=== PATIENT | male | born 1965 | race Caucasian/White ===

== ENCOUNTER 2023-07-02 10:21 | Outpatient (OUT) | payer OTHER, SELFPAY ==
--- NOTE | 2023-07-02 | CT_ITS ---
The [address] [address] Patient Name: BHAVIN WHEATLEY MRN: [id number] date: 1965 Sex: M Assigned Patient Location: CT Current Patient Location: CT Accession/Order Number: [id number] Exam Date: 07/02/2023 10:58 Report Date: 07/05/2023 07:20 At the request of: KAMALJIT JACOBSEN Procedure: CT lung screening low-dose EXAMINATION: CT lung screening low-dose HISTORY: TOBACCO USE COMPARISON: No relevant comparison available. TECHNIQUE: Axial, Coronal, and Sagittal images were created without the administration of IV contrast material. Dose reduction techniques were achieved by using automated exposure control and/or adjustment of mA and/or kV according to patient size and/or use of iterative reconstruction technique. FINDINGS: LUNGS: Scattered punctate pulmonary nodules the largest is a groundglass nodule in the left upper lobe measuring 4 mm axial image #68. PLEURA: No mass, effusion, or pneumothorax. VASCULATURE: No abnormality. AUDI: No mass or pathologic adenopathy. MEDIASTINUM: No mass or pathologic adenopathy. CARDIAC: No enlargement, pericardial thickening, or significant calcification. AORTA: No aneurysm or dissection. CHEST WALL: No mass or axillary adenopathy BONES: No bone lesion or fracture. LIMITED ABDOMEN: No suspicious findings. Limited images of the upper abdomen. OTHER: Negative. CT/CT lung screening low-dose IMPRESSION: LUNG SCREENING: Lung-RADS Category 2- Benign Appearance or Behavior. Nodules with a very low likelihood of becoming a clinically active cancer due to size or lack of growth. 2. Continue annual screening with LDCT in 12 months. Electronically authenticated by: AMY ORR Date: 07/05/2023 07:20
[2023-07-02 10:53] LABS: Basophils Absolute Auto 0.1 10^3/uL (0.0-0.1); Basophils Percent Auto 0.7 % (0.2-2.0); Eosinophils Absolute Auto 0.3 10^3/uL (0.0-0.7); Eosinophils Percent Auto 2.6 % (0.9-7.0); Hematocrit 41.6 % (42.0-54.0); Hemoglobin 13.7 g/dL (14.0-18.0); Immature Granulocytes Abs Auto 0.05 10^3/uL (0.00-0.03); Immature Granulocytes Pct Auto 0.4 % (0.0-0.5); Lymphocytes Absolute Auto 2.5 10^3/uL (1.2-3.8); Mean Corpuscular HGB Conc 32.9 g/dL (29.9-35.2); Mean Corpuscular Hemoglobin 26.9 pg (25.9-34.0); Mean Corpuscular Volume 81.7 fL (80.0-94.0); Mean Platelet Volume 9.9 fL (9.5-13.5); Monocytes Absolute Auto 1.1 10^3/uL (0.3-0.8); Monocytes Percent Auto 8.8 % (1.7-12.0); Neutrophils Percent Auto 66.5 % (43.0-75.0); Platelet Count 298 10^3/uL (150-450); Red Blood Count 5.09 10^6/uL (4.70-6.10); White Blood Count 12.1 10^3/uL (4.0-11.0)
[2023-07-02 11:17] LABS: Estimated Average Glucose 114 mg/dL; Glycohemoglobin A1C 5.6 % (4.5-6.2)
[2023-07-02 11:36] LABS: Alanine Aminotransferase 27 U/L (16-63); Albumin Globulin Ratio 1.1; Albumin Level 3.7 g/dL (3.4-5.0); Alkaline Phosphatase 79 U/L (46-116); Anion Gap 10.1; Aspartate Amino Transferase 26 U/L (15-37); BUN Creatinine Ratio 15.6; Bilirubin Total 0.4 mg/dL (0.2-1.0); Calcium 8.7 mg/dL (8.5-10.1); Chloride 106 mmol/L (98-107); Chol HDL Ratio 2.9; Cholesterol 156 mg/dL (<=200); Estimated GFR (African America >60 (>=60); Estimated GFR (Non-African Ame >60 (>=60); Free T3 2.83 pg/mL (2.18-3.98); Globulin 3.3 g/dL; Glucose 93 mg/dL (74-106); HDL Cholesterol 54 mg/dL (40-60); LDL Cholesterol Calculated 95.6 mg/dL; Potassium 4.1 mmol/L (3.5-5.1); Sodium 138 mmol/L (136-145); Thyroid Stimulating Hormone 1.332 uIU/mL (0.358-3.740); Triglycerides 32 mg/dL (<=150); VLDL CHOLESTEROL 6.4 mg/dL
[2023-07-02 11:53] LABS: Prostate Specific Antigen Scrn 4.85 ng/mL (<=4.00)
== END 2023-07-02 10:22 | disposition home or self-care (01) ==
PROVIDERS: PCP Family Medicine; Visit Provider Family Medicine
DX: Z00.00 Encounter for general adult medical examination without abnormal findings (principal); Z72.0 Tobacco use; Z12.5 Encounter for screening for malignant neoplasm of prostate
CPT/HCPCS: 36415; 71271; 80053; 80061; 83036; 84436; 84443; 84481; 85025; G0103

== ENCOUNTER 2023-07-05 17:09 | Outpatient (REF) | payer OTHER, SELFPAY ==
[2023-07-07 04:07] LABS: PSA, Free 0.49 ng/mL; Prostate Specific Ag 4.3 ng/mL (0.0-4.0)
== END 2023-07-05 17:10 | disposition home or self-care (01) ==
LOC: LAB 17:09
PROVIDERS: PCP Family Medicine; Visit Provider Family Medicine
DX: R97.20 Elevated prostate specific antigen [PSA] (principal)
CPT/HCPCS: 36415; 83036; 84153; 84154

== ENCOUNTER 2023-07-15 08:04 | Outpatient (OUT) | payer OTHER, SELFPAY ==
[2023-07-15 08:33] LABS: Basophils Percent Auto 0.3 % (0.2-2.0); Eosinophils Absolute Auto 0.1 10^3/uL (0.0-0.7); Eosinophils Percent Auto 1.1 % (0.9-7.0); Immature Granulocytes Pct Auto 0.9 % (0.0-0.5); Lymphocytes Absolute Auto 2.5 10^3/uL (1.2-3.8); Lymphocytes Percent Auto 21.7 % (20.5-60.0); Mean Corpuscular HGB Conc 32.6 g/dL (29.9-35.2); Mean Corpuscular Hemoglobin 27.1 pg (25.9-34.0); Mean Corpuscular Volume 83.2 fL (80.0-94.0); Mean Platelet Volume 10.1 fL (9.5-13.5); Monocytes Absolute Auto 1.1 10^3/uL (0.3-0.8); Monocytes Percent Auto 9.1 % (1.7-12.0); Neutrophils Absolute Auto 7.7 10^3/uL (1.4-6.5); Neutrophils Percent Auto 66.9 % (43.0-75.0); Platelet Count 311 10^3/uL (150-450); Red Blood Count 5.17 10^6/uL (4.70-6.10); Red Cell Distribution Width 14.8 % (11.0-15.0); White Blood Count 11.6 10^3/uL (4.0-11.0)
== END 2023-07-15 08:05 | disposition home or self-care (01) ==
PROVIDERS: PCP Family Medicine; Visit Provider Family Medicine
DX: D72.829 Elevated white blood cell count, unspecified (principal)
CPT/HCPCS: 36415; 85025

== ENCOUNTER 2023-08-02 21:51 | Outpatient (OUT) | payer OTHER, SELFPAY | END 2023-08-02 21:52 | disposition home or self-care (01) | LOC: SLEEP 21:51 | PROVIDERS: PCP Family Medicine; Visit Provider Family Medicine | DX: G47.33 Obstructive sleep apnea (adult) (pediatric) (principal) | CPT/HCPCS: 95810 ==

== ENCOUNTER 2023-09-06 20:53 | Outpatient (OUT) | payer OTHER, SELFPAY | END 2023-09-06 20:54 | disposition home or self-care (01) | LOC: SLEEP 20:53 | PROVIDERS: PCP Family Medicine; Visit Provider Family Medicine | DX: G47.33 Obstructive sleep apnea (adult) (pediatric) (principal) | CPT/HCPCS: 95811 ==

== ENCOUNTER 2023-11-11 10:43 | Outpatient (OUT) | payer BC, SELFPAY ==
--- OUTSIDE RECORDS SUMMARY | 2023-11-11 10:49 | XMS_ITS | CCD ---
Author Name Unknown Address [address] [place] [address] Organization [facility] Care Team Providers Care [employer] Name Role Phone PIERCE CHRISTIAN Admitting Unavailable PIERCE CHRISTIAN Attending Unavailable DR KAMALJIT MEDELLIN Primary Care Unavailable PIERCE CHRISTIAN Consulting Unavailable Kamaljit Medellin Primary Care Physician [phone] Lewis IVY Attending Unavailable Lewis IVY Attending Unavailable Kamaljit Medellin Referring Unavailable Lewis IVY Attending Unavailable Lewis IVY Referring Unavailable Lewis IVY Admitting Unavailable Lewis IVY Attending Unavailable Allergies Allergy Classification Reported Allergen(s) Allergy Type Date of Onset Reaction(s) Facility (2 sources) Penicillin; Translations: [penicillin] Drug Allergy Unknown (qualifier value) [facility] Medications Current Medications Medication Drug Class(es) Dates Sig (Normalized) Sig (Original) aspirin 81 mg delayed release oral tablet (1 source) Platelet Aggregation Inhibitor, Nonsteroidal Anti-inflammatory Drug Start: 07-25-2023 take 1 mg by mouth once daily aspirin 81 mg Oral EC Tab mg tab(s), Oral, Daily, Refills(s) 0 Start Date: 07/25/23 Status: Ordered atorvastatin 40 mg oral tablet (1 source) HMG-CoA Reductase Inhibitor Start: 07-25-2023 atorvastatin 40 mg Tab Refills(s) 0 Start Date: 07/25/23 Status: Ordered ciprofloxacin 500 mg oral tablet (1 source) Quinolone Antimicrobial Start: 07-25-2023 take 1 tablet by mouth twice daily Cipro 500 mg Tab 500 mg = 1 tab(s), Oral, BID, Start 3 days prior to the procedure, # 14 tab(s), Refills(s) 0, Pharmacy: [facility]/pharmacy #[id number], 175, cm, 07/25/23 12:54:00 EDT, Height/Length Dosing, 80, kg, 07/25/23 12:54:00 EDT, Weight Dosing Start Date: 07/25/23 Status: Ordered 24 hr desvenlafaxine succinate 50 mg extended release oral tablet (1 source) Serotonin and Norepinephrine Reuptake Inhibitor Start: 07-25-2023 desvenlafaxine 50 mg Tab- Refills(s) 0 Start Date: 07/25/23 Status: Ordered doxazosin 2 mg oral tablet (1 source) alpha-Adrenergic Divya Start: 07-25-2023 doxazosin 2 mg Tab Refills(s) 0 Start Date: 07/25/23 Status: Ordered sildenafil 100 mg oral tablet (1 source) Phosphodiesterase 5 Inhibitor Start: 07-25-2023 sildenafil 100 mg Tab Refills(s) 0 Start Date: 07/25/23 Status: Ordered traZODone hydrochloride 50 mg oral tablet (1 source) Serotonin Reuptake Inhibitor Start: 07-25-2023 traZODONE 50 mg Tab Refills(s) 0 Start Date: 07/25/23 Status: Ordered Completed/Discontinued Medications Medication Drug Class(es) Dates Sig (Normalized) Sig (Original) triamcinolone acetonide 1 mg/ml topical cream (1 source) Corticosteroid Start: 07-25-2023 triamcinolone Top 0.1% Crm 15 gram Refill(s) 0 Start Date: 07/25/23 Status: Ordered Problems Problem Classification Problem Date Documented Date Episodic/Chronic Acute bronchitis (4 sources) Acute bronchitis, unspecified; Translations: [ACUTE BRONCHITIS UNSPECIFIED] Onset: 10-08-2022 Episodic Essential hypertension (1 source) Hypertensive disorder 07-25-2023 Chronic Other screening for suspected conditions (not mental disorders or infectious disease) (2 sources) Raised prostate specific antigen; Translations: [Elevated prostate specific antigen [PSA]] Onset: 07-25-2023 Episodic Substance-related disorders (1 source) Smoker 07-25-2023 Chronic Comment on above: Added secondary to d ocumentation in Social History. Unclassified (1 source) CONTACT W/AND (SUSP) EXPOS COVID-19; Translations: [CONTACT W/AND (SUSP) EXPOS COVID-19] Onset: 10-11-2022 Results Test Name Value Interpretation Reference Range Facility Physician Referralon 023 Physician Referral [id number] #1.00TIFF [facility] Ambulatory Visit Summaryon 1 Ambulatory Visit Summary BHAVIN WHEATLEY :1965 Visit Date:08/26/2023 Ambulatory Visit Instructions Your Diagnosis Prostate cancer Erectile dysfunction Your Care Team Attending Physician - Lewis IVY MD Primary Care Physician - Kamaljit Medellin MD This Is Your Medications List Contact prescribing physician if questions or concerns aspirin (aspirin 81 mg Oral EC Tab) atorvastatin (atorvastatin 40 mg Tab) desvenlafaxine (desvenlafaxine 50 mg Tab-) doxazosin (doxazosin 8 mg oral tablet) levofloxacin (levofloxacin 750 mg Tab) sildenafil (sildenafil 100 mg Tab) trazodone (traZODONE 50 mg Tab) triamcinolone topical (triamcinolone Top 0.1% Crm 15 gram) Procedures Performed Transrectal needle biopsy of prostate (08/09/2023), Colonoscopy. Discharge Vitals Heart Rate (Peripheral) 65 Respiratory Rate 16 Blood Pressure 138/70 Height 175 cm Height 69 in Weight 80 kg Weight 176 lb BMI 26.12 What to do next You Need to Schedule the Following Appointments Follow Up with KARINA ANTHONY, Lewis Mcpherson, URL When: Where: [address] [place] [address]- Medications What How Much When Instructions Unchanged aspirin (aspirin 81 mg Oral EC Tab) Every day Contact prescribing physician if questions or concerns Unchanged atorvastatin (atorvastatin 40 mg Tab) Contact prescribing physician if questions or concerns Unchanged desvenlafaxine (desvenlafaxine 50 mg Tab-) Contact prescribing physician if questions or concerns Unchanged doxazosin (doxazosin 8 mg oral tablet) Contact prescribing physician if questions or concerns Unchanged levofloxacin (levofloxacin 750 mg Tab) Contact prescribing physician if questions or concerns Unchanged sildenafil (sildenafil 100 mg Tab) Contact prescribing physician if questions or concerns Unchanged trazodone (traZODONE 50 mg Tab) Contact prescribing physician if questions or concerns Unchanged triamcinolone topical (triamcinolone Top 0.1% Crm 15 gram) Contact prescribing physician if questions or concerns Allergies penicillin (Unknown) Problems Ongoing - Any problem that you are currently receiving treatment for. Elevated PSA Erectile dysfunction Hypertension Prostate cancer Smoker Patient Survey You may receive a survey via text or e-mail asking about your office visit. Please share your experience with us by completing your survey. We appreciate your feedback and thank you for choosing us for your care. Education Materials Prostate Cancer The prostate is a small gland that produces fluid that makes up semen (seminal fluid). It is located below the bladder in men, in front of the rectum. Prostate cancer is the abnormal growth of cells in the prostate gland. What are the causes? The exact cause of this condition is not known. What increases the risk? You are more likely to develop this condition if: ? You are 65 years of age or older. ? You have a family history of prostate cancer. ? You have a family history of breast and ovarian cancer. ? You have genes that are passed from parent to child (inherited), such as BRCA1 and BRCA2. ? You have Bentley syndrome. men and men of descent are diagnosed with prostate cancer at higher rates than other men. The reasons for this are not well understood and are likely due to a combination of genetic and environmental factors. What are the signs or symptoms? Symptoms of this condition include: ? Problems with urination. This may include: ? A weak or interrupted flow of urine. ? Trouble starting or stopping urination. ? Trouble emptying the bladder all the way. ? The need to urinate more often, especially at night. ? Blood in urine or semen. ? Persistent pain or discomfort in the lower back, lower abdomen, or hips. ? Trouble getting an erection. ? Weakness or numbness in the legs or feet. How is this diagnosed? This condition can be diagnosed with: ? A digital rectal exam. For this exam, a health care provider inserts a gloved finger into the rectum to feel the prostate gland. ? A blood test called a prostate-specific antigen (PSA) test. ? A procedure in which a sample of tissue is taken from the prostate and checked under a microscope (prostate biopsy). ? An imaging test called transrectal ultrasonography. Once the condition is diagnosed, tests will be done to determine how far the cancer has spread. This is called staging the cancer. Staging may involve imaging tests, such as a bone scan, CT scan, PET scan, or MRI. Stages of prostate cancer The stages of prostate cancer are as follows: ? Stage 1 (I). At this stage, the cancer is found in the prostate only. The cancer is not visible on imaging tests, and it is usually found by accident, such as during prostate surgery. ? Stage 2 (II). At this stage, the cancer is more advanced than it is in stage 1, but the ca (more content not included)... Normal Kurt [facility] Patient Educationon 08-26-20 23 Patient Education Oncology Prostate Cancer The prostate is a small gland that produces fluid that makes up semen (seminal fluid). It is located below the bladder in men, in front of the rectum. Prostate cancer is the abnormal growth of cells in the prostate gland. What are the causes? The exact cause of this condition is not known. What increases the risk? You are more likely to develop this condition if: ? You are 65 years of age or older. ? You have a family history of prostate cancer. ? You have a family history of breast and ovarian cancer. ? You have genes that are passed from parent to child (inherited), such as BRCA1 and BRCA2. ? You have Bentley syndrome. men and men of descent are diagnosed with prostate cancer at higher rates than other men. The reasons for this are not well understood and are likely due to a combination of genetic and environmental factors. What are the signs or symptoms? Symptoms of this condition include: ? Problems with urination. This may include: ? A weak or interrupted flow of urine. ? Trouble starting or stopping urination. ? Trouble emptying the bladder all the way. ? The need to urinate more often, especially at night. ? Blood in urine or semen. ? Persistent pain or discomfort in the lower back, lower abdomen, or hips. ? Trouble getting an erection. ? Weakness or numbness in the legs or feet. How is this diagnosed? This condition can be diagnosed with: ? A digital rectal exam. For this exam, a health care provider inserts a gloved finger into the rectum to feel the prostate gland. ? A blood test called a prostate-specific antigen (PSA) test. ? A procedure in which a sample of tissue is taken from the prostate and checked under a microscope (prostate biopsy). ? An imaging test called transrectal ultrasonography. Once the condition is diagnosed, tests will be done to determine how far the cancer has spread. This is called staging the cancer. Staging may involve imaging tests, such as a bone scan, CT scan, PET scan, or MRI. Stages of prostate cancer The stages of prostate cancer are as follows: ? Stage 1 (I). At this stage, the cancer is found in the prostate only. The cancer is not visible on imaging tests, and it is usually found by accident, such as during prostate surgery. ? Stage 2 (II). At this stage, the cancer is more advanced than it is in stage 1, but the cancer has not spread outside the prostate. ? Stage 3 (III). At this stage, the cancer has spread beyond the outer layer of the prostate to nearby tissues. The cancer may be found in the seminal vesicles, which are near the bladder and the prostate. ? Stage 4 (IV). At this stage, the cancer has spread to other parts of the body, such as the lymph nodes, bones, bladder, rectum, liver, or lungs. Prostate cancer grading Prostate cancer is also graded according to how the cancer cells look under a microscope. This is called the Karrie score and the total score can range from 6?10, indicating how likely it is that the cancer will spread (metastasize) to other parts of the body. The higher the score, the greater the likelihood that the cancer will spread. ? Fillmore 6 or lower: This indicates that the cancer cells look similar to normal prostate cells (well differentiated). ? Fillmore 7: This indicates that the cancer cells look somewhat similar to normal prostate cells (moderately differentiated). ? Fillmore 8, 9, or 10: This indicates that the cancer cells look very different than normal prostate cells (poorly differentiated). How is this treated? Treatment for this condition depends on several factors, including the stage of the cancer, your age, personal preferences, and your overall health. Talk with your health care provider about treatment options that are recommended for you. Common treatments include: ? Observation for early stage prostate cancer (active surveillance). This involves having exams, blood tests, and in some cases, more biopsies. For some men, this is the only treatment needed. ? Surgery. Types of surgeries include: ? Open surgery (radical prostatectomy). In this surgery, a larger incision is made to remove the prostate. ? A laparoscopic radical prostatectomy. This is a surgery to remove the prostate and lymph nodes through several small incisions. It is often referred to as a minimally invasive surgery. ? A robotic radical prostatectomy. This is laparoscopic surgery to remove the prostate and lymph nodes with the help of robotic arms that are controlled by the surgeon. ? Cryoablation. This is surgery to freeze and destroy cancer cells. ? Radiation treatment. Types of radiation treatment include: ? External beam radiation. This type aims beams of radiation from outside the body at the prostate to destroy cancerous cells. ? Brachytherapy. This type uses radioactive needles, seeds, wires, or tubes that are implanted into the prostate gland. Like external be (more content not included)... Normal Kurt [facility] Urology Office/Clinic Noteon 08-26-2023 Urology Office/Clinic Note Chief Complaint elevated PSA, review path from TRUS BX HPI Staff Pt is here to go over pathology from TRUS Bx done 08/09/23. Previous dx of elevated PSA. Pt states that he has not felt good since his procedure. Pain on the right flank area and some right abdominal pain. He is currently on Levofloxacin 750 for the congestion in his head and chest. Dysuria: no Incomplete bladder emptying: no Hematuria: no Frequency: no Urgency: yes Nocturia: since procedure several times Stream: little slower Leaking: no Post void dripping: yes Wearing pads/ Depends: no Urge incontinence: no Stress incontinence: no Incontinence without Sensory Awareness: no Abdominal pain: right sided Flank pain: right sided since TRUS X Sexual complaints: no History of Present Illness Tests reviewed: Reviewed path report. I have reviewed the previous health record information and history for this patient from Dr. Ivy. I have reviewed and verified the staff HPI to be accurate for this encounter. There have been no associated fever, chills, flank pain, or blood in the urine. Denies any urinary infections since last encounter. Review of Systems PHQ Score Initial Depression Screen Score: 0 ROS - Provider Constitutional: denies weight loss, denies hot flashes. Eyes: denies eye problems. Gastrointestinal: denies nausea, denies vomiting. Cardiovascular: denies chest pain or angina. Integumentary: no dryness Musculoskeletal: denies musculoskeletal symptoms. ENMT: denies otolaryngeal symptoms. Respiratory: no shortness of breath. Heme/Lymph: denies easy bleeding tendency, denies easy bruising tendency. Psychiatric: no confusion, no anxiety. Genitourinary: See HPI. Physical Exam Vitals & Measurements HR: 65(Peripheral) RR: 16 BP: 138/70 HT: 69 in HT: 175 cm WT: 80 kg WT: 176 lb BMI: 26.12 General Appearance: alert, no distress, well nourished, well developed male. Genitourinary: normal scrotum, normal testes, normal urethra, normal epididymis, normal vas deferens/spermatic cord. Flank Pain: none. Bladder: nonpalpable. Assessment/Plan Taking Doxazosin 2 mg qd for HTN and possible urination benefit through PCP. No UTIs. 1. Prostate cancer (C61: Malignant neoplasm of prostate) PSA: 09/08/19 - 1.94 07/05/23 - 4.30 & 11% No family hx of prostate ca. Father passed at 84 yo RAY 07/25/23: 40 gm, no nodules. S/p TRUS/bx 08/09/23. Path reveals Fillmore 6 (3+3), 3% of core involved by tumor, 1 of 1 core involved. ADONIS - right lateral mid. HGPIN - right apex and right lateral base. Results reviewed with pt. Prostate cancer book provided. Pt states he has been having right flank pain and some right abdominal pain. Denies gross hematuria or blood in stool. Denies fever, chills, N/V. Has noticed blood in ejaculate. Explained to pt hematospermia is normal following bx and could last for months. Explained to pt and his ex- that current dx is not risky and ACTIVE SURVEILLANCE is indicated. No tx is necessary at this time. Offered pt a second opinion, but pt does not feel it's necessary. -PSA and RAY in 6 months -Repeat bx in 1 year to compare to initial bx 2. Erectile dysfunction (N52.9: Male erectile dysfunction, unspecified) Pt is unable to achieve an erection. He gets approx. 10% on his own. Does not wake up with an erection. Pt states he has tried Sildenafil through primary care but did not notice an improvement with erections. Did notice a faster heartbeat. Explained to pt that oral medications will not help since he is not able to achieve much of an erection. Discussed options for ED, including erection pumps and intracorporal injection therapy. Pt states he has his second sleep study coming up and will be started on a CPAP. Informed pt that his erections may improve after sleep apnea is treated. -Pt to think about options Follow-up With When Contact Information KARINA ANTHOYN, Lewis Mcpherson, URL [address] [place] [address]- Additional Instructions: 6 months w/ PSA Patient Education Prostate Cancer I, Olga Lidia Rizzo, personally scribed for Dr. Ivy on 08/26/2023 10:31:19. . Documentation recorded by the scribe, Olga Lidia Rizzo, accurately reflects the services(s) I performed and decisions made by me. Authenticated by Dr. Ivy on 08/26/2023 10:35:30. Problem List/Past Medical History Ongoing Elevated PSA Erectile dysfunction Hypertension Prostate cancer Smoker Historical No qualifying data Procedure/Surgical History Transrectal needle biopsy of prostate (08/09/2023), Colonoscopy. Medications aspirin 81 mg Oral EC Tab, Oral, Daily atorvastatin 40 mg Tab desvenlafaxine 50 mg Tab- doxazosin 8 mg oral tablet levofloxacin 750 mg Tab sildenafil 100 mg Tab traZODONE 50 mg Tab triamcinolone Top 0.1% Crm 15 gram Allergies penicillin (Unknown) Social History Alcohol - Denies Alcohol Use, 0 (more content not included)... Normal [facility] Comment on above: Result Comment: Elec tronically Signed By: Lewis IVY MD\.br\Date and Time Signed: 08/26/23 10:35 EDT\.br\Electronically Co-Signed By: Olga Lidia Rizzo\.br\Date and Time Co-Signed: 08/26/23 10:31 EDT Prostate Histology ([facility]) on 08-18-2023 Prostate Histology Diagnosis Info Invalid Interpretation Code [facility] Comment on above: Order Comment: ONE B ITE FOR EACH AREA Result Comment: A:Pr ostate,Left Lateral Base:Needle Biopsy Interpretation - - Benign prostatic tissue. MicroScopic Description - B:Prostate,Left Lateral Mid:Needle Biopsy Interpretation - - Acinar adenocarcinoma of prostate; Fillmore score 6(3+3); Tumor measures 0.06 cm in length; 3% of the core involved by tumor; 1 of 1 core involved (see comment). MicroScopic Description - C:Prostate,Left Lateral [place]:Needle Biopsy Interpretation - - Benign prostatic tissue. MicroScopic Description - D:Prostate,Left Base:Needle Biopsy Interpretation - - Benign prostatic tissue. MicroScopic Description - E:Prostate,Left Mid:Needle Biopsy Interpretation - - Benign prostatic tissue. MicroScopic Description - F:Prostate,Left [place]:Needle Biopsy Interpretation - - Benign prostatic tissue. MicroScopic Description - G:Prostate,Right Base:Needle Biopsy Interpretation - - Benign prostatic tissue. MicroScopic Description - H:Prostate,Right Mid:Needle Biopsy Interpretation - - Benign prostatic tissue. MicroScopic Description - I:Prostate,Right [place]:Needle Biopsy Interpretation - - High-grade prostatic intraepithelial neoplasia (HGPIN) (see comment). MicroScopic Description - J:Prostate,Right Lateral Base:Needle Biopsy Interpretation - - High-grade prostatic intraepithelial neoplasia (HGPIN). MicroScopic Description - K:Prostate,Right Lateral Mid:Needle Biopsy Interpretation - - Atypical small acinar glands (see comment). MicroScopic Description - L:Prostate,Right Lateral [place]:Needle Biopsy Interpretation - - Benign prostatic tissue. MicroScopic Description - Gross Description Site ID:A color winston-white fixative Formalin cores 1 units cm Site ID:B color winston-white fixative Formalin cores 1 units cm Site ID:C color winston-white fixative Formalin cores 1 units cm Site ID:D color winston-white fixative Formalin cores 1 units cm Site ID:E color winston-white fixative Formalin cores 1 units cm Site ID:F color winston-white fixative Formalin cores 1 units cm Site ID:G color winston-white fixative Formalin cores 1 units cm Site ID:H color winston-white fixative Formalin cores 1 units cm Site ID:I color winston-white fixative Formalin cores 1 units cm Site ID:J color winston-white fixative Formalin cores 1 units cm Site ID:K color winston-white fixative Formalin cores 1 units cm fragmneted Site ID:L color winston-white fixative Formalin cores 1 units cm CPT 14210 x 12 55022 x 3 Highest grade group: Fillmore score 3+3=6, grade group 1. Highest percentage of core involvement: 3% Cribriform pattern 4: Absent B, I and K: Immunostain HMW cytokeratins /p63/ P504S (PIN4 immunostain) reviewed, supporting the rendered diagnosis. This Grade Group system was recently endorsed by both the International Society of Urological Pathology (ISUP, 2015) and the World Health Organization (WHO). The use of one or more reagents in the above tests is regulated as an analytic specific reagent (ASR). The performance characteristics were determined by the [employer], [place]. They have not been cleared by the US Food and Drug Administration. The FDA has determined that such clearance or approval is not necessary. Appropriate positive and negative controls are performed and are acceptable. Electronically signed by : on: 08/18/2023 10:27:16 Performed By: #### 1 [id number] ####[facility] [address] [place] [address] IntraOperative Documentson 1 IntraOperative Documents [id number] #1.00TIFF Normal [facility] Consent for Procedure/Surger yon 08-09-2023 Consent for Procedure/Surgery [id number] #1.00TIFF Normal [facility] Consent for Treatmenton 07-31 Consent for Treatment [id number] #1.00TIFF Normal [facility] IntraOperative Documentson IntraOperative Documents [id number] #1.00TIFF [facility] Main OR Intraoperative Recor don 08-09-2023 Main OR Intraoperative Record IntraOp Document Type FTURO Summary Primary Physician: Lewis IVY MD Finalized Date/Time: 08/09/23 14:16:45 Pt. Name: BHAVIN WHEATLEY D.O.B./Sex: 1965 Male Med Rec #: [id number] Physician: Lewis IVY MD Financial #: [id number] Pt. Type: O Room/Bed: / Admit/Disch: 08/09/23 12:53:04 - Institution: Case Times FTURO Entry 1 Patient Times In Room 08/09/23 13:53:00 Out Room 08/09/23 14:12:00 Procedure Times Start 08/09/23 13:58:00 Stop 08/09/23 14:06:00 Anesthesia Times Last Modified By: Nettie Maxwell RN 08/09/23 14:12:23 Case Attendance FTURO Entry 1 Entry 2 Entry 3 Case Attendee Lewis IVY MD FABRIC SEPARATOR OPERATOR, Nettie Maxwell RN, Nettie Hilliard Role Performed Surgeon - Primary Scrub - Primary [employer] - Primary Time In 08/09/23 13:53:00 08/09/23 13:53:00 08/09/23 13:53:00 Time Out 08/09/23 14:12:00 08/09/23 14:12:00 08/09/23 14:12:00 Procedure PROSTATE TRANSRECTAL PROSTATE TRANSRECTAL PROSTATE TRANSRECTAL ULTRASOUND WITH BIO(.) ULTRASOUND WITH BIO(.) ULTRASOUND WITH BIO(.) Comments Last Modified By: Nettie Maxwell RN, RN, Nettie Bragg RN 08/09/23 14:12:24 08/09/23 14:12:24 08/09/23 14:12:24 Surgical Procedures FTURO Entry 1 Procedure Description Procedure PROSTATE TRANSRECTAL Modifiers . ULTRASOUND WITH BIOPSY Surgeon Description PROSTATE TRANSRECTAL ULTRASOUND WITH BIOPSY Primary Procedure Yes Primary Surgeon KARINA ANTHONY, Lewis Mcpherson Start 08/09/23 13:58:00 Stop 08/09/23 14:06:00 Anesthesia Type Local Surgical Service Urology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 should be exercised in using it in the provision of clinical care. This summary normalizes information from multiple sources, and as a consequence, information in this document may materially change the coding, format and clinical context of patient data. In addition, data may be omitted in some cases. CLINICAL DECISIONS SHOULD BE BASED ON THE PRIMARY CLINICAL RECORDS. [facility] provides no warranty or guarantee of the accuracy or completeness of information in this document.
[2023-11-11 12:42] LABS: Prostate Specific Antigen Scrn 7.01 ng/mL (<=4.00)
[2023-11-15 08:09] LABS: PSA, Free 0.73 ng/mL; Prostate Specific Ag 5.9 ng/mL (0.0-4.0)
== END 2023-11-11 10:44 | disposition home or self-care (01) ==
LOC: LAB 10:46
PROVIDERS: PCP Family Medicine; Visit Provider Family Medicine
DX: Z12.5 Encounter for screening for malignant neoplasm of prostate (principal)
CPT/HCPCS: 36415; 84153; 84154; G0103

== ENCOUNTER 2024-02-07 08:24 | Outpatient (OUT) | payer BC, SELFPAY ==
--- OUTSIDE RECORDS SUMMARY | 2024-02-07 08:47 | XMS_ITS | CCD ---
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 Injury It is common [...] at home: Medicines ? Take and apply qykl-lxj-egfzvle and prescription medicines only as told by [...] cannot use soap and water, use hand bdc manager. ? Change your bandage as told by [...] 04/04/2009 Document Revised: 12/01/2016 Document Reviewed: 04/30/2016 [employer] Interactive Patient Education ? 2019 [employer]. Viruses or Bacteria What?s got you sick? [...] for Disease Control and Prevention July 2014 [facility] Vital Signs Date Time Vital Sign Value Performing Clinician Gianna bustillos 11-21-2023 11:16-0500 Blood Pressure Location [facility] IV[facility] 11-21-2023 11:16-0500 Diastolic blood pressure 76 mm[Hg] Lewis IVY [facility] 11-21-2023 11:16-0500 Heart rate 72 /min Lewis IV[facility] 11-21-2023 11:16-0500 Respiratory rate 16 /min Lewis IVY [facility] 11-21-2023 11:16-0500 Systolic blood pressure 129 mm[Hg] Lewis IVY [facility] 07-25-2023 12:46-0400 Blood Pressure Location Lewis IVY [facility] 07-25-2023 12:46-0400 Diastolic blood pressure 77 mm[Hg] Lewis IVY [facility] 07-25-2023 12:46-0400 Heart rate 69 /min Lewis IVY [facility] 07-25-2023 12:46-0400 Respiratory rate 16 /min Lewis IVY [facility] 07-25-2023 12:46-0400 Systolic blood pressure 142 mm[Hg] Lewis IVY [facility] Encounters Encounter Date Encounter Type Care Provider Facility Start: 02-24-2024 ambulatory Lewis IVY Facili ty:[facility] Start: 11-21-2023 End: 11-21-2023 Patient encounter procedure Lewis IVY [facility] Start: 08-26-2023 End: 08-27-2023 ambulatory Lewis IVY Facility:[facility] Start: 08-09-2023 End: 08-10-2023 ambulatory Lewis IVY Facility:[facility] Start: 07-25-2023 End: 07-26-2023 ambulatory Kamaljit Medellin Facility:[facility] Start: 07-25-2023 End: 07-25-2023 Patient encounter procedure Lewis IVY [facility] Start: 07-07-2023 ambulatory Lewis IVY Facility :[facility] Start: 10-08-2022 End: 10-08-2022 ambulatory PIERCE CHRISTIAN Facility: Procedures Date Procedure Procedure Detail Performing Clinician Start: 08-09-2023 Transrectal needle b iopsy of prostate Lewis IVY [facility] Payers Date Payer Category Payer Unknown [id number] [id number] 1965 Unknown [id number] [id number] 1965 Unknown [id number] [id number] [id number] 1964 Unknown [id number] [id number] [id number] 1964 Unknown [id number] 2.16.8 [id number] 1959 Unknown [id number] Social History Date Type Detail Facility Start: 07-25-2023 Tobacco smoking status Smoker (findi ng) [facility] Sex Assigned At Male [facility] Functional Status Date Assessment Result Facility 11-21-2023 Functional Status N/A [facility] 07-25-2023 Functional Status N/A [facility] Hospital Discharge instructions 11-21-2023 Note Date & Type Note Facility 11-21-2023 Hospital Discharg e instructions Patient Education 11/21/2023 12:12:20 Prostate Cancer Prostate Cancer The prostate is a small [...] more likely to develop this condition if: You are 65 years of age or older. You have a family history of prostate cancer. You have a family history of breast and ovarian cancer. You have genes that are passed from parent to child (inherited), such as BRCA1 and BRCA2. You have Bentley syndrome. men and men of descent are diagnosed with prostate cancer at higher rates than other men. The reasons for this are not well understood and are likely due to a combination of genetic and environmental factors. What are the signs or symptoms? Symptoms of this condition include: Problems with urination. This may include: ?A weak or interrupted flow of urine. ?Trouble starting or stopping urination. ?Trouble emptying the bladder all the way. ?The need to urinate more often, especially at night. Blood in urine or semen. Persistent pain or discomfort in the lower back, lower abdomen, or hips. Trouble getting an erection. Weakness or numbness in the legs or feet. How is this diagnosed? This condition can be diagnosed with: A digital rectal exam. For this exam, a health care provider inserts a gloved finger into the rectum to feel the prostate gland. A blood test called a prostate-specific antigen (PSA) test. A procedure in which a sample of tissue is taken from the prostate and checked under a microscope (prostate biopsy). An imaging test called transrectal ultrasonography. Once the condition is diagnosed, tests will be done to determine how far the cancer has spread. This is called staging the cancer. Staging may involve imaging tests, such as a bone scan, CT scan, PET scan, or MRI. Stages of prostate cancer The stages of prostate cancer are as follows: Stage 1 (I). At this stage, the cancer is found in the prostate only. The cancer is not visible on imaging tests, and it is usually found by accident, such as during prostate surgery. Stage 2 (II). At this stage, the cancer is more advanced than it is in stage 1, but the cancer has not spread outside the prostate. Stage 3 (III). At this stage, the cancer has spread beyond the outer layer of the prostate to nearby tissues. The cancer may be found in the seminal vesicles, which are near the bladder and the prostate. Stage 4 (IV). At this stage, the cancer has spread to other parts of the body, such as the lymph nodes, bones, bladder, rectum, liver, or lungs. Prostate cancer grading Prostate cancer is also graded according to how the cancer cells look under a microscope. This is called the Durham score and the total score can range from 6 10, indicating how likely it is that the cancer will spread (metastasize) to other parts of the body. The higher the score, the greater the likelihood that the cancer will spread. Karrie 6 or lower: This indicates that the cancer cells look similar to normal prostate cells (well differentiated). Durham 7: This indicates that the cancer cells look somewhat similar to normal prostate cells (moderately differentiated). Karrie 8, 9, or 10: This indicates that the cancer cells look very different than normal prostate cells (poorly differentiated). How is this treated? Treatment for this condition depends on several factors, including the stage of the cancer, your age, personal preferences, and your overall health. Talk with your health care provider about treatment options that are recommended for you. Common treatments include: Observation for early stage prostate cancer (active surveillance). This involves having exams, blood tests, and in some cases, more biopsies. For some men, this is the only treatment needed. Surgery. Types of surgeries include: ?Open surgery (radical prostatectomy). In this surgery, a larger incision is made to remove the prostate. ?A laparoscopic radical prostatectomy. This is a surgery to remove the prostate and lymph nodes through several small incisions. It is often referred to as a minimally invasive surgery. ?A robotic radical prostatectomy. This is laparoscopic surgery to remove the prostate and lymph nodes with the help of robotic arms that are controlled by the surgeon. ?Cryoablation. This is surgery to freeze and destroy cancer cells. Radiation treatment. Types of radiation treatment include: ?External beam radiation. This type aims beams of radiation from outside the body at the prostate to destroy cancerous cells. ?Brachytherapy. This type uses radioactive needles, seeds, wires, or tubes that are implanted into the prostate gland. Like external beam radiation, brachytherapy destroys cancerous cells. An advantage is that this type of radiation limits the damage to surrounding tissue and has fewer side effects. Chemotherapy. This treatment kills cancer cells or stops them from multiplying. It kills both cancer cells and normal cells. Targeted therapy. This treatment uses medicines to kill cancer cells without damaging normal cells. Hormone treatment. This treatment involves taking medicines that act on testosterone, one of the male hormones, by: ?Stopping your body from producing testosterone. ?Blocking testosterone from reaching cancer cells. Follow these instructions at home: Lifestyle Do not use any products that contain nicotine or tobacco. These products include cigarettes, chewing tobacco, and vaping devices, such as e-cigarettes. If you need help quitting, ask your health care provider. Eat a healthy diet. To do this: ?Eat foods that are high in fiber. These include beans, whole grains, and fresh fruits and vegetables. ?Limit foods that are high in fat and sugar. These include fried or sweet foods. Treatment for prostate cancer may affect sexual function. If you have a partner, continue to have intimate moments. This may include touching, holding, hugging, and caressing your partner. Get plenty of sleep. Consider joining a support group for men who have prostate cancer. Meeting with a support group may help you learn to manage the stress of having cancer. General instructions Take xkpn-zjk-xcvtmqr and prescription medicines only as told by your health care provider. If you have to go to the hospital, notify your cancer specialist (oncologist). Keep all follow-up visits. This is important. Where to find more information [place] [employer]: www.cancer.org [place] [employer] On[employer]: www.cancer.net National Cancer [place]: www.cancer.gov Contact a health care provider if: You have new or increasing trouble urinating. You have new or increasing blood in your urine. You have new or increasing pain in your hips, back, or chest. Get help right away if: You have weakness or numbness in your legs. You cannot control urination or your bowel movements (incontinence). You have chills or a fever. Summary The prostate is a small gland that is involved in the production of semen. It is located below a man's bladder, in front of the rectum. Prostate cancer is the abnormal growth of cells in the prostate gland. Treatment for this condition depends on the stage of the cancer, your age, personal preferences, and your overall health. Talk with your health care provider about treatment options that are recommended for you. Consider joining a support group for men who have prostate cancer. Meeting with a support group may help you learn to manage the stress of having cancer. This information is not intended to replace advice given to you by your health care provider. Make sure you discuss any questions you have with your health care provider. Document Revised: 01/13/2022 Document Reviewed: 01/13/2022 [employer] Patient Education 2022 [employer]. Follow Up Care 08/26/2023 10:34:03 With:KARINA ANTHONY, Lewis Mcpherson, URL Address: [facility] [address] , [place] [address]- [phone] When:Within 3 Month(s) Comments:f/u in 3 months with PSA [facility] [place] History and physical note 08-09-2023 Note Date & Type Note Facility 08-09-2023 Note [id number] [facility] Clinical Note 07-25-2023 Note Date & Type [...] order Local anesthesia. Prophylactic abx sent to [facility] [place]. Follow-up With When Contact Information KARINA ANTHONY, Lewis Mcpherson, URL [facility] [address], [place] [address]- Additional Instructions: schedule TRUS of Prostate with Biopsy Patient Education Transrectal Ultrasound-Guided Prostate Biopsy, Care After Transrectal Ultrasound-Guided Prostate Biopsy Whitney Carnes, personally scribed for Dr. Ivy on 07/25/2023 [...] Use:. Cigarettes (more content not included)... [facility] Comment on above: Result Comment: Elec tronically [...] discomfort near your rectum, especially while sitting. [place]-colored urine due to small amounts of blood in your urine. A burning feeling while urinating. Blood in your stool (feces) or bleeding from your rectum. Blood in your semen. Follow these instructions at home: Medicines Take vkmm-smn-aesoijy and prescription medicines only as told by [...] provider. Document Revised: 04/12/2022 Document Reviewed: 04/12/2022 [employer] Patient Education 2022 [employer] 07/25/2023 13:32:38 Transrectal Ultrasound-Guided Prostate Biopsy Transrectal [...] including vitamins, herbs, eye drops, creams, and wusc-rfy-szdcyqp medicines. Any problems you or family members [...] provider tells you to take them. Taking mjnh-fme-stboykt medicines, vitamins, herbs, and supplements. General instructions [...] provider. Document Revised: 04/12/2022 Document Reviewed: 04/12/2022 [employer] Patient Education 2022 [employer]. Follow Up Care 07/07/2023 14:50:33 With:KARINA ANTHONY, Lewis R, URL Address: [facility] [address] [place] [address]- When: Unknown [facility] Evaluation + Plan note Radiology Note Date & Type Note Facility Evaluation + Plan note Future Appointments Appointment Date:07/26/2023 08:15:00 AM Scheduled Provider: Location:[facility] Appointment Type:Urology CALL PAT FT Appointment Date:08/09/2023 01:30:00 PM Scheduled Provider: Location:[facility] Appointment Type:Urology FT Appointment Date:08/09/2023 01:30:00 PM Scheduled Provider: Location:.UROLOGY Appointment Type: Prostate Urology (FT) Future Scheduled TestsUS Prostate, [facility] 08/09/23 [facility] Evaluation + Plan note Note Date & Type Note Facility Evaluation + Plan note Future Appointments Appointment Date:02/13/2024 01:45:00 PM Scheduled Provider:Lewis IVY MD Location:[facility] Appointment Type:URO Office Visit Diagnostic Tests PendingPSA Total 11/21/23 [facility] Hospital course Narrative Note Date & Type Note Facility Hospital course Narrative No data available for this section [facility] [employer] [place] note Note Date & Type Note Facility [place] note No data available for this section [facility] Summary Purpose Family History No Family History Records FoundNo Family History Records FoundNo Family History Records Found No data available for this section Advance Directives No Advanced Directives Records FoundNo Advanced Directives Records FoundNo Advanced Directives Records Found Additional Source Comments (unrecognized sect ion and content) No Status Records FoundNo Status Records FoundNo Status Records Found INFORMATION SOURCE (unrecogn ized section and content) DATE CREATED AUTHOR 08/07/2019 [facility] DATE CREATED AUTHOR AUTHOR'S ORGANIZ ATION 10/12/2022 [facility] DATE CREATED AUTHOR AUTHOR'S ORGANIZ ATION 09/22/2023 Kurt Bae [facility] Patient Care team informatio n (unrecognized section and content) Personnel Name: Kamaljit Medellin MD Address: Address: [address] [place] [address] Personnel Name: Kamaljit Medellin MD Address: Address: [address] [place] [address] FOR RECORDS PERTAINING TO PATIENTS WHO ARE [...] BE BASED ON THE PRIMARY CLINICAL RECORDS. [facility] [employer] [facility]. provides no warranty or guarantee of the accuracy or completeness of information in this document.
[2024-02-07 10:17] LABS: Prostate Specific Antigen Dx 5.83 ng/mL (<=4.00)
[2024-02-09 04:07] LABS: PSA, Free 0.63 ng/mL; Prostate Specific Ag 4.9 ng/mL (0.0-4.0)
== END 2024-02-07 08:25 | disposition home or self-care (01) ==
LOC: LAB 08:26
PROVIDERS: PCP Family Medicine; Visit Provider Urology
DX: C61 Malignant neoplasm of prostate (principal); R97.20 Elevated prostate specific antigen [PSA]
CPT/HCPCS: 36415; 84153; 84154

== ENCOUNTER 2024-03-27 08:20 | Outpatient (OUT) | payer BC, SELFPAY ==
--- OUTSIDE RECORDS SUMMARY | 2024-03-27 08:40 | XMS_ITS | CCD ---
Author Organization [facility] Care Team Providers Care Berry Grower Name Role Phone PIERCE CHRISTIAN Admitting Unavailable PIERCE CHRISTIAN Attending Unavailable DR KAMALJIT MEDELLIN Primary Care Unavailable PIERCE CHRISTIAN Consulting Unavailable Kamaljit Medellin Primary Care Physician Lewis IVY Attending Unavailable Lewis IVY Attending Unavailable Lewis IVY Attending Unavailable Lewis IVY Attending Unavailable Kamaljit Medellin Referring Unavailable Lewis IVY Attending Unavailable Lewis IVY Admitting Unavailable Lewis IVY Referring Unavailable Lewis IVY Attending Unavailable Allergies Allergy Classification Reported Allergen(s) Allergy Type Date of Onset Reaction(s) Facility (4 sources) Penicillin; Translations: [penicillin] Drug Allergy Unknown (qualifier value) [facility] Medications Current Medications Medication Drug Class(es) Dates Sig (Normalized) Sig (Original) aspirin 81 mg delayed release oral tablet (3 sources) Platelet Aggregation Inhibitor, Nonsteroidal Anti-inflammatory Drug Start: 07-25-2023 take 1 mg by mouth once daily aspirin 81 mg Oral EC Tab mg tab(s), Oral, Daily, Refills(s) 0 Start Date: 07/25/23 Status: Ordered atorvastatin 40 mg oral tablet (3 sources) HMG-CoA Reductase Inhibitor Start: 07-25-2023 atorvastatin 40 mg Tab Refills(s) 0 Start Date: 07/25/23 Status: Ordered ciprofloxacin 500 mg oral tablet (1 source) Quinolone Antimicrobial Start: 07-25-2023 take 1 tablet by mouth twice daily Cipro 500 mg Tab 500 mg = 1 tab(s), Oral, BID, Start 3 days prior to the procedure, # 14 tab(s), Refills(s) 0, Pharmacy: [facility]/pharmacy #[id number], 175, cm, 07/25/23 12:54:00 EDT, Height/Length Dosing, 80, kg, 07/25/23 12:54:00 EDT, Weight Dosing Start Date: 07/25/23 Status: Ordered CoQ10 (1 source) Start: 02-13-2024 CoQ10 Oral, Daily, Refills(s) 0 Start Date: 02/13/24 Status: Ordered Cranberry preparation (1 source) Non-Standardized Food Allergenic Extract, Non-Standardized Plant Allergenic Extract Start: 02-13-2024 Cranberry Refill(s) 0 Start Date: 02/13/24 Status: Ordered 24 hr desvenlafaxine succinate 50 mg extended release oral tablet (3 sources) Serotonin and Norepinephrine Reuptake Inhibitor Start: 07-25-2023 desvenlafaxine 50 mg Tab- Refills(s) 0 Start Date: 07/25/23 Status: Ordered doxazosin 8 mg oral tablet (3 sources) alpha-Adrenergic Diyva Start: 08-26-2023 doxazosin 8 mg oral tablet [...] day(s), # 14 tab(s), Refills(s) 0, Pharmacy: [facility] #[id number], 175, cm, 11/21/23 11:35:00 EST, Height/Length Dosing, 80.2, kg, 11/21/23 11:35:00 EST, Weight Dosing Start Date: 11/21/23 Stop Date: 12/05/23 Status: Ordered sildenafil 100 mg oral tablet (3 sources) Phosphodiesterase 5 Inhibitor Start: 07-25-2023 sildenafil 100 mg Tab Refills(s) 0 Start Date: 07/25/23 Status: Ordered traMADol hydrochloride 50 mg oral tablet (1 source) Opioid Agonist Start: 02-13-2024 traMADOL 50 mg Tab Refills(s) 0 Start Date: 02/13/24 Status: Ordered traZODone hydrochloride 50 mg oral tablet (3 sources) Serotonin Reuptake Inhibitor Start: 07-25-2023 traZODONE 50 mg Tab Refills(s) 0 Start Date: 07/25/23 Status: Ordered Completed/Discontinued Medications Medication Drug Class(es) Dates Sig (Normalized) Sig (Original) triamcinolone acetonide 1 mg/ml topical cream (3 sources) Corticosteroid Start: 07-25-2023 triamcinolone Top 0.1% Crm 15 gram Refill(s) 0 Start Date: 07/25/23 Status: Ordered Problems Problem Classification Problem Date Documented Date Episodic/Chronic Acute bronchitis (4 sources) Acute bronchitis, unspecified; Translations: [ACUTE BRONCHITIS UNSPECIFIED] Onset: 10-08-2022 Episodic Cancer of prostate (4 sources) Malignant neoplasm of prostate; Translations: [Malignant tumor of prostate] Onset: 11-18-2023 Chronic Essential hypertension (3 sources) Hypertensive disorder 07-25-2023 Chronic Hyperplasia of prostate (2 sources) Benign prostatic hypertrophy with outflow obstruction; Translations: [Benign prostatic hyperplasia with lower urinary tract symptoms] Onset: 02-13-2024 Chronic Inflammatory conditions of male genital organs (3 sources) Prostatitis; Translations: [Inflammatory disease of prostate, unspecified] Onset: 11-21-2023 Episodic Other male genital disorders (4 sources) Male erectile dysfunction, unspecified; Translations: [Erectile dysfunction] Onset: 11-18-2023 Chronic Other screening for suspected conditions (not mental disorders or infectious disease) (4 sources) Raised prostate specific antigen; Translations: [Elevated prostate specific antigen [PSA]] Onset: 07-25-2023 Episodic Substance-related disorders (3 sources) Smoker 07-25-2023 Chronic Comment on above: Added secondary to d ocumentation in Social History. Unclassified (1 source) CONTACT W/AND (SUSP) EXPOS COVID-19; Translations: [CONTACT W/AND (SUSP) EXPOS COVID-19] Onset: 10-11-2022 Results Test Name Value Interpretation Reference Range Facility Ambulatory Visit Summaryon 0 02-13-2024 Ambulatory Visit Summary BHAVIN WHEATLEY :1965 Visit Date:02/13/2024 Ambulatory Visit Instructions Your Diagnosis Prostate cancer Erectile dysfunction Prostatitis BPH with urinary obstruction Your Care Team Attending Physician - eLwis IVY MD Primary Care Physician - Kamaljit Medellin MD This Is Your Medications List doxazosin (doxazosin 8 mg oral tablet) sildenafil (sildenafil 100 mg Tab) Contact prescribing physician if questions or concerns aspirin (aspirin 81 mg Oral EC Tab) atorvastatin (atorvastatin 40 mg Tab) cranberry (Cranberry) desvenlafaxine (desvenlafaxine 50 mg Tab-) tramadol (traMADOL 50 mg Tab) trazodone (traZODONE 50 mg Tab) triamcinolone topical (triamcinolone Top 0.1% Crm 15 gram) ubiquinone (CoQ10) Procedures Performed Transrectal needle biopsy of prostate (08/09/2023), Colonoscopy. Discharge Vitals Heart Rate (Peripheral) 82 Respiratory Rate 16 Blood Pressure 124/73 Height 175 cm Height 69 in Weight 80 kg Weight 176 lb BMI 26.12 What to do next Scheduled Follow-Up Appointments Tuesday 12:15 PM EDT With: Lewis IVY MD Where: [facility] Lab Reportson 02-13-2024 Lab Reports [id number] #1.00TIFF Normal [facility] Patient Educationon 02-13-20 Patient Education Oncology Prostate Cancer The prostate [...] under a microscope. This is called the [place] score and the total score can range from 6?10, indicating how likely it is that the cancer will spread (metastasize) to other parts of the body. The higher the score, the greater the likelihood that the cancer will spread. ? [place] 6 or lower: This indicates that the cancer cells look similar to normal prostate cells (well differentiated). ? [place] 7: This indicates that the cancer cells look somewhat similar to normal prostate cells (moderately differentiated). ? Karrie 8, 9, or 10: This indicates [...] external be (more content not included)... [facility] Urology Office/Clinic Noteon 02-13-2024 Urology Office/Clinic Note Chief Complaint 3m PSA HPI Staff 3 month f/u with PSA Dx: prostate cancer (ACTIVE SURVEILLANCE), ED and prostatitis PSA done 02/07/24 is 5.83 *Doxazosin 8mg from PCP for HTN. Also Sildenafil PRN-pt states he does not use Denies pain/burning and visible blood in urine. Mild intermittent urgency, denies loss of bladder control. Denies complaints with stream. Mild intermittent Post Void dribbling. Pt states he has been reading up on prostate cancer. Would like to get prostate removed. History of Present Illness Tests reviewed: reviewed UA, PSA I have reviewed the previous health record information and history for this patient from Dr. Ivy. I have reviewed and verified the staff HPI to be accurate for this encounter. Review of Systems PHQ Score Initial Depression Screen Score: 0 SCORE ROS - Provider Constitutional: denies weight loss, [...] HPI. Physical Exam Vitals & Measurements HR: 82(Peripheral) RR: 16 BP: 124/73 HT: 69 in HT: 175 cm WT: 80 kg WT: 176 lb BMI: 26.12 General Appearance: alert, no distress, well nourished, well developed male. Genitourinary: normal scrotum, normal testes, normal urethra, normal epididymis, normal vas deferens/spermatic cord. Flank Pain: none. Bladder: nonpalpable. Prostate: normal prostate, estimated weight 35 gms, no hard nodule observed. Assessment/Plan 1. Prostate cancer (C61: Malignant neoplasm of prostate) ACTIVE SURVEILLANCE PSA: 09/08/19 - 1.94 07/05/23 - 4.30 & 11% 11/11/23 - 7.01 (total); 5.9 & 12.4% (free and total) 02/07/24 - 5.83 (total); 4.9 & 12.9% (free and total) - treated with Levaquin 400mg x2w prior to blood draw No family hx of prostate ca. Father passed at 84 yo. RAY: 35 gm, no nodules. S/p TRUS/bx 08/09/23. Path reveals Karrie 6 (3+3), 3% of core involved by tumor, 1 of 1 core involved. ADONIS - right lateral mid. HGPIN - right apex and right lateral base. PSA has decreased from prior. Counseled pt there is no indication for treatment at this time given biopsy had minimal involvement and level is within pt's usual range. Pt inquired about a prostatectomy. Educated pt risks outweighing benefits given current stage of prostate cancer and quality of life. Reassured pt we will continue to monitor PSA closely and repeat biopsy would be due later this year. -PSA, RAY in 4 mos 2. Erectile dysfunction (N52.9: Male erectile dysfunction, unspecified) Sildenafil 100mg prn therapy. 3. Prostatitis (N41.9: Inflammatory disease of prostate, unspecified) Pt was previously taking a while to empty and had increased frequency. Was treated with Levaquin 400mg x2 weeks at prior OV. UA today negative for infection. 4. BPH with urinary obstruction (N40.1: Benign prostatic hyperplasia with lower urinary tract symptoms) On Doxazosin 8mg qd. Not voicing any urinary habit complaints. Follow-up With When Contact Information KARINA ANTHONY, Lewis Mcpherson, URL [facility] [address], [place] [address]- [phone] Additional Instructions: 4 mos w/ PSA, RAY Patient Education Prostate Cancer I, Fozia Wilkerson, personally scribed for Dr. Ivy on 02/13/2024 15:38:40. . Documentation recorded by the scribe, Fozia Wilkerson, accurately reflects the services(s) I performed and decisions made by me. Authenticated by Dr. Ivy on 02/13/2024 15:42:43. Problem List/Past Medical History Ongoing Elevated PSA Erectile dysfunction Hypertension Prostate cancer Prostatitis Smoker Historical No qualifying data Procedure/Surgical History Transrectal needle biopsy of prostate (08/09/2023), Colonoscopy. Medications aspirin 81 mg Oral EC Tab, Oral, Daily atorvastatin 40 mg Tab CoQ10, Oral, Daily Cranberry desvenlafaxine 50 mg Tab- doxazosin 8 mg oral tablet sildenafil 100 mg Tab traMADOL 50 mg Tab traZODONE 50 mg Tab triamcinolone Top 0.1% Crm 15 gram Allergies penicillin (Unknown) Social History Alcohol - Denies Alcohol Use, 07/25/2023 Substance Abuse - Denies Substance Abuse, 07/25/2023 Tobacco 10 or more cigarettes (1/2 pack or more)/day in last 30 days Tobacco Use:. Never Smokeless Tobacco Use:. Cigarettes, Household tobacco concerns: No. Yes, 02/13/2024 Family History Alcoholism: Sister. [facility] Comment on above: Result Comment: Elec tronically Signed By: Lewis IVY MD\.br\Date and Time Signed: 02/13/24 15:42 EDT\.br\Electronically Co-Signed By: Fozia Wilkerson\aranza\Date and Time Co-Signed: 02/13/24 15:39 EDT Lab Reportson 02-07-2024 Lab Reports [id number] #1.00TIFF [facility] Ambulatory Visit Summaryon 0 11-21-2023 Ambulatory Visit Summary BHAVIN WHEATLEY :1965 Visit Date:11/21/2023 Ambulatory Visit Instructions Your Diagnosis Prostate cancer Erectile dysfunction Prostatitis Tests Performed Urnls Dip Stick Auto w/o Microscopy POC 53949 MRI Pelvis (Soft Tissue) w/o contrast -- Results Pending -- Please visit your patient portal for your results or contact your primary care physician. Your Care Team Attending Physician - Lewis IVY MD Primary Care Physician - Kamaljit Medellin MD This Is Your Medications List levofloxacin (Levaquin 500 mg Tab) sildenafil (sildenafil 100 mg Tab) Contact prescribing physician if questions or concerns aspirin (aspirin 81 mg Oral EC Tab) atorvastatin (atorvastatin 40 mg Tab) desvenlafaxine (desvenlafaxine 50 mg Tab-) doxazosin (doxazosin 8 mg oral tablet) trazodone (traZODONE 50 mg Tab) triamcinolone topical (triamcinolone Top 0.1% Crm 15 gram) Procedures Performed Transrectal needle biopsy of prostate (08/09/2023), Colonoscopy. Discharge Vitals Heart Rate (Peripheral) 72 Respiratory Rate 16 Blood Pressure 129/76 Height 175 cm Height 69 in Weight 80.2 kg Weight 176.44 lb BMI 26.19 What to do next Scheduled Follow-Up Appointments Tuesday 1:45 PM EDT With: Lewis IVY MD Where: [facility] Patient Educationon 11-21-19 Patient Education Oncology Prostate Cancer The prostate [...] under a microscope. This is called the [place] score and the total score can range from 6?10, indicating how likely it is that the cancer will spread (metastasize) to other parts of the body. The higher the score, the greater the likelihood that the cancer will spread. ? [place] 6 or lower: This indicates that the cancer cells look similar to normal prostate cells (well differentiated). ? Karrie 7: This indicates that the cancer cells look somewhat similar to normal prostate cells (moderately differentiated). ? [place] 8, 9, or 10: This indicates that [...] external be (more content not included)... [facility] Urology Office/Clinic Noteon 11-21-2023 Urology Office/Clinic Note Chief Complaint prostate cancer (ACTIVE SURVEILLANCE) HPI Staff 6m PSA for ACTIVE SURVEILLANCE DX: Prostate Cancer *Taking Doxazosin 8 mg qd for HTN and possible urination benefit through PCP. PSA 11/11/23 *7.01 Dysuria: no Incomplete bladder emptying: no Hematuria: no Frequency: frequency has increased Urgency: yes Nocturia: 0-1x Stream: weaker but steady until the end and then has a lot of dripping Leaking: no Post void dripping: yes Wearing pads/ Depends: no Urge incontinence: no Stress incontinence: no Incontinence without Sensory Awareness: no Abdominal pain: upper mid abdomen sometimes Flank pain: no Sexual complaints: no History of Present Illness Tests Reviewed: Reviewed UA, and PSA level. I have reviewed and verified the staff HPI to be accurate for this encounter. I have reviewed the previous health record information and history for this patient from Dr. Ivy There have been no associated fever, chills, flank pain, or blood in the urine. Denies any urinary infections since last encounter. Review of Systems PHQ Score Initial Depression Screen Score: 0 SCORE ROS - Provider Constitutional: denies weight loss, denies hot flashes. Eyes: denies eye problems. Gastrointestinal: denies nausea, denies vomiting. Cardiovascular: denies chest pain or angina. Integumentary: no dryness Musculoskeletal: denies musculoskeletal symptoms. ENMT: denies otolaryngeal symptoms. Respiratory: no shortness of breath. Heme/Lymph: denies easy bleeding tendency, denies easy bruising tendency. Psychiatric: no confusion, no anxiety. Genitourinary: denies dysuria, denies hematuria, denies discharge, mild urinary frequency, denies urinary hesitancy, denies nocturia, denies incontinence, denies genital sores, denies decreased libido, and denies erectile dysfunction. Physical Exam Vitals & Measurements HR: 72(Peripheral) RR: 16 BP: 129/76 HT: 69 in HT: 175 cm WT: 80.2 kg WT: 176.44 lb BMI: 26.19 General Appearance: alert, no distress, well nourished, well developed male. Flank Pain: none. Bladder: nonpalpable. Assessment/Plan 1. Prostate cancer (C61: Malignant neoplasm of prostate) UA done today is negative for blood and infection. Doxazosin 8mg po qd therapy. Patient has been urinating more frequently and urgently. He has no leaking. He has been going to the bathroom more frequently. Discussed with patient PSA can be elevated if he has a prostate infection. It takes him a while to empty. Denies foul smelling urine, penile discharge. Due to patient taking Doxazosin 8mg therapy, will hold off on additional meds for prostate (Dutasteride/Avodart /Finasteride). Patient does not feel urine is out of control, he wants to continue with BP med as he feels it is helping. Will have patient take 2 weeks of abx Levaquin 500mg # 14 prior to next PSA blood test. Patient is doing ACTIVE SURVEILLANCE for prostate cancer. Discussed checking a MRI of prostate w/wo. vs Discussed watching PSA level in the next few months and see if it increases or decreases. Discussed with pt MRI cannot diagnosis a patient with cancer, can only show any concerning areas in the prostate. If an abnormal area shows up, it may require a bx done to the suspicious area. May be done under anesthesia for pt comfort. Discussed waiting 3 month and f/u with PSA/RAY. Is PSA continues to climb, pt will require a second TRUS/BX. PSA: 09/08/19 - 1.94 07/05/23 - 4.30 & 11 PSA 11/11/23 *7.01 PSA 11/11/23 F/t 5.9 with 12.4% free No family hx of prostate ca. Father passed at 84 yo RAY 07/25/23: 40 gm, no nodules. S/p TRUS/bx 08/09/23. Path reveals Karrie 6 (3+3), 3% of core involved by tumor, 1 of 1 core involved. ADONIS - right lateral mid. HGPIN - right apex and right lateral base. Results reviewed with pt. 2. Erectile dysfunction (N52.9: Male erectile dysfunction, unspecified) Sildenadil 100mg prn therapy. 3. Prostatitis (N41.9: Inflammatory disease of prostate, unspecified) See #1. mild. possible cause of elevated psa. f/u in 3 months with PSA Follow-up With When Contact Information KARINA ANTHONY, Lewis Mcpherson, URL In 3 months [facility] [address], [place] [address] [phone] Additional Instructions: f/u in 3 months with PSA Patient Education Prostate Cancer I, Sara Schroeder, personally scribed for Dr. Ivy on 11/21/2023 12:38:52. . Documentation recorded by the scribe, Marylu Phelps, accurately reflects the services(s) I performed and decisions made by me. Problem List/Past Medical History Ongoing Elevated PSA Erectile dysfunction Hypertension Prostate cancer Smoker Historical No qualifying data Procedure/Surgical History Transrectal needle biopsy of prostate (08/09/2023), Colonoscopy. Medications aspirin 81 mg Oral EC Tab, Oral, Daily atorvastatin 40 mg Tab desvenlafaxine 50 mg Tab- doxazosin 8 mg oral tablet sild (more content not included)... [facility] Comment on above: Result Comment: Elec tronically Signed By: Lewis IVY MD\.br\Date and Time Signed: 11/21/23 12:41 EST\.br\Electronically Co-Signed By: Sara Schroeder\.br\Date and Time Co-Signed: 11/21/23 12:39 EST Lab Reportson 11-17-2023 Lab Reports [id number] #1.00TIFF [facility] Physician Referralon 023 Physician Referral [id number] #1.00TIFF [facility] Ambulatory Visit Summaryon 1 Ambulatory Visit Summary BHAVIN WHEATLEY :1965 Visit Date:08/26/2023 Ambulatory Visit Instructions Your Diagnosis Prostate cancer Erectile dysfunction Your Care Team Attending Physician - KARINA ANTHONY, Lewis Mcpherson Primary Care Physician - Kamaljit Medellin MD [...] with KARINA ANTHONY, ARABELLA Espitia When: Where: [address] [place] [address]- Medications What How Much When Instructions Unchanged [...] the ca (more content not included)... [facility] Patient Educationon 08-26-20 23 Patient Education [...] likelihood that the cancer will spread. ? [place] 6 or lower: This indicates that the cancer cells look similar to normal prostate cells (well differentiated). ? [place] 7: This indicates that the cancer cells look somewhat similar to normal prostate cells (moderately differentiated). ? [place] 8, 9, or 10: This indicates that [...] external be (more content not included)... [facility] Urology Office/Clinic Noteon 08-26-2023 Urology Office/Clinic [...] Contact Information KARINA ANTHONY, Lewis Mcpherson, URL [address] [place] [address]- Additional Instructions: 6 months w/ PSA Patient [...] Use, 0 (more content not included)... [facility] Comment on above: Result Comment: Elec tronically Signed By: Lewis IVY MD\.br\Date and Time Signed: 08/26/23 10:35 EDT\.br\Electronically Co-Signed By: Olga Lidia Rizzo.br\Date and Time Co-Signed: 08/26/23 10:31 EDT Prostate Histology ([facility]) on 08-18-2023 Prostate Histology Diagnosis Info Invalid Interpretation Code [facility] Comment on above: Order Comment: ONE B ITE FOR EACH AREA Result Comment: A:Pr ostate,Left Lateral Base:Needle Biopsy Interpretation - - Benign prostatic tissue. MicroScopic Description - B:Prostate,Left Lateral Mid:Needle Biopsy Interpretation - - Acinar adenocarcinoma of prostate; Karrie score 6(3+3); Tumor measures 0.06 cm in length; 3% of the core involved by tumor; 1 of 1 core involved (see comment). MicroScopic Description - C:Prostate,Left Lateral [place]:Needle Biopsy Interpretation - - Benign prostatic tissue. MicroScopic Description - D:Prostate,Left Base:Needle Biopsy Interpretation - - Benign prostatic tissue. MicroScopic Description - E:Prostate,Left Mid:Needle Biopsy Interpretation - - Benign prostatic tissue. MicroScopic Description - F:Prostate,Left [place]:Needle Biopsy Interpretation - - Benign prostatic tissue. MicroScopic Description - G:Prostate,Right Base:Needle Biopsy Interpretation - - Benign prostatic tissue. MicroScopic Description - H:Prostate,Right Mid:Needle Biopsy Interpretation - - Benign prostatic tissue. MicroScopic Description - I:Prostate,Right [place]:Needle Biopsy Interpretation - - High-grade prostatic intraepithelial neoplasia (HGPIN) (see comment). MicroScopic Description - J:Prostate,Right Lateral Base:Needle Biopsy Interpretation - - High-grade prostatic intraepithelial neoplasia (HGPIN). MicroScopic Description - K:Prostate,Right Lateral Mid:Needle Biopsy Interpretation - - Atypical small acinar glands (see comment). MicroScopic Description - L:Prostate,Right Lateral [place]:Needle Biopsy Interpretation - - Benign prostatic tissue. [...] fixative Formalin cores 1 units cm CPT 34477 x 12 [phone] x 3 Highest grade group: [place] score 3+3=6, grade group 1. Highest percentage [...] The performance characteristics were determined by the [employer], [employer]. They have not been cleared by the [place] Food and Drug Administration. The FDA has determined that such clearance or approval is not necessary. Appropriate positive and negative controls are performed and are acceptable. Electronically signed by : on: 08/18/2023 10:27:16 Performed By: #### 1 [id number] ####[facility] [address] [place] [address] IntraOperative Documentson IntraOperative Documents [id number] #1.00TIFF [facility] Consent for Procedure/Surger yon 08-09-2023 Consent for Procedure/Surgery [id number] #1.00TIFF [facility] Consent for Treatmenton 07-31 Consent for Treatment [id number] #1.00TIFF [facility] IntraOperative Documentson IntraOperative Documents [id number] #1.00TIFF [facility] Main OR Intraoperative Recor trevon 08-09-2023 Main OR Intraoperative Record IntraOp Document Type FTURO Summary Primary Physician: Lewis IVY MD Finalized Date/Time: 08/09/23 14:16:45 Pt. Name: DIONI BHAVIN Martinez /Sex: 1965 Male Med Rec #: [id number] Physician: Lewis IVY MD Financial #: [id number] Pt. Type: O Room/Bed: / Admit/Disch: 08/09/23 12:53:04 - Institution: Case Times FTURO Entry 1 Patient Times In Room 08/09/23 13:53:00 Out Room 08/09/23 14:12:00 Procedure Times Start 08/09/23 13:58:00 Stop 08/09/23 14:06:00 Anesthesia Times Last Modified By: Nettie Maxwell RN 08/09/23 14:12:23 Case Attendance FTURO Entry 1 Entry 2 Entry 3 Case Attendee Lewis IVY MD, CST, Nettie Maxwell RN, Nettie Swan Performed Surgeon - Primary Scrub - Primary Inside Sales - Primary Time In 08/09/23 13:53:00 [...] 14:12 Nettie Maxwell RN 08/09/23 14:16 Normal [facility] Main OR Preoperative Recordo n 08-09-2023 Main OR Preoperative Record Holding Area Document Type FTURO Summary Primary Physician: Lewis IVY MD Finalized Date/Time: 08/09/23 13:55:25 Pt. Name: DIONI BHAVIN Martinez /Sex: 1965 Male Med Rec #: [id number] Physician: Lewis IVY MD Financial #: [id number] Pt. Type: O Room/Bed: / Admit/Disch: 08/09/23 [...] of Pain: No Comment: Skin Integrity Intact, [place], Warm, & Dry Vitals - EU Blood Pressure 150/88 Pulse 88 bpm Respirations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
[2024-03-28 04:07] LABS: PSA, Free 0.55 ng/mL; Prostate Specific Ag 4.4 ng/mL (0.0-4.0)
== END 2024-03-27 08:21 | disposition home or self-care (01) ==
LOC: LAB 08:20
PROVIDERS: PCP Family Medicine; Visit Provider Family Medicine
DX: C61 Malignant neoplasm of prostate (principal)
CPT/HCPCS: 36415; 84153; 84154

== ENCOUNTER 2024-05-07 12:35 | Outpatient (OUT) | payer BC, SELFPAY ==
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
[2024-05-08 04:07] LABS: PSA, Free 0.66 ng/mL; Prostate Specific Ag 4.5 ng/mL (0.0-4.0)
== END 2024-05-07 12:36 | disposition home or self-care (01) ==
LOC: LAB 12:37
PROVIDERS: PCP Family Medicine; Visit Provider Family Medicine
DX: C61 Malignant neoplasm of prostate (principal)
CPT/HCPCS: 36415; 84153; 84154

== ENCOUNTER 2024-06-14 08:37 | Outpatient (OUT) | payer BC, SELFPAY ==
--- OUTSIDE RECORDS SUMMARY | 2024-06-14 08:41 | XMS_ITS | CCD ---
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 [id number] 1965 Unknown [id number] 2.16.8 [id number] 1965 Unknown [id number] 2.16.8 [id number] 1965 Unknown [id number] 2.16.8 [id number] 1964 Unknown [id number] 2.16.8 [id number] 1965 Unknown [id number] 2.16.8 [id number] 1959 Unknown [id number] Social History Date Type Detail Facility Start: 07-25-2023 Tobacco smoking status Smoker (findi ng) [facility] Sex Assigned At Male [facility] Start: 02-13-2024 Tobacco smoking status Heavy t obacco smoker (finding) [facility] Tobacco smoking status Never [facility] Functional Status Date Assessment Result Facility 02-13-2024 Functional Status N/A [facility] 11-21-2023 Functional Status N/A [facility] 07-25-2023 Functional Status N/A [facility] Hospital Discharge instructions 02-13-2024 Note Date [...] under a microscope. This is called the Chester score and the total score can range from 6 10, indicating how likely it is that the cancer will spread (metastasize) to other parts of the body. The higher the score, the greater the likelihood that the cancer will spread. Chester 6 or lower: This indicates that the cancer cells look similar to normal prostate cells (well differentiated). Chester 7: This indicates that the cancer cells [...] stress of having cancer. General instructions Take pgql-rdp-gffqpay and prescription medicines only as told by your health care provider. If you have to go to the hospital, notify your cancer specialist (oncologist). Keep all follow-up visits. This is important. Where to find more information [employer]: www.cancer.org [employer] [place] [employer] Clinical Oncology: www.cancer.net [place] Cancer [place]: www.cancer.gov Contact a health care provider if: [...] provider. Document Revised: 01/13/2022 Document Reviewed: 01/13/2022 [employer] Patient Education 2022 [employer]. Follow Up Care 11/21/2023 12:42:13 With:KARINA ANTHONY, Lewis Mcpherson, URL Address: [facility] [address] [place] [address]- [phone] When: Unknown Comments:4 mos w/ PSA, RAY [facility] Hospital Discharge instructions 11-21-2023 Note Date & [...] under a microscope. This is called the Chester score and the total score can range from 6 10, indicating how likely it is that the cancer will spread (metastasize) to other parts of the body. The higher the score, the greater the likelihood that the cancer will spread. Chester 6 or lower: This indicates that the cancer cells look similar to normal prostate cells (well differentiated). Chester 7: This indicates that the cancer cells [...] stress of having cancer. General instructions Take lvld-fjv-vqagyfo and prescription medicines only as told by your health care provider. If you have to go to the hospital, notify your cancer specialist (oncologist). Keep all follow-up visits. This is important. Where to find more information [employer]: www.cancer.org [employer] [place] [employer] Clinical Oncology: www.cancer.net National Cancer [place]: www.cancer.gov Contact a health care provider if: [...] provider. Document Revised: 01/13/2022 Document Reviewed: 01/13/2022 [employer] Patient Education 2022 [employer]. Follow Up Care 08/26/2023 10:34:03 With:KARINA ANTHONY, Lewis Mcpherson, URL Address: [facility] [address] [place] [address]- [phone] When:Within 3 Month(s) Comments:f/u in 3 months with PSA [facility] History and physical note 08-09-2023 Note Date & Type Note Facility 08-09-2023 Note [id number] #[id number] [facility] Discharge instructions 07-25-2023 Note Date & [...] discomfort near your rectum, especially while sitting. [place]-colored urine due to small amounts of blood in your urine. A burning feeling while urinating. Blood in your stool (feces) or bleeding from your rectum. Blood in your semen. Follow these instructions at home: Medicines Take udeg-fbd-beygdgj and prescription medicines only as told by [...] provider. Document Revised: 04/12/2022 Document Reviewed: 04/12/2022 [employer] Patient Education 2022 [employer] 07/25/2023 13:32:38 Transrectal Ultrasound-Guided Prostate Biopsy [...] including vitamins, herbs, eye drops, creams, and durb-yaw-fqxyygp medicines. Any problems you or family members [...] provider tells you to take them. Taking adhp-zho-frxqoym medicines, vitamins, herbs, and supplements. General instructions [...] provider. Document Revised: 04/12/2022 Document Reviewed: 04/12/2022 [employer] Patient Education 2022 [employer]. Follow Up Care 07/07/2023 14:50:33 With:KARINA ANTHONY, Lewis Mcpherson, URL Address: [facility] [address] , [place] [address]- When: Unknown [facility] Clinical Note 07-25-2023 Note Date & Type [...] order Local anesthesia. Prophylactic abx sent to [facility]. Follow-up With When Contact Information KARINA ANTHONY, Lewis Mcpherson, [facility] [address] [place] [address]- Additional Instructions: schedule TRUS of Prostate with [...] Tobacco Use:. Cigarettes (more content not included)... [facility] Comment on above: Result Comment: Elec tronically Signed By: Lewis IVY MD\.br\Date and Time Signed: 07/25/23 13:43 EDT\.br\Electronically Co-Signed By: Whitney Mcintyre\.br\Date and Time Co-Signed: 07/25/23 13:40 EDT Evaluation + Plan note Radiology Note Date & Type Note Facility Evaluation + Plan note Future Appointments Appointment Date:07/26/2023 08:15:00 AM Scheduled Provider: Location:[facility] Appointment Type:Urology CALL PAT FT Appointment Date:08/09/2023 01:30:00 PM Scheduled Provider: Location:[facility] Appointment Type:Urology FT Appointment Date:08/09/2023 01:30:00 PM Scheduled Provider: [facility] Type: Prostate Urology (FT) Future Scheduled TestsUS Prostate, [facility] 08/09/23 [facility] Evaluation + Plan note Note Date & Type Note Facility Evaluation + Plan note Future Appointments Appointment Date:02/13/2024 01:45:00 PM Scheduled Provider:Lewis IVY MD Location:[facility] Appointment Type:URO Office Visit Diagnostic Tests PendingPSA Total 11/21/23 [facility] Evaluation + Plan note Note Date & Type Note Facility Evaluation + Plan note Future Appointments Appointment Date:06/04/2024 12:15:00 PM Scheduled Provider:Lewis IVY MD Location:[facility] Appointment Type:URO Office Visit Diagnostic Tests PendingPSA Total 02/13/24 [facility] Hospital course Narrative Note Date & Type Note Facility Hospital course Narrative No data available for this section [facility] Progress note Note Date & Type Note Facility Progress note No data available for this section [facility] Summary Purpose Family History No Family [...] section and content) DATE CREATED AUTHOR 08/07/2019 [facility] DATE CREATED AUTHOR AUTHOR'S ORGANIZ ATION 10/12/2022 [facility] DATE CREATED AUTHOR AUTHOR'S ORGANIZ ATION 06/05/2024 [facility] Patient Care team informatio n (unrecognized section and content) Personnel Name: Kamaljit Medellin MD Address: Address: [address] [place] [address] Personnel Name: Kamaljit Medellin MD Address: Address: [address] [place] [address] Personnel Name: Kamaljit Medellin MD Address: Address: [address] [place] [address] FOR RECORDS PERTAINING TO PATIENTS WHO ARE [...] BE BASED ON THE PRIMARY CLINICAL RECORDS. [facility] [employer] [facility]. provides no warranty or guarantee of the accuracy or completeness of information in this document.
[2024-06-15 08:12] LABS: Prostate Specific Ag 4.5 ng/mL (0.0-4.0)
== END 2024-06-14 08:38 | disposition home or self-care (01) ==
LOC: LAB 08:39
PROVIDERS: PCP Family Medicine; Visit Provider Family Medicine
DX: C61 Malignant neoplasm of prostate (principal)
CPT/HCPCS: 36415; 84153; 84154

== ENCOUNTER 2024-07-27 08:02 | Outpatient (OUT) | payer BC, SELFPAY ==
--- OUTSIDE RECORDS SUMMARY | 2024-07-27 08:06 | XMS_ITS | CCD ---
Author Organization [facility] Care Team Providers Care Information And Referral Director Name Role Phone PIERCE CHRISTIAN Admitting Unavailable PIERCE CHRISTIAN Attending Unavailable DR KAMALJIT MEDELLIN Primary Care Unavailable PIERCE CHRISTIAN Consulting Unavailable Kamaljit Medellin Primary Care Physician Lewis IVY Attending Unavailable KARINA, Lewis Mcpherson Referring Unavailable Lewis IVY Admitting Unavailable Lewis IVY Attending Unavailable KARINA, Lewis Mcpherson Attending Unavailable KARINA, Lewis Mcpherson Attending Unavailable KARINA, Lewis Mcpherson Attending Unavailable Kamaljit Medellin Referring Unavailable KARINA, Lewis Mcpherson Attending Unavailable IVY, Lewis Mcpherson Attending Unavailable IVY, Lewsi Mcpherson Attending Unavailable Allergies Allergy Classification Reported Allergen(s) Allergy Type Date of Onset Reaction(s) Facility (5 sources) Penicillin; Translations: [penicillin] Drug Allergy Unknown (qualifier value) [facility] Medications Current Medications Medication Drug Class(es) Dates Sig (Normalized) Sig (Original) aspirin 81 mg delayed release oral tablet (4 sources) Platelet Aggregation Inhibitor, Nonsteroidal Anti-inflammatory Drug Start: 07-25-2023 take 1 mg by mouth once daily aspirin 81 mg Oral EC Tab mg tab(s), Oral, Daily, Refills(s) 0 Start Date: 07/25/23 Status: Ordered atorvastatin 40 mg oral tablet (4 sources) HMG-CoA Reductase Inhibitor Start: 07-25-2023 atorvastatin 40 mg Tab Refills(s) 0 Start Date: 07/25/23 Status: Ordered ciprofloxacin 500 mg oral tablet (2 sources) Quinolone Antimicrobial Start: 06-18-2024 End: 06-25-2024 Cipro 500 mg Tab 500 mg = 1 tab(s), Oral, BID, start 3 days prior to procedure, X 7 day(s), # 14 tab(s), Refills(s) 0, Pharmacy: [facility] #[id number], 175, cm, 06/18/24 13:01:00 EDT, Height/Length Dosing, 80, kg, 06/18/24 13:01:00 EDT, Weight Dosing Start Date: 06/18/24 Stop Date: 06/25/24 Status: Ordered Start: 07-25-2023 take 1 tablet by ranjan th twice daily Cipro 500 mg Tab 500 mg = 1 tab(s), Oral, BID, Start 3 days prior to the procedure, # 14 tab(s), Refills(s) 0, Pharmacy: [facility]/pharmacy #[id number], 175, cm, 07/25/23 12:54:00 EDT, Height/Length Dosing, 80, kg, 07/25/23 12:54:00 EDT, Weight Dosing Start Date: 07/25/23 Status: Ordered CoQ10 (2 sources) Start: 02-13-2024 CoQ10 Oral, Da patricia, Refills(s) 0 Start Date: 02/13/24 Status: Ordered Cranberry preparation (2 sources) Non-Standardized Food Allergenic Extract, Non-Standardized Plant Allergenic Extract Start: 02-13-2024 Cranberry Refill(s) 0 Start Date: 02/13/24 Status: Ordered 24 hr desvenlafaxine succinate 50 mg extended release oral tablet (4 sources) Serotonin and Norepinephrine Reuptake Inhibitor Start: 07-25-2023 desvenlafaxine 50 mg Tab- Refills(s) 0 Start Date: 07/25/23 Status: Ordered doxazosin 8 mg oral tablet (4 sources) alpha-Adrenergic Divya Start: 08-26-2023 doxazosin 8 [...] day(s), # 14 tab(s), Refills(s) 0, Pharmacy: [facility] #[id number], 175, cm, 11/21/23 11:35:00 EST, Height/Length Dosing, 80.2, kg, 11/21/23 11:35:00 EST, Weight Dosing Start Date: 11/21/23 Stop Date: 12/05/23 Status: Ordered sildenafil 100 mg oral tablet (4 sources) Phosphodiesterase 5 Inhibitor Start: 07-25-2023 sildenafil 100 mg Tab Refills(s) 0 Start Date: 07/25/23 Status: Ordered traMADol hydrochloride 50 mg oral tablet (2 sources) Opioid Agonist Start: 02-13-2024 traMADOL 50 mg Tab Refills(s) 0 Start Date: 02/13/24 Status: Ordered traZODone hydrochloride 50 mg oral tablet (4 sources) Serotonin Reuptake Inhibitor Start: 07-25-2023 traZODONE 50 mg Tab Refills(s) 0 Start Date: 07/25/23 Status: Ordered Completed/Discontinued Medications Medication Drug Class(es) Dates Sig (Normalized) Sig (Original) triamcinolone acetonide 1 mg/ml topical cream (4 sources) Corticosteroid Start: 07-25-2023 triamcinolone Top 0.1% Crm 15 gram Refill(s) 0 Start Date: 07/25/23 Status: Ordered Problems Problem Classification Problem Date Documented Date Episodic/Chronic Acute bronchitis (4 sources) Acute bronchitis, unspecified; Translations: [ACUTE BRONCHITIS UNSPECIFIED] Onset: 10-08-2022 Episodic Cancer of prostate (6 sources) Malignant neoplasm of prostate; Translations: [Malignant tumor of prostate] Onset: 11-18-2023 Chronic Essential hypertension (4 sources) Hypertensive disorder 07-25-2023 Chronic Hyperplasia of prostate (4 sources) Benign prostatic hypertrophy with outflow obstruction; Translations: [Benign prostatic hyperplasia with lower urinary tract symptoms] Onset: 02-13-2024 Chronic Inflammatory conditions of male genital organs (5 sources) Prostatitis; Translations: [Inflammatory disease of prostate, unspecified] Onset: 11-21-2023 Episodic Other male genital disorders (6 sources) Male erectile dysfunction, unspecified; Translations: [Erectile dysfunction] Onset: 11-18-2023 Chronic Other screening for suspected conditions (not mental disorders or infectious disease) (5 sources) Raised prostate specific antigen; Translations: [Elevated prostate specific antigen [PSA]] Onset: 09-25-2023 Episodic Substance-related disorders (4 sources) Smoker 07-25-2023 Chronic Comment on above: Added secondary to d ocumentation in Social History. Unclassified (1 source) CONTACT W/AND (SUSP) EXPOS COVID-19; Translations: [CONTACT W/AND (SUSP) EXPOS COVID-19] Onset: 10-11-2022 Results Test Name Value Interpretation Reference Range Facility Ambulatory Visit Summaryon 0 06-18-2024 Ambulatory Visit Summary Ambulatory Visit Summary BHAVIN WHEATLEY :1965 Visit Date:06/18/2024 Ambulatory Visit Instructions Your Diagnosis Prostate cancer Erectile dysfunction BPH with urinary obstruction Prostatitis Your Care Team Attending Physician - KARINA ANTHONY, Lewis Mcpherson Primary Care Physician - Kamaljit Medellin MD This Is Your Medications List ciprofloxacin (Cipro 500 mg Tab) Contact prescribing physician if questions or concerns aspirin (aspirin 81 mg Oral EC Tab) atorvastatin (atorvastatin 40 mg Tab) cranberry (Cranberry) desvenlafaxine (desvenlafaxine 50 mg Tab-) doxazosin (doxazosin 8 mg oral tablet) sildenafil (sildenafil 100 mg Tab) tramadol (traMADOL 50 mg Tab) trazodone (traZODONE 50 mg Tab) triamcinolone topical (triamcinolone Top 0.1% Crm 15 gram) ubiquinone (CoQ10) Procedures Performed Transrectal needle biopsy of prostate (08/09/2023), Colonoscopy. Discharge Vitals Heart Rate (Peripheral) 66 Respiratory Rate 16 Blood Pressure 140/90 Height 175 cm Height 69 in Weight 80 kg Weight 176 lb BMI 26.12 What to do next You Need to Schedule the Following Appointments Follow Up with KARINA ANTHONY, Lewis Mcpherson, URL When: Comments: sched confirmatory TRUS/bx Where: [facility] [address], [place] [address]- [phone] Medications What How Much When Instructions New ciprofloxacin (Cipro 500 mg Tab) 1 Tablets By Mouth 2 times a day Duration: 7 Days start 3 days prior to procedure Pickup at [facility] #[id number] Unchanged aspirin (aspirin 81 mg Oral EC Tab) By Mouth Every day Contact prescribing physician if questions or concerns Unchanged atorvastatin (atorvastatin 40 mg Tab) Contact prescribing physician if questions or concerns Unchanged cranberry (Cranberry) Contact prescribing physician if questions or concerns Unchanged desvenlafaxine (desvenlafaxine 50 mg Tab-) Contact prescribing physician if questions or concerns Unchanged doxazosin (doxazosin 8 mg oral tablet) Contact prescribing physician if questions or concerns Unchanged sildenafil (sildenafil 100 mg Tab) Contact prescribing physician if questions or concerns Unchanged tramadol (traMADOL 50 mg Tab) Contact prescribing physician if questions or concerns Unchanged trazodone (traZODONE 50 mg Tab) Contact prescribing physician if questions or concerns Unchanged triamcinolone topical (triamcinolone Top 0.1% Crm 15 gram) Contact prescribing physician if questions or concerns Unchanged ubiquinone (CoQ10) By Mouth Every day Contact prescribing physician if questions or concerns Pharmacy Information [facility] #[id number]: [address], [place] [phone] Allergies penicillin (Unknown) Problems Ongoing - Any problem that you are currently receiving treatment for. BPH with urinary obstruction Elevated PSA Erectile dysfunction Hypertension Prostate cancer Prostatitis Smoker Patient Survey You may receive a survey via text or e-mail asking about your office visit. Please share your experience with us by completing your survey. We appreciate your feedback and thank you for choosing us for your care. Education Materials Transrectal Ultrasound-Guided Prostate Biopsy, Care [...] near your rectum, especially while sitting. ? [place]-colored urine due to small amounts of blood in your urine. ? A burning feeling while urinating. ? Blood in your stool (feces) or bleeding from your rectum. ? Blood in your semen. Follow these instructions at home: Medicines ? Take [id number] and prescription medicines only as told by [...] This is important. Contact a health care (more content not included)... Normal [facility] Urology Office/Clinic Noteon 06-18-2024 Urology Office/Clinic Note Urology Office/Clinic Note Chief Complaint 5 month follow up HPI Staff 4 month f/u with PSA Dx: prostate cancer (ACTIVE SURVEILLANCE), ED, prostatitis and BPH with urinary obstruction PSA: 09/08/19 - 1.94 07/05/23 - 4.30 & 11% 11/11/23 - 7.01 (total); 5.9 & 12.4% (free and total) 02/07/24 - 5.83 (total); 4.9 & 12.9% (free and total) - treated with Levaquin 400mg x2w prior to blood draw 03/27/24 - 4.4 & 12.5 05/07/24 - 4.5 & 14.7 06/14/24 - 4.5 &13.3 S/p TRUS/bx 08/09/23. Path reveals Karrie 6 (3+3), 3% of core involved by tumor, 1 of 1 core involved. ADONIS - right lateral mid. HGPIN - right apex and right lateral base. Dysuria: denies pain or burning Incomplete bladder emptying: denies Hematuria: denies visible blood Frequency: denies Urgency: denies Nocturia: denies Stream: denies hesitancy, denies weak stream Leaking: denies Post void dripping: yes Wearing pads/ Depends: denies Urge incontinence: denies Stress incontinence: denies Incontinence without Sensory Awareness: denies Abdominal pain: denies Flank pain: denies Sexual complaints: denies History of Present Illness Tests reviewed: reviewed [...] HPI. Physical Exam Vitals & Measurements HR: 66(Peripheral) RR: 16 BP: 140/90 HT: 69 in HT: 175 cm WT: [...] Levaquin 400mg x2w prior to blood draw 03/27/24 - 4.4 & 12.5% 05/07/24 - 4.5 & 14.7% 06/14/24 - 4.5 & 13.3% No family hx of prostate ca. Father passed at 84 yo. RAY: 35 gm, no nodules. S/p TRUS/bx 08/09/23. Path reveals Karrie 6 (3+3), 3% of core involved by tumor, 1 of 1 core involved. ADONIS - right lateral mid. HGPIN - right apex and right lateral base. PSA remains stable. Advised pt he is due for a confirmatory biopsy this year. Pt did not feel he tolerated previous biopsy well and prefers to have this done under anesthesia. -Will schedule TRUS of Prostate with Biopsy. The procedural risks, benefits, details, and treatment alternatives have been discussed with the patient. These include minimal to severe bleeding, infection, blood in the semen, inability to urinate, and severe infection requiring hospitalization and IV antibiotics, among others. Full informed consent has been obtained. Will order Mac anesthesia. 2. Erectile dysfunction (N52.9: Male erectile dysfunction, unspecified) Sildenafil 100mg prn therapy. [1] 3. BPH with urinary obstruction (N40.1: Benign prostatic hyperplasia with lower urinary tract symptoms) On Doxazosin 8mg qd. Not voicing any urinary habit complaints. 4. Prostatitis (N41.9: Inflammatory disease of prostate, unspecified) Was treated with Levaquin 400mg x2 weeks in Oct 2023. UA today negative for infection. Follow-up With When Contact Information Lewis IVY MD, URL [facility] [address], [place] [phone] Additional Instructions: sched confirmatory TRUS/bx Patient Education Transrectal Ultrasound-Guided Prostate Biopsy, Care After Transrectal Ultrasound-Guided Prostate Biopsy IFozia, personally scribed for Dr. Ivy on 06/18/2024 13:52:31. . Documentation recorded by the griceldaibFozia hanks, accurately reflects the services(s) I performed and decisions made by me. Authenticated by Dr. Ivy on 06/18/2024 13:54:42. Problem List/Past Medical History Ongoing BPH with urinary obstruction Elevated PSA Erectile dysfunction Hypertension Prostate cancer Prostatitis Smoker Historical No qualifying data Procedure/Surgical History Transrectal needle biopsy of prostate (08/09/2023), Colon (more content not included)... Normal [facility] Comment on above: Result Comment: Elec tronically Signed By: Lewis IVY MD\.br\Date and Time Signed: 06/18/24 13:54 EDT\.br\Electronically Co-Signed By: Fozia Wilkerson\.br\Date and Time Co-Signed: 06/18/24 13:53 EDT Ambulatory Visit Summaryon 0 02-13-2024 Ambulatory Visit [...] ANTHONY, Lewis Mcpherson Where: [facility] Lab Reportson 02-13-2024 Lab Reports [id number] #1.00TIFF [facility] Patient Educationon 02-13-20 24 Patient Education [...] likelihood that the cancer will spread. ? Karrie 6 or lower: This indicates that [...] external be (more content not included)... Normal [facility] Urology Office/Clinic Noteon 02-13-2024 Urology Office/Clinic [...] no nodules. S/p TRUS/bx 08/09/23. Path reveals Bethel 6 (3+3), 3% of core involved by [...] [facility] [address], [place] [phone] Additional Instructions: 4 mos w/ PSA, RAY [...] Yes, 02/13/2024 Family History Alcoholism: Sister. Normal [facility] Comment on above: Result Comment: Elec tronically Signed By: IVY Lewis ANTHONY\.br\Date and Time Signed: 02/13/24 15:42 EDT\.br\Electronically Co-Signed By: Fozia Wilkerson\.br\Date and Time Co-Signed: 02/13/24 15:39 EDT Lab Reportson 02-07-2024 Lab Reports [id number] #1.00TIFF [facility] Ambulatory Visit Summaryon 0 11-21-2023 Ambulatory Visit Summary BHAVIN WHEATLEY :1965 Visit Date:11/21/2023 Ambulatory Visit Instructions Your Diagnosis Prostate cancer Erectile dysfunction Prostatitis Tests Performed Urnls Dip Stick Auto w/o Microscopy POC 71558 MRI Pelvis (Soft Tissue) w/o contrast -- [...] MD Where: [facility] Patient Educationon 11-21-19 Patient Education Oncology Prostate [...] under a microscope. This is called the Bethel score and the total score can range from 6?10, indicating how likely it is that the cancer will spread (metastasize) to other parts of the body. The higher the score, the greater the likelihood that the cancer will spread. ? Bethel 6 or lower: This indicates that the [...] be (more content not included)... Normal [facility] Urology Office/Clinic Noteon 11-21-2023 Urology Office/Clinic [...] no nodules. S/p TRUS/bx 08/09/23. Path reveals Bethel 6 (3+3), 3% of core involved by [...] PSA Follow-up With When Contact Information KARINA ANTHOYN, Lewis Mcpherson, URL In 3 months [facility] [address], [place] [phone] Additional Instructions: f/u in 3 months with [...] tablet sild (more content not included)... Normal [facility] Comment on above: Result Comment: Elec tronically Signed By: Lewis IVY MD\.br\Date and Time Signed: 11/21/23 12:41 EST\.br\Electronically Co-Signed By: Sara Schroeder\.br\Date and Time Co-Signed: 11/21/23 12:39 EST Lab Reportson 11-17-2023 Lab Reports [id number] #1.00TIFF [facility] Physician Referralon 023 Physician Referral [id number] #1.00TIFF [facility] Ambulatory Visit Summaryon 1 Ambulatory Visit [...] with KARINA ANTHONY, ARABELLA Espitia When: Where: [address] [place] [address]- Medications What How Much When Instructions Unchanged [...] the ca (more content not included)... Normal [facility] Patient Educationon 27-20 23 Patient Education Oncology Prostate Cancer The [...] under a microscope. This is called the Bethel score and the total score can range from 6?10, indicating how likely it is that the cancer will spread (metastasize) to other parts of the body. The higher the score, the greater the likelihood that the cancer will spread. ? Karrie 6 or lower: This indicates that the cancer cells look similar to normal prostate cells (well differentiated). ? Karrie 7: This indicates that the cancer cells look somewhat similar to normal prostate cells (moderately differentiated). ? Bethel 8, 9, or 10: This indicates that [...] external be (more content not included)... Normal [facility] Urology Office/Clinic Noteon 08-26-2023 Urology Office/Clinic [...] no nodules. S/p TRUS/bx 08/09/23. Path reveals Bethel 6 (3+3), 3% of core involved by [...] Contact Information KARINA ANTHONY, Lewis Mcpherson, URL [facility] [place] [id number]- Additional Instructions: 6 months w/ PSA Patient [...] Use, 0 (more content not included)... Normal [facility] Comment on above: Result Comment: Elec tronically Signed By: Lewis IVY MD\.br\Date and Time Signed: 08/26/23 10:35 EDT\.br\Electronically Co-Signed By: Olga Lidia Rizzo\.br\Date and Time Co-Signed: 08/26/23 10:31 EDT Prostate Histology ([facility]) on 08-18-2023 Prostate Histology Diagnosis Info Invalid Interpretation Code [facility] Comment on above: Order Comment: ONE [...] (see comment). MicroScopic Description - C:Prostate,Left Lateral [place]:Needle Biopsy Interpretation - - Benign prostatic tissue. MicroScopic Description - D:Prostate,Left Base:Needle Biopsy Interpretation - - Benign prostatic tissue. MicroScopic Description - E:Prostate,Left Mid:Needle Biopsy Interpretation - - Benign prostatic tissue. MicroScopic Description - F:Prostate,Left [place]:Needle Biopsy Interpretation - - Benign prostatic tissue. MicroScopic Description - G:Prostate,Right Base:Needle Biopsy Interpretation - - Benign prostatic tissue. MicroScopic Description - H:Prostate,Right Mid:Needle Biopsy Interpretation - - Benign prostatic tissue. MicroScopic Description - I:Prostate,Right [place]:Needle Biopsy Interpretation - - High-grade prostatic intraepithelial neoplasia (HGPIN) (see comment). MicroScopic Description - J:Prostate,Right Lateral Base:Needle Biopsy Interpretation - - High-grade prostatic intraepithelial neoplasia (HGPIN). MicroScopic Description - K:Prostate,Right Lateral Mid:Needle Biopsy Interpretation - - Atypical small acinar glands (see comment). MicroScopic Description - L:Prostate,Right Lateral [place]:Needle Biopsy Interpretation - - Benign prostatic tissue. [...] fixative Formalin cores 1 units cm CPT 33818 x 12 41540 x 3 Highest grade group: Bethel score 3+3=6, grade group 1. Highest percentage [...] The performance characteristics were determined by the [employer], [place], [place]. They have not been cleared by the [place] Food and Drug Administration. The FDA has determined that such clearance or approval is not necessary. Appropriate positive and negative controls are performed and are acceptable. Electronically signed by : on: 08/18/2023 10:27:16 Performed By: #### 1 [id number] ####[facility] [id number] [place] [address] IntraOperative Documentson 1 IntraOperative Documents [id number] #1.00TIFF Normal [facility] Consent for Procedure/Surger yon 08-09-2023 Consent for Procedure/Surgery [id number] #1.00TIFF Normal [facility] Consent for Treatmenton 07-31 Consent for Treatment [id number] #1.00TIFF Normal [facility] IntraOperative Documentson 1 IntraOperative Documents [id number] #1.00TIFF Normal [facility] Main OR Intraoperative Recor trevon 08-09-2023 Main OR Intraoperative Record IntraOp Document Type FTURO Summary Primary Physician: Lewis IVY MD Finalized Date/Time: 08/09/23 14:16:45 Pt. Name: BHAVIN WHEATLEY Michelle BishopB./Sex: 1965 Male Med Rec #: [id number] Physician: Lewis IVY MD Financial #: [id number] Pt. Type: O Room/Bed: / Admit/Disch: 08/09/23 12:53:04 - Institution: Case Times FTURO Entry 1 Patient Times In Room 08/09/23 13:53:00 Out Room 08/09/23 14:12:00 Procedure Times Start 08/09/23 13:58:00 Stop 08/09/23 14:06:00 Anesthesia Times Last Modified By: Nettie Maxwell RN 08/09/23 14:12:23 Case Attendance FTURO Entry 1 Entry 2 Entry 3 Case Attendee KARINA ANTHONY, Lewis Reyna MAGNETIC OBSERVER, Nettie Maxwell RN, Nettie Hilliard Role Performed Surgeon - Primary Scrub - Primary Properties Supervisor - Primary Time In 08/09/23 13:53:00 08/09/23 [...] 14:12 Nettie Maxwell RN 08/09/23 14:16 Normal [facility] Main OR Preoperative Recordo n 08-09-2023 Main OR Preoperative Record Holding Area Document Type FTURO Summary Primary Physician: Lewis IVY MD Finalized Date/Time: 08/09/23 13:55:25 Pt. Name: BHAVIN WHEATLEY /Sex: 1965 Male Med Rec #: [id number] Physician: Lewis IVY MD Financial #: [id number] Pt. Type: O Room/Bed: / Admit/Disch: 08/09/23 [...] of Pain: No Comment: Skin Integrity Intact, [place], Warm, & Dry Vitals - EU Blood Pressure 150/88 Pulse 88 bpm Respirations 18 br/min SPO2 96 % RN Reviewed Yes Last Modified By: Nettie Maxwell RN 08/09/23 13:55:23 General Comments: Temp 36.3 Finalized By: Nettie Maxwell RN Document Signatures Signed By: Sugey Marques LPN 08/09/23 13:18 Nettie Maxwell RN 08/09/23 13:55 Normal [facility] Operative Reporton Operative Report Patient: BHAVIN [...] were sent to pathology for evaluation. Normal [facility] Comment on above: Result Comment: Emely barry Signed By: KARINA ANTHONY, Lewis Segal\Date and Time Signed: 08/09/23 14:15 EDT Patient [...] for your post-operative appointment in 1-2 weeks [phone] or [phone] Normal [facility] Prostate Histology ([facility]) on 08-09-2023 PH Method of Extraction Needle Biopsy Normal [facility] Comment on above: Order Comment: ONE B ITE FOR EACH AREA Performed By: #### 1 [id number] ####[facility] [address] [place] [address] PH Number of Jars 2 Invalid Interpretation Code [facility] Comment on above: Order Comment: ONE B ITE FOR EACH AREA Performed By: #### 1 [id number] ####[facility] [address] [place] [address] PH Specimen 1 L Base Prostate Normal [facility] Comment on above: Order Comment: ONE B ITE FOR EACH AREA Performed By: #### 1 [id number] ####[facility] [address] [place] [address] PH Specimen 10 R Lat Mid Prost Normal [facility] Comment on above: Order Comment: ONE B ITE FOR EACH AREA Performed By: #### 1 [id number] ####[facility] [address] [place] [address] PH Specimen 11 R Apx Prostate Normal [facility] Comment on above: Order Comment: ONE B ITE FOR EACH AREA Performed By: #### 1 [id number] ####[facility] [id number] [place] [address] PH Specimen 12 R Lat Apx Prost Normal [facility] Comment on above: Order Comment: ONE B ITE FOR EACH AREA Performed By: #### 1 [id number] ####[facility] [address] [place] [address] PH Specimen 2 L Lat Bse Prost Normal [facility] Comment on above: Order Comment: ONE B ITE FOR EACH AREA Performed By: #### 1 [id number] ####[facility] [address] [place] [address] PH Specimen 3 L Mid Prostate Normal [facility] Comment on above: Order Comment: ONE B ITE FOR EACH AREA Performed By: #### 1 [id number] ####[facility] [address] [place] [address] PH Specimen 4 L Lat Mid Prost Normal [facility] Comment on above: Order Comment: ONE B ITE FOR EACH AREA Performed By: #### 1 [id number] ####[facility] [address] [place] [address] PH Specimen 5 L Apx Prostate Normal [facility] Comment on above: Order Comment: ONE B ITE FOR EACH AREA Performed By: #### 1 [id number] ####[facility] [address] [place] [address] PH Specimen 6 L Lat Apx Prost Normal [facility] Comment on above: Order Comment: ONE B ITE FOR EACH AREA Performed By: #### 1 [id number] ####[facility] [address] [place] [address] PH Specimen 7 R Base Prostate Normal [facility] Comment on above: Order Comment: ONE B ITE FOR EACH AREA Performed By: #### 1 [id number] ####[facility] [address] [place] [address] PH Specimen 8 R Lat Bse Prost Normal [facility] Comment on above: Order Comment: ONE B ITE FOR EACH AREA Performed By: #### 1 [id number] ####[facility] [address] [place] [address] PH Specimen 9 R Mid Prostate Normal [facility] Comment on above: Order Comment: ONE B ITE FOR EACH AREA Performed By: #### 1 [id number] ####[facility] [address] [place] [address] PH Type of Service Technical Only Normal [facility] Comment on above: Order Comment: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
--- NOTE | 2024-07-27 08:59 | P.GSHP_ITS ---
History of Present Illness History of Present Illness Chief complaint: Prostate cancer, Elevated PSA Narrative: Patient presents for preadmission testing. The patient states he has an elevated PSA and has been diagnosed with prostate cancer. The patient states the only urinary symptom he experiences is postvoid dribbling. He denies hematuria, dysuria, abdominal pain, nausea, vomiting, fever. The patient does state that he has a very stressful home life, he is anxious, he was recently diagnosed with sleep apnea, he has known hypertension and has been seeing his PCP for medication adjustments recently. He denies chest pain or shortness of breath. Review of Systems ROS Narrative REVIEW OF SYSTEMS: Negative except as stated in HPI, ten or more systems reviewed. Constitutional: No fever, chills, weakness ENT: No sore throat or epistaxis Cardiovascular: No edema, chest pain, palpitations, or activity intolerance Respiratory: No shortness of breath, cough, or wheezing Musculoskeletal: No joint pain or swelling Gastrointestinal: No abdominal pain, constipation, diarrhea, or vomiting Genitourinary: No dysuria or hematuria Neurological: No numbness, tingling, weakness, or headache Psychiatric: No mood changes PFSH PFSH Medical History (Updated 07/27/24 @ 08:44 by Liv Sherman NP) Alcoholism in remission ?F10.21 - Alcohol dependence, in remission (ICD-10) Panic attacks ?F41.0 - Panic disorder [episodic paroxysmal anxiety] (ICD-10) Prostate cancer ?C61 - Malignant neoplasm of prostate (ICD-10) Erectile dysfunction ?N52.9 - Male erectile dysfunction, unspecified (ICD-10) Elevated PSA ?R97.20 - Elevated prostate specific antigen [PSA] (ICD-10) Depression ?F32.A - Depression, unspecified (ICD-10) Anxiety ?F41.9 - Anxiety disorder, unspecified (ICD-10) COVID-19 ?U07.1 - COVID-19 (ICD-10) Sleep apnea ?G47.30 - Sleep apnea, unspecified (ICD-10) Bronchitis ?J40 - Bronchitis, not specified as acute or chronic (ICD-10) High cholesterol ?E78.00 - Pure hypercholesterolemia, unspecified (ICD-10) Hypertension ?I10 - Essential (primary) hypertension (ICD-10) Surgical History (Updated 07/27/24 @ 08:44 by Liv Sheramn NP) Hx of prostate biopsy ?Z98.890 - Other specified postprocedural states (ICD-10) History of colonoscopy ?Z98.890 - Other specified postprocedural states (ICD-10) Family History (Updated 07/27/24 @ 08:44 by Liv Sherman NP) Other Alcoholism Hypertriglyceridemia Social History (Updated 07/27/24 @ 08:37 by Liv Sherman NP) Within the past year, how often did you have a drink containing alcohol: never Score interpretation: A score less than 4 is consistent with normal alcohol consumption. Smoking status: Former smoker Non-prescribed substance use: denies use Previous occupational history: [employer] Highest level of school completed/degree received: high school graduate Meds Home Medications and Allergies Home Medications ?Medication ?Instructions ?Recorded ?Confirmed ?Type albuterol sulfate 90 mcg/actuation 2 inh inhalation Q6H PRN shortness 07/27/24 07/27/24 History aerosol inhaler of breath or wheezing aspirin 81 mg tablet,delayed 81 mg PO DAILY 07/27/24 07/27/24 History release (Adult Aspirin Regimen) atorvastatin 40 mg tablet 40 mg PO DAILY 07/27/24 07/27/24 History coenzyme Q10 75 mg capsule (Ultra 75 mg PO DAILY 07/27/24 07/27/24 History CoQ10) desvenlafaxine succinate 100 mg 100 mg PO Q24H 07/27/24 07/27/24 History tablet,extended release 24 hr doxazosin 8 mg tablet 8 mg PO DAILY 07/27/24 07/27/24 History lisinopril 5 mg tablet 5 mg PO DAILY 07/27/24 07/27/24 History sildenafil 100 mg tablet 100 mg PO Q24H PRN sexual activity 07/27/24 07/27/24 History tramadol 50 mg tablet 50 mg PO Q12H 07/27/24 07/27/24 History trazodone 50 mg tablet 50 mg PO QPM 07/27/24 07/27/24 History Allergies Allergy/AdvReac Type Severity Reaction Status Date / Time Penicillins Allergy Anaphylaxis Verified 07/27/24 08:26 Exam Narrative Exam Narrative: Constitutional: Awake, alert, comfortable, well-appearing, nontoxic, interactive, vital signs as charted Head: Normocephalic, atraumatic Neck: Supple, normal appearance, normal range of motion, no meningeal signs, no lymphadenopathy Respiratory: No respiratory distress, breath sounds clear Cardiovascular: Regular rate and rhythm, strong and regular heart tones Abdomen: Nontender, normal bowel sounds, soft, no CVA tenderness Musculoskeletal: Normal gait, no swelling or edema Skin: No rashes or induration, no lesions, only visible skin inspected Neuro: No neurological deficits, normal sensation Psychiatric: Oriented ?3, anxious affect Assessment and Plan Assessment and Plan (1) Prostate cancer: (2) Elevated PSA: Plan TRUS biopsy scheduled with Dr. Ivy August 09, 2024.
[2024-07-27 09:06] LABS: Basophils Absolute Auto 0.1 10^3/uL (0.0-0.1); Basophils Percent Auto 0.6 % (0.2-2.0); Eosinophils Absolute Auto 0.2 10^3/uL (0.0-0.7); Eosinophils Percent Auto 2.1 % (0.9-7.0); Hematocrit 38.4 % (42.0-54.0); Hemoglobin 12.3 g/dL (14.0-18.0); Immature Granulocytes Abs Auto 0.04 10^3/uL (0.00-0.03); Immature Granulocytes Pct Auto 0.4 % (0.0-0.5); Lymphocytes Absolute Auto 1.7 10^3/uL (1.2-3.8); Mean Corpuscular Volume 84.2 fL (80.0-94.0); Monocytes Absolute Auto 0.8 10^3/uL (0.3-0.8); Monocytes Percent Auto 7.9 % (1.7-12.0); Neutrophils Absolute Auto 6.7 10^3/uL (1.4-6.5); Platelet Count 244 10^3/uL (150-450); Red Blood Count 4.56 10^6/uL (4.70-6.10); Red Cell Distribution Width 14.1 % (11.0-15.0); White Blood Count 9.5 10^3/uL (4.0-11.0)
[2024-07-27 09:24] LABS: Anion Gap 11.4; BUN Creatinine Ratio 12.2; Calcium 8.9 mg/dL (8.5-10.1); Carbon Dioxide 27.8 mmol/L (21.0-32.0); Chloride 106 mmol/L (98-107); Estimated GFR (African America >60 (>=60); Estimated GFR (Non-African Ame >60 (>=60); Glucose 92 mg/dL (74-106); Potassium 4.2 mmol/L (3.5-5.1); Sodium 141 mmol/L (136-145)
[2024-07-27 10:28] LABS: Partial Thromboplastin Time 26.1 sec (22.3-36.2); Prothrombin Time 10.6 sec (9.0-11.6)
== END 2024-07-27 08:03 | disposition home or self-care (01) ==
LOC: PST 08:03
PROVIDERS: PCP Family Medicine; Visit Provider Urology
DX: Z01.812 Encounter for preprocedural laboratory examination (principal); C61 Malignant neoplasm of prostate; F17.200 Nicotine dependence, unspecified, uncomplicated; N52.9 Male erectile dysfunction, unspecified; R97.20 Elevated prostate specific antigen [PSA]; I10 Essential (primary) hypertension; Z79.01 Long term (current) use of anticoagulants
CPT/HCPCS: 36415; 80048; 85025; 85610; 85730; G0463

== ENCOUNTER 2024-07-27 15:43 | Observation (INO) | payer BC, SELFPAY ==
[2024-07-27] VITALS (9 sets, daily range): BP systolic 125–156; BP diastolic 68–86; PULSE 55–76; TEMP 36.8–37.2; O2SAT 93–98; BMI 30.2; BMI 27.7
--- NOTE | 2024-07-27 15:49 | ED.GENADUL1 ---
HPI HPI - General Adult General Chief complaint: Chest Pain Stated complaint: CHEST PAIN Time Seen by Provider: 07/27/24 15:49 Source: patient History of Present Illness HPI narrative: Patient is a 59-year-old male who presents to the emergency department for evaluation of pressure in the epigastrium and lower chest in addition to aching in the left posterior shoulder and down the left arm for the last day. He stopped at his PCP office, where he was instructed to come to the emergency department. He has been seeing his primary care provider frequently for better blood pressure control. He has not had any objective fevers or upper respiratory symptoms. No medications taken prior to arrival today. He is anxious at initial interview, he states he is concerned that his high blood pressure will lead to a stroke. He has no history of coronary artery disease. He states he quit smoking 4 months ago. He was smoking 1 pack of cigarettes per day at that time. He denies pedal edema, nausea or vomiting. No exertional dyspnea. Related Data Home Medications ?Medication ?Instructions ?Recorded ?Confirmed albuterol sulfate 90 mcg/actuation 2 inh inhalation Q6H PRN shortness 07/27/24 07/27/24 aerosol inhaler of breath or wheezing aspirin 81 mg tablet,delayed 81 mg PO DAILY 07/27/24 07/27/24 release (Adult Aspirin Regimen) atorvastatin 40 mg tablet 40 mg PO DAILY 07/27/24 07/27/24 coenzyme Q10 75 mg capsule (Ultra 75 mg PO DAILY 07/27/24 07/27/24 CoQ10) desvenlafaxine succinate 100 mg 100 mg PO Q24H 07/27/24 07/27/24 tablet,extended release 24 hr doxazosin 8 mg tablet 8 mg PO DAILY 07/27/24 07/27/24 lisinopril 5 mg tablet 5 mg PO DAILY 07/27/24 07/27/24 sildenafil 100 mg tablet 100 mg PO Q24H PRN sexual activity 07/27/24 07/27/24 tramadol 50 mg tablet 50 mg PO Q12H 07/27/24 07/27/24 trazodone 50 mg tablet 50 mg PO QPM 07/27/24 07/27/24 Allergies Allergy/AdvReac Type Severity Reaction Status Date / Time Penicillins Allergy Anaphylaxis Verified 07/27/24 08:26 Opioid HPI Opioid Management Most Recent Opioid Data: Last Pain Scale 4 07/27/24 16:40 Last ED Pain Assessment 07/27/24 16:40 Review of Systems ROS Constitutional Denies: fever or chills Ears, nose, mouth, and throat Denies: throat pain or nasal congestion Cardiovascular Reports: chest pain Respiratory Denies: shortness of breath or cough Gastrointestinal Denies: abdominal pain, nausea or vomiting Musculoskeletal Reports: back pain and extremity pain; Denies: neck pain Integumentary/Breast Denies: rash Hematologic/Lymphatic Denies: easy bruising or easy bleeding PFSH PFSH Medical History (Updated 07/27/24 @ 17:07 by LEONORA Grossman) Alcoholism in remission ?F10.21 - Alcohol dependence, in remission (ICD-10) Panic attacks ?F41.0 - Panic disorder [episodic paroxysmal anxiety] (ICD-10) Prostate cancer ?C61 - Malignant neoplasm of prostate (ICD-10) Erectile dysfunction ?N52.9 - Male erectile dysfunction, unspecified (ICD-10) Elevated PSA ?R97.20 - Elevated prostate specific antigen [PSA] (ICD-10) Depression ?F32.A - Depression, unspecified (ICD-10) Anxiety ?F41.9 - Anxiety disorder, unspecified (ICD-10) COVID-19 ?U07.1 - COVID-19 (ICD-10) Sleep apnea ?G47.30 - Sleep apnea, unspecified (ICD-10) Bronchitis ?J40 - Bronchitis, not specified as acute or chronic (ICD-10) High cholesterol ?E78.00 - Pure hypercholesterolemia, unspecified (ICD-10) Hypertension ?I10 - Essential (primary) hypertension (ICD-10) Surgical History (Updated 07/27/24 @ 08:44 by Liv Sherman NP) Hx of prostate biopsy ?Z98.890 - Other specified postprocedural states (ICD-10) History of colonoscopy ?Z98.890 - Other specified postprocedural states (ICD-10) Family History (Updated 07/27/24 @ 08:44 by Liv Sherman NP) Other Alcoholism Hypertriglyceridemia Social History Within the past year, how often did you have a drink containing alcohol: never Score interpretation: A score less than 4 is consistent with normal alcohol consumption. 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 Highest level of school completed/degree received: high school graduate Exam Narrative Exam Narrative: Gen.: Awake, alert, in no distress Head: Normocephalic, atraumatic ENT: Moist mucous membranes Respiratory: No respiratory distress, lungs clear bilaterally Cardio: Regular rate and rhythm Gastrointestinal: Abdomen is soft, nondistended and nontender to palpation Extremities: Moves extremities equally, no pedal edema Psych: Normal mood and affect Neuro: No focal neuro deficit Skin: Warm, dry, intact Constitutional Vital Signs, click to edit/add: Last Vital Signs Temp 98.7 F 07/27/24 15:47 Pulse 63 07/27/24 15:47 Resp 18 07/27/24 15:47 BP 148/86 H 07/27/24 15:47 Pulse Ox 98 07/27/24 15:53 O2 Del Method Room Air 07/27/24 15:53 Course Vital Signs Vital signs: Vital Signs Temperature 98.7 F 07/27/24 15:47 Pulse Rate 63 07/27/24 15:47 Respiratory Rate 18 07/27/24 15:47 Blood Pressure 148/86 H 07/27/24 15:47 Pulse Oximetry 98 07/27/24 15:47 Oxygen Delivery Method Room Air 07/27/24 15:47 Temperature 98.7 F 07/27/24 15:47 Pulse Rate 63 07/27/24 15:47 Respiratory Rate 18 07/27/24 15:47 Blood Pressure 148/86 H 07/27/24 15:47 Pulse Oximetry 98 07/27/24 15:53 Oxygen Delivery Method Room Air 07/27/24 15:53 Medical Decision Making MDM Narrative Medical decision making narrative: Patient declined any medication for pain. He has no EKG changes. Blood pressure is moderately elevated. Laboratory studies reviewed and noted including troponin. CT angio of the chest with no evidence of acute cardiopulmonary changes. Patient took aspirin prior to arrival today. He will be admitted for chest pain rule out. Stable at time of admission to Dr. Medellin. SHARED APC VISIT, PHYSICIAN ATTESTATION: [id number] I performed a substantive part of the MDM during the patient?s E/M visit. I personally evaluated and examined the patient. I personally made or approved the documented management plan and acknowledge its risk of complications. Medical Records Medical records reviewed: Yes I reviewed the patient's medical records Lab Data Lab results reviewed: Yes I reviewed the patient's lab results Labs: Lab Results 07/27/24 Range/Units 16:00 WBC 9.5 (4.0-11.0) 10^3/uL RBC 4.48 L (4.70-6.10) 10^6/uL Hgb 12.0 L (14.0-18.0) g/dL Hct 37.3 L (42.0-54.0) % MCV 83.3 (80.0-94.0) fL MCH 26.8 (25.9-34.0) pg MCHC 32.2 (29.9-35.2) g/dL RDW 14.0 (11.0-15.0) % Plt Count 247 (150-450) 10^3/uL MPV 10.4 (9.5-13.5) fL Neut % (Auto) 63.3 (43.0-75.0) % Lymph % (Auto) 24.9 (20.5-60.0) % Snyder % (Auto) 8.0 (1.7-12.0) % Eos % (Auto) 3.0 (0.9-7.0) % Baso % (Auto) 0.7 (0.2-2.0) % Neut # (Auto) 6.0 (1.4-6.5) 10^3/uL Lymph # (Auto) 2.4 (1.2-3.8) 10^3/uL Snyder # (Auto) 0.8 (0.3-0.8) 10^3/uL Eos # (Auto) 0.3 (0.0-0.7) 10^3/uL Baso # (Auto) 0.1 (0.0-0.1) 10^3/uL Abs Immat Gran (auto) 0.01 (0.00-0.03) 10^3/uL Imm/Tot Granulo (auto) 0.1 (0.0-0.5) % PT 11.1 (9.0-11.6) sec INR 1.05 Sodium 139 (136-145) mmol/L Potassium 3.7 (3.5-5.1) mmol/L Chloride 102 (98-107) mmol/L Carbon Dioxide 30.1 (21.0-32.0) mmol/L Anion Gap 10.6 BUN 10.0 (7.0-18.0) mg/dL Creatinine 0.94 (0.70-1.30) mg/dL Est GFR ( Amer) >60 (>=60) Est GFR (Non-Af Amer) >60 (>=60) BUN/Creatinine Ratio 10.6 Glucose 95 (74-106) mg/dL Calcium 9.2 (8.5-10.1) mg/dL Total Bilirubin 0.6 (0.2-1.0) mg/dL AST 14 L (15-37) U/L ALT 17 (16-63) U/L Alkaline Phosphatase 72 (46-116) U/L Troponin I High Sens <4.0 L (4.0-76.1) pg/mL NT-Pro-B Natriuret Pep 114.0 (<=900.0) pg/mL Total Protein 6.6 (6.4-8.2) g/dL Albumin 3.9 (3.4-5.0) g/dL Globulin 2.7 g/dL Albumin/Globulin Ratio 1.[address] scan - chest: Attestation: I have reviewed the pertinent imaging results. Radiologist's impression: ITS Impressions Chest CTA 07/27/24 16:00 IMPRESSION:No evidence of pulmonary embolus or acute intrathoracic abnormality. Electronically authenticated by: SHAVONNE RHODES Date: 07/27/2024 16:58 ECG Data Attestation: I personally reviewed and interpreted this ECG as follows: (Normal sinus rhythm at a rate of 54, no acute ST elevation or ectopy. EKG reviewed by attending physician) Discharge Plan Discharge Chief Complaint: Chest Pain Patient Disposition: Admitted as Observation Time of Disposition Decision: 17:07 Prescriptions / Home Meds: No Action albuterol sulfate 90 mcg/actuation HFA aerosol inhaler 2 inh INHALATION Q6H PRN (Reason: shortness of breath or wheezing) atorvastatin 40 mg tablet 40 mg PO DAILY desvenlafaxine succinate 100 mg tablet extended release 24 hr 100 mg PO Q24H doxazosin 8 mg tablet 8 mg PO DAILY lisinopril 5 mg tablet 5 mg PO DAILY sildenafil 100 mg tablet 100 mg PO Q24H PRN (Reason: sexual activity) trazodone 50 mg tablet 50 mg PO QPM tramadol 50 mg tablet 50 mg PO Q12H Ultra CoQ10 75 mg capsule 75 mg PO DAILY aspirin [Adult Aspirin Regimen] 81 mg tablet,delayed release (DR/EC) 81 mg PO DAILY Print Language: Polish Referrals: Chetan Medellin MD [Primary Care Provider] - 1 week
--- OUTSIDE RECORDS SUMMARY | 2024-07-27 15:50 | XMS_ITS | CCD ---
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 [facility] 02-13-2024 14:35-0400 Systolic blood pressure 124 mm[Hg] Lewis IVY [facility] 11-21-2023 11:16-0500 Blood Pressure Location Lewis IVY [facility] 11-21-2023 11:16-0500 Diastolic blood pressure 76 mm[Hg] Lewis IVY [facility] 11-21-2023 11:16-0500 Heart rate 72 /min Lewis IVY [facility] 11-21-2023 11:16-0500 Respiratory rate 16 /min Lewis IVY [facility] 11-21-2023 11:16-0500 Systolic blood pressure 129 mm[Hg] Lewis IVY [facility] 07-25-2023 12:46-0400 Blood Pressure Location Lewis IVY [facility] 07-25-2023 12:46-0400 Diastolic blood pressure 77 mm[Hg] Lewis IVY [facility] 07-25-2023 12:46-0400 Heart rate 69 /min Lewis IVY [facility] 07-25-2023 12:46-0400 Respiratory rate 16 /min Lewis KARINA [facility] 07-25-2023 12:46-0400 Systolic blood pressure 142 mm[Hg] Lewis IVY [facility] Encounters Encounter Date Encounter Type Care Provider Facility Start: 08-27-2024 ambulatory Lewis IVY Facili ty:[facility] Start: 08-09-2024 ambulatory Lewis IVY Facili ty:[id number] Start: 06-18-2024 End: 06-18-2024 ambulatory Lewis IVY Facility:[facility] Start: 06-18-2024 End: 06-18-2024 Patient encounter procedure Lewis IVY [facility] Start: 02-13-2024 End: 02-13-2024 ambulatory Lewis IVY Facility:[facility] Start: 02-13-2024 End: 02-13-2024 Patient encounter procedure Lewis IVY [facility] Start: 11-21-2023 End: 11-21-2023 ambulatory Lewis R KARINA Facility:[facility] [place] Start: 11-21-2023 End: 11-21-2023 Patient encounter procedure Lewis R KARINA [facility] Start: 08-26-2023 End: 08-26-2023 ambulatory Lewis IVY Facility:[facility] Start: 08-09-2023 End: 08-09-2023 ambulatory Lewis IVY Facility:[facility] Start: 07-25-2023 End: 07-25-2023 ambulatory Lewis IVY Facility:[facility] Start: 07-25-2023 End: 07-25-2023 Patient encounter procedure Lewis IVY [facility] Start: 07-07-2023 ambulatory Lewis IVY Facility :[facility] [place] Start: 10-08-2022 End: 10-08-2022 ambulatory PIERCE CHRISTIAN Facility:[facility] Procedures Date Procedure Procedure Detail Performing Clinician Start: 08-09-2023 Transrectal needle b iopsy of prostate Lewisarun IVY Colonoscopy Lewis IVY Payers Date Payer Category Payer Unknown [id number] 1965 Unknown [id number] 2.16.84 [id number] 1965 Unknown [id number] 2.16.8 [id number] 1965 Unknown [id number] 2.16.8 [id number] 1965 Unknown [id number] 2.16.8 [id number] 1965 Unknown [id number] 2.16.8 [id number] 1965 Unknown [id number] 2.16.8 [id number] 1965 Unknown [id number] 2.16.8 [id number] 1965 Unknown [id number] 2.16.8 [id number] 1960 Unknown [id number] Social History Date Type Detail Facility Start: 07-25-2023 Tobacco smoking status Smoker (findi ng) [facility] Sex Assigned At Male [facility] Start: 02-13-2024 Tobacco smoking status Heavy t obacco smoker (finding) [facility] Tobacco smoking status Never [facility] Start: 06-18-2024 Tobacco smoking status Ex-smoker (fi nding) [facility] Functional Status Date Assessment Result Facility 06-18-2024 Functional Status N/A [facility] 02-13-2024 Functional Status N/A [facility] 11-21-2023 Functional Status N/A [facility] 07-25-2023 Functional Status N/A [facility] Clinical Notes 07-25-2023 to 06-18-2024 Radiology Note [...] discomfort near your rectum, especially while sitting. Paramus-colored urine due to small amounts of blood in your urine. A burning feeling while urinating. Blood in your stool (feces) or bleeding from your rectum. Blood in your semen. Follow these instructions at home: Medicines Take pkhw-jce-icbihhz and prescription medicines only as told by [...] provider. Document Revised: 04/12/2022 Document Reviewed: 04/12/2022 [employer] Patient Education 2022 [employer]. 06/18/2024 13:50:55 Transrectal Ultrasound-Guided Prostate Biopsy Transrectal [...] including vitamins, herbs, eye drops, creams, and nvzz-ebp-ybpoxrn medicines. Any problems you or family members [...] provider tells you to take them. Taking rdia-ndp-lfdufvu medicines, vitamins, herbs, and supplements. General instructions [...] provider. Document Revised: 04/12/2022 Document Reviewed: 04/12/2022 [employer] Patient Education 2022 [employer]. Follow Up Care 02/13/2024 15:39:22 With:KARINA ANTHONY, Lewis Mcpherson, URL Address: [facility] [address] [place] [address] [phone] When: Unknown Comments:sched confirmatory TRUS/bx [facility] 06-18-2024 Note Patient Education Oncology Transrectal Ultrasound-Guided [...] near your rectum, especially while sitting. ? Paramus-colored urine due to small amounts of blood in your urine. ? A burning feeling while urinating. ? Blood in your stool (feces) or bleeding from your rectum. ? Blood in your semen. Follow these instructions at home: Medicines ? Take bvae-hie-xgbulhw and prescription medicines only as told by [...] provider. Document Revised: 04/12/2022 Document Reviewed: 04/12/2022 [employer] Patient Education ? 2022 [employer]. Transrectal Ultrasound-Guided Prostate Biopsy A transrectal ultrasound-guided [...] including vitamins, herbs, eye drops, creams, and zika-wck-wxsxpin medicines. ? Any problems you or family [...] ? Taking medici (more content not included)... [facility] 02-13-2024 Hospital Discharg e instructions Patient [...] the likelihood that the cancer will spread. [place] 6 or lower: This indicates that the cancer cells look similar to normal prostate cells (well differentiated). [place] 7: This indicates that the cancer cells look somewhat similar to normal prostate cells (moderately differentiated). [place] 8, 9, or 10: This indicates that [...] stress of having cancer. General instructions Take ehpl-hbp-yynizyt and prescription medicines only as told by your health care provider. If you have to go to the hospital, notify your cancer specialist (oncologist). Keep all follow-up visits. This is important. Where to find more information [employer] Cancer Society: www.cancer.org Swedish Society of Clinical Oncology: www.cancer.net National Cancer [place]: www.cancer.gov Contact a health care provider if: [...] provider. Document Revised: 01/13/2022 Document Reviewed: 01/13/2022 [employer] Patient Education 2022 [employer]. Follow Up Care 11/21/2023 12:42:13 With:KARINA ANTHONY, Lewis Mcpherson, URL Address: [facility] [address] [place] [address]- [phone] When: Unknown Comments:4 mos w/ PSA, RAY [facility] [place] 11-21-2023 Hospital Discharg e instructions [...] under a microscope. This is called the [place] score and the total score can range from 6 10, indicating how likely it is that the cancer will spread (metastasize) to other parts of the body. The higher the score, the greater the likelihood that the cancer will spread. [place] 6 or lower: This indicates that the cancer cells look similar to normal prostate cells (well differentiated). [place] 7: This indicates that the cancer cells look somewhat similar to normal prostate cells (moderately differentiated). [place] 8, 9, or 10: This indicates that [...] stress of having cancer. General instructions Take cvow-hdr-haopbgi and prescription medicines only as told by your health care provider. If you have to go to the hospital, notify your cancer specialist (oncologist). Keep all follow-up visits. This is important. Where to find more information [employer] Cancer Society: www.cancer.org Swedish Society of Clinical Oncology: www.cancer.net National Cancer [place]: www.cancer.gov Contact a health care provider if: [...] provider. Document Revised: 01/13/2022 Document Reviewed: 01/13/2022 [employer] Patient Education 2022 [employer]. Follow Up Care 08/26/2023 10:34:03 With:KARINA ANTHONY, Lewis Mcpherson, URL Address: [facility] [address] [place] [phone] When:Within 3 Month(s) Comments:f/u in 3 months with PSA [facility] 08-09-2023 Note [id number] [facility] 07-25-2023 Hospital Discharg e instructions Patient [...] discomfort near your rectum, especially while sitting. Paramus-colored urine due to small amounts of blood in your urine. A burning feeling while urinating. Blood in your stool (feces) or bleeding from your rectum. Blood in your semen. Follow these instructions at home: Medicines Take zqim-jjo-iuqpvaq and prescription medicines only as told by [...] provider. Document Revised: 04/12/2022 Document Reviewed: 04/12/2022 [employer] Patient Education 2022 [employer]. 07/25/2023 13:32:38 Transrectal Ultrasound-Guided Prostate Biopsy Transrectal [...] including vitamins, herbs, eye drops, creams, and rcpz-efs-gfuziqt medicines. Any problems you or family members [...] provider tells you to take them. Taking mlzh-ntu-vzbwstx medicines, vitamins, herbs, and supplements. General instructions [...] provider. Document Revised: 04/12/2022 Document Reviewed: 04/12/2022 [employer] Patient Education 2022 [employer]. Follow Up Care 07/07/2023 14:50:33 With:KARINA ANTHONY, Lewis Mcpherson, URL Address: [facility] [address] [place] [address]- When: Unknown [facility] 07-25-2023 Note Chief Complaint referral for elevated [...] order Local anesthesia. Prophylactic abx sent to [facility] [place]. Follow-up With When Contact Information Lewis IVY MD, URL [facility] [address] [place] [address]- Additional Instructions: schedule TRUS of Prostate with [...] Tobacco Use:. Cigarettes (more content not included)... [facility] Comment on above: Result Comment: Elec tronically Signed By: Lewis IVY MD\.br\Date and Time Signed: 07/25/23 13:43 EDT\.br\Electronically Co-Signed By: Whitney Mcintyre.br\Date and Time Co-Signed: 07/25/23 13:40 EDT Evaluation + Plan note Future Appointments Appointment Date:07/26/2023 08:15:00 AM Scheduled Provider: Location:[facility] Appointment Type:Urology CALL PAT FT Appointment Date:08/09/2023 01:30:00 PM Scheduled Provider: Location:[facility] Appointment Type:Urology FT Appointment Date:08/09/2023 01:30:00 PM Scheduled Provider: Location:FT.UROLOGY Appointment Type:US Prostate Urology (FT) Future Scheduled TestsUS Prostate, [facility] 08/09/23 [facility] Evaluation + Plan note Future Appointments Appointment Date:02/13/2024 01:45:00 PM Scheduled Provider:Lewis IVY MD Location:[facility] Appointment Type:URO Office Visit Diagnostic Tests PendingPSA Total 11/21/23 [facility] Evaluation + Plan note Future Appointments Appointment Date:06/04/2024 12:15:00 PM Scheduled Provider:Lewis IVY MD Location:[facility] Appointment Type:URO Office Visit Diagnostic Tests PendingPSA Total 02/13/24 [facility] Evaluation + Plan note Future Appointments Appointment Date:08/27/2024 10:45:00 AM Scheduled Provider:Lewis IVY MD Location:[facility] Appointment Type:URO Office Visit [facility] Hospital course Narrative No data available for this section [facility] Progress note No data available for this section [facility] Summary Purpose Family History No [...] CREATED AUTHOR AUTHOR'S ORGANIZ ATGERALDINE 10/12/2022 [facility] DATE CREATED AUTHOR AUTHOR'S TORRES KELLER 06/19/2024 [facility] Patient Care team informatio n (unrecognized section and content) Personnel Name: Kamaljit Medellin MD Address: Address: [address] [place] [address] Personnel Name: Kamaljit Medellin MD Address: Address: [address] [place] [address] Personnel Name: Kamaljit Medellin MD Address: Address: [address] [place] [address] Personnel Name: Kamaljit Medellin MD Address: Address: [address] [place] [address] FOR RECORDS PERTAINING TO PATIENTS WHO ARE [...] BE BASED ON THE PRIMARY CLINICAL RECORDS. [facility]. provides no warranty or guarantee of the accuracy or completeness of information in this document.
--- NOTE | 2024-07-27 15:52 | ECG_ITS ---
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
--- NOTE | 2024-07-27 16:00 | CT_ITS ---
[address] [address] Patient Name: BHAVIN WHEATLEY MRN: [id number] date: 1965 Sex: M Assigned Patient Location: ER Current Patient Location: Accession/Order Number: [id number] Exam Date: 07/27/2024 16:24 Report Date: 07/27/2024 16:58 At the request of: DOREEN JEFFREY Procedure: CT angio chest EXAM: CT angio chest HISTORY: Chest pain COMPARISON: 07/02/2023 TECHNIQUE: CT chest with intravenous contrast was performed with timing for the evaluation for pulmonary arteries. Multiplanar reformats were performed. MIP (maximum intensity projection) images or 3D post processing was performed. Dose reduction techniques were achieved by using automated exposure control and/or adjustment of mA and/or kV according to patient size and/or use of iterative reconstruction technique. FINDINGS: Lungs: No consolidation, pneumothorax, or effusion. Bibasilar dependent atelectasis. Airways: Normal. Mediastinum: No adenopathy. Aorta: No aneurysm. Cardiac: Normal size. No pericardial effusion. Pulmonary vasculature: Diagnostic opacification of pulmonary arteries without evidence of pulmonary embolus. Normal morphology. Bones: No acute bony abnormality. Axilla: No adenopathy. Thyroid gland: No abnormality demonstrated on provided imaging. Soft tissues: Unremarkable. Upper abdomen: Unremarkable. Additional findings: None. CT/CT angio chest IMPRESSION:No evidence of pulmonary embolus or acute intrathoracic abnormality. Electronically authenticated by: SHAVONNE RHODES Date: 07/27/2024 16:58
[2024-07-27 16:10] LABS: Basophils Absolute Auto 0.1 10^3/uL (0.0-0.1); Basophils Percent Auto 0.7 % (0.2-2.0); Eosinophils Absolute Auto 0.3 10^3/uL (0.0-0.7); Hematocrit 37.3 % (42.0-54.0); Immature Granulocytes Abs Auto 0.01 10^3/uL (0.00-0.03); Immature Granulocytes Pct Auto 0.1 % (0.0-0.5); Lymphocytes Absolute Auto 2.4 10^3/uL (1.2-3.8); Lymphocytes Percent Auto 24.9 % (20.5-60.0); Mean Corpuscular HGB Conc 32.2 g/dL (29.9-35.2); Mean Corpuscular Hemoglobin 26.8 pg (25.9-34.0); Mean Corpuscular Volume 83.3 fL (80.0-94.0); Mean Platelet Volume 10.4 fL (9.5-13.5); Monocytes Absolute Auto 0.8 10^3/uL (0.3-0.8); Neutrophils Percent Auto 63.3 % (43.0-75.0); Platelet Count 247 10^3/uL (150-450); Red Blood Count 4.48 10^6/uL (4.70-6.10); White Blood Count 9.5 10^3/uL (4.0-11.0)
[2024-07-27 16:21] LABS: INR 1.05; Prothrombin Time 11.1 sec (9.0-11.6)
[2024-07-27 16:23] LABS: Alanine Aminotransferase 17 U/L (16-63); Albumin Globulin Ratio 1.4; Albumin Level 3.9 g/dL (3.4-5.0); Alkaline Phosphatase 72 U/L (46-116); Anion Gap 10.6; Aspartate Amino Transferase 14 U/L (15-37); BUN Creatinine Ratio 10.6; Bilirubin Total 0.6 mg/dL (0.2-1.0); Calcium 9.2 mg/dL (8.5-10.1); Carbon Dioxide 30.1 mmol/L (21.0-32.0); Chloride 102 mmol/L (98-107); Estimated GFR (African America >60 (>=60); Estimated GFR (Non-African Ame >60 (>=60); Globulin 2.7 g/dL; Glucose 95 mg/dL (74-106); Potassium 3.7 mmol/L (3.5-5.1); Sodium 139 mmol/L (136-145); Total Protein 6.6 g/dL (6.4-8.2)
[2024-07-27 16:29] LABS: Troponin I High Sensitivity <4.0 pg/mL (4.0-76.1)
--- NOTE | 2024-07-27 17:19 | P.HP_ITS ---
HPI H&P: HPI History of Present Illness Chief complaint: CHEST PAIN Narrative: Patient well-known to me from the office, we have been working aggressively with getting his blood pressure under control, he did have some low blood pressures with lisinopril at 20 mg a day, recently placed at 5 mg a day blood pressure elevated and not improving to started having chest pain, presented to the emergency room. EKG normal initial troponin normal still having some mild chest pain. Worse with deep breathing. Patient very anxious When I saw patient in the emergency room, he was resting comfortably in bed but tearful Opioid HPI Opioid Management Most Recent Pain and Opioid Data: Last Pain Scale 4 07/27/24 16:40 Last ED Pain Assessment 07/27/24 16:40 Review of Systems ROS Status of ROS 10 or more systems reviewed and unremark able except as noted in history and below PFSH [facility] Medical History (Updated 07/27/24 @ 17:07 by LEONORA Grossman) Alcoholism in remission ?F10.21 - Alcohol dependence, in remission (ICD-10) Panic attacks ?F41.0 - Panic disorder [episodic paroxysmal anxiety] (ICD-10) Prostate cancer ?C61 - Malignant neoplasm of prostate (ICD-10) Erectile dysfunction ?N52.9 - Male erectile dysfunction, unspecified (ICD-10) Elevated PSA ?R97.20 - Elevated prostate specific antigen [PSA] (ICD-10) Depression ?F32.A - Depression, unspecified (ICD-10) Anxiety ?F41.9 - Anxiety disorder, unspecified (ICD-10) COVID-19 ?U07.1 - COVID-19 (ICD-10) Sleep apnea ?G47.30 - Sleep apnea, unspecified (ICD-10) Bronchitis ?J40 - Bronchitis, not specified as acute or chronic (ICD-10) High cholesterol ?E78.00 - Pure hypercholesterolemia, unspecified (ICD-10) Hypertension ?I10 - Essential (primary) hypertension (ICD-10) Surgical History (Updated 07/27/24 @ 08:44 by Liv Sherman NP) Hx of prostate biopsy ?Z98.890 - Other specified postprocedural states (ICD-10) History of colonoscopy ?Z98.890 - Other specified postprocedural states (ICD-10) Family History (Updated 07/27/24 @ 08:44 by Liv Sherman NP) Other Alcoholism Hypertriglyceridemia Social History Within the past year, how often did you have a drink containing alcohol: never Score interpretation: A score less than 4 is consistent with normal alcohol consumption. 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 Highest level of school completed/degree received: high school graduate Meds Home Medications and Allergies Home Medications ?Medication ?Instructions ?Recorded ?Confirmed ?Type albuterol sulfate 90 mcg/actuation 2 inh inhalation Q6H PRN shortness 07/27/24 07/27/24 History aerosol inhaler of breath or wheezing aspirin 81 mg tablet,delayed 81 mg PO DAILY 07/27/24 07/27/24 History release (Adult Aspirin Regimen) atorvastatin 40 mg tablet 40 mg PO DAILY 07/27/24 07/27/24 History coenzyme Q10 75 mg capsule (Ultra 75 mg PO DAILY 07/27/24 07/27/24 History CoQ10) desvenlafaxine succinate 100 mg 100 mg PO Q24H 07/27/24 07/27/24 History tablet,extended release 24 hr doxazosin 8 mg tablet 8 mg PO DAILY 07/27/24 07/27/24 History lisinopril 5 mg tablet 5 mg PO DAILY 07/27/24 07/27/24 History sildenafil 100 mg tablet 100 mg PO Q24H PRN sexual activity 07/27/24 07/27/24 History tramadol 50 mg tablet 50 mg PO Q12H 07/27/24 07/27/24 History trazodone 50 mg tablet 50 mg PO QPM 07/27/24 07/27/24 History Allergies Allergy/AdvReac Type Severity Reaction Status Date / Time Penicillins Allergy Anaphylaxis Verified 07/27/24 08:26 Exam Constitutional Vital Signs, click to edit/add: Last Vital Signs Temp 98.7 F 07/27/24 15:47 Pulse 63 07/27/24 15:47 Resp 18 07/27/24 15:47 BP 148/86 H 07/27/24 15:47 Pulse Ox 98 07/27/24 15:53 O2 Del Method Room Air 07/27/24 15:53 Documenting provider has reviewed patient's vital signs: yes Common normals: no apparent distress Chest Common normals: inspection of chest normal Respiratory Common normals: normal respiratory effort and no retractions Cardio Common normals: regular rate and regular rhythm GI Common normals: Normal to inspection, nondistended, normoactive bowel sounds present, soft to palpation and non-tender Results Labs Labs: Short CBC 07/27/24 Range/Units 16:00 WBC 9.5 (4.0-11.0) 10^3/uL Hgb 12.0 L (14.0-18.0) g/dL Hct 37.3 L (42.0-54.0) % Plt Count 247 (150-450) 10^3/uL BMP 07/27/24 16:00 Sodium 139 Potassium 3.7 Chloride 102 Carbon Dioxide 30.1 BUN 10.0 Creatinine 0.94 Glucose 95 Calcium 9.2 Liver Function 07/27/24 Range/Units 16:00 Total Bilirubin 0.6 (0.2-1.0) mg/dL AST 14 L (15-37) U/L ALT 17 (16-63) U/L Alkaline Phosphatase 72 (46-116) U/L Albumin 3.9 (3.4-5.0) g/dL Assessment and Plan Assessment and Plan (1) Chest pain: Plan Admission findings: Hypertensive urgency, blood pressure unable to control in the ER, troponin negative EKG negative Chest pain: Serial cardiac markers, plan based on results of blood test, c onsider stress testing as an outpatient Hypertensive urgency-IV hydralazine as needed, increase lisinopril, Generalized anxiety disorder-start patient on alprazolam as needed Hypercholesterolemia-continue with home medications Mild COPD-continue with home inhalers Low back pain-continue with home medications Admission status: Patient admitted with chest pain with hypertensive urgency, medically necessary treatment likely to span 1 midnight, observation status.
[2024-07-27 18:11] LABS: Troponin I High Sensitivity <4.0 pg/mL (4.0-76.1)
--- OUTSIDE RECORDS SUMMARY | 2024-07-27 18:23 | XMS_ITS | CCD ---
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 [facility] 07-25-2023 12:46-0400 Blood Pressure Location Lewis IVY [facility] 07-25-2023 12:46-0400 Diastolic blood pressure 77 mm[Hg] Lewis IVY [facility] 07-25-2023 12:46-0400 Heart rate 69 /min Lewis IVY [facility] 07-25-2023 12:46-0400 Respiratory rate 16 /min Lewis KARINA [facility] 07-25-2023 12:46-0400 Systolic blood pressure 142 mm[Hg] Lewis IVY [facility] Encounters Encounter Date Encounter Type Care Provider Facility Start: 08-27-2024 ambulatory Lewis IVY Facili ty:[facility] Start: 08-09-2024 ambulatory Lewis IVY Facili ty:[id number] Start: 06-18-2024 End: 06-18-2024 ambulatory Lewis IVY Facility:[facility] Start: 06-18-2024 End: 06-18-2024 Patient encounter procedure Lewis IVY [facility] Start: 02-13-2024 End: 02-13-2024 ambulatory Lewis IVY Facility:[facility] Start: 02-13-2024 End: 02-13-2024 Patient encounter procedure Lewis IVY [facility] Start: 11-21-2023 End: 11-21-2023 ambulatory Lewis R KARINA Facility:[facility] Start: 11-21-2023 End: 11-21-2023 Patient encounter procedure Lewis R KARINA [facility] Start: 08-26-2023 End: 08-26-2023 ambulatory Lewis IVY Facility:[facility] Start: 08-09-2023 End: 08-09-2023 ambulatory Lewis IVY Facility:[facility] Start: 07-25-2023 End: 07-25-2023 ambulatory Lewis IVY Facility:[facility] Start: 07-25-2023 End: 07-25-2023 Patient encounter procedure Lewis IVY [facility] Start: 07-07-2023 ambulatory Lewis IVY Facility :[facility] Start: 10-08-2022 End: 10-08-2022 ambulatory PIERCE CHRISTIAN Facility:[facility] Procedures Date Procedure Procedure Detail Performing Clinician Start: 08-09-2023 Transrectal needle b iopsy of prostate Lewisarun IVY Colonoscopy Lewis IVY Payers Date Payer Category Payer Unknown [id number] 1965 Unknown [id number] [id number] [id number] 1965 Unknown [id number] 2.16.8 [id number] 1965 Unknown [id number] 2.16.8 [id number] 1965 Unknown [id number] 2.16.8 [id number] 1964 Unknown [id number] 2.16.8 [id number] 1964 Unknown [id number] 2.16.8 [id number] 1964 Unknown [id number] 2.16.8 [id number] 1965 Unknown [id number] 2.16.8 [id number] 1959 Unknown [id number] Social History Date Type Detail Facility Start: 07-25-2023 Tobacco smoking status Smoker (findi ng) [facility] Sex Assigned At Male [facility] Start: 02-13-2024 Tobacco smoking status Heavy t obacco smoker (finding) [facility] Tobacco smoking status Never [facility] Start: 06-18-2024 Tobacco smoking status Ex-smoker (fi nding) [facility] Functional Status Date Assessment Result Facility 06-18-2024 Functional Status N/A [facility] 02-13-2024 Functional Status N/A [facility] 11-21-2023 Functional Status N/A [facility] 07-25-2023 Functional Status N/A [facility] Clinical Notes 07-25-2023 to 06-18-2024 Radiology Note [...] discomfort near your rectum, especially while sitting. [place]-colored urine due to small amounts of blood in your urine. A burning feeling while urinating. Blood in your stool (feces) or bleeding from your rectum. Blood in your semen. Follow these instructions at home: Medicines Take qmns-aiz-tfnpsei and prescription medicines only as told by [...] provider. Document Revised: 04/12/2022 Document Reviewed: 04/12/2022 [employer] Patient Education 2022 [employer]. 06/18/2024 13:50:55 Transrectal Ultrasound-Guided Prostate Biopsy Transrectal [...] including vitamins, herbs, eye drops, creams, and dfxn-mqm-ddursxc medicines. Any problems you or family members [...] provider tells you to take them. Taking sgrr-djg-vaeoheo medicines, vitamins, herbs, and supplements. General instructions [...] provider. Document Revised: 04/12/2022 Document Reviewed: 04/12/2022 [employer] Patient Education 2022 [employer]. Follow Up Care 02/13/2024 15:39:22 With:KARINA ANTHONY, Lewis Mcpherson, URL Address: [facility] [address] [place] [address]- [phone] When: Unknown Comments:sched confirmatory TRUS/bx [facility] 06-18-2024 Note Patient Education Oncology Transrectal Ultrasound-Guided [...] near your rectum, especially while sitting. ? [place]-colored urine due to small amounts of blood in your urine. ? A burning feeling while urinating. ? Blood in your stool (feces) or bleeding from your rectum. ? Blood in your semen. Follow these instructions at home: Medicines ? Take zlmc-fii-chriopp and prescription medicines only as told by [...] provider. Document Revised: 04/12/2022 Document Reviewed: 04/12/2022 [employer] Patient Education ? 2022 [employer]. Transrectal Ultrasound-Guided Prostate Biopsy A transrectal ultrasound-guided [...] including vitamins, herbs, eye drops, creams, and vgkq-bno-dhhhejw medicines. ? Any problems you or family [...] ? Taking medici (more content not included)... [facility] 02-13-2024 Hospital Discharg e instructions Patient [...] the likelihood that the cancer will spread. Le Grand 6 or lower: This indicates that the cancer cells look similar to normal prostate cells (well differentiated). [place] 7: This indicates that the cancer cells look somewhat similar to normal prostate cells (moderately differentiated). [place] 8, 9, or 10: This indicates that [...] stress of having cancer. General instructions Take vmgr-unv-eavywnu and prescription medicines only as told by your health care provider. If you have to go to the hospital, notify your cancer specialist (oncologist). Keep all follow-up visits. This is important. Where to find more information Chinese Cancer Society: www.cancer.org Chinese Society of Clinical Oncology: www.cancer.net National Cancer [place]: www.cancer.gov Contact a health care provider if: [...] provider. Document Revised: 01/13/2022 Document Reviewed: 01/13/2022 [employer] Patient Education 2022 [employer]. Follow Up Care 11/21/2023 12:42:13 With:KARINA ANTHONY, Lewis Mcpherson, URL Address: [facility] [address] [place] [address]- [phone] When: Unknown Comments:4 mos w/ PSA, RAY [facility] [place] 11-21-2023 Hospital Discharg e instructions [...] under a microscope. This is called the Le Grand score and the total score can range from 6 10, indicating how likely it is that the cancer will spread (metastasize) to other parts of the body. The higher the score, the greater the likelihood that the cancer will spread. [place] 6 or lower: This indicates that the cancer cells look similar to normal prostate cells (well differentiated). [place] 7: This indicates that the cancer cells look somewhat similar to normal prostate cells (moderately differentiated). [place] 8, 9, or 10: This indicates that [...] stress of having cancer. General instructions Take pibc-qlc-wmhyvqq and prescription medicines only as told by your health care provider. If you have to go to the hospital, notify your cancer specialist (oncologist). Keep all follow-up visits. This is important. Where to find more information Chinese Cancer Society: www.cancer.org Chinese Society of Clinical Oncology: www.cancer.net National Cancer [place]: www.cancer.gov Contact a health care provider if: [...] provider. Document Revised: 01/13/2022 Document Reviewed: 01/13/2022 [employer] Patient Education 2022 [employer]. Follow Up Care 08/26/2023 10:34:03 With:KARINA ANTHONY, Lewis Mcpherson, URL Address: [facility] [address] [place] [address]- [phone] When:Within 3 Month(s) Comments:f/u in 3 months with PSA [facility] 08-09-2023 Note [id number] [facility] 07-25-2023 Hospital Discharg e instructions Patient [...] discomfort near your rectum, especially while sitting. [place]-colored urine due to small amounts of blood in your urine. A burning feeling while urinating. Blood in your stool (feces) or bleeding from your rectum. Blood in your semen. Follow these instructions at home: Medicines Take nkab-gvt-koswwjt and prescription medicines only as told by [...] provider. Document Revised: 04/12/2022 Document Reviewed: 04/12/2022 [employer] Patient Education 2022 [employer]. 07/25/2023 13:32:38 Transrectal Ultrasound-Guided Prostate Biopsy Transrectal [...] including vitamins, herbs, eye drops, creams, and inwf-lxx-fufqmvl medicines. Any problems you or family members [...] provider tells you to take them. Taking dvxt-prv-rxntoej medicines, vitamins, herbs, and supplements. General instructions [...] provider. Document Revised: 04/12/2022 Document Reviewed: 04/12/2022 [employer] Patient Education 2022 [employer]. Follow Up Care 07/07/2023 14:50:33 With:KARINA ANTHONY, Lewis Mcpherson, URL Address: [facility] [address] [place] [address]- When: Unknown [facility] 07-25-2023 Note Chief Complaint referral for elevated [...] order Local anesthesia. Prophylactic abx sent to [facility] [place]. Follow-up With When Contact Information Lewis IVY MD, URL [facility] [address] [place] [address]- Additional Instructions: schedule TRUS of Prostate with Biopsy Patient Education Transrectal Ultrasound-Guided Prostate Biopsy, Care After Transrectal Ultrasound-Guided Prostate Biopsy IWhitney, personally scribed for Dr. Ivy on 07/25/2023 13:33:23. . Documentation recorded by the scribe, Wihtney Mcintyre, accurately reflects the services(s) I performed [...] Tobacco Use:. Cigarettes (more content not included)... [facility] Comment on above: Result Comment: Elec tronically Signed By: Lewis IVY MD\.br\Date and Time Signed: 07/25/23 13:43 EDT\.br\Electronically Co-Signed By: Whitney Mcintyre.br\Date and Time Co-Signed: 07/25/23 13:40 EDT Evaluation + Plan note Future Appointments Appointment Date:07/26/2023 08:15:00 AM Scheduled Provider: Location:[facility] Appointment Type:Urology CALL PAT FT Appointment Date:08/09/2023 01:30:00 PM Scheduled Provider: Location:[facility] Appointment Type:Urology FT Appointment Date:08/09/2023 01:30:00 PM Scheduled Provider: Location:FT.UROLOGY Appointment Type:US Prostate Urology (FT) Future Scheduled TestsUS Prostate, [facility] 08/09/23 [facility] Evaluation + Plan note Future Appointments Appointment Date:02/13/2024 01:45:00 PM Scheduled Provider:Lewis IVY MD Location:[facility] Appointment Type:URO Office Visit Diagnostic Tests PendingPSA Total 11/21/23 [facility] Evaluation + Plan note Future Appointments Appointment Date:06/04/2024 12:15:00 PM Scheduled Provider:Lewis IVY MD Location:[facility] Appointment Type:URO Office Visit Diagnostic Tests PendingPSA Total 02/13/24 [facility] Evaluation + Plan note Future Appointments Appointment Date:08/27/2024 10:45:00 AM Scheduled Provider:Lewis IVY MD Location:[facility] Appointment Type:URO Office Visit [facility] Hospital course Narrative No data available for this section [facility] Progress note No data available for this section [facility] Summary Purpose Family History No Family [...] CREATED AUTHOR AUTHOR'S ORGANIZ ATGERALDINE 10/12/2022 [facility] DATE CREATED AUTHOR AUTHOR'S TORRES KELLER 06/19/2024 [facility] Patient Care team informatio n (unrecognized section and content) Personnel Name: Kamaljit Medellin MD Address: Address: [address] [place] [address] Personnel Name: Kamaljit Medellin MD Address: Address: [address] [place] [address] Personnel Name: Kamaljit Medellin MD Address: Address: [address] [place] [address] Personnel Name: Kamaljit Medellin MD Address: Address: [address] [place] [address] FOR RECORDS PERTAINING TO PATIENTS WHO ARE [...] BE BASED ON THE PRIMARY CLINICAL RECORDS. [employer] [facility]. provides no warranty or guarantee of the accuracy or completeness of information in this document.
[2024-07-27] MEDS: ALPRAZOLAM 0.5 MG TABLET PO (20:30)
[2024-07-27] MEDS: TRAZODONE HCL 50 MG TABLET PO (20:33)
[2024-07-27] MEDS: NICOTINE 21 MG PATCH.TD24 TD (22:10)
[2024-07-28] VITALS (16 sets, daily range): BP systolic 96–154; BP diastolic 58–87; PULSE 51–102; TEMP 36.4–36.7; O2SAT 94–98
[2024-07-28 06:51] LABS: Basophils Absolute Auto 0.1 10^3/uL (0.0-0.1); Basophils Percent Auto 0.5 % (0.2-2.0); Eosinophils Absolute Auto 0.4 10^3/uL (0.0-0.7); Eosinophils Percent Auto 3.4 % (0.9-7.0); Hematocrit 36.5 % (42.0-54.0); Hemoglobin 11.7 g/dL (14.0-18.0); Immature Granulocytes Abs Auto 0.03 10^3/uL (0.00-0.03); Immature Granulocytes Pct Auto 0.3 % (0.0-0.5); Lymphocytes Absolute Auto 2.2 10^3/uL (1.2-3.8); Lymphocytes Percent Auto 19.9 % (20.5-60.0); Mean Corpuscular HGB Conc 32.1 g/dL (29.9-35.2); Mean Corpuscular Hemoglobin 26.5 pg (25.9-34.0); Mean Corpuscular Volume 82.8 fL (80.0-94.0); Mean Platelet Volume 10.4 fL (9.5-13.5); Monocytes Absolute Auto 0.9 10^3/uL (0.3-0.8); Monocytes Percent Auto 8.5 % (1.7-12.0); Neutrophils Absolute Auto 7.4 10^3/uL (1.4-6.5); Neutrophils Percent Auto 67.4 % (43.0-75.0); Platelet Count 238 10^3/uL (150-450); Red Blood Count 4.41 10^6/uL (4.70-6.10); Red Cell Distribution Width 13.9 % (11.0-15.0)
[2024-07-28 07:12] LABS: Anion Gap 9.9; BUN Creatinine Ratio 10.2; Calcium 8.9 mg/dL (8.5-10.1); Carbon Dioxide 28.9 mmol/L (21.0-32.0); Chloride 105 mmol/L (98-107); Estimated GFR (African America >60 (>=60); Estimated GFR (Non-African Ame >60 (>=60); Glucose 80 mg/dL (74-106); Potassium 3.8 mmol/L (3.5-5.1); Sodium 140 mmol/L (136-145)
[2024-07-28] MEDS: ALPRAZOLAM 0.5 MG TABLET PO ×2 (07:38→08:58)
[2024-07-28] MEDS: DOXAZOSIN MESYLATE 2 MG TABLET 8 MG PO (07:38)
[2024-07-28] MEDS: TRAMADOL HCL 50 MG TABLET PO (07:38)
[2024-07-28] MEDS: LISINOPRIL 10 MG TABLET PO (07:38)
--- NOTE | 2024-07-28 08:43 | P.DS_ITS ---
DS: Providers Provider Date of admission: 07/27/24 17:56 Primary care physician: Chetan Medellin MD DS: Diagnosis Discharge Diagnosis (1) Chest pain: Plan Admission findings: Hypertensive urgency, blood pressure unable to control in the ER, troponin negative EKG negative Chest pain: Cardiac markers were negative x 3 Hypertensive urgency-blood pressure is much improved Generalized anxiety disorder-patient states 0.5 alprazolam not effective, increase to 1 mg at discharge Hypercholesterolemia-continue with home medications Mild COPD-continue with home inhalers Low back pain-continue with home medications Admission status: Patient admitted with chest pain with hypertensive urgency, medically necessary treatment likely to span 1 midnight, observation status. ? DS: Summary Hospital Course Hospital Course: Patient is been seen and worked up to the office with uncontrolled high blood pressure. At 1 point his blood pressure was low that was when he was on lisinopril 20, cut back to 5 but blood pressures were maintained elevated, patient started having chest pain and presented to emergency room he has been undergoing a very significant amount of stress lately. His cardiac workup was negative. Blood pressure is much improved overnight. He does not think that the Ativan at 0.5 helped so increase to 1 mg, but with blood pressures improving, will continue patient on medications with increased dose of lisinopril to 10, alprazolam every 6 at 1 mg, if patient ambulating and blood pressure not significantly elevated, will discharge patient home in improving condition. Medications to this. Follow-up with me in the office in 2 days. Time Spent with Patient Time attestation: Total time spent providing and/or coordinating discharge services: Exam Constitutional Vital Signs, click to edit/add: Last Vital Signs Temp 98.0 F 07/28/24 07:41 Pulse 51 L 07/28/24 08:00 Resp 16 07/28/24 07:41 BP 154/87 H 07/28/24 07:41 Pulse Ox 98 07/28/24 07:41 O2 Del Method Nasal Cannula 07/28/24 07:41 O2 Flow Rate 2 07/28/24 07:41 Documenting provider has reviewed patient's vital signs: yes Common normals: no apparent distress Chest Common normals: inspection of chest normal Respiratory Common normals: normal respiratory effort and no retractions Cardio Common normals: regular rate and regular rhythm GI Common normals: Normal to inspection, nondistended, normoactive bowel sounds present, soft to palpation and non-tender DS: Data Data Completed and Pending Labs on day of discharge: Labs from last 24 hours 07/28/24 07/27/24 07/27/24 06:09 22:15 17:43 WBC 11.0 RBC 4.41 L Hgb 11.7 L Hct 36.5 L MCV 82.8 MCH 26.5 MCHC 32.1 RDW 13.9 Plt Count 238 MPV 10.4 Neut % (Auto) 67.4 Lymph % (Auto) 19.9 L [place] % (Auto) 8.5 Eos % (Auto) 3.4 Baso % (Auto) 0.5 Neut # (Auto) 7.4 H Lymph # (Auto) 2.2 [place] # (Auto) 0.9 H Eos # (Auto) 0.4 Baso # (Auto) 0.1 Abs Immat Gran (auto) 0.03 Imm/Tot Granulo (auto) 0.3 PT INR Sodium 140 Potassium 3.8 Chloride 105 Carbon Dioxide 28.9 Anion Gap 9.9 BUN 10.0 Creatinine 0.98 Est GFR ( Amer) >60 Est GFR (Non-Af Amer) >60 BUN/Creatinine Ratio 10.2 Glucose 80 Calcium 8.9 Total Bilirubin AST ALT Alkaline Phosphatase Troponin I High Sens 4.0 <4.0 L NT-Pro-B Natriuret Pep 75.0 Total Protein Albumin Globulin Albumin/Globulin Ratio Lipase 07/27/24 16:00 WBC 9.5 RBC 4.48 L Hgb 12.0 L Hct 37.3 L MCV 83.3 MCH 26.8 MCHC 32.2 RDW 14.0 Plt Count 247 MPV 10.4 Neut % (Auto) 63.3 Lymph % (Auto) 24.9 [place] % (Auto) 8.0 Eos % (Auto) 3.0 Baso % (Auto) 0.7 Neut # (Auto) 6.0 Lymph # (Auto) 2.4 [place] # (Auto) 0.8 Eos # (Auto) 0.3 Baso # (Auto) 0.1 Abs Immat Gran (auto) 0.01 Imm/Tot Granulo (auto) 0.1 PT 11.1 INR 1.05 Sodium 139 Potassium 3.7 Chloride 102 Carbon Dioxide 30.1 Anion Gap 10.6 BUN 10.0 Creatinine 0.94 Est GFR ( Amer) >60 Est GFR (Non-Af Amer) >60 BUN/Creatinine Ratio 10.6 Glucose 95 Calcium 9.2 Total Bilirubin 0.6 AST 14 L ALT 17 Alkaline Phosphatase 72 Troponin I High Sens <4.0 L NT-Pro-B Natriuret Pep 114.0 Total Protein 6.6 Albumin 3.9 Globulin 2.7 Albumin/Globulin Ratio 1.4 Lipase 27.0 Discharge Plan Discharge Disposition: Home, Self-Care Condition: Good Discharge Medications: New albuterol sulfate 2.5 mg /3 mL (0.083 %) Solution For Nebulization 2.5 mg inhalation Q6H PRN (Reason: shortness of breath or wheezing) Qty: 180 12RF alprazolam 1 mg tablet 1 mg PO QID PRN (Reason: anxiety) Qty: 28 0RF lisinopril 10 mg Tablet 10 mg PO DAILY Qty: 30 11RF Continued atorvastatin 40 mg tablet 40 mg PO DAILY desvenlafaxine succinate 100 mg tablet extended release 24 hr 100 mg PO Q24H doxazosin 8 mg tablet 8 mg PO DAILY lisinopril 5 mg tablet 5 mg PO DAILY trazodone 50 mg tablet 50 mg PO QPM Ultra CoQ10 75 mg capsule 75 mg PO DAILY aspirin [Adult Aspirin Regimen] 81 mg tablet,delayed release (DR/EC) 81 mg PO DAILY Print Language: [place] Islander Forms: Portal Instructions
[2024-07-28] MEDS: ATORVASTATIN CALCIUM 40 MG TABLET PO (08:58)
[2024-07-28] MEDS: ASPIRIN 81 MG TABLET.DR PO (08:58)
[2024-07-28] MEDS: PANTOPRAZOLE SODIUM 40 MG VIAL IV (08:58)
[2024-07-28] MEDS: DESVENLAFAXINE SUCCINATE 50 MG TAB.ER.24H 100 MG PO (09:01)
--- NOTE | 2024-07-31 16:10 | CM.DCFOLLOWU ---
Person spoke with:patient How are you feeling?well How is your pain?none Did you understand your discharge instructions?yes Do you have any questions about your discharge instructions?no Were you given any prescriptions at discharge?yes Were you able to get your prescriptions filled?yes Do you understand how to take your medications as ordered?yes Do you have any questions about your follow up appointment and do you plan to keep your follow up appointment?no questions, had follow up Is there anything else that you would like to discuss? no Questions/Comments/Concerns/Other: Wanted his nurse on Tuesday, Emma Elmore to be recognized, very much appreciated his care
== END 2024-07-28 14:53 | disposition home or self-care (01) ==
LOC: ER 18:02 → MS 18:21
PROVIDERS: Physician Assistant; Admitting Provider Family Medicine; Emergency Provider Emergency Medicine; PCP Family Medicine; Visit Provider Family Medicine
DX: I16.0 Hypertensive urgency (principal); R07.9 Chest pain, unspecified; F41.1 Generalized anxiety disorder; E78.00 Pure hypercholesterolemia, unspecified; J44.9 Chronic obstructive pulmonary disease, unspecified; M54.50 Low back pain, unspecified; Z79.899 Other long term (current) drug therapy; Z01.812 Encounter for preprocedural laboratory examination; C61 Malignant neoplasm of prostate; N52.9 Male erectile dysfunction, unspecified; Z79.01 Long term (current) use of anticoagulants; Z87.891 Personal history of nicotine dependence
CPT/HCPCS: 36415; 71275; 80048; 80053; 83690; 83880; 84484; 85025; 85610; 85730; 93005; 94761; 96374; 99285; G0378; G0463; Q9967

== ENCOUNTER 2024-08-09 06:50 | Day surgery (SDC) | payer BC, SELFPAY ==
[2024-07-27 08:46] VITALS: BP 157/69; PULSE 70; TEMP 36.4; O2SAT 97; BMI 27.6
[2024-08-09] VITALS (7 sets, daily range): BP systolic 94–136; BP diastolic 62–81; PULSE 56–75; TEMP 36.1–36.2; O2SAT 92–98; BMI 27.5
--- OUTSIDE RECORDS SUMMARY | 2024-08-09 06:53 | XMS_ITS | CCD ---
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 12/01/2016 Document Reviewed: 04/30/2016 [employer] Interactive Patient Education ? 2019 [employer]. Viruses or Bacteria What?s got you sick? [...] for Disease Control and Prevention July 2014 [facility] Vital Signs Date Time Vital Sign Value Performing Clinician Gianna bustillos 06-18-2024 12:58-0400 Blood Pressure Location Lewis IVY [facility] 06-18-2024 12:58-0400 Diastolic blood pressure 90 mm[Hg] Lewis IVY [facility] 06-18-2024 12:58-0400 Heart rate 66 /min Lewis IVY [facility] 06-18-2024 12:58-0400 Respiratory rate 16 /min Lewis IVY [facility] 06-18-2024 12:58-0400 Systolic blood pressure 140 mm[Hg] Lewis IVY [facility] 02-13-2024 14:35-0400 Blood Pressure Location Lewis IVY [facility] 02-13-2024 14:35-0400 Diastolic blood pressure 73 mm[Hg] Lewis IVY [facility] 02-13-2024 14:35-0400 Heart rate 82 /min Lewis IVY [facility] 02-13-2024 14:35-0400 Respiratory rate 16 /min Lewis IVY [facility] 02-13-2024 14:35-0400 Systolic blood pressure 124 mm[Hg] Lewis IVY [facility] 11-21-2023 11:16-0500 Blood Pressure Location Lewis IVY [facility] 11-21-2023 11:16-0500 Diastolic blood pressure 76 mm[Hg] Lewis IVY [facility] 11-21-2023 11:16-0500 Heart rate 72 /min Lewis IVY [facility] 11-21-2023 11:16-0500 Respiratory rate 16 /min Lewis IVY [facility] 11-21-2023 11:16-0500 Systolic blood pressure 129 mm[Hg] Lewis IYV [facility] 07-25-2023 12:46-0400 Blood Pressure Location Lewis IVY [facility] 07-25-2023 12:46-0400 Diastolic blood pressure 77 mm[Hg] Lewis IVY [facility] 07-25-2023 12:46-0400 Heart rate 69 /min Lewis IVY [facility] 07-25-2023 12:46-0400 Respiratory rate 16 /min Lewis KARINA [facility] 07-25-2023 12:46-0400 Systolic blood pressure 142 mm[Hg] Lewis IVY [facility] Encounters Encounter Date Encounter Type Care Provider Facility Start: 08-27-2024 ambulatory Lewis IVY Facili ty:[facility] Start: 08-09-2024 ambulatory Lewis IVY Facili ty:[id number] Start: 06-18-2024 End: 06-18-2024 ambulatory Lewis IVY Facility:[facility] Start: 06-18-2024 End: 06-18-2024 Patient encounter procedure Lewis IVY [facility] Start: 02-13-2024 End: 02-13-2024 ambulatory Lewis IVY Facility:[facility] Start: 02-13-2024 End: 02-13-2024 Patient encounter procedure Lewis IVY [facility] Start: 11-21-2023 End: 11-21-2023 ambulatory Lewis R KARINA Facility:[facility] Start: 11-21-2023 End: 11-21-2023 Patient encounter procedure Lewis R KARINA [facility] Start: 08-26-2023 End: 08-26-2023 ambulatory Lewis IVY Facility:[facility] Start: 08-09-2023 End: 08-09-2023 ambulatory Lewis IVY Facility:[facility] Start: 07-25-2023 End: 07-25-2023 ambulatory Lewis IVY Facility:[facility] Start: 07-25-2023 End: 07-25-2023 Patient encounter procedure Lewis IVY [facility] Start: 07-07-2023 ambulatory Lewis IVY Facility :[facility] Start: 10-08-2022 End: 10-08-2022 ambulatory PIERCE CHRISTIAN Facility:[facility] Procedures Date Procedure Procedure Detail Performing Clinician Start: 08-09-2023 Transrectal needle b iopsy of prostate Lewisarun IVY Colonoscopy Lewis IVY Payers Date Payer Category Payer Unknown [id number] 1965 Unknown [id number] 2.16.84 [id number] 1965 Unknown [id number] 2.16.8 [id number] 1965 Unknown [id number] 2.16.8 [id number] 1965 Unknown [id number] 2.16.8 [id number] 1965 Unknown [id number] 2.16.8 [id number] 1965 Unknown [id number] 2.16.8 [id number] 1965 Unknown [id number] 2.16.8 [id number] 1965 Unknown [id number] 2.16.8 [id number] 1960 Unknown [id number] Social History Date Type Detail Facility Start: 07-25-2023 Tobacco smoking status Smoker (findi ng) [facility] Sex Assigned At Male [facility] Start: 02-13-2024 Tobacco smoking status Heavy t obacco smoker (finding) [facility] Tobacco smoking status Never [facility] Start: 06-18-2024 Tobacco smoking status Ex-smoker (fi nding) [facility] Functional Status Date Assessment Result Facility 06-18-2024 Functional Status N/A [facility] 02-13-2024 Functional Status N/A [facility] 11-21-2023 Functional Status N/A [facility] 07-25-2023 Functional Status N/A [facility] Clinical Notes 07-25-2023 to 06-18-2024 [...] discomfort near your rectum, especially while sitting. [place]-colored urine due to small amounts of blood in your urine. A burning feeling while urinating. Blood in your stool (feces) or bleeding from your rectum. Blood in your semen. Follow these instructions at home: Medicines Take eplj-stu-moreqxx and prescription medicines only as told by [...] provider. Document Revised: 04/12/2022 Document Reviewed: 04/12/2022 [employer] Patient Education 2022 [employer]. 06/18/2024 13:50:55 Transrectal Ultrasound-Guided Prostate Biopsy Transrectal [...] including vitamins, herbs, eye drops, creams, and djmu-nrd-oruxgta medicines. Any problems you or family members [...] provider tells you to take them. Taking pkul-iaj-yzwpmhc medicines, vitamins, herbs, and supplements. General instructions [...] provider. Document Revised: 04/12/2022 Document Reviewed: 04/12/2022 [employer] Patient Education 2022 [employer]. Follow Up Care 02/13/2024 15:39:22 With:KARINA ANTHONY, Lewis Mcpherson, URL Address: [facility] [address] [place] [address] [phone] When: Unknown Comments:sched confirmatory TRUS/bx [facility] 06-18-2024 Note Patient Education Oncology [...] near your rectum, especially while sitting. ? [place]-colored urine due to small amounts of blood in your urine. ? A burning feeling while urinating. ? Blood in your stool (feces) or bleeding from your rectum. ? Blood in your semen. Follow these instructions at home: Medicines ? Take ftkg-gdo-nbpqfvw and prescription medicines only as told by [...] provider. Document Revised: 04/12/2022 Document Reviewed: 04/12/2022 [employer] Patient Education ? 2022 [employer]. Transrectal Ultrasound-Guided Prostate Biopsy A transrectal ultrasound-guided [...] including vitamins, herbs, eye drops, creams, and rqii-dae-csyzvqb medicines. ? Any problems you or family [...] ? Taking medici (more content not included)... [facility] 02-13-2024 Hospital Discharg e instructions Patient [...] under a microscope. This is called the Camden score and the total score can range from 6 10, indicating how likely it is that the cancer will spread (metastasize) to other parts of the body. The higher the score, the greater the likelihood that the cancer will spread. Camden 6 or lower: This indicates that the cancer cells look similar to normal prostate cells (well differentiated). Camden 7: This indicates that the cancer cells look somewhat similar to normal prostate cells (moderately differentiated). Camden 8, 9, or 10: This indicates that [...] stress of having cancer. General instructions Take fzia-bxt-axeovaq and prescription medicines only as told by your health care provider. If you have to go to the hospital, notify your cancer specialist (oncologist). Keep all follow-up visits. This is important. Where to find more information [place] [employer]: www.cancer.org [place] Society of Clinical Oncology: www.cancer.net National Cancer [place]: www.cancer.gov Contact a health care provider if: [...] provider. Document Revised: 01/13/2022 Document Reviewed: 01/13/2022 [employer] Patient Education 2022 [employer]. Follow Up Care 11/21/2023 12:42:13 With:KARINA ANTHONY, Lewis Mcpherson, URL Address: [facility] [address] [place] [address] [phone] When: Unknown Comments:4 mos w/ PSA, RAY [facility] 11-21-2023 Hospital Discharg e instructions Patient [...] similar to normal prostate cells (well differentiated). Camden 7: This indicates that the cancer cells [...] stress of having cancer. General instructions Take oxbe-pqr-uaulyjy and prescription medicines only as told by your health care provider. If you have to go to the hospital, notify your cancer specialist (oncologist). Keep all follow-up visits. This is important. Where to find more information [place] [employer]: www.cancer.org [place] Society of Clinical Oncology: www.cancer.net National Cancer [place]: www.cancer.gov Contact a health care provider if: [...] provider. Document Revised: 01/13/2022 Document Reviewed: 01/13/2022 [employer] Patient Education 2022 [employer]. Follow Up Care 08/26/2023 10:34:03 With:KARINA ANTHONY, Lewis Mcpherson, URL Address: [facility] [address] [place] [address]- [phone] When:Within 3 Month(s) Comments:f/u in 3 months with PSA [facility] 08-09-2023 Note [id number] [facility] 07-25-2023 Hospital Discharg e instructions Patient [...] discomfort near your rectum, especially while sitting. [place]-colored urine due to small amounts of blood in your urine. A burning feeling while urinating. Blood in your stool (feces) or bleeding from your rectum. Blood in your semen. Follow these instructions at home: Medicines Take gcxy-zjz-dkiksir and prescription medicines only as told by [...] provider. Document Revised: 04/12/2022 Document Reviewed: 04/12/2022 [employer] Patient Education 2022 [employer]. 07/25/2023 13:32:38 Transrectal Ultrasound-Guided Prostate Biopsy Transrectal [...] including vitamins, herbs, eye drops, creams, and rszh-rie-zmxkbhg medicines. Any problems you or family members [...] provider tells you to take them. Taking attc-wiu-vbedncm medicines, vitamins, herbs, and supplements. General instructions [...] provider. Document Revised: 04/12/2022 Document Reviewed: 04/12/2022 [employer] Patient Education 2022 [employer]. Follow Up Care 07/07/2023 14:50:33 With:KARINA ANTHONY, Lewis Mcpherson, URL Address: [facility] [address] [place] [address]- When: Unknown [facility] 07-25-2023 Note Chief Complaint referral [...] order Local anesthesia. Prophylactic abx sent to [facility]. Follow-up With When Contact Information Lewis IVY MD, URL [facility] [address] [place] [address]- Additional Instructions: schedule TRUS of Prostate with [...] Use:. Cigarettes (more content not included)... [facility] Comment on above: Result Comment: Elec tronically Signed By: Lewis IVY MD\.br\Date and Time Signed: 07/25/23 13:43 EDT\.br\Electronically Co-Signed By: Whitney Mcintyre.br\Date and Time Co-Signed: 07/25/23 13:40 EDT Evaluation + Plan note Future Appointments Appointment Date:07/26/2023 08:15:00 AM Scheduled Provider: Location:[facility] Appointment Type:Urology CALL PAT FT Appointment Date:08/09/2023 01:30:00 PM Scheduled Provider: Location:[facility] Appointment Type:Urology FT Appointment Date:08/09/2023 01:30:00 PM Scheduled Provider: Location:FT.UROLOGY Appointment Type:US Prostate Urology (FT) Future Scheduled TestsUS Prostate, [facility] 08/09/23 [facility] Evaluation + Plan note Future Appointments Appointment Date:02/13/2024 01:45:00 PM Scheduled Provider:Lewis IVY MD Location:[facility] Appointment Type:URO Office Visit Diagnostic Tests PendingPSA Total 11/21/23 [facility] Evaluation + Plan note Future Appointments Appointment Date:06/04/2024 12:15:00 PM Scheduled Provider:Lewis IVY MD Location:[facility] Appointment Type:URO Office Visit Diagnostic Tests PendingPSA Total 02/13/24 [facility] Evaluation + Plan note Future Appointments Appointment Date:08/27/2024 10:45:00 AM Scheduled Provider:Lewis IVY MD Location:[facility] Appointment Type:URO Office Visit [facility] Hospital course Narrative No data available for this section [facility] Progress note No data available for this section [facility] Summary Purpose Family History No Family History [...] CREATED AUTHOR AUTHOR'S ORGANIZ ATGERALDINE 10/12/2022 [facility] DATE CREATED AUTHOR AUTHOR'S TORRES KELLER 06/19/2024 [facility] Patient Care team informatio n (unrecognized section and content) Personnel Name: Kamaljit Medellin MD Address: Address: [address] [place] [address] Personnel Name: Kamaljit Medellin MD Address: Address: [address] [place] [address] Personnel Name: Kamaljit Medellin MD Address: Address: [address] [place] [address] Personnel Name: Kamaljit Medellin MD Address: Address: [address] [place] [address] FOR RECORDS PERTAINING TO PATIENTS WHO ARE [...] BE BASED ON THE PRIMARY CLINICAL RECORDS. [employer] [facility]. provides no warranty or guarantee of the accuracy or completeness of information in this document.
[2024-08-09] MEDS: 0.9 % SODIUM CHLORIDE 500 ML 50 ML IV (07:33)
--- NOTE | 2024-08-09 07:57 | US_ITS ---
[address] [address] Patient Name: BHAVIN WHEATLEY MRN: [id number] date: 1965 Sex: M Assigned Patient Location: [facility] Current Patient Location: [facility] Accession/Order Number: [id number] Exam Date: 08/09/2024 08:10 Report Date: 08/09/2024 09:01 At the request of: JENNIE IVY Procedure: US prostate EXAMINATION: US prostate HISTORY: Prostate biopsy ; prostate biopsy COMPARISON: No relevant comparison available. TECHNIQUE: Ultrasound exam for the prostate with an endorectal transducer was performed utilizing real-time and color duplex Doppler sonography. FINDINGS: ESTIMATED SIZE: 4.5 x 2.2 x 5.0 cm (26 mL) APPEARANCE: Slight heterogeneous prostate. 8 core biopsy samples of the left aspect of the prostate gland and eighth of the right side were obtained. US/US prostate IMPRESSION: 1. Ultrasound-guided prostate biopsy performed by Dr. Ivy. Electronically authenticated by: CHEYRL WU Date: 08/09/2024 09:01
[2024-08-09] MEDS: GENTAMICIN SULFATE 120 MG in 0.9 % SODIUM CHLORIDE 100 ML 206 MG IV (08:05)
[2024-08-09] MEDS: LIDOCAINE 2% JELLY 20 ML UR (08:28)
--- NOTE | 2024-08-09 08:32 | PM.URSON ---
Urology Surgery Operative Note Operative Note Procedure Date: 08/09/24 Time Out Performed: yes Pre-op Diagnosis: Prostate cancer; active surveillance Post-op Diagnosis: same as pre-op Procedures performed: 1. Transrectal ultrasound of the prostate. 2. Transrectal prostate needle biopsies Anesthesia: MAC and local Primary Surgeon: Lewis Ivy Complications: None Estimated blood loss (mL): 10 Findings: No hypoechoic areas or stones Specimens: Prostate needle biopsies. 8 biopsies from each side Drains: None Indications for Procedures: This gentleman has a history of prostate cancer and an elevated PSA for which he has been in active surveillance.. His Karrie score is 3+3 equal 6 in a minute amount from 1 core along with 1 core of ADONIS. He now presents for a follow-up biopsy. He has signed an informed consent after risks were explained. Some of these risks include bleeding, infection, urosepsis and anesthesia to name a few Detailed description of Procedure: The patient was kept on his gurney bed and brought into the operating room. He was rotated in the left lateral decubitus position. Timeout was done by all parties in the room. We all agreed upon the patient's identification and the planned procedures for the patient. MAC anesthesia was then administered. The rectum was swabbed with a Betadine doused 4 x 4. 2% lidocaine gel was then passed per rectum. The ultrasound probe was passed per rectum and the prostate was scanned in the transverse and longitudinal views. There was no evidence of any hypoechoic area nor any calcifications. We started at the patient's left base and began doing biopsies going towards the apex. We divided it up into 4 levels and from each level took 2 biopsies. The same maneuver was done on the right side. At the end of the procedure we had 16 satisfactory cores. These were sent for pathology. The probe was removed. He was then transferred to PACU in stable condition. He was reminded to continue his oral antibiotic course. Follow-up will be within a couple weeks to review the pathology.
[2024-08-09] MEDS: KETOROLAC TROMETHAMINE 30 MG/ML VIAL IVP (08:45)
== END 2024-08-09 09:49 | disposition home or self-care (01) ==
PROVIDERS: PCP Family Medicine; Visit Provider Urology
PROC: (CPT 902; principal; 2024-08-09 08:00)
DX: C61 Malignant neoplasm of prostate (principal); R97.20 Elevated prostate specific antigen [PSA]; N52.9 Male erectile dysfunction, unspecified; I10 Essential (primary) hypertension; N40.1 Benign prostatic hyperplasia with lower urinary tract symptoms; F17.210 Nicotine dependence, cigarettes, uncomplicated
CPT/HCPCS: 55700; 36415; 76872; J1580; J1885; J2371; J2704; J3010

== ENCOUNTER 2024-09-13 16:12 | Outpatient (OUT) | payer BC, SELFPAY ==
--- NOTE | 2024-09-13 16:22 | XR_ITS ---
[address] [address] Patient Name: BHAVIN WHEATLEY MRN: [id number] date: 1965 Sex: M Assigned Patient Location: [facility] Current Patient Location: Accession/Order Number: [id number] Exam Date: 09/13/2024 16:55 Report Date: 09/15/2024 09:02 At the request of: KAMALJIT JACOBSEN Procedure: XR shoulder RT min 2V PROCEDURE: XR elbow RT min 3V, XR shoulder RT min 2V HISTORY: right elbow pain COMPARISON: None. FINDINGS: BONES:Marked narrowing of the acromioclavicular joint with undersurface and cephalad projecting degenerative osteophytes. Unremarkable humeral head and glenohumeral joint. Small degenerative osteophyte projecting from coronoid process. Tiny developing degenerative enthesophyte at triceps tendon insertion into the olecranon. Small calcification within soft tissues adjacent the medial femoral condyle favoring sequela of remote injury. SOFT TISSUES:No visible soft tissue swelling. EFFUSION:None visible. OTHER: Negative. XR/XR shoulder RT min 2V IMPRESSION: 1. Moderate-marked degenerative changes of the acromioclavicular joint which may predispose to rotator cuff injury. 2. Unremarkable glenohumeral joint. 3. Mild degenerative changes of the elbow joint. Electronically authenticated by: CHERYL WU Date: 09/15/2024 09:02
--- NOTE | 2024-09-13 16:22 | XR_ITS ---
The [address] [address] Patient Name: BHAVIN WHEATLEY MRN: [id number] date: 1965 Sex: M Assigned Patient Location: [facility] Current Patient Location: Accession/Order Number: [id number] Exam Date: 09/13/2024 16:55 Report Date: 09/15/2024 09:02 At the request of: KAMALJIT JACOBSEN Procedure: XR elbow RT min 3V PROCEDURE: XR elbow RT min 3V, XR shoulder RT min 2V HISTORY: right elbow pain COMPARISON: None. FINDINGS: BONES:Marked narrowing of the acromioclavicular joint with undersurface and cephalad projecting degenerative osteophytes. Unremarkable humeral head and glenohumeral joint. Small degenerative osteophyte projecting from coronoid process. Tiny developing degenerative enthesophyte at triceps tendon insertion into the olecranon. Small calcification within soft tissues adjacent the medial femoral condyle favoring sequela of remote injury. SOFT TISSUES:No visible soft tissue swelling. EFFUSION:None visible. OTHER: Negative. XR/XR elbow RT min 3V IMPRESSION: 1. Moderate-marked degenerative changes of the acromioclavicular joint which may predispose to rotator cuff injury. 2. Unremarkable glenohumeral joint. 3. Mild degenerative changes of the elbow joint. Electronically authenticated by: CHERYL WU Date: 09/15/2024 09:02
--- OUTSIDE RECORDS SUMMARY | 2024-09-13 16:27 | XMS_ITS | CCD ---
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 (oncologist). Keep all follow-up visits. This is important. Where to find more information [employer]: www.cancer.org [employer] On[employer]: www.cancer.net National Cancer [place]: www.cancer.gov Contact a health care provider if: [...] provider. Document Revised: 01/13/2022 Document Reviewed: 01/13/2022 [employer] Patient Education 2022 [employer]. Follow Up Care 11/21/2023 12:42:13 With:CATA ANTHONY, Lewis Mcpherson, URL Address: [facility] [address] , [place] [address] [phone] When: Unknown Comments:4 mos w/ PSA, RAY [facility]23 Hospital Discharge instructions Patient Education 11/21/2023 12:12:20 Prostate Cancer [...] under a microscope. This is called the [place] score and the total score can range from 6 10, indicating how likely it is that the cancer will spread (metastasize) to other parts of the body. The higher the score, the greater the likelihood that the cancer will spread. [place] 6 or lower: This indicates that the cancer cells look similar to normal prostate cells (well differentiated). [place] 7: This indicates that the cancer cells look somewhat similar to normal prostate cells (moderately differentiated). [place] 8, 9, or 10: This indicates that [...] stress of having cancer. General instructions Take csie-ght-ozqpgki and prescription medicines only as told by your health care provider. If you have to go to the hospital, notify your cancer specialist (oncologist). Keep all follow-up visits. This is important. Where to find more information [employer]: www.cancer.org [employer] On[employer]: www.cancer.net National Cancer [place]: www.cancer.gov Contact a health care provider if: [...] provider. Document Revised: 01/13/2022 Document Reviewed: 01/13/2022 [employer] Patient Education 2022 [employer]. Follow Up Care 08/26/2023 10:34:03 With:CATA ANTHONY, Lewis Mcpherson, URL Address: [facility] [address] , [place] [address] [phone] When:Within 3 Month(s) Comments:f/u in 3 months with PSA [facility] 07-25-2023 Hospital Discharge instructions Patient Education 07/25/2023 13:32:39 Transrectal Ultrasound-Guided [...] discomfort near your rectum, especially while sitting. [place]-colored urine due to small amounts of blood in your urine. A burning feeling while urinating. Blood in your stool (feces) or bleeding from your rectum. Blood in your semen. Follow these instructions at home: Medicines Take zxnr-cvn-bithmrp and prescription medicines only as told by [...] provider. Document Revised: 04/12/2022 Document Reviewed: 04/12/2022 [employer] Patient Education 2022 [employer]. 07/25/2023 13:32:38 Transrectal Ultrasound-Guided Prostate Biopsy Transrectal [...] including vitamins, herbs, eye drops, creams, and kkyj-gga-eohkuou medicines. Any problems you or family members [...] provider tells you to take them. Taking yrlz-ukl-jbvzyhv medicines, vitamins, herbs, and supplements. General instructions [...] provider. Document Revised: 04/12/2022 Document Reviewed: 04/12/2022 [employer] Patient Education 2022 [employer]. Follow Up Care 07/07/2023 14:50:33 With:Lewis IVY MD, URL Address: [facility] [address], [place] [address]- When: Unknown [facility] Evaluation + Plan note Future Appointments Appointment Date:07/26/2023 08:15:00 AM Scheduled Provider: Location:[facility] Appointment Type:Urology CALL PAT FT Appointment Date:08/09/2023 01:30:00 PM Scheduled Provider: Location:[facility] Appointment Type:Urology FT Appointment Date:08/09/2023 01:30:00 PM Scheduled Provider: Location:.UROLOGY Appointment Type: Prostate Urology (FT) Future Scheduled TestsUS Prostate, [facility] 08/09/23 [facility] Evaluation + Plan note Future Appointments Appointment Date:02/13/2024 01:45:00 PM Scheduled Provider:Lewis IVY MD Location:[facility] Appointment Type:URO Office Visit Diagnostic Tests PendingPSA Total 11/21/23 [facility] Evaluation + Plan note Future Appointments Appointment Date:06/04/2024 12:15:00 PM Scheduled Provider:Lewis IVY MD Location:[facility] Appointment Type:URO Office Visit Diagnostic Tests PendingPSA Total 02/13/24 [facility] Evaluation + Plan note Future Appointments Appointment Date:08/27/2024 10:45:00 AM Scheduled Provider:Lewis IVY MD Location:[facility] Appointment Type:URO Office Visit [facility] Evaluation + Plan note [facility] Evaluation note No assessment inform ation available [facility] Work Phone: Hospital course Narrative No data available for this section [facility] Hospital Discharge instructions No data available for this section [facility] Progress note No data available for this section [facility] Reason for referral (narrative) Referred by: Lewis IVY MD [facility] Summary Purpose Family History No Family History Records FoundNo Family History Records Found No data available for this section No data available for this section No data available for this section No Family History Records Found No data available for this section No data available for this section No Family History Records Found Advance Directives No Advanced Directives Records FoundNo Advanced Directives Records FoundNo Advanced Directives Records FoundNo Advanced Directives Records Found Additional Source Comments (unrecognized sect ion and content) No Status Records FoundNo Status Records FoundNo Status Records FoundNo Status Records Found INFORMATION SOURCE (unrecogn ized section and content) DATE CREATED AUTHOR 08/07/2019 [facility] DATE CREATED AUTHOR AUTHOR'S ORGANIZ ATION 10/12/2022 [facility] DATE CREATED AUTHOR AUTHOR'S ORGANIZ ATION 08/18/2024 [facility] DATE CREATED AUTHOR AUTHOR'S ORGANIZ ATION 09/09/2024 [facility] Patient Care team informatio n (unrecognized section and content) Team Status: Inactive Member Role Status Dates Lewis Ivy MD Attending Provider Active St art: August 09, 2024 End: August 09, 2024 Goals (unrecognized section and content) Goals may be documented in a n alternate section FOR RECORDS PERTAINING TO PATIENTS WHO ARE [...] BE BASED ON THE PRIMARY CLINICAL RECORDS. [facility]. provides no warranty or guarantee of the accuracy or completeness of information in this document.
== END 2024-09-13 16:13 | disposition home or self-care (01) ==
PROVIDERS: PCP Family Medicine; Visit Provider Family Medicine
DX: M25.521 Pain in right elbow (principal); M19.011 Primary osteoarthritis, right shoulder; M19.021 Primary osteoarthritis, right elbow
CPT/HCPCS: 73030; 73080

== ENCOUNTER 2024-10-05 13:35 | Outpatient (OUT) | payer BC, SELFPAY ==
--- NOTE | 2024-10-05 14:15 | P.GSHP_ITS ---
History of Present Illness History of Present Illness Chief complaint: prostate cancer Narrative: Patient presents for presurgical testing. The patient reports he is under treatment for prostate cancer after prostate biopsy done here in July of this year. Review of Systems ROS Narrative REVIEW OF SYSTEMS: Negative except as stated in HPI, ten or more systems reviewed. Constitutional: No fever, chills, weakness ENT: No sore throat or epistaxis Cardiovascular: No edema, chest pain, palpitations, or activity intolerance Respiratory: No shortness of breath, cough, or wheezing Musculoskeletal: No joint pain or swelling Gastrointestinal: No abdominal pain, constipation, diarrhea, or vomiting Genitourinary: No dysuria or hematuria Neurological: No numbness, tingling, weakness, or headache Psychiatric: No mood changes PFSH PFSH Medical History (Updated 07/31/24 @ 00:00 by ) Chest pain ?R07.9 - Chest pain, unspecified (ICD-10) Alcoholism in remission ?F10.21 - Alcohol dependence, in remission (ICD-10) Panic attacks ?F41.0 - Panic disorder [episodic paroxysmal anxiety] (ICD-10) Prostate cancer ?C61 - Malignant neoplasm of prostate (ICD-10) Erectile dysfunction ?N52.9 - Male erectile dysfunction, unspecified (ICD-10) Elevated PSA ?R97.20 - Elevated prostate specific antigen [PSA] (ICD-10) Depression ?F32.A - Depression, unspecified (ICD-10) Anxiety ?F41.9 - Anxiety disorder, unspecified (ICD-10) COVID-19 ?U07.1 - COVID-19 (ICD-10) Sleep apnea ?G47.30 - Sleep apnea, unspecified (ICD-10) Bronchitis ?J40 - Bronchitis, not specified as acute or chronic (ICD-10) High cholesterol ?E78.00 - Pure hypercholesterolemia, unspecified (ICD-10) Hypertension ?I10 - Essential (primary) hypertension (ICD-10) Surgical History (Updated 09/28/24 @ 10:06 by Liv Sherman NP) H/O prostate biopsy (08/09/24) ?Z98.890 - Other specified postprocedural states (ICD-10) Hx of prostate biopsy ?Z98.890 - Other specified postprocedural states (ICD-10) History of colonoscopy ?Z98.890 - Other specified postprocedural states (ICD-10) Family History (Updated 07/27/24 @ 17:30 by Macario Varghese RN) Other Alcoholism Anxiety Depression Hypertension Hypertriglyceridemia Social History (Updated 07/27/24 @ 18:25 by Farzaneh Barlow) Within the past year, how often did you have a drink containing alcohol: never Score interpretation: A score less than 4 is consistent with normal alcohol consumption. 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 Highest level of school completed/degree received: high school graduate Little interest or pleasure in doing things: several days Feeling down, depressed, or hopeless: several days Feel stressed/tense/nervous/anxious/difficulty sleeping: to some extent Meds Home Medications and Allergies Home Medications ?Medication ?Instructions ?Recorded ?Confirmed ?Type aspirin 81 mg tablet,delayed 81 mg PO DAILY 07/27/24 10/05/24 History release (Adult Aspirin Regimen) atorvastatin 40 mg tablet 40 mg PO DAILY 07/27/24 10/05/24 History coenzyme Q10 75 mg capsule (Ultra 75 mg PO DAILY 07/27/24 10/05/24 History CoQ10) desvenlafaxine succinate 100 mg 100 mg PO Q24H 07/27/24 10/05/24 History tablet,extended release 24 hr doxazosin 8 mg tablet 8 mg PO DAILY 07/27/24 10/05/24 History lisinopril 5 mg tablet 5 mg PO DAILY 07/27/24 10/05/24 History trazodone 50 mg tablet 50 mg PO QPM 07/27/24 10/05/24 History albuterol sulfate 2.5 mg/3 mL 2.5 mg (3 mL) inhalation Q6H PRN 07/28/24 10/05/24 Rx (0.083 %) solution for nebulization shortness of breath or wheezing #180 mL alprazolam 1 mg tablet 1 mg PO QID PRN anxiety #28 tabs 07/28/24 10/05/24 Rx ibuprofen 800 mg tablet 800 mg PO Q8H PRN pain 10/05/24 10/05/24 History tramadol 50 mg tablet 50 mg PO Q12H 10/05/24 10/05/24 History Allergies Allergy/AdvReac Type Severity Reaction Status Date / Time Penicillins Allergy Anaphylaxis Verified 10/05/24 13:57 Exam Narrative Exam Narrative: Constitutional: Awake, alert, comfortable, well-appearing, nontoxic, interactive, vital signs as charted Head: Normocephalic, atraumatic Neck: Supple, normal appearance, normal range of motion, no meningeal signs, no lymphadenopathy Respiratory: No respiratory distress, breath sounds clear Cardiovascular: Regular rate and rhythm, strong and regular heart tones Abdomen: Nontender, normal bowel sounds, soft, no CVA tenderness Musculoskeletal: Normal gait, no swelling or edema Skin: No rashes or induration, no lesions, only visible skin inspected Neuro: No neurological deficits, normal sensation Psychiatric: Oriented ?3, normal affect Assessment and Plan Assessment and Plan (1) Prostate cancer: Plan [place] seed implant scheduled with Dr. Ivy October 18, 2024.
[2024-10-05 14:27] LABS: Basophils Absolute Auto 0.1 10^3/uL (0.0-0.1); Basophils Percent Auto 0.6 % (0.2-2.0); Eosinophils Absolute Auto 0.2 10^3/uL (0.0-0.7); Hematocrit 40.4 % (42.0-54.0); Hemoglobin 13.1 g/dL (14.0-18.0); Immature Granulocytes Abs Auto 0.05 10^3/uL (0.00-0.03); Immature Granulocytes Pct Auto 0.4 % (0.0-0.5); Lymphocytes Absolute Auto 2.6 10^3/uL (1.2-3.8); Lymphocytes Percent Auto 22.3 % (20.5-60.0); Mean Corpuscular HGB Conc 32.4 g/dL (29.9-35.2); Mean Corpuscular Volume 83.1 fL (80.0-94.0); Mean Platelet Volume 10.4 fL (9.5-13.5); Monocytes Absolute Auto 0.5 10^3/uL (0.3-0.8); Monocytes Percent Auto 3.9 % (1.7-12.0); Neutrophils Absolute Auto 8.1 10^3/uL (1.4-6.5); Neutrophils Percent Auto 70.8 % (43.0-75.0); Platelet Count 280 10^3/uL (150-450); Red Blood Count 4.86 10^6/uL (4.70-6.10); White Blood Count 11.4 10^3/uL (4.0-11.0)
[2024-10-05 14:28] LABS: Anion Gap 11.6; BUN Creatinine Ratio 11.1; Calcium 8.9 mg/dL (8.5-10.1); Carbon Dioxide 28.3 mmol/L (21.0-32.0); Chloride 105 mmol/L (98-107); Estimated GFR (African America >60 (>=60 mL/min/1.73m^2); Estimated GFR (Non-African Ame >60 (>=60 mL/min/1.73m^2); Glucose 122 mg/dL (74-106); Potassium 3.9 mmol/L (3.5-5.1); Sodium 141 mmol/L (136-145)
[2024-10-05 14:32] LABS: INR 0.97; Prothrombin Time 10.3 sec (9.0-11.6)
== END 2024-10-05 13:36 | disposition home or self-care (01) ==
LOC: PST 13:37
PROVIDERS: PCP Family Medicine; Visit Provider Urology
DX: Z01.812 Encounter for preprocedural laboratory examination (principal); Z01.818 Encounter for other preprocedural examination; C61 Malignant neoplasm of prostate
CPT/HCPCS: 36415; 80048; 85025; 85610; 85730; G0463

== ENCOUNTER 2024-10-18 06:44 | Day surgery (SDC) | payer BC, SELFPAY ==
[2024-10-05 14:13] VITALS: BP 112/61; PULSE 66; TEMP 36.3; O2SAT 100; BMI 28.5
[2024-10-18] VITALS (20 sets, daily range): BP systolic 66–134; BP diastolic 35–74; PULSE 63–99; TEMP 36.3–36.7; O2SAT 90–97; BMI 26.9
--- NOTE | 2024-10-18 | XR_ITS ---
The [address] [address] Patient Name: BHAVIN WHEATLEY MRN: [id number] date: 1965 Sex: M Assigned Patient Location: [facility] Current Patient Location: Accession/Order Number: [id number] Exam Date: 10/18/2024 08:50 Report Date: 10/20/2024 06:48 At the request of: JENNIE COLLINS Procedure: XR pelvis 1-2V PROCEDURE: XR pelvis 1-2V HISTORY: Prostate seed implant COMPARISON: None. FINDINGS: Single radiograph of the pelvis shows multiple radioactive seeds within the region of the prostate. Urinary bladder is filled with contrast without appreciable extravasation. XR/XR pelvis 1-2V IMPRESSION: 1. Radioactive seeding of the prostate. Electronically authenticated by: CHERYL WU Date: 10/20/2024 06:48
--- OUTSIDE RECORDS SUMMARY | 2024-10-18 06:47 | XMS_ITS | CCD ---
Author Organization [facility] Care Team Providers Care Science Consultant Name Role Phone PIERCE CHRISTIAN Admitting Unavailable PIERCE CHRISTIAN Attending Unavailable DR CHETAN MEDELLIN Primary Care Unavailable PIERCE CHRISTIAN Consulting Unavailable Chetan Medellin Primary Care Physician MD Jennie Ivy Attending Provider [phone] Jennie Ivy Attending Unavailable Karina, Jennie Admitting Unavailable Chetan Medellin MD Primary Care Provider [phone] Jennie IVY Admitting Unavailable KARINA, Jennie Mcpherson Attending Unavailable IVY, Jennie Mcpherson Attending Unavailable IVY, Jennie R Attending Unavailable IVY, Jennie R Attending Unavailable IVY, Jennie R Attending Unavailable IVY, Jennie R Attending Unavailable IVY, Jennie R Attending Unavailable KARINA, Jennie Mcpherson Attending Unavailable KARINA, Jennie Mcpherson Attending Unavailable Chetan Medellin MD Primary Care Provider [phone] Nai Carlin DO Unavailable Chely LEAD PROGRAMMER, Liv Unavailable CALI MEDEROS Attending Unavailable CHERYL OCONNELL Attending Unavailable CALI MEDEROS Referring Unavailable CHETAN MEDELLIN Primary Care Unavailable Brigette MURRY Attending Unavailable Brigette MURRY Referring Unavailable CHETAN MEDELLIN Primary Care Unavailable JENNIE IVY Referring Unavailable Brigette MURRY Attending Unavailable Allergies Allergy Classification Reported Allergen(s) Allergy Type Date of Onset Reaction(s) Facility (7 sources) Penicillin; Translations: [penicillin] Drug Allergy Unknown (qualifier value) [facility] (7 sources) Penicillins; Translations: [PENICILLINS] Drug Allergy 4 Anaphylaxis [facility] (5 sources) Penicillins Drug Intolerance 1 Anaphylaxis, Hives, Rash, Shortness of breath, Unknown [facility] Medications Current Medications Medication Drug Class(es) Dates Sig (Normalized) Sig (Original) [id number] 200 actuat albuterol 0.09 mg/actuat metered dose inhaler (5 sources) beta2-Adrenergic Agonist Start: 10-09-2023 take 2 puff(s) by inhalation every four hours albuterol HFA 90 mcg/act inhaler Inhale 2 puffs every 4 (four) hours if needed 10/09/2023 Active ALPRAZolam 1 mg oral tablet (13 sources) Benzodiazepine Start: 09-03-2024 take 0.5 mg by mouth twice daily ALPRAZolam (XANAX) 1 mg tablet Take 0.5 mg by mouth two times a day. 09/03/2024 Active aspirin 81 mg delayed release oral tablet (17 sources) Platelet Aggregation Inhibitor, Nonsteroidal Anti-inflammatory Drug Start: 07-25-2023 take 1 mg by mouth once daily aspirin 81 mg Oral EC Tab mg tab(s), Oral, Daily, Refills(s) 0 Start Date: 07/25/23 Status: Ordered aspirin 81 mg ca p Take by mouth. Active atorvastatin 40 mg oral tablet (17 sources) HMG-CoA Reductase Inhibitor Start: 05-11-2021 take 1 tablet by mouth once daily atorvastatin (LIPITOR) 40 mg tablet Take 40 mg by mouth once daily. 05/11/2021 Active ciprofloxacin 500 mg oral tablet (2 sources) Quinolone Antimicrobial Start: 06-18-2024 End: 06-25-2024 Cipro 500 mg Tab 500 mg = 1 tab(s), Oral, BID, start 3 days prior to procedure, X 7 day(s), # 14 tab(s), Refills(s) 0, Pharmacy: [facility] #[id number], 175, cm, 06/18/24 13:01:00 EDT, Height/Length Dosing, 80, kg, 06/18/24 13:01:00 EDT, Weight Dosing Start Date: 06/18/24 Stop Date: 06/25/24 Status: Ordered Start: 07-25-2023 take 1 tablet by ranjan twice daily Cipro 500 mg Tab 500 mg = 1 tab(s), Oral, BID, Start 3 days prior to the procedure, # 14 tab(s), Refills(s) 0, Pharmacy: [facility]/pharmacy #[id number], 175, cm, 07/25/23 12:54:00 EDT, Height/Length Dosing, 80, kg, 07/25/23 12:54:00 EDT, Weight Dosing Start Date: 07/25/23 Status: Ordered Coenzyme Q10 (COQ10 PO) (5 sources) Start: 02-13-2024 Coenzyme Q10 (COQ10 PO) Take by mouth 02/13/2024 Active CoQ10 (4 sources) Start: 02-13-2024 CoQ10 Oral, Daily, Refills(s) 0 Start Date: 02/13/24 Status: Ordered Cranberry preparation (4 sources) Non-Standardized Food Allergenic Extract, Non-Standardized Plant Allergenic Extract Start: 02-13-2024 Cranberry Refill(s) 0 Start Date: 02/13/24 Status: Ordered 24 hr desvenlafaxine succinate 100 mg extended release oral tablet (17 sources) Serotonin and Norepinephrine Reuptake Inhibitor Start: 07-24-2024 take 1 tablet by mouth once desvenlafaxine ER (PRISTIQ) 100 mg 24 hr tablet Take 1 tablet by mouth every afternoon. 07/24/2024 Active Start: 07-24-2024 take 1 tablet by ranjan th every twenty-four hours in the morning desvenlafaxine (Pristiq) 100 MG 24 hr tablet Take 1 tablet by mouth in the morning. 07/24/2024 Active Start: 07-25-2023 desvenlafaxine 50 mg Tab- Refills(s) 0 Start Date: 07/25/23 Status: Ordered doxazosin 8 mg oral tablet (17 sources) alpha-Adrenergic Divya Start: 08-26-2023 doxaz osin 8 mg oral tablet Refills(s) 0 Start Date: 08/26/23 Status: Ordered Start: 07-25-2023 doxazosin 2 mg Tab Refills(s) 0 Start Date: 07/25/23 Status: Ordered ibuprofen 800 mg oral tablet (5 sources) Nonsteroidal Anti-inflammatory Drug Start: 09-21-2024 take 1 tablet by mouth every eight hours at mealtime as needed ibuprofen 800 MG tablet TAKE 1 TABLET BY MOUTH EVERY 8 HOURS WITH FOOD OR MILK NEEDED 09/21/2024 Active levoFLOXacin 500 mg oral tablet (1 source) Quinolone Antimicrobial Start: 11-21-2023 End: 12-05-2023 take 1 tablet by mouth every twenty-four hours Levaquin 500 mg Tab 500 mg = 1 tab(s), Oral, q24hr, X 14 day(s), # 14 tab(s), Refills(s) 0, Pharmacy: [facility] #[id number], 175, cm, 11/21/23 11:35:00 EST, Height/Length Dosing, 80.2, kg, 11/21/23 11:35:00 EST, Weight Dosing Start Date: 11/21/23 Stop Date: 12/05/23 Status: Ordered lisinopril 5 mg oral tablet (11 sources) Angiotensin Converting Enzyme Inhibitor Start: 08-23-2024 take 1 tablet by mouth once lisinopril (ZESTRIL) 5 mg tablet Take 1 tablet by mouth every afternoon. 08/23/2024 Active Start: 08-23-2024 take 1 tablet by ranjan th in the morning lisinopril 5 MG tablet Take 1 tablet by mouth in the morning. 08/23/2024 Active sildenafil 100 mg oral tablet (17 sources) Phosphodiesterase 5 Inhibitor Start: 07-25-2023 sildenafil 100 mg Tab Refills(s) 0 Start Date: 07/25/23 Status: Ordered traMADol hydrochloride 50 mg oral tablet (9 sources) Opioid Agonist Start: 02-13-2024 traMADOL 50 mg Tab Refills(s) 0 Start Date: 02/13/24 Status: Ordered traZODone hydrochloride 50 mg oral tablet (17 sources) Serotonin Reuptake Inhibitor Start: 11-17-2020 traZODone (DESYREL) 50 mg tablet Take by mouth. 11/17/2020 Active triamcinolone acetonide 1 mg/ml topical cream (17 sources) Corticosteroid Start: 10-11-2023 triamcinolone (Kenalog) 0.1 % cream APPLY A SMALL AMOUNT TO SKIN TWICE A DAY 10/11/2023 Active Start: 07-25-2023 triamcinolone acetonide (KENALOG) 0.1 % cream Refill(s) 0 07/25/2023 Active Start: 07-25-2023 triamcinolone Top 0.1% Crm 15 gram Refill(s) 0 Start Date: 07/25/23 Status: Ordered ubidecarenone 50 mg oral cap karrie (6 sources) ubidecarenone Q- 10 (COENZYME Q-10) 50 mg capsule Take 50 mg by mouth. Active Problems Problem Classification Problem Date Documented Date Episodic/Chronic Acute bronchitis (4 sources) Acute bronchitis, unspecified; Translations: [ACUTE BRONCHITIS UNSPECIFIED] Onset: 10-08-2022 Episodic Anxiety disorders (3 sources) Anxiety disorder; Translations: [Anxiety disorder, unspecified] Onset: 09-03-2024 Chronic Cancer of prostate (11 sources) Malignant neoplasm of prostate; Translations: [Malignant tumor of prostate] Onset: 11-18-2023 Chronic Essential hypertension (6 sources) Hypertensive disorder 07-25-2023 Chronic Hyperplasia of prostate (7 sources) Benign prostatic hypertrophy with outflow obstruction; Translations: [Benign prostatic hyperplasia with lower urinary tract symptoms] Onset: 02-13-2024 Chronic Inflammatory conditions of male genital organs (7 sources) Prostatitis; Translations: [Inflammatory disease of prostate, unspecified] Onset: 11-21-2023 Episodic Osteoarthritis (2 sources) Arthritis of right acromioclavicular joint; Translations: [Primary osteoarthritis, right shoulder] 10-03-2024 Chronic Other connective tissue disease (2 sources) Muscle weakness of upper limb 10-03-2024 Episodic Other connective tissue disease (2 sources) Pain in right arm 10-03-2024 Episodic Other male genital disorders (9 sources) Male erectile dysfunction, unspecified; Translations: [Erectile dysfunction] Onset: 11-18-2023 Chronic Other nervous system disorders (4 sources) Paresthesia of right upper limb; Translations: [Paresthesia of skin] 10-03-2024 Episodic Other nervous system disorders (2 sources) Numbness 10-03-2024 Episodic Other nervous system disorders (2 sources) Paresthesia; Translations: [Paresthesia of skin] 10-09-2024 Episodic Other non-traumatic joint disorders (2 sources) Pain in right shoulder; Translations: [Pain in joint, shoulder region] 10-02-2024 Episodic Other non-traumatic joint disorders (2 sources) Pain in elbow; Translations: [Pain in right elbow] 10-02-2024 Episodic Other screening for suspected conditions (not mental [...] Name Value Interpretation Reference Range Facil ity EMG 1 [facility]ityon [facility] NVC 7-8 Nerveson 10-09-2024 [facility] CNOVon 10-02-2024 CNOV Office Visit (RADTSA ) BHAVIN WHEATLEY ([id number]) 1965 M Date Time Provider Department 10/02/24 9:00 AM Brigette MURRY During your visit today, we recorded the following information about you: Brigette Murry MD 10/05/2024 9:48 AM Signed UNIVERSAL PROTOCOL / SAFETY CHECKLIST Procedure to be Performed: Prostate volume study Sign In: A Moment of CARE was completed. Personnel directly involved with the procedure wore the appropriate PPE (Personal Protective Equipment). Patient/Surrogate Stated/Verified: PATIENT VERIFIED(optional for EMERGENT procedures): Patient name, Date of , Relevant allergies, and The intended procedure Time Out Communication: Intended patient and procedure match the source documents. Consent documented and matches the intended procedure. Sign Out: SIGN OUT (optional for EMERGENT procedures): No specimen collected. All instruments, equipment, possible retained foreign bodies accounted for. Brigette Murry MD Referring Provider: Brigette MURRY [[id number]] Allergies As of Date: 10/02/2024 Noted Allergy Reaction PENICILLINS 09/13/2024 10 - Anaphylaxis Date Reviewed: 09/13/2024 Reviewed by: Liv Caldwell, NIKI - Fully Assessed Primary Visit Diagnosis:Malignant neoplasm of prostate (HCC) [C61] Prescriptions as of 10/05/2024 - ALPRAZolam (XANAX) 1 mg tablet Take 0.5 mg by mouth two times a day. - atorvastatin (LIPITOR) 40 mg tablet Take 40 mg by mouth once daily. - desvenlafaxine ER (PRISTIQ) 100 mg 24 hr tablet Take 1 tablet by mouth every afternoon. - doxazosin (CARDURA) 8 mg tablet Take 8 mg by mouth once daily. - sildenafil (VIAGRA) 100 mg tablet Take 100 mg by mouth once daily as needed. - traZODone (DESYREL) 50 mg tablet Take by mouth. - triamcinolone acetonide (KENALOG) 0.1 % cream Refill(s) 0 - ubidecarenone Q-10 (COENZYME Q-10) 50 mg capsule Take 50 mg by mouth. - aspirin 81 mg cap Take by mouth. - lisinopril (ZESTRIL) 5 mg tablet Take 1 tablet by mouth every afternoon. Problem List As Of Date: 10/02/2024 (None) Encounter Status:Closed by Brigette MURRY on 10/05/[address] [facility] CNCOon 09-20-2024 CNCO Letter Text [facility] CNOVon 09-13-2024 CNOV Office Visit (RADTSA ) BHAVIN WHEATLEY ([id number]) 1965 M Date Time Provider Department 09/13/24 9:15 AM Brigette MURRY RADTSA During your visit today, we recorded the following information about you: Temperature Pulse Respiration Blood pressure 96.7 degrees 68/minute 16/minute 131/71 Weight Height 84 kg 1.715 m Brigette Murry MD 09/13/2024 9:[address] Ivy Radiation Oncology - Prostate Cancer New Patient/Consult Note PATIENT NAME: Bhavin Wheatley PATIENT REQUESTING PROVIDER: Dr. Ivy DIAGNOSIS: 59 year old male with prostate adenocarcinoma, initial PSA 4.5, biopsy La Place score 3 + 3 = 6 (grade group 1), clinical stage T1c, N0, M0, stage I [pT2, N0, M0, PSA <10, GG 1] (AJCC 8th ed.), s/p biopsy. NCCN Risk Group: Very Low Risk Group HPI: 59 year old male with prostate adenocarcinoma who presents for an opinion regarding the role of radiation therapy in the management of the patient's disease. Final recommendations will be communicated back to the requesting physician by way of the shared medical record, or letter to requesting physician via US mail. The patient was diagnosed with prostate cancer and comes in today to discuss treatment options. Patient presented with elevated PSA. Value of 4.3 with 11.4% free on 07/02/2023. Patient underwent prostate biopsy 08/18/[address] 6 in the left lateral mid core. He was then on active surveillance. PSA 11/11/2023 7.01 repeated 02/07/2024 5.83 with 12.9% free. (After 2 weeks of Levaquin antibiotic) PSA remains elevated as noted below. 03/19/2024 4.4 with 12.5% free 05/07/2024 4.5 with 14.7%. 06/14/2024 4.5 with 13.3 % free Clinical exam per Dr. Ivy revealed no nodule. Repeat prostate biopsy on August 09, 2024 revealed: La Place 6 adenocarcinoma in 1 of 2 cores from the level 3 biopsy in 1 of 3 cores from the right for biopsy. Total # of positive biopsy cores: 2 Total # of biopsy cores sampled: 17 Greatest % cancer in any single core: Less than 10% Staging Studies: None Previous Treatment for Prostate Cancer: None Genomic Testing: None The patient reports the following pertinent history: Urinary frequency (D/N): 4-6/1-2 Dysuria: No Incontinence: 1- No pads Hematuria: No - Total AUA Score: 13 Bowel Movement Frequency: 1/day Bowel Movement Quality: Normal Blood per Rectum: No Last Colonoscopy: na Baseline Erectile Function: 2- Diminished but usually satisfactory for intercourse Androgen Deprivation: none Prior Radiation Therapy, Collagen Vascular Disease, or Inflammatory Bowel Disease: No Any implanted or external electric devices? No Currently on Anticoagulation: No History of Hip Replacement: No History of Prior TURP: No ALLERGIES Allergen Reactions Penicillins Anaphylaxis ALPRAZolam (XANAX) 1 mg tablet Take 0.5 mg by mouth two times a day. atorvastatin (LIPITOR) 40 mg tablet Take 40 mg by mouth once daily. desvenlafaxine ER (PRISTIQ) 100 mg 24 hr tablet Take 1 tablet by mouth every afternoon. doxazosin (CARDURA) 8 mg tablet Take 8 mg by mouth once daily. sildenafil (VIAGRA) 100 mg tablet Take 100 mg by mouth once daily as needed. traZODone (DESYREL) 50 mg tablet Take by mouth. triamcinolone acetonide (KENALOG) 0.1 % cream Refill(s) 0 ubidecarenone Q-10 (COENZYME Q-10) 50 mg capsule Take 50 mg by mouth. aspirin 81 mg cap Take by mouth. lisinopril (ZESTRIL) 5 mg tablet Take 1 tablet by mouth every afternoon. PAST MEDICAL HISTORY Diagnosis Date Anxiety state BPH (benign prostatic hyperplasia) Depression Erectile dysfunction HTN (hypertension) PAST SURGICAL HISTORY Procedure Laterality Date PROSTATE BIOPSY History reviewed. No pertinent family history. REVIEW OF SYSTEMS: GENERAL: feeling well without fatigue, no recent change in weight NECK: denies swelling or pain in neck RESPIRATORY: no cough, no wheezing or shortness of breath, he does have history of sleep apnea CARDIOVASCULAR: no chest pain, no palpitations MUSCULOSKELETAL: Having tender right elbow over the past 1 to 2 months. Unsure of any trauma. SKIN: no rash NEURO: no numbness or paresthesias and no weakness of the extremities has generalized anxiety disorder seeing counseling As noted in HPI PHYSICAL EXAM: VS: BP 131/71 Pulse 68 Temp (!) 35.9 ?C (96.7 ?F) Resp 16 Ht 171.5 cm (5' 7.5 ) Wt 84 kg (185 lb 3 oz) SpO2 98% BMI 28.58 kg/m? KARNOFSKY PERFORMANCE STATUS: 100 General Appearance: Alert and oriented. No acute distress. HEENT: NCAT. Sclera anicteric. PERRL. EOMI. Chest: No respiratory distress. Lungs clear to auscultation bilaterally. Abdomen: Soft. Nontender. Nondistended. Musculoskeletal: No edema. Normal ROM in extremities. No bone or spine tenderness. Neuro: Speech fluent. Gait normal. No focal deficits. Rectal deferred RADIOLOGY/LABO (more content not included)... Normal [facility] Ambulatory Visit Summaryon 11-03-2023 Ambulatory Visit Summary Ambulatory Visit Summary BHAVIN WHEATLEY :1965 Visit Date:09/03/2024 Ambulatory Visit Instructions Your Diagnosis Prostate cancer Anxiety and depression BPH with urinary obstruction Erectile dysfunction Your Care Team Attending Physician - Jennie IVY MD Primary Care Physician - Chetan Medellin MD This Is Your Medications List [...] Following Appointments Follow Up with KARINA ANTHONY, Jennie Mcpherson, URL When: Where: [facility] [address] [place] [address]- Someone Will Contact You Regarding These Appointments [facility] External Ambulatory Referral, Service not offered at [facility], Oncology, rad onc, Dr. Murry, 09/03/24 10:48:00 [...] This hel (more content not included)... Normal [facility] Urology Office/Clinic Noteon 09-03-2024 Urology Office/Clinic Note [...] no nodules. [1] S/p TRUS/bx 08/09/23 - La Place 6 (3+3), 3% of core involved by [...] started AA meetings again, going back to [employer]ian[employer], and resuming counseling 1x/wk. Sober x 19 yrs. Also increased Pristiq to 100 mg and added another BP med. Has struggled his whole life with depression. Working with research attorney to see if he can get disability. 3. BPH with urinary obstruction (N40.1: Benign prostatic hyperplasia with lower urinary tract symptoms) UA neg. IPSS not completed. Taking Doxazosin 8 mg qd. 4. Erectile dysfunction (N52.9: Male erectile dysfunction, unspecified) Sildenafil 100 mg prn. Follow-up With When Contact Information Jennie IVY MD, URL [facility] [address], [place] [address]- Additional Instructions: f/u after referral to rad onc Patient Education Brachytherapy for Prostate Cancer Prostate Cancer I, Whitney Mcintyre, personally scribed for Dr. Ivy on 09/03/2024 10:52:48. . Documentation recorded by the scribe, Whitney Mcintyre, accurately reflects the services(s) I performed and decisions made by me. Authenticated by Dr. Ivy on 09/03/2024 10:56:04. Problem List/Past Medical History Ongoing Anxiety and depression BPH with urinary obstruction Elevated PSA Erectile dysfunction Hypertens (more content not included)... Normal [facility] Comment on above: Result Comment: Elec tronically Signed By: Jennie IVY MD\.br\Date and Time Signed: 09/03/24 10:56 EST\.br\Electronically Co-Signed By: Whitney Mcintyre\.br\Date and Time Co-Signed: 09/03/24 10:53 EST Pathology Request for Lab Co rpon 08-09-2024 Pathology Request for Lab Rohit Normal [facility] Comment on above: Order Comment: PATHO LOGY UROLOGY SPECIMEN Result Comment: See report. Scanned copy available in EMR. PERFORMED BY: [address] [id number] PATHOLOGIST FLAT EXAMINER MONICA LALA M.D. Performed By: #### P ATH TO [facility] #### [place] [id number] [place] Ambulatory Visit Summaryon 0 06-18-2024 Ambulatory Visit Summary Ambulatory Visit Summary BHAVIN WHEATLEY :1965 Visit Date:06/18/2024 Ambulatory Visit Instructions Your Diagnosis Prostate cancer Erectile dysfunction BPH with urinary obstruction Prostatitis Your Care Team Attending Physician - KARINA ANTHONY, Jennie Mcpherson Primary Care Physician - Chetan Medellin MD This Is Your Medications List [...] Following Appointments Follow Up with KARINA ANTHONY, Jennie Mcpherson, URL When: Comments: sched confirmatory TRUS/bx Where: [facility] [address], [place] [phone] Medications What How Much When Instructions New ciprofloxacin (Cipro 500 mg Tab) 1 Tablets By Mouth 2 times a day Duration: 7 Days start 3 days prior to procedure Pickup at [id number] Unchanged aspirin (aspirin 81 mg Oral EC [...] physician if questions or concerns Pharmacy Information [id number]: [address] [place], [place] [id number] [phone] Allergies penicillin (Unknown) Problems Ongoing - Any [...] near your rectum, especially while sitting. ? [employer]-colored urine due to small amounts of blood in your urine. ? A burning feeling while urinating. ? Blood in your stool (feces) or bleeding from your rectum. ? Blood in your semen. Follow these instructions at home: Medicines ? Take tiwi-kor-temmpoe and prescription medicines only as told by [...] health care (more content not included)... Normal [facility] Urology Office/Clinic Noteon 06-18-2024 Urology Office/Clinic Note [...] no nodules. S/p TRUS/bx 08/09/23. Path reveals La Place 6 (3+3), 3% of core involved by [...] for infection. Follow-up With When Contact Information KARINA ANTHONY, Jennie Mcpherson, URL [facility] [address], [place] [phone] Additional Instructions: sched confirmatory TRUS/bx Patient Education Transrectal Ultrasound-Guided Prostate Biopsy, Care After Transrectal Ultrasound-Guided Prostate Biopsy I, Fozia Wilkerson, personally scribed for Dr. Ivy on 06/18/2024 13:52:31. . Documentation recorded by the scribeFozia, accurately reflects the services(s) I performed and decisions made by me. Authenticated by Dr. Ivy on 06/18/2024 13:54:42. Problem List/Past Medical History Ongoing BPH with urinary obstruction Elevated PSA Erectile dysfunction Hypertension Prostate cancer Prostatitis Smoker Historical No qualifying data Procedure/Surgical History Transrectal needle biopsy of prostate (08/09/2023), Colon (more content not included)... Normal [facility] Comment on above: Result Comment: Elec tronically Signed By: Jennie IVY MD\.br\Date and Time Signed: 06/18/24 13:54 EDT\.br\Electronically Co-Signed By: Fozia Wilkerson\.br\Date and Time Co-Signed: 06/18/24 13:53 EDT Ambulatory Visit Summaryon 0 02-13-2024 Ambulatory Visit Summary BHAVIN WHEATLEY :1965 Visit Date:02/13/2024 Ambulatory Visit Instructions Your Diagnosis Prostate cancer Erectile dysfunction Prostatitis BPH with urinary obstruction Your Care Team Attending Physician - Jennie IVY MD Primary Care Physician - Chetan Medellin MD This Is Your Medications List [...] Tuesday 12:15 PM EDT With: KARINA ANTHONY, Jennie Mcpherson Where: [facility] Normal [facility] Lab Reportson 02-13-2024 Lab Reports [id number] .[id number] [facility] Patient Educationon 02-13-20 Patient Education Oncology [...] under a microscope. This is called the La Place score and the total score can range from 6?10, indicating how likely it is that the cancer will spread (metastasize) to other parts of the body. The higher the score, the greater the likelihood that the cancer will spread. ? Karrie 6 or lower: This indicates that the cancer cells look similar to normal prostate cells (well differentiated). ? La Place 7: This indicates that the cancer cells [...] external be (more content not included)... Normal [facility] Urology Office/Clinic Noteon 02-13-2024 Urology [...] habit complaints. Follow-up With When Contact Information Jennie IVY MD, URL [facility] [address], [place] [phone] Additional Instructions: 4 mos w/ PSA, RAY Patient Education Prostate Cancer I, Fozia Wilkerson, personally scribed for Dr. Ivy on 02/13/2024 15:38:40. . Documentation recorded by the scribeFozia, accurately reflects the services(s) I performed and [...] Yes, 02/13/2024 Family History Alcoholism: Sister. Normal [facility] Comment on above: Result Comment: Elec tronically Signed By: Jennie IVY MD\.br\Date and Time Signed: 02/13/24 15:42 EDT\.br\Electronically Co-Signed By: Fozia Wilkerson\.br\Date and Time Co-Signed: 02/13/24 15:39 EDT Lab Reportson 02-07-2024 Lab Reports [id number] [facility] Ambulatory Visit Summaryon 0 11-21-2023 Ambulatory Visit Summary BHAVIN WHEATLEY :1965 Visit Date:11/21/2023 Ambulatory Visit Instructions Your Diagnosis Prostate cancer Erectile dysfunction Prostatitis Tests Performed Urnls Dip Stick Auto w/o Microscopy POC [id number] MRI Pelvis (Soft Tissue) w/o contrast -- Results Pending -- Please visit your patient portal for your results or contact your primary care physician. Your Care Team Attending Physician - Jennie IVY MD Primary Care Physician - Chetan Medellin MD This Is Your Medications List [...] Follow-Up Appointments Tuesday 1:45 PM EDT With: KARINA ANTHONY, Jennie Mcpherson Where: [facility] Patient Educationon 11-21-19 24 Patient Education Oncology [...] external be (more content not included)... Normal [facility] Urology Office/Clinic Noteon 11-21-2023 Urology [...] hold off on additional meds for prostate (Dutasteride/Avodart/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 definitive radiation. Based on review and interpretation of the relevant diagnostic studies together with the exam findings, BHAVIN WHEATLEY was simulated on 10/02/2024 and the target volume to be treated as well as the critical normal structure(s) were delineated as indicated in the simulation note. I personally reviewed the TRUS and was able to create contours of the volume to be treated and the normal critical structures to be spared. In this particular case, the rectum was deemed to be a critical structure. Special consideration of this was given in light of the potential for increased toxicity if the rectum receives too much radiation dose. After participating in the treatment planning process with medical physics, I approved the best plan to deliver my prescribed course of radiation. The target tissue was planned using pre-planning to allow for the best isodose distribution to deliver a minimum dose of 145 Gy to the prostate. The dose to normal tissue (rectum) and target tissue was confirmed upon review of the calculated dose superimposed on the TRUS images containing the target tissue and the rectum. A completed summary of this plan dated 10/08/2024 incorporated herein by reference includes dose, energy, isodose distribution and DVH. Electronically Signed David Murry M.D. / RAYMON 42:37 PM documented in this encounter [facility] 10-08-2024 Note HNO ID: [id number] Author: Brigette MURRY MD Service: ? Author Type: Physician Type: Progress Notes Filed: 10/11/2024 14:37 Note Text: BHAVIN WHEATLEY [id number] 10/08/2024 [facility] Department of Radiation Oncology [facility] RADIATION ONCOLOGY BRACHYTHERAPY TREATMENT PLANNING NOTE For reasons stated in the consult note, BHAVIN WHEATLEY is a candidate for definitive radiation. Based on review and interpretation of the relevant diagnostic studies together with the exam findings, BHAVIN WHEATLEY was simulated on 10/02/2024 and the target volume to be treated as well as the critical normal structure(s) were delineated as indicated in the simulation note. I personally reviewed the TRUS and was able to create contours of the volume to be treated and the normal critical structures to be spared. In this particular case, the rectum was deemed to be a critical structure. Special consideration of this was given in light of the potential for increased toxicity if the rectum receives too much radiation dose. After participating in the treatment planning process with medical physics, I approved the best plan to deliver my prescribed course of radiation. The target tissue was planned using pre-planning to allow for the best isodose distribution to deliver a minimum dose of 145 Gy to the prostate. The dose to normal tissue (rectum) and target tissue was confirmed upon review of the calculated dose superimposed on the TRUS images containing the target tissue and the rectum. A completed summary of this plan dated 10/08/2024 incorporated herein by reference includes dose, energy, isodose distribution and DVH. Electronically Signed David Murry M.D. / RAYMON 42:37 PM [facility] 10-03-2024 History of Present illness Narrative Images from the original note were not included. NAME: Bhavin Wheatley : 1965 HISTORY OF PRESENT ILLNESS: NEW PT Bhavin Wheatley is an 59 y.o. @ male. 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 No pertinent surgical history. SOCIAL HISTORY: Social History Occupational History Not on file Tobacco Use Smoking status: Every Day Types: Cigarettes Smokeless tobacco: Never Substance and Sexual Activity Alcohol use: Never Drug use: Not on file Sexual activity: Not on file ALLERGIES: Allergies Allergen Reactions Penicillins Anaphylaxis, Hives, Rash, Shortness of breath and Unknown HOME MEDICATIONS: Current Outpatient Medications Medication Instructions albuterol HFA 90 mcg/act inhaler 2 puffs, Every 4 hours PRN ALPRAZolam (Xanax) 1 MG tablet TAKE 1/2 TABLET BY MOUTH TWICE DAILY FOR 14 DAYS aspirin (Vazalore) 81 MG capsule Oral atorvastatin (Lipitor) 40 MG tablet Coenzyme Q10 (COQ10 PO) Take by mouth desvenlafaxine (Pristiq) 100 MG 24 hr tablet 1 tablet, Daily RT doxazosin (CARDURA) 8 mg, Oral, Daily RT ibuprofen 800 MG tablet TAKE 1 TABLET BY MOUTH EVERY 8 HOURS WITH FOOD OR MILK NEEDED lisinopril 5 MG tablet 1 tablet, Daily RT sildenafil (VIAGRA) 100 mg, Oral traMADol (ULTRAM) 50 mg, Oral, 2 times daily PRN traZODone (Desyrel) 50 MG tablet triamcinolone (Kenalog) 0.1 % cream APPLY A SMALL AMOUNT TO SKIN TWICE A DAY REVIEW OF SYSTEMS: Review of Systems Vitals: Body mass index is 27.76 kg/m . Tobacco Use: High Risk (10/03/2024) Patient History Smoking Tobacco Use: Every Day Smokeless Tobacco Use: Never Passive Exposure: Not on file Alcohol Use: Not At Risk (11/17/2020) Received from [facility] (Before 05/20/2024) (Nitin Marquis, and Carrie) AUDIT-C Frequency of Alcohol Consumption: Never Average Number of Drinks: Not on file Frequency of Binge Drinking: Not on file PHYSICAL EXAM: Shoulder Musculoskeletal Exam Inspection Right Right shoulder inspection is normal. Ecchymosis: none Peripheral edema: none Atrophy: none Masses: none Palpation Right Crepitus: no crepitus Increased warmth: none Tenderness: present Anterior shoulder: mild AC joint: moderate Sternoclavicular joint: none Rotator cuff: mild Greater tuberosity: none Trapezius: none Lateral arm: none Elbow: moderate Elbow comment: lateral epicondyle Range of Motion Right Right shoulder range of motion is normal. Active ROM: pain. Active ROM comment: today is a good day. . Passive ROM: pain. Right shoulder active abduction: + pain passing 90 degrees. Internal rotation: L4. Strength Right External rotation: 5/5. Internal rotation: 5/5. Abduction: 5/5. Abduction is affected by pain. Biceps: 5/5. Triceps: 5/5. Neurovascular Right Radial pulse: normal and 2+ Capillary refill: <3 sec Axillary nerve sensory distribution: normal Scapula Right Right shoulder scapula is normal. Position: normal Winging: none Special Tests Right Rotator Cuff Signs Neer's test: negative Ambrocio test: negative Painful arc test: positive Biceps/zafar Signs Clicking/popping: positive Speed's test: negative AC Joint Signs Active horizontal adduction pain: positive Single finger test: positive Special tests additional comments: Neg spurlings, Reflexes 2+ symmetric patella and achilles, neg clonus. Neg tinnels at cubital and carpal tunnel. Neg elbow flexion test. Pt has neg Eric Test. Intermittent paresthesias reported into arm with involvement digits 1 through 4. ( Painful) General Constitutional: appears stated age Neurological: alert and oriented x3 Skin: intact Lymphadenopathy: none IMAGING: Reviewed xray of shoulder and elbow from [facility] at bedside. Moderate OA at ac joint on xray, discussed with pt. Procedures Orders Placed This Encounter Procedures EMG AND NERVE CONDUCTION STUDY Standing Status: Future Standing Expiration Date: 10/03/2025 Scheduling Instructions: EMG RT UE Schedule with XIANG; PLEASE CALL PT TO SCHEDULE ASSESSMENT: ICD-10-CM 1. Acute pain of right shoulder M25.511 2. Right elbow pain M25.521 3. Arthritis of right acromioclavicular joint M19.011 4. Paresthesia of right upper extremity R20.2 EMG AND NERVE CONDUCTION STUDY Assessment & Plan 1. Right shoulder pain with right arm paresthesias. The patient has traveling pain around the right shoulder dependent on activity. Paresthesias are present in the median nerve distribution but not reproducible with bedside palpation or exam testing. He is negative for Eric test for thoracic outlet syndrome and does not have any Spurling sign. Potential overlapping symptoms were discussed, and he is agreeable to the plan. An EMG of the right upper extremity is recommended due to the paresthesias. A recheck will be conducted in 1 month pending EMG results. 2. Mild tennis elbow. If elbow symptoms persist, a lateral epicondyle injection will be considered. Follow-up The patient will follow up in 1 month. Questions answered in laymen terms at the bedside. The diagnosis, home exercise plan and any ongoing restrictions/ recommendations reviewed. If unable to be reached in office, I recommend evaluation at nearest Emergency Room if any symptoms worsened or new symptoms develop for requiring urgent evaluation. documented in this encounter [facility] 10-02-2024 Note HNO ID: [id number] Author: Brigette MURRY MD Service: ? Author Type: Physician Type: Progress Notes Filed: 10/05/2024 09:48 Note Text: UNIVERSAL PROTOCOL / SAFETY CHECKLIST Procedure to be Performed: Prostate volume study Sign In: A Moment of CARE was completed. Personnel directly involved with the procedure wore the appropriate PPE (Personal Protective Equipment). Patient/Surrogate Stated/Verified: PATIENT VERIFIED(optional for EMERGENT procedures): Patient name, Date of , Relevant allergies, and The intended procedure Time Out Communication: Intended patient and procedure match the source documents. Consent documented and matches the intended procedure. Sign Out: SIGN OUT (optional for EMERGENT procedures): No specimen collected. All instruments, equipment, possible retained foreign bodies accounted for. Brigette Murry MD [facility] 10-02-2024 History of Present illness Narrative UNIVERSAL PROTOCOL / SAFETY CHECKLIST Procedure to be Performed: Prostate volume study Sign In: A Moment of CARE was completed. Personnel directly involved with the procedure wore the appropriate PPE (Personal Protective Equipment). Patient/Surrogate Stated/Verified: PATIENT VERIFIED(optional for EMERGENT procedures): Patient name, Date of , Relevant allergies, and The intended procedure Time Out Communication: Intended patient and procedure match the source documents. Consent documented and matches the intended procedure. Sign Out: SIGN OUT (optional for EMERGENT procedures): No specimen collected. All instruments, equipment, possible retained foreign bodies accounted for. Brigette Murry MD documented in this encounter [facility] 10-02-2024 History of Present illness Narrative BHAVIN WHEATLEY [id number] 10/02/2024 [facility] Department of Radiation Oncology [facility] RADIATION ONCOLOGY SIMULATION NOTE DATE OF SIMULATION: 10/02/2024 MACHINE: Heidi Shaulis Focus 500 Diagnosis: 185 (Prostate Gland) AREA:Prostate PATIENT POSITION: Supine CONTRAST: None PROTOCOL: None CONCURRENT THERAPY: None FIXATION DEVICE: UTS Stabilization device by [employer] Review[employer]. PROCEDURE: Patient was simulated in exaggerated dorsal lithotomy position. Serial images of the prostate were acquired using TRUS and reconstructed in 3D space. These images were imported into [employer] Prostate planning system where a plan was generated. ASSESSMENT/PLAN: Patient tolerated simulation procedure well. Electronically Signed David Murry M.D. / RAYMON 41:33 PM documented in this encounter [facility] 10-02-2024 Note HNO ID: [id number] Author: Brigette MURRY MD Service: ? Author Type: Physician Type: Progress Notes Filed: 10/03/2024 13:33 Note Text: DIONI BHAVIN [id number] 10/02/2024 [facility] Department of Radiation Oncology [facility] RADIATION ONCOLOGY SIMULATION NOTE DATE OF SIMULATION: 10/02/2024 MACHINE: Heidi Shaulis Focus 500 Diagnosis: 185 (Prostate Gland) AREA:Prostate PATIENT POSITION: Supine CONTRAST: None PROTOCOL: None CONCURRENT THERAPY: None FIXATION DEVICE: UTS Stabilization device by Nucletron. PROCEDURE: Patient was simulated in exaggerated dorsal lithotomy position. Serial images of the prostate were acquired using TRUS and reconstructed in 3D space. These images were imported into [employer] Prostate planning system where a plan was generated. ASSESSMENT/PLAN: Patient tolerated simulation procedure well. Electronically Signed David Murry M.D. / RAYMON 41:33 PM [facility] 09-13-2024 Nurse Note AUA 13. Pacemaker/Defibrillator? No Previous Cancer(s)? No Previous Radiation? No Lupus/Scleroderma? No On body monitoring device? No Liv Caldwell RN [facility] 09-13-2024 Nurse Note AUA 13. Pacemaker/Defibrillator? No Previous Cancer(s)? No Previous Radiation? No Lupus/Scleroderma? No On body monitoring device? No Liv Caldwell RN documented in this encounter [facility] 09-13-2024 History of Present illness Narrative Dr. Ivy Radiation Oncology - Prostate Cancer New Patient/Consult Note PATIENT NAME: Bhavin Wheatley PATIENT REQUESTING PROVIDER: Dr. Ivy DIAGNOSIS: 59 year old male with prostate adenocarcinoma, initial PSA 4.5, biopsy Karrie score 3 + 3 = 6 (grade group 1), clinical stage T1c, N0, M0, stage I [pT2, N0, M0, PSA <10, GG 1] (AJCC 8th ed.), s/p biopsy. NCCN Risk Group: Very Low Risk Group HPI: 59 year old male with prostate adenocarcinoma who presents for an opinion regarding the role of radiation therapy in the management of the patient's disease. Final recommendations will be communicated back to the requesting physician by way of the shared medical record, or letter to requesting physician via US mail. The patient was diagnosed with prostate cancer and comes in today to discuss treatment options. Patient presented with elevated PSA. Value of 4.3 with 11.4% free on 07/02/2023. Patient underwent prostate biopsy 08/18/2023 demonstrating Karrie 6 in the left lateral mid core. He was then on active surveillance. PSA 11/11/2023 7.01 repeated 02/07/2024 5.83 with 12.9% free. (After 2 weeks of Levaquin antibiotic) PSA remains elevated as noted below. 03/19/2024 4.4 with 12.5% free 05/07/2024 4.5 with 14.7%. 06/14/2024 4.5 with 13.3 % free Clinical exam per Dr. Ivy revealed no nodule. Repeat prostate biopsy on August 09, 2024 revealed: [place] [address] 6 adenocarcinoma in 1 of 2 cores from the level 3 biopsy in 1 of 3 cores from the right for biopsy. Total # of positive biopsy cores: 2 Total # of biopsy cores sampled: 17 Greatest % cancer in any single core: Less than 10% Staging Studies: None Previous Treatment for Prostate Cancer: None Genomic Testing: None The patient reports the following pertinent history: Urinary frequency (D/N): 4-6/1-2 Dysuria: No Incontinence: 1- No pads Hematuria: No - Total AUA Score: 13 Bowel Movement Frequency: 1/day Bowel Movement Quality: Normal Blood per Rectum: No Last Colonoscopy: na Baseline Erectile Function: 2- Diminished but usually satisfactory for intercourse Androgen Deprivation: none Prior Radiation Therapy, Collagen Vascular Disease, or Inflammatory Bowel Disease: No Any implanted or external electric devices? No Currently on Anticoagulation: No History of Hip Replacement: No History of Prior TURP: No ALLERGIES Allergen Reactions Penicillins Anaphylaxis ALPRAZolam (XANAX) 1 mg tablet Take 0.5 mg by mouth two times a day. atorvastatin (LIPITOR) 40 mg tablet Take 40 mg by mouth once daily. desvenlafaxine ER (PRISTIQ) 100 mg 24 hr tablet Take 1 tablet by mouth every afternoon. doxazosin (CARDURA) 8 mg tablet Take 8 mg by mouth once daily. sildenafil (VIAGRA) 100 mg tablet Take 100 mg by mouth once daily as needed. traZODone (DESYREL) 50 mg tablet Take by mouth. triamcinolone acetonide (KENALOG) 0.1 % cream Refill(s) 0 ubidecarenone Q-10 (COENZYME Q-10) 50 mg capsule Take 50 mg by mouth. aspirin 81 mg cap Take by mouth. lisinopril (ZESTRIL) 5 mg tablet Take 1 tablet by mouth every afternoon. PAST MEDICAL HISTORY Diagnosis Date Anxiety state BPH (benign prostatic hyperplasia) Depression Erectile dysfunction HTN (hypertension) PAST SURGICAL HISTORY Procedure Laterality Date PROSTATE BIOPSY History reviewed. No pertinent family history. REVIEW OF SYSTEMS: GENERAL: feeling well without fatigue, no recent change in weight NECK: denies swelling or pain in neck RESPIRATORY: no cough, no wheezing or shortness of breath, he does have history of sleep apnea CARDIOVASCULAR: no chest pain, no palpitations MUSCULOSKELETAL: Having tender right elbow over the past 1 to 2 months. Unsure of any trauma. SKIN: no rash NEURO: no numbness or paresthesias and no weakness of the extremities has generalized anxiety disorder seeing counseling As noted in HPI PHYSICAL EXAM: VS: BP 131/71 Pulse 68 Temp (!) 35.9 C (96.7 F) Resp 16 Ht 171.5 cm (5' 7.5 ) Wt 84 kg (185 lb 3 oz) SpO2 98% BMI 28.58 kg/m KARNOFSKY PERFORMANCE STATUS: 100 General Appearance: Alert and oriented. No acute distress. HEENT: NCAT. Sclera anicteric. PERRL. EOMI. Chest: No respiratory distress. Lungs clear to auscultation bilaterally. Abdomen: Soft. Nontender. Nondistended. Musculoskeletal: No edema. Normal ROM in extremities. No bone or spine tenderness. Neuro: Speech fluent. Gait normal. No focal deficits. Rectal deferred RADIOLOGY/LABORATORY DATA: see HPI ASSESSMENT/PLAN: Prostate adenocarcinoma, initial PSA 4.5, biopsy Karrie score 3 + 3 = 6 (grade group 1), clinical stage T1c, N0, M0, stage I [pT2, N0, M0, PSA <10, GG 1] (AJCC 8th ed.), s/p biopsy. NCCN Risk Group: Very Low Risk Group Patient presents with a localized adenocarcinoma prostate with minimal progression on active surveillance with second biopsy showing an additional area of involvement. Still patient would be considered to have a low risk presentation. Overall performance status excellent. Though he has multiple issues including generalized anxiety disorder that was seen counselor. States that this diagnosis is adding to his anxiety. Options of management discussed with patient at length. Again discussed possibility of active surveillance which he would be a very suitable candidate for active surveillance which has been presented to from Dr. Ivy. After long discussion patient does want to proceed with definitive treatment. Discussed potential options including surgery and radiation options. After long discussion patient wants to proceed with brachytherapy, I do believe he is an excellent candidate. Potential acute and long-term effects of treatment discussed. Radiation safety precaution discussed. Patient expressed understanding of everything presented. Will plan to coordinate brachytherapy procedure with Dr. Ivy. Signed by: Brigette Murry MD cc: Chetan Geiger Lac[address] [place] [address] Jennie Ivy [address] [place] [address] documented in this encounter [facility] 09-13-2024 Note HNO ID: [id number] Author: Brigette MURRY MD Service: ? Author Type: Physician Type: Progress Notes Filed: 09/13/2024 09:59 Note Text: Dr. Ivy Radiation Oncology - Prostate Cancer New Patient/Consult Note PATIENT NAME: Bhavin Wheatley PATIENT REQUESTING PROVIDER: Dr. Ivy DIAGNOSIS: 59 year old male with prostate adenocarcinoma, initial PSA 4.5, biopsy Karrie score 3 + 3 = 6 (grade group 1), clinical stage T1c, N0, M0, stage I [pT2, N0, M0, PSA <10, GG 1] (AJCC 8th ed.), s/p biopsy. NCCN Risk Group: Very Low Risk Group HPI: 59 year old male with prostate adenocarcinoma who presents for an opinion regarding the role of radiation therapy in the management of the patient's disease. Final recommendations will be communicated back to the requesting physician by way of the shared medical record, or letter to requesting physician via US mail. The patient was diagnosed with prostate cancer and comes in today to discuss treatment options. Patient presented with elevated PSA. Value of 4.3 with 11.4% free on 07/02/2023. Patient underwent prostate biopsy 08/18/[address] 6 in the left lateral mid core. He was then on active surveillance. PSA 11/11/2023 7.01 repeated 02/07/2024 5.83 with 12.9% free. (After 2 weeks of Levaquin antibiotic) PSA remains elevated as noted below. 03/19/2024 4.4 with 12.5% free 05/07/2024 4.5 with 14.7%. 06/14/2024 4.5 with 13.3 % free Clinical exam per Dr. Ivy revealed no nodule. Repeat prostate biopsy on August 09, 2024 revealed: Karrie 6 adenocarcinoma in 1 of 2 cores from the level 3 biopsy in 1 of 3 cores from the right for biopsy. Total # of positive biopsy cores: 2 Total # of biopsy cores sampled: 17 Greatest % cancer in any single core: Less than 10% Staging Studies: None Previous Treatment for Prostate Cancer: None Genomic Testing: None The patient reports the following pertinent history: Urinary frequency (D/N): 4-6/1-2 Dysuria: No Incontinence: 1- No pads Hematuria: No - Total AUA Score: 13 Bowel Movement Frequency: 1/day Bowel Movement Quality: Normal Blood per Rectum: No Last Colonoscopy: na Baseline Erectile Function: 2- Diminished but usually satisfactory for intercourse Androgen Deprivation: none Prior Radiation Therapy, Collagen Vascular Disease, or Inflammatory Bowel Disease: No Any implanted or external electric devices? No Currently on Anticoagulation: No History of Hip Replacement: No History of Prior TURP: No ALLERGIES Allergen Reactions Penicillins Anaphylaxis ALPRAZolam (XANAX) 1 mg tablet Take 0.5 mg by mouth two times a day. atorvastatin (LIPITOR) 40 mg tablet Take 40 mg by mouth once daily. desvenlafaxine ER (PRISTIQ) 100 mg 24 hr tablet Take 1 tablet by mouth every afternoon. doxazosin (CARDURA) 8 mg tablet Take 8 mg by mouth once daily. sildenafil (VIAGRA) 100 mg tablet Take 100 mg by mouth once daily as needed. traZODone (DESYREL) 50 mg tablet Take by mouth. triamcinolone acetonide (KENALOG) 0.1 % cream Refill(s) 0 ubidecarenone Q-10 (COENZYME Q-10) 50 mg capsule Take 50 mg by mouth. aspirin 81 mg cap Take by mouth. lisinopril (ZESTRIL) 5 mg tablet Take 1 tablet by mouth every afternoon. PAST MEDICAL HISTORY Diagnosis Date Anxiety state BPH (benign prostatic hyperplasia) Depression Erectile dysfunction HTN (hypertension) PAST SURGICAL HISTORY Procedure Laterality Date PROSTATE BIOPSY History reviewed. No pertinent family history. REVIEW OF SYSTEMS: GENERAL: feeling well without fatigue, no recent change in weight NECK: denies swelling or pain in neck RESPIRATORY: no cough, no wheezing or shortness of breath, he does have history of sleep apnea CARDIOVASCULAR: no chest pain, no palpitations MUSCULOSKELETAL: Having tender right elbow over the past 1 to 2 months. Unsure of any trauma. SKIN: no rash NEURO: no numbness or paresthesias and no weakness of the extremities has generalized anxiety disorder seeing counseling As noted in HPI PHYSICAL EXAM: VS: BP 131/71 Pulse 68 Temp (!) 35.9 ?C (96.7 ?F) Resp 16 Ht 171.5 cm (5' 7.5 ) Wt 84 kg (185 lb 3 oz) SpO2 98% BMI 28.58 kg/m? KARNOFSKY PERFORMANCE STATUS: 100 General Appearance: Alert and oriented. No acute distress. HEENT: NCAT. Sclera anicteric. PERRL. EOMI. Chest: No respiratory distress. Lungs clear to auscultation bilaterally. Abdomen: Soft. Nontender. Nondistended. Musculoskeletal: No edema. Normal ROM in extremities. No bone or spine tenderness. Neuro: Speech fluent. Gait normal. No focal deficits. Rectal deferred RADIOLOGY/LABORATORY DATA: see HPI ASSESSMENT/PLAN: Prostate adenocarcinoma, initial PSA 4.5, biopsy La Place score 3 + 3 = 6 (grade group 1), clinical stage T1c, N0, M0, stage I [pT2, N0, M0, PSA <10, GG 1] (AJCC 8th ed.), s/p biopsy. NCCN Risk Group: Very Low Risk Group Patient presents with a localized adenocarcinoma prostate w (more content not included)... [facility] 09-03-2024 Evaluation + Plan note Diagnostic Tests PendingTestosterone Level Total 09/03/24 [facility] 09-03-2024 Hospital Discharge instructions Patient Education 09/03/2024 [...] including vitamins, herbs, eye drops, creams, and lrhq-aak-hwpkhzu medicines. Any problems you or family members [...] provider tells you to take them. ?Taking cirz-wcq-pqndaqd medicines, vitamins, herbs, and supplements. Follow your [...] provider. Document Revised: 01/13/2022 Document Reviewed: 01/13/2022 [employer] Patient Education 2023 [employer]. 09/03/2024 10:35:04 Prostate Cancer Prostate Cancer The [...] similar to normal prostate cells (well differentiated). La Place 7: This indicates that the cancer cells look somewhat similar to normal prostate cells (moderately differentiated). La Place 8, 9, or 10: This indicates that [...] stress of having cancer. General instructions Take dyaz-tqa-tbtsvwk and prescription medicines only as told by your health care provider. If you have to go to the hospital, notify your cancer specialist (oncologist). Keep all follow-up visits. This is important. Where to find more information [place] [employer]: www.cancer.org [place] [employer]: www.cancer.net National Cancer [place]: www.cancer.gov Contact a health care provider if: [...] provider. Document Revised: 01/13/2022 Document Reviewed: 01/13/2022 [employer] Patient Education 2023 [employer]. Follow Up Care 06/18/2024 14:04:39 With:KARINA ANTHONY, Jennie Mcpherson, URL Address: [facility] [address] [place] [address]- When: Unknown [facility] [place] 09-03-2024 Note Patient Education Oncology Brachytherapy for [...] including vitamins, herbs, eye drops, creams, and qqrw-mis-wuyaukq medicines. ??? Any problems you or family [...] tells you to take them. ? Taking ienk-lkc-pnntwye medicines, vitamins, herbs, and supplements. ??? Follow [...] to numb th (more content not included)... [facility] 06-18-2024 Hospital Discharge instructions Patient Education 06/18/2024 [...] discomfort near your rectum, especially while sitting. [employer]-colored urine due to small amounts of blood in your urine. A burning feeling while urinating. Blood in your stool (feces) or bleeding from your rectum. Blood in your semen. Follow these instructions at home: Medicines Take siku-wbm-dlmajsu and prescription medicines only as told by [...] provider. Document Revised: 04/12/2022 Document Reviewed: 04/12/2022 [employer] Patient Education 2022 [employer]. 06/18/2024 13:50:55 Transrectal Ultrasound-Guided Prostate Biopsy Transrectal [...] including vitamins, herbs, eye drops, creams, and ccrc-lud-kyyfplo medicines. Any problems you or family members [...] provider tells you to take them. Taking uqtt-cmo-woebjgo medicines, vitamins, herbs, and supplements. General instructions [...] provider. Document Revised: 04/12/2022 Document Reviewed: 04/12/2022 [employer] Patient Education 2022 [employer]. Follow Up Care 02/13/2024 15:39:22 With:KARINA ANTHONY, Jennie Mcpherson, URL Address: [facility] [address] [place] [address]- [phone] When: Unknown Comments:sched confirmatory TRUS/bx [facility] 06-18-2024 Note Patient Education Oncology Transrectal Ultrasound-Guided [...] near your rectum, especially while sitting. ? [employer]-colored urine due to small amounts of blood in your urine. ? A burning feeling while urinating. ? Blood in your stool (feces) or bleeding from your rectum. ? Blood in your semen. Follow these instructions at home: Medicines ? Take riyx-cno-nsvvvuj and prescription medicines only as told by [...] provider. Document Revised: 04/12/2022 Document Reviewed: 04/12/2022 [employer] Patient Education ? 2022 [employer] Inc. Transrectal Ultrasound-Guided Prostate Biopsy A transrectal [...] including vitamins, herbs, eye drops, creams, and tuga-fkz-rwbfsuq medicines. ? Any problems you or family [...] ? Taking medici (more content not included)... [facility] 02-13-2024 Hospital Discharge instructions Patient Education 02/13/2024 [...] under a microscope. This is called the La Place score and the total score can range from 6 10, indicating how likely it is that the cancer will spread (metastasize) to other parts of the body. The higher the score, the greater the likelihood that the cancer will spread. Karrie 6 or lower: This indicates that the cancer cells look similar to normal prostate cells (well differentiated). La Place 7: This indicates that the cancer cells look somewhat similar to normal prostate cells (moderately differentiated). [place] Place 8, 9, or 10: This indicates that [...] stress of having cancer. General instructions Take xiet-jhb-zopecft and prescription medicines only as told by your health care provider. If you have to go to the hospital, notify your cancer specialist (oncologist). Keep all follow-up visits. This is important. Where to find more information [place] [employer]: www.cancer.org [place] [employer] Oncology: www.cancer.net National Cancer [place]: www.cancer.gov Contact a health care provider if: [...] provider. Document Revised: 01/13/2022 Document Reviewed: 01/13/2022 [employer] Patient Education 2022 [employer]. Follow Up Care 11/21/2023 12:42:13 With:KARINA ANTHONY, Jennie Mcpherson, URL Address: [facility] [address] [place] [address]- [phone] When: Unknown Comments:4 mos w/ PSA, RAY [facility] [place] 11-21-2023 Hospital Discharge instructions Patient Education 11/21/2023 [...] under a microscope. This is called the La Place score and the total score can range from 6 10, indicating how likely it is that the cancer will spread (metastasize) to other parts of the body. The higher the score, the greater the likelihood that the cancer will spread. Karrie 6 or lower: This indicates that the cancer cells look similar to normal prostate cells (well differentiated). La Place 7: This indicates that the cancer cells look somewhat similar to normal prostate cells (moderately differentiated). [place] Place 8, 9, or 10: This indicates that [...] stress of having cancer. General instructions Take wsur-ymo-fgzhuhe and prescription medicines only as told by your health care provider. If you have to go to the hospital, notify your cancer specialist (oncologist). Keep all follow-up visits. This is important. Where to find more information [place] [employer]: www.cancer.org [place] [employer] Oncology: www.cancer.net National Cancer [place]: www.cancer.gov Contact a health care provider if: [...] provider. Document Revised: 01/13/2022 Document Reviewed: 01/13/2022 [employer] Patient Education 2022 [employer]. Follow Up Care 08/26/2023 10:34:03 With:KARINA ANTHONY, Jennie Mcpherson, URL Address: [facility] [address] [place] [address]- [phone] When:Within 3 Month(s) Comments:f/u in 3 months with PSA [facility] 07-25-2023 Hospital Discharge instructions Patient Education 07/25/2023 [...] discomfort near your rectum, especially while sitting. [employer]-colored urine due to small amounts of blood in your urine. A burning feeling while urinating. Blood in your stool (feces) or bleeding from your rectum. Blood in your semen. Follow these instructions at home: Medicines Take hcje-elp-iofqgeu and prescription medicines only as told by [...] provider. Document Revised: 04/12/2022 Document Reviewed: 04/12/2022 [employer] Patient Education 2022 [employer]. 07/25/2023 13:32:38 Transrectal Ultrasound-Guided Prostate Biopsy Transrectal [...] including vitamins, herbs, eye drops, creams, and psap-cyn-jpaceju medicines. Any problems you or family members [...] provider tells you to take them. Taking yknn-vok-yxtpyjv medicines, vitamins, herbs, and supplements. General instructions [...] provider. Document Revised: 04/12/2022 Document Reviewed: 04/12/2022 [employer] Patient Education 2022 [employer] Inc[employer] Follow Up Care 07/07/2023 14:50:33 With:KARINA ANTHONY, Jennie Mcpherson, URL Address: [facility] [address] , [place] [address]- When: Unknown [facility] Evaluation + Plan note Future Appointments Appointment Date:07/26/2023 08:15:00 AM Scheduled Provider: Location:[facility] Appointment Type:Urology CALL PAT FT Appointment Date:08/09/2023 01:30:00 PM Scheduled Provider: Location:[facility] Appointment Type:Urology FT Appointment Date:08/09/2023 01:30:00 PM Scheduled Provider: Location:.UROLOGY Appointment Type: Prostate Urology (FT) Future Scheduled TestsUS Prostate, [facility] 08/09/23 [facility] Evaluation + Plan note Future Appointments Appointment Date:02/13/2024 01:45:00 PM Scheduled Provider:Jennie IVY MD Location:[facility] Appointment Type:URO Office Visit Diagnostic Tests PendingPSA Total 11/21/23 [facility] Evaluation + Plan note Future Appointments Appointment Date:06/04/2024 12:15:00 PM Scheduled Provider:Jennie IVY MD Location:[facility] Appointment Type:URO Office Visit Diagnostic Tests PendingPSA Total 02/13/24 [facility] Evaluation + Plan note Future Appointments Appointment Date:08/27/2024 10:45:00 AM Scheduled Provider:Jennie IVY MD Location:[facility] Appointment Type:URO Office Visit [facility] Evaluation + Plan note [facility] Evaluation note No assessment inform ation available [facility] Work Phone: Evaluation note Diagnosis Malignant neoplasm of prostate (HCC)- Primary Malignant neoplasm of prostate [facility] Acute pain of right shoulder- Primary Right elbow pain Pain in joint, upper arm Arthritis of right acromioclavicular joint Paresthesia of right upper extremity [facility] Diagnosis Malignant neoplasm of prostate (HCC)- Primary Malignant neoplasm of prostate [facility] Paresthesias- Primary Disturbance of skin sensation [facility] Narrative No data available for this section [facility] Hospital Discharge instructions No data available for this section [facility] note No data available for this section [facility] reason for referral (narrative) Referred by: Jennie IVY MD [facility] reason for visit Narrative* Other Medical (Routine) - Closed Specialty Diagnoses / Procedures Referred By Deepika zamora Referred To Contact Neurology Diagnoses Paresthesia of right upper extremity Arm weakness Numbness Arm pain, right Procedures EMG AND NERVE CONDUCTION STUDY Cali Mederos PA [address] [address] Phone: tel: fax: Nai Carlin, [address] [facility] [address] Phone: tel: fax: Referral ID Status Reason Start Date Expiration Date V isits Requested Visits Authorized [id number] Closed Perform Procedure 10/03/2024 04/01/2025 1 1 [facility] Summary Purpose Family History No Family History Records FoundNo Family History Records Found No data available for this section No data available for this section No data available for this section No Family History Records Found No data available for this section No data available for this section No Family History Records FoundNo Family History [...] section and content) DATE CREATED AUTHOR 08/07/2019 [facility] DATE CREATED AUTHOR AUTHOR'S ORGANIZ ATION 10/12/2022 [facility] [place] [facility] DATE CREATED AUTHOR AUTHOR'S ORGANIZ ATION 08/18/2024 [facility] DATE CREATED AUTHOR AUTHOR'S ORGANIZ ATION 09/20/2024 [facility] DATE CREATED AUTHOR AUTHOR'S ORGANIZ ATION 10/12/[address] [facility] EPIC DATE CREATED AUTHOR AUTHOR'S ORGANIZ ATION 10/14/2024 [facility] Patient Care team informatio n (unrecognized section and content) Team Status: Inactive Member Role Status Dates Jennie Ivy MD Attending Provider Active St art: August 09, 2024 End: August 09, 2024 Science Consultant Relationship Specialty Start Date End Date Chetan Medellin MD [address] [facility] [place] [address] PCP - General Family Medicine 09/03/24 Science Consultant Relationship Specialty Start Date End Date Chetan Medellin MD [address] [facility] [place] [address] PCP - General Family Medicine 09/03/24 Science Consultant Relationship Specialty Start Date End Date Chetan Medellin MD [address] [facility] [place] [address] PCP - General Family Medicine 01/23/24 Liv Mo NP [address] [place] PCP - [employer] 07/01/24 Nai Carlin DO [address] [place] [address] Referring Physician Neurology 01/23/24 Science Consultant Relationship Specialty Start Date End Date Chetan Medellin MD [address] [facility] [place] [address] PCP - General Family Medicine 01/23/24 Liv Mo NP [address] [place], [place] PCP - [facility] 07/01/24 Nai Carlin DO [address] [place] [address] Referring Physician Neurology 01/23/24 Science Consultant Relationship Specialty Start Date End Date Chetan Medellin MD [address] [place] [facility] [address] PCP - General Family Medicine 09/03/24 Science Consultant Relationship Specialty Start Date End Date Chetan Medellin MD [address] [facility] [address] PCP - General Family Medicine 01/23/24 Nai Carlin DO [address] [place] [address] Referring Physician Neurology 01/23/24 Science Consultant Relationship Specialty Start Date End Date Chetan Medellin MD [address] [facility] [address] PCP - General Family Medicine 01/23/24 Nai Carlin DO [address] [place] [address] Referring Physician Neurology 01/23/24 Science Consultant Relationship Specialty Start Date End Date Chetan Medellin MD [address] [facility] [place] [address] PCP - General Family Medicine 01/23/24 Nai Carlin DO [address] [place] [address] Referring Physician Neurology 01/23/24 Science Consultant Relationship Specialty Start Date End Date Chetan Medellin MD [address] [facility] [place] [address] PCP - General Family Medicine 09/03/24 Goals (unrecognized section and content) Goals may be documented in a n alternate section Source Comments (unrecognize d section and content) In the event this informatio n is protected by the Federal Confidentiality of Alcohol and Drug Abuse Patient Records regulations: The Federal rules restrict any use of the information to criminally investigate or prosecute any alcohol or drug abuse patient.[facility] the event this information is protected by the Federal Confidentiality of Alcohol and Drug Abuse Patient Records regulations: The Federal rules restrict any use of the information to criminally investigate or prosecute any alcohol or drug abuse patient.[facility] the event this information is protected by the Federal Confidentiality of Alcohol and Drug Abuse Patient Records regulations: The Federal rules restrict any use of the information to criminally investigate or prosecute any alcohol or drug abuse patient.[facility] the event this information is protected by the Federal Confidentiality of Alcohol and Drug Abuse Patient Records regulations: The Federal rules restrict any use of the information to criminally investigate or prosecute any alcohol or drug abuse patient.[facility] the event this information is protected by the Federal Confidentiality of Alcohol and Drug Abuse Patient Records regulations: The Federal rules restrict any use of the information to criminally investigate or prosecute any alcohol or drug abuse patient.[facility] Center[facility] the event this information is protected by the Federal Confidentiality of Alcohol and Drug Abuse Patient Records regulations: The Federal rules restrict any use of the information to criminally investigate or prosecute any alcohol or drug abuse patient.[facility] Reason for Visit (unrecogniz ed section and content) Reason Comments Prostate Cancer Reason Comments Pain Reason Onset Date Comments questions 10/10/2024 FOR RECORDS PERTAINING TO PATIENTS WHO ARE [...] THE PRIMARY CLINICAL RECORDS. [facility] [employer] [facility]. provides no warranty or guarantee of the accuracy or completeness of information in this document.
[2024-10-18] MEDS: LACTATED RINGER'S SOLUTION 1,000 ML 50 ML IV (07:23)
[2024-10-18] MEDS: CIPROFLOXACIN 400 MG/200 ML D5W PREMIX 200 MG IV (07:58)
[2024-10-18] MEDS: IOHEXOL 240 MG/ML - 50 ML VIAL 480 MG INJ (08:30)
--- NOTE | 2024-10-18 09:02 | P.URON_ITS ---
Urology Surgery Operative Note Operative Note Procedure Date: 10/18/24 Time Out Performed: yes Pre-op Diagnosis: Prostate cancer Post-op Diagnosis: same as pre-op Procedures performed: 1. I-125 prostate seed implantation. 2. Cystoscopy. Anesthesia: General-LMA Primary Surgeon: Lewis Ivy Complications: None Estimated blood loss (mL): 10 Specimens: None Drains: 16 Indonesian Tamez catheter to the bladder Indications for Procedures: This gentleman has prostate cancer. His PSA is under 5. His Karrie score is 3+3 equal 6. He has been in active surveillance since he had only 1 core of 3+3 equal 6 and in ADONIS core. A repeat biopsy revealed 2 cores of 3+3 equal 6 with very low percent involvement in each core. Continued active surveillance was recommended but he has such debilitating anxiety that the patient felt he would be unable to continue with active surveillance and he is strongly desired crossing into radiation treatment. He met with Dr. Pathak and a joint decision was made for iodine radioactive seed implantation. He had his volume study, simulation and the treatment plan was developed. He now presents for I-125 prostate seed implantation and cystoscopy. He has signed an informed consent after risks were explained. Detailed description of Procedure: The patient was brought to the operating room and placed on the operating room table in the supine position. SCDs were placed on the lower extremities and turned on and functioning during the entire case. Timeout was done by all parties in the room. We all agreed upon the patient's identification and the planned procedures for this patient. Genn. anesthesia was then administered. The patient was then repositioned into the modified dorsal lithotomy position. All pressure points were satisfactorily padded. Genitalia and perineum were sterilely prepped and draped in usual fashion. We started by suturing his scrotum to the inner left thigh so as to expose the perineum. A catheter was then passed in the bladder and the bladder was filled with dilute contrast and saline. The catheter was then removed. The implant bracket was then brought to the foot of the bed. The ultrasound probe was passed per rectum. The template was placed over the perineum. The positioning was matched with the preoperative simulation and volume study. While using ultrasound and fluoroscopic guidance 2 stabilizers were passed trans perineally into the prostate. We then began passing needles into the prostate transperineally using ultrasonic and fluoroscopic assistance. Seeds were then placed in the predetermined locations so as to match the treatment plan. We applied 18 needles and placed 67 sources of iodine 125 into the prostate. Live dosimetry on the table revealed excellent coverage throughout the entire prostate. The ultrasound probe was then removed. The implant bracket was then removed from the foot of the table with the template. We then passed a 22 Indonesian Olympus cystoscope per urethra and into the bladder. Anterior urethra was normal. Prostatic urethra showed by lobar hypertrophy. There was no evidence of any seeds or spacers protruding from the prostate. Panendoscopy in the bladder revealed no evidence of any seeds or spacers within the bladder. There were no tumors or stones either. The scope was then remove d. This 16 Indonesian Tamez catheter was then placed in the bladder. 10 cc of fluid was placed in the balloon. The patient was then transferred to a [facility] bed and wheeled to PACU in stable condition. Urinary Catheter Management Urinary Catheter Management Urethral: Cath placed during this visit: no
--- NOTE | 2024-10-18 09:26 | PC.NURSE ---
blood pressure dropped and patient became nauseated. opened up fluids and placed patient in Trendelenburg. Patient's BP coming upack up in this position LAYLA Beck at bedside with this real estate underwriter monitoring along side this real estate underwriter.
--- NOTE | 2024-10-18 09:29 | PC.NURSE ---
blood pressure 0928 105/61 patient states he no longer nauseated and is feeling better.
--- NOTE | 2024-10-18 10:56 | PC.NURSE ---
Reviewed denise catheter care with patient and friend. Reviewed how to change to different bag. Friend voices she worked for [employer] and is familiar, but appreciated the refresher. Catheter secure device placed.
== END 2024-10-18 10:50 | disposition home or self-care (01) ==
PROVIDERS: PCP Family Medicine; Visit Provider Urology
PROC: (CPT 55875; principal; 2024-10-18 08:00)
DX: C61 Malignant neoplasm of prostate (principal); I10 Essential (primary) hypertension; F32.A Depression, unspecified; F17.210 Nicotine dependence, cigarettes, uncomplicated; E78.1 Pure hyperglyceridemia; G47.33 Obstructive sleep apnea (adult) (pediatric); Z79.82 Long term (current) use of aspirin; Z79.899 Other long term (current) drug therapy
CPT/HCPCS: 55875; 36415; 72170; 76965; 77290; 77332; 77778; C1715; C2638; C2639; J0744; J1100; J2250; J2405; J2704; J3010; Q9966

== ENCOUNTER 2024-10-19 13:02 | Emergency (ER) | payer BC, SELFPAY ==
--- OUTSIDE RECORDS SUMMARY | 2024-10-19 13:14 | XMS_ITS | CCD ---
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 Acute pain of right shoulder (Primary Dx); Right elbow pain [facility] Comment on above: Acute pain of right shoulder (Primary Dx); Right elbow pain Start: 10-02-2024 End: 10-02-2024 Patient encounter procedure 10/02/2024 9:00 AM EST Office Visit Radiation Oncology [address] [facility] [place] [address] Brigette Murry MD [address] [place] [address] [phone] (work) Volume Study Radiation Oncology Comment on above: Volume Study Start: 08-09-2024 [facility] Start: 07-01-2024 Covid-19 Vaccine ( season) Covid-19 Vaccine ( season) [facility] Start: 07-01-2024 Influenza vaccination Influenza Vacc ine (#1) [facility] Start: 05-08-2024 Diabetes Screening Diabetes Screenin g [facility] Start: 2014 Shingrix Vaccine (1 of 2) Shingrix Vaccine (1 of 2) [facility] Start: 2009 Screening for malign ant neoplasm of colon [facility] Start: 1983 Urine microalbumin profile DTaP,Tdap,Td Vaccine (1 - Tdap) [facility] Start: 1982 Anxiety Screening Anxiety Screening [facility] Start: 1982 Depression Screening Depression Scre ening [facility] Start: 1970 Pneumococcal vaccination Pneumococcal Vaccine (1 of 2 - PCV) [facility] Start: 1964 Screening for malign ant neoplasm of colon [facility] Payers Date Payer Category Payer Self-pay 2023 Blue Cross Blue Shield BCBS [id number] 2023 Unknown [employer] BLUE CARD PPO OOS [id number] 2023-Present [phone] [address] [place] [address] PPO [id number] 2023 Unknown [id number] 2023 Unknown [id number] 1965 Unknown [id number]. 593 1964 Unknown [id number] [id number]. 727 1964 Unknown [id number] 2.16.840.1.933743.3.579.2. 727 1964 Unknown [id number] 2.16.840.1.977723.3.579.2. 727 1964 Unknown [id number] 2.16.840.1.472823.3.579.2. 727 1964 Unknown [id number] 2.16.840.1.477391.3.579.2. 727 1964 Unknown [id number] 2.16.840.1.065277.3.579.2. 727 1964 Unknown [id number] 2.16.840.1.054627.3.579.2. 727 1964 Unknown [id number] 2.16.840.1.623723.3.579.2. 727 1964 Unknown [id number] 2.16.840.1.826990.3.579.2. 1259 1964 Unknown [id number] [id number]. 1259 1959 Unknown [id number] Unknown Regular Insurance [id number] Social History Date Type Detail Facility Start: 07-25-2023 Tobacco smoking status Smoker (findi ng) [facility] Start: 09-13-2024 End: 10-03-2024 [facility] Start: 02-13-2024 Tobacco smoking status Heavy t obacco smoker (finding) [facility] Tobacco smoking status Never [facility] Start: 06-18-2024 End: 09-03-2024 Tobacco smoking status Ex-smoker (finding) [facility] Start: 1965 Sex Assigned At Male F [facility] Start: 09-13-2024 [facility] tobacco smoker [facility] History of tobacco use [facility]igarette [facility] Start: 09-13-2024 End: 10-03-2024 Tobacco use and exposure Smokeless tobacco non-user [facility] Start: 09-13-2024 Alcoholic beverage intake Ex-drinker (finding) [facility] Start: 09-13-2024 End: 10-03-2024 History of Social function [facility] Start: 1965 Sex assigned at Not on file [facility] Tobacco smoking stat [facility] Tobacco smoking consumption unknown [facility] Start: 10-03-2024 Tobacco smoking stat [facility] Smokes tobacco daily [facility] Start: 10-03-2024 End: 10-11-2024 Alcoholic beverage intake Lifetime non-drinker (finding) [facility] Functional Status Date Assessment Result Facility 09-03-2024 Functional Status N/A [facility] 06-18-2024 Functional Status N/A [facility] 02-13-2024 Functional Status N/A [facility] 11-21-2023 Functional Status N/A [facility] 07-25-2023 Functional Status N/A [facility] Clinical Notes 07-25-2023 to 10-11-2024 Telephone Encounter - LEONORA Bone - 10/11/2024 12:17 [...] will re-evaluate symptoms on 11/07... Pt thankful. [facility] 10-11-2024 Miscellaneous Notes Discussed EMG... pt has [...] on 10/18/24. Please advise. His call back [phone] documented in this encounter [facility] 10-10-2024 Telephone encounter Note Pt called and [...] on 10/18/24. Please advise. His call back [phone] [facility] 10-09-2024 History of Present illness Narrative Images from the original note were not included. Reason for Appointment: EMG Patient: Bhavin Wheatley : 1965 EMG Computer: [employer] Referring Physician: Cali Mederos PA-C EMG: LIZZIE fabric worker: Jyothi Morales CMA Office Location: [place] Reason for EMG: c/o shoulder pain and elbow pain. Radiating throughout the arm. Pins and needles in the arm. No hx of DM, not currently taking blood thinners. Comments: Procedure explained to the patient who expressed understanding documented in this encounter [facility] 10-08-2024 History of Present illness Narrative BHAVIN WHEATLEY [id number] 10/08/2024 [facility] Department of Radiation Oncology [facility] RADIATION ONCOLOGY BRACHYTHERAPY TREATMENT PLANNING NOTE For [...] RAYMON 42:37 PM documented in this encounter [facility] 10-08-2024 Note HNO ID: [id number] Author: Brigette MURRY MD Service: ? Author Type: Physician Type: Progress Notes Filed: 10/11/2024 14:37 Note Text: BHAVIN WHEATLEY [id number] 10/08/2024 [facility] Department of Radiation Oncology [facility] RADIATION ONCOLOGY BRACHYTHERAPY TREATMENT PLANNING NOTE For [...] David Murry M.D. / RAYMON 42:37 PM [facility] 10-03-2024 History of Present illness [...] XRAY RT ELBOW AND RT SHOULDER 09/13/24 [facility]; RESULTS IN REFERRAL PT NOTES GLOBAL [...] Use: Not At Risk (11/17/2020) Received from [facility] (Before 05/20/2024) (Nitin Marquis, and Carrie) AUDIT-C [...] Reviewed xray of shoulder and elbow from [facility] at bedside. Moderate OA at ac [...] requiring urgent evaluation. documented in this encounter [facility] 10-02-2024 Note HNO ID: [id number] Author: Brigette MURRY MD Service: ? Author [...] foreign bodies accounted for. Brigette Murry MD [facility] 10-02-2024 History of Present illness [...] Brigette Murry MD documented in this encounter [facility] 10-02-2024 History of Present illness Narrative BHAVIN WHEATLEY [id number] 10/02/2024 [facility] Department of Radiation Oncology [facility] RADIATION ONCOLOGY SIMULATION NOTE DATE OF SIMULATION: 10/02/2024 MACHINE: [email or web address] Focus 500 Diagnosis: 185 (Prostate Gland) AREA:Prostate PATIENT POSITION: Supine CONTRAST: None PROTOCOL: None CONCURRENT THERAPY: None FIXATION DEVICE: UTS Stabilization device by [employer]. PROCEDURE: Patient was simulated in exaggerated dorsal lithotomy position. Serial images of the prostate were acquired using TRUS and reconstructed in 3D space. These images were imported into [email or web address] Prostate planning system where a plan was generated. ASSESSMENT/PLAN: Patient tolerated simulation procedure well. Electronically Signed David Murry M.D. / RAYMON 41:33 PM documented in this encounter [facility] 10-02-2024 Note HNO ID: [id number] Author: Brigette MURRY MD Service: ? Author Type: Physician Type: Progress Notes Filed: 10/03/2024 13:33 Note Text: DIONI BHAVIN [id number] 10/02/2024 [facility] Department of Radiation Oncology [facility] RADIATION ONCOLOGY SIMULATION NOTE DATE OF SIMULATION: 10/02/2024 MACHINE: [email or web address] Focus 500 Diagnosis: 185 (Prostate Gland) AREA:Prostate PATIENT POSITION: Supine CONTRAST: None PROTOCOL: None CONCURRENT THERAPY: None FIXATION DEVICE: UTS Stabilization device by [employer]. PROCEDURE: Patient was simulated in exaggerated dorsal lithotomy position. Serial images of the prostate were acquired using TRUS and reconstructed in 3D space. These images were imported into [email or web address] Prostate planning system where a plan was generated. ASSESSMENT/PLAN: Patient tolerated simulation procedure well. Electronically Signed David Murry M.D. / ARYMON 41:33 PM [facility] 09-13-2024 Nurse Note AUA 13. Pacemaker/Defibrillator? No Previous Cancer(s)? No Previous Radiation? No Lupus/Scleroderma? No On body monitoring device? No Liv Caldwell RN [facility] 09-13-2024 Nurse Note AUA 13. Pacemaker/Defibrillator? No Previous Cancer(s)? No Previous Radiation? No Lupus/Scleroderma? No On body monitoring device? No Liv Caldwell RN documented in this encounter [facility] 09-13-2024 History of Present illness Narrative Dr. [...] prostate biopsy on August 09, 2024 revealed: Peoria 6 adenocarcinoma in 1 of 2 cores [...] Murry MD cc: Chetan Geiger Lacie [address] [place] [address] Jennie Ivy [address] [place] [address] documented in this encounter [facility] 09-13-2024 Note HNO ID: [id number] Author: Brigette MURRY MD Service: ? Author [...] 07/02/2023. Patient underwent prostate biopsy 08/18/2023 demonstrating Peoria 6 in the left lateral mid core. [...] ASSESSMENT/PLAN: Prostate adenocarcinoma, initial PSA 4.5, biopsy Peoria score 3 + 3 = 6 (grade group 1), clinical stage T1c, N0, M0, stage I [pT2, N0, M0, PSA <10, GG 1] (AJCC 8th ed.), s/p biopsy. NCCN Risk Group: Very Low Risk Group Patient presents with a localized adenocarcinoma prostate w (more content not included)... [facility] 09-03-2024 Evaluation + Plan note Diagnostic Tests PendingTestosterone Level Total 09/03/24 [facility] 09-03-2024 Hospital Discharge instructions Patient [...] including vitamins, herbs, eye drops, creams, and timz-xhi-ejjkwwg medicines. Any problems you or family members [...] provider tells you to take them. ?Taking nhsr-tux-sfrqkrc medicines, vitamins, herbs, and supplements. Follow your [...] provider. Document Revised: 01/13/2022 Document Reviewed: 01/13/2022 [employer] Patient Education 2023 [employer]. 09/03/2024 10:35:04 Prostate Cancer Prostate Cancer The [...] similar to normal prostate cells (well differentiated). Peoria 7: This indicates that the cancer cells look somewhat similar to normal prostate cells (moderately differentiated). Peoria 8, 9, or 10: This indicates that [...] stress of having cancer. General instructions Take eqgi-oxn-ziodocy and prescription medicines only as told by your health care provider. If you have to go to the hospital, notify your cancer specialist (oncologist). Keep all follow-up visits. This is important. Where to find more information [place] [employer]: www.cancer.org [place] Society of Clinical Oncology: www.cancer.net National Cancer [place]: www.cancer.gov Contact a health care provider if: [...] provider. Document Revised: 01/13/2022 Document Reviewed: 01/13/2022 [employer] Patient Education 2023 [employer]. Follow Up Care 06/18/2024 14:04:39 With:KARINA ANTHONY, Jennie Mcpherson, URL Address: [facility] [address] [place] [address]- When: Unknown [facility] [place] 09-03-2024 Note Patient Education Oncology [...] including vitamins, herbs, eye drops, creams, and jfwa-wuc-kbuelvz medicines. ??? Any problems you or family [...] tells you to take them. ? Taking oxtt-rly-iuctzfe medicines, vitamins, herbs, and supplements. ??? Follow [...] to numb th (more content not included)... [facility] 06-18-2024 Hospital Discharge instructions Patient Education 06/18/2024 [...] discomfort near your rectum, especially while sitting. Weeping Water-colored urine due to small amounts of blood in your urine. A burning feeling while urinating. Blood in your stool (feces) or bleeding from your rectum. Blood in your semen. Follow these instructions at home: Medicines Take dwqq-hda-rghhprh and prescription medicines only as told by [...] provider. Document Revised: 04/12/2022 Document Reviewed: 04/12/2022 [employer] Patient Education 2022 [employer]. 06/18/2024 13:50:55 Transrectal Ultrasound-Guided Prostate Biopsy Transrectal [...] including vitamins, herbs, eye drops, creams, and ydkz-ukj-rltoyfq medicines. Any problems you or family members [...] provider tells you to take them. Taking rlgi-jtg-jhbkgin medicines, vitamins, herbs, and supplements. General instructions [...] provider. Document Revised: 04/12/2022 Document Reviewed: 04/12/2022 [employer] Patient Education 2022 [employer]. Follow Up Care 02/13/2024 15:39:22 With:KARINA ANTHONY, Jennie Mcpherson, URL Address: [facility] [address] [place] [phone] When: Unknown Comments:sched confirmatory TRUS/bx [facility] 06-18-2024 Note Patient Education Oncology Transrectal Ultrasound-Guided [...] near your rectum, especially while sitting. ? Weeping Water-colored urine due to small amounts of blood in your urine. ? A burning feeling while urinating. ? Blood in your stool (feces) or bleeding from your rectum. ? Blood in your semen. Follow these instructions at home: Medicines ? Take fbld-jdt-zpihizj and prescription medicines only as told by [...] provider. Document Revised: 04/12/2022 Document Reviewed: 04/12/2022 [employer] Patient Education ? 2022 [employer] Transrectal Ultrasound-Guided Prostate Biopsy A transrectal [...] including vitamins, herbs, eye drops, creams, and ufjs-mnt-xtabosr medicines. ? Any problems you or family [...] ? Taking medici (more content not included)... [facility] 02-13-2024 Hospital Discharge instructions Patient Education 02/13/2024 [...] under a microscope. This is called the Peoria score and the total score can range from 6 10, indicating how likely it is that the cancer will spread (metastasize) to other parts of the body. The higher the score, the greater the likelihood that the cancer will spread. Karrie 6 or lower: This indicates that the cancer cells look similar to normal prostate cells (well differentiated). Peoria 7: This indicates that the cancer cells look somewhat similar to normal prostate cells (moderately differentiated). Peoria 8, 9, or 10: This indicates that [...] stress of having cancer. General instructions Take pqhw-kce-islnknq and prescription medicines only as told by your health care provider. If you have to go to the hospital, notify your cancer specialist (oncologist). Keep all follow-up visits. This is important. Where to find more information [place] Cancer Society: www.cancer.org [place] Society of Clinical Oncology: www.cancer.net National Cancer [place]: www.cancer.gov Contact a health care provider if: [...] provider. Document Revised: 01/13/2022 Document Reviewed: 01/13/2022 [employer] Patient Education 2022 [employer]. Follow Up Care 11/21/2023 12:42:13 With:KARINA ANTHONY, Jennie Mcpherson, URL Address: [facility] [address] [place] [phone] When: Unknown Comments:4 mos w/ PSA, RAY [facility] [place] 11-21-2023 Hospital Discharge instructions Patient [...] under a microscope. This is called the Peoria score and the total score can range from 6 10, indicating how likely it is that the cancer will spread (metastasize) to other parts of the body. The higher the score, the greater the likelihood that the cancer will spread. Karrie 6 or lower: This indicates that the cancer cells look similar to normal prostate cells (well differentiated). Peoria 7: This indicates that the cancer cells look somewhat similar to normal prostate cells (moderately differentiated). Peoria 8, 9, or 10: This indicates that [...] stress of having cancer. General instructions Take qzru-ziv-jszyjue and prescription medicines only as told by your health care provider. If you have to go to the hospital, notify your cancer specialist (oncologist). Keep all follow-up visits. This is important. Where to find more information [place] Cancer Society: www.cancer.org [place] Society of Clinical Oncology: www.cancer.net National Cancer [place]: www.cancer.gov Contact a health care provider if: [...] provider. Document Revised: 01/13/2022 Document Reviewed: 01/13/2022 [employer] Patient Education 2022 [employer]. Follow Up Care 08/26/2023 10:34:03 With:KARINA ANTHONY, Jennie Mcpherson, URL Address: [facility] [address] [place] [address] [phone] When:Within 3 Month(s) Comments:f/u in 3 months with PSA [facility] 07-25-2023 Hospital Discharge instructions Patient Education 07/25/2023 [...] discomfort near your rectum, especially while sitting. Weeping Water-colored urine due to small amounts of blood in your urine. A burning feeling while urinating. Blood in your stool (feces) or bleeding from your rectum. Blood in your semen. Follow these instructions at home: Medicines Take oumq-dfa-fbrsstf and prescription medicines only as told by [...] provider. Document Revised: 04/12/2022 Document Reviewed: 04/12/2022 [employer] Patient Education 2022 [employer]. 07/25/2023 13:32:38 Transrectal Ultrasound-Guided Prostate Biopsy Transrectal [...] including vitamins, herbs, eye drops, creams, and uaqd-ogf-ladqavq medicines. Any problems you or family members [...] provider tells you to take them. Taking tfib-tof-sctgyjg medicines, vitamins, herbs, and supplements. General instructions [...] provider. Document Revised: 04/12/2022 Document Reviewed: 04/12/2022 [employer] Patient Education 2022 [employer] Follow Up Care 07/07/2023 14:50:33 With:KARINA ANTHONY, Jennie Mcpherson, URL Address: [facility] [address] [place] [address]- When: Unknown [facility] Evaluation + Plan note Future Appointments Appointment Date:07/26/2023 08:15:00 AM Scheduled Provider: Location:[facility] Appointment Type:Urology CALL PAT FT Appointment Date:08/09/2023 01:30:00 PM Scheduled Provider: Location:[facility] Appointment Type:Urology FT Appointment Date:08/09/2023 01:30:00 PM Scheduled Provider: Location:.UROLOGY Appointment Type: Prostate Urology (FT) Future Scheduled TestsUS Prostate, [facility] 08/09/23 [facility] Evaluation + Plan note Future Appointments Appointment Date:02/13/2024 01:45:00 PM Scheduled Provider:Jennie IVY MD Location:[facility] Appointment Type:URO Office Visit Diagnostic Tests PendingPSA Total 11/21/23 [facility] Evaluation + Plan note Future Appointments Appointment Date:06/04/2024 12:15:00 PM Scheduled Provider:Jennie IVY MD Location:[facility] Appointment Type:URO Office Visit Diagnostic Tests PendingPSA Total 02/13/24 [facility] Evaluation + Plan note Future Appointments Appointment Date:08/27/2024 10:45:00 AM Scheduled Provider:Jennie IVY MD Location:[facility] Appointment Type:URO Office Visit [facility] Evaluation + Plan note [facility] Evaluation note No assessment inform ation available [facility] Work Phone: Evaluation note Diagnosis Malignant neoplasm of prostate (HCC)- Primary Malignant neoplasm of prostate [facility] Diagnosis Acute pain of right shoulder- Primary Right elbow pain Pain in joint, upper arm Arthritis of right acromioclavicular joint Paresthesia of right upper extremity [facility] Diagnosis Malignant neoplasm of prostate (HCC)- Primary Malignant neoplasm of prostate [facility] Diagnosis Paresthesias- Primary Disturbance of skin sensation [facility] Narrative No data available for this section [facility] Discharge instructions No data available for this section [facility] Progress note No data available for this section [facility] reason for referral (narrative) Referred by: Jennie IVY MD [facility] reason for visit Narrative* Other Medical (Routine) - Closed Specialty Diagnoses / Procedures Referred By Deepika zamora Referred To Contact Neurology Diagnoses Paresthesia of right upper extremity Arm weakness Numbness Arm pain, right Procedures EMG AND NERVE CONDUCTION STUDY Cali Mederos PA [address] [address] Phone: tel: fax: Nai Carlin, [address] [facility] [place] [place] [address] Phone: tel: fax: Referral ID Status Reason Start Date Expiration Date V isits Requested Visits Authorized [id number] Closed Perform Procedure 10/03/2024 04/01/2025 1 1 [...] section and content) DATE CREATED AUTHOR 08/07/2019 [facility] DATE CREATED AUTHOR AUTHOR'S ORGANIZ ATION 10/12/2022 [facility] DATE CREATED AUTHOR AUTHOR'S ORGANIZ ATION 08/18/2024 [facility] DATE CREATED AUTHOR AUTHOR'S ORGANIZ ATION 09/20/2024 [facility] DATE CREATED AUTHOR AUTHOR'S ORGANIZ ATION 10/12/2024 [facility] EPIC DATE CREATED AUTHOR AUTHOR'S ORGANIZ ATION 10/14/2024 [facility] Patient Care team informatio n (unrecognized section and content) Team Status: Inactive Member Role Status Dates Jennie Ivy MD Attending Provider Active St art: August 09, 2024 End: August 09, 2024 Major Account Manager Relationship Specialty Start Date End Date Chetan Medellin MD [address] [facility] [place] [address] PCP - General Family Medicine 09/03/24 Major Account Manager Relationship Specialty Start Date End Date Chetan Meedllin MD [address] [facility] [place] [address] PCP - General Family Medicine 09/03/24 Major Account Manager Relationship Specialty Start Date End Date Chetan Medellin MD [address] [facility] [place] [address] PCP - General Family Medicine 01/23/24 Liv Mo NP [address] [place] PCP - [employer] 07/01/24 Nai Carlin DO [address] [place] [address] Referring Physician Neurology 01/23/24 Major Account Manager Relationship Specialty Start Date End Date Chetan Medellin MD [address] [place] [facility] [address] PCP - General Family Medicine 01/23/24 Liv Mo NP [address] [place], [place] PCP - [facility] 07/01/24 Nai Carlin DO [address] [place] [address] Referring Physician Neurology 01/23/24 Major Account Manager Relationship Specialty Start Date End Date Chetan Medellin MD [address] [place] [facility] [place] [address] PCP - General Family Medicine 09/03/24 Major Account Manager Relationship Specialty Start Date End Date Chetan Medellin MD [address] [place] [facility] [address] PCP - General Family Medicine 01/23/24 Nai Carlin DO [address] [place] [address] Referring Physician Neurology 01/23/24 Major Account Manager Relationship Specialty Start Date End Date Chetan Medellin MD [address] [place] [facility] [address] PCP - General Family Medicine 01/23/24 Nai Carlin DO [address] [place] [address] Referring Physician Neurology 01/23/24 Major Account Manager Relationship Specialty Start Date End Date Chetan Medellin MD [address] [facility] [place] [address] PCP - General Family Medicine 01/23/24 Nai Carlin DO [address] [place] [address] Referring Physician Neurology 01/23/24 Major Account Manager Relationship Specialty Start Date End Date Chetan Medellin MD [address] [facility] [place] [address] PCP - General Family Medicine 09/03/24 Goals [...] or prosecute any alcohol or drug abuse patient.[facility] Hospital[facility] the event this information is protected by the Federal Confidentiality of Alcohol and Drug Abuse Patient Records regulations: The Federal rules restrict any use of the information to criminally investigate or prosecute any alcohol or drug abuse patient.[facility] Hospital[facility] the event this information is protected by the Federal Confidentiality of Alcohol and Drug Abuse Patient Records regulations: The Federal rules restrict any use of the information to criminally investigate or prosecute any alcohol or drug abuse patient.[facility] Hospital[facility] the event this information is protected by the Federal Confidentiality of Alcohol and Drug Abuse Patient Records regulations: The Federal rules restrict any use of the information to criminally investigate or prosecute any alcohol or drug abuse patient.[facility] HospitalIn the event this information is protected by the Federal Confidentiality of Alcohol and Drug Abuse Patient Records regulations: The Federal rules restrict any use of the information to criminally investigate or prosecute any alcohol or drug abuse patient.[facility] HospitalIn the event this information is protected by the Federal Confidentiality of Alcohol and Drug Abuse Patient Records regulations: The Federal rules restrict any use of the information to criminally investigate or prosecute any alcohol or drug abuse patient.[facility] Reason for Visit (unrecogniz ed section and [...] BE BASED ON THE PRIMARY CLINICAL RECORDS. [facility] [employer] [facility]. provides no warranty or guarantee of the accuracy or completeness of information in this document.
[2024-10-19 13:17] VITALS: BP 118/71; PULSE 100; TEMP 36.6; O2SAT 97; BMI 26.9
[2024-10-19 13:30] LABS: Bilirubin Urine MODERATE (NEGATIVE); Blood Urine LARGE (NEGATIVE); Clarity Urine CLEAR (CLEAR); Color Urine DK. YELLOW (YELLOW); Glucose Urine UA NEGATIVE (NEGATIVE); Ketones Urine 15 mg/dL (NEGATIVE); Leukocyte Esterase Urine TRACE (NEGATIVE); Nitrite Urine NEGATIVE (NEGATIVE); Protein Urine >=300 mg/dL (NEG/TRACE); Specific Gravity Urine >=1.030 (1.005-1.025); pH Urine 5.5 (5.0-9.0)
[2024-10-19 13:32] LABS: Urine Microscopic Indicated YES
[2024-10-19 13:38] LABS: Bacteria Urine TRACE #/HPF (NONE SEEN); Cast Seen? SEEN #/LPF (NONE SEEN); Crystals Seen? None Seen #/HPF (None Seen); Hyaline Casts Urine FEW; Mucus Urine SMALL (NONE SEEN); RBC Urine 50-75 #/HPF (0-2)
[2024-10-19 13:40] LABS: Squamous Epithelial Cell Urine RARE #/LPF (NONE/RARE); Urine Culture Indicated NO
--- NOTE | 2024-10-19 20:02 | ED_ITS ---
HPI HPI - General Adult General Chief complaint: Urogenital-Male Stated complaint: SURGERY 10/18/24; URINARY ISSUES Time Seen by Provider: 10/19/24 15:26 History of Present Illness HPI narrative: Patient is a 59-year-old male who is concerned about his urine output today. Patient had multiple seeds placed in his prostate yesterday by Dr. Ivy and partner. Dr. Pathak was Dr. Ivy partner. Patient also had a Tamez catheter placed, and was sent home. Patient was placed on bladder spasm medication along with antibiotics. Patient stated that yesterday he had 3 large bags of urine that was outputted and drained from his large Tamez catheter bag. Patient stated today his urine is becoming darker, he is not putting out as much urine as he was yesterday, and patient is concerned about a problem with his Tamez catheter not working appropriately. He has no suprapubic pain, no abdominal pain, no suprapubic pressure. Patient has no pain to his testicles. Patient does have some discomfort to the tip of his penis. No blood coming from his urethral meatus. Patient does have darker brown urine, possibly dehydration. There is no blood or clots or sediment noted in his Tamez catheter or urine Tamez large bag. Patient states he also has a leg bag at home that he was given but is uncertain how to help that up at home. All systems are negative except as noted/marked. All systems reviewed and otherwise negative. Nurses note and vital signs reviewed and patient is not hypoxic. General: The patient appears well and in no apparent distress. Patient is resting comfortably on cart. Patient is not toxic, lethargic, or listless Skin: Warm, dry, no pallor noted. There is no rash noted. No petechiae, purpura. Head: Normocephalic, atraumatic Eye: Normal conjunctiva, no drainage, EOMI. PERRL Ears, Nose, Mouth, and Throat: oral mucosa is moist. Nares patent. Mouth without vesicles. Cardiovascular: Regular Rate and Rhythm, no murmur, gallop, rub Respiratory: Patient is in no distress, no accessory muscle use, lungs are clear to auscultation, no wheezing, rales or rhonchi Back: non-tender, no CVA tenderness bilaterally to percussion. No CT LS midline pain GI: No suprapubic tenderness to palpation. No pain to bilateral testicles. Patient is circumcised. Tamez catheter in place. The Tamez catheter does not feel kinked in his penile shaft, patient has no suprapubic tenderness palpation, patient is having urine that is draining that is darker brown. No blood, clot, sediment noted. No blood or drainage coming from the urethral meatus. No acute abnormalities seen on physical exam. A lot of education was done during phys ical exam teaching patient about Tamez catheter care. No tenderness to palpation, no masses appreciated. No rebound, guarding, or rigidity noted. No distention Musculoskeletal: Patient has full range of motion of all of the extremities, no motor, sensory, or focal neurological deficits Neurological: A&O x4, normal speech Psychiatric: Cooperative Related Data Home Medications ?Medication ?Instructions ?Recorded ?Confirmed aspirin 81 mg tablet,delayed 81 mg PO DAILY 07/27/24 10/18/24 release (Adult Aspirin Regimen) atorvastatin 40 mg tablet 40 mg PO DAILY 07/27/24 10/18/24 coenzyme Q10 75 mg capsule (Ultra 75 mg PO DAILY 07/27/24 10/18/24 CoQ10) desvenlafaxine succinate 100 mg 100 mg PO Q24H 07/27/24 10/18/24 tablet,extended release 24 hr doxazosin 8 mg tablet 8 mg PO DAILY 07/27/24 10/18/24 lisinopril 5 mg tablet 5 mg PO DAILY 07/27/24 10/18/24 trazodone 50 mg tablet 50 mg PO QPM 07/27/24 10/18/24 ibuprofen 800 mg tablet 800 mg PO Q8H PRN pain 10/05/24 10/18/24 tramadol 50 mg tablet 50 mg PO Q12H 10/05/24 10/18/24 alprazolam 1 mg tablet 0.5 mg PO BID PRN anxiety 10/18/24 10/18/24 Previous Rx's ?Medication ?Instructions ?Recorded albuterol sulfate 2.5 mg/3 mL 2.5 mg (3 mL) inhalation Q6H PRN 07/28/24 (0.083 %) solution for nebulization shortness of breath or wheezing #180 mL doxycycline hyclate 100 mg capsule 100 mg PO BID 7 days #14 caps 10/18/24 solifenacin 10 mg tablet (Vesicare) 10 mg PO DAILY #7 tabs 10/18/24 Allergies Allergy/AdvReac Type Severity Reaction Status Date / Time Penicillins Allergy Anaphylaxis Verified 10/19/24 13:22 Opioid HPI Opioid Management Most Recent Opioid Data: Last Pain Scale 2 10/18/24 10:43 10/18/24 Last Pain Assessment 10/18/24 10:43 Last ORT Total Score 4 07/27/24 18:29 07/27/24 Last ORT Risk Category Moderate Risk 07/27/24 18:29 07/27/24 PFSH PFS Medical History (Updated 10/19/24 @ 16:24 by Jaydon White MD) Chest pain ?R07.9 - Chest pain, unspecified (ICD-10) Alcoholism in remission ?F10.21 - Alcohol dependence, in remission (ICD-10) Panic attacks ?F41.0 - Panic disorder [episodic paroxysmal anxiety] (ICD-10) Prostate cancer ?C61 - Malignant neoplasm of prostate (ICD-10) Erectile dysfunction ?N52.9 - Male erectile dysfunction, unspecified (ICD-10) Elevated PSA ?R97.20 - Elevated prostate specific antigen [PSA] (ICD-10) Depression ?F32.A - Depression, unspecified (ICD-10) Anxiety ?F41.9 - Anxiety disorder, unspecified (ICD-10) COVID-19 ?U07.1 - COVID-19 (ICD-10) Sleep apnea ?G47.30 - Sleep apnea, unspecified (ICD-10) Bronchitis ?J40 - Bronchitis, not specified as acute or chronic (ICD-10) High cholesterol ?E78.00 - Pure hypercholesterolemia, unspecified (ICD-10) Hypertension ?I10 - Essential (primary) hypertension (ICD-10) Surgical History (Updated 09/28/24 @ 10:06 by Liv Sherman NP) H/O prostate biopsy (08/09/24) ?Z98.890 - Other specified postprocedural states (ICD-10) Hx of prostate biopsy ?Z98.890 - Other specified postprocedural states (ICD-10) History of colonoscopy ?Z98.890 - Other specified postprocedural states (ICD-10) Family History (Updated 07/27/24 @ 17:30 by Macario Varghese RN) Other Alcoholism Anxiety Depression Hypertension Hypertriglyceridemia Social History (Updated 10/18/24 @ 07:10 by Ragini Walden) Within the past year, how often did you have a drink containing alcohol: never Score interpretation: A score less than 4 is consistent with normal alcohol consumption. 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 Highest level of school completed/degree received: high school graduate Little interest or pleasure in doing things: not at all Feeling down, depressed, or hopeless: not at all Feel stressed/tense/nervous/anxious/difficulty sleeping: to some extent Exam Constitutional Vital Signs, click to edit/add: Last Vital Signs Temp 98 F 10/19/24 13:17 Pulse 100 H 10/19/24 13:17 Resp 20 10/19/24 13:17 BP 118/71 10/19/24 13:17 Pulse Ox 97 10/19/24 13:17 O2 Del Method Room Air 10/19/24 13:17 Course Vital Signs Vital signs: Vital Signs Temperature 98 F 10/19/24 13:17 Pulse Rate 100 H 10/19/24 13:17 Respiratory Rate 20 10/19/24 13:17 Blood Pressure 118/71 10/19/24 13:17 Pulse Oximetry 97 10/19/24 13:17 Oxygen Delivery Method Room Air 10/19/24 13:17 Temperature 98 F 10/19/24 13:17 Pulse Rate 100 H 10/19/24 13:17 Respiratory Rate 20 10/19/24 13:17 Blood Pressure 118/71 10/19/24 13:17 Pulse Oximetry 97 10/19/24 13:17 Oxygen Delivery Method Room Air 10/19/24 13:17 Medical Decision Making [facility] Narrative Medical decision making narrative: Patient is currently on antibiotics prophylactically. Patient had education done at bedside. Patient had his urine and Tamez flushed and assured there is no clot or drainage difficulties. Patient was placed in a leg bag, education was done by Omero RN showing patient had a copy of Tamez leg bag and switch it to a large bag at nighttime if needed. Patient feels much better at discharge. Patient will increase water today. Patient had a significant amount of IV fluids given to him yesterday during surgery, patient has not drink that much fluid today and education was done at bedside why he is not draining 3 large Tamez bags of 1200 cc of urine today compared to yesterday. Urine culture was ordered and pending, patient is currently on antibiotics Lab Data Labs: Lab Results 10/19/24 Range/Units 13:25 Urine Color Dk. yellow (YELLOW) Urine Clarity Clear (CLEAR) Urine pH 5.5 (5.0-9.0) Ur Specific [place] >=1.030 A (1.005-1.025) Urine Protein >=300 A (NEG/TRACE) mg/dL Urine Glucose (UA) Negative (NEGATIVE) mg/dL Urine Ketones 15 A (NEGATIVE) mg/dL Urine Occult Blood Large A (NEGATIVE) Urine Nitrite Negative (NEGATIVE) Urine Bilirubin Moderate A (NEGATIVE) Urine Urobilinogen 1.0 (0.2-1.0) EU/dL Ur Leukocyte Esterase Trace A (NEGATIVE) Urine RBC 50-75 A (0-2) #/HPF Urine WBC 2-5 A (NONE SEEN) #/HPF Ur Squamous Epith Cells Rare (NONE/RARE) #/LPF Urine Crystals None seen (None Seen) #/HPF Urine Bacteria Trace A (NONE SEEN) #/HPF Urine Casts Seen A (NONE SEEN) #/LPF Hyaline Casts Few Urine Mucus Small A (NONE SEEN) Ur Culture Indicated? No Discharge Plan Discharge Chief Complaint: Urogenital-Male Clinical Impression: Mild dehydration, Bladder spasm Patient Disposition: Home, Self-Care Condition: Fair Prescriptions / Home Meds: No Action atorvastatin 40 mg tablet 40 mg PO DAILY desvenlafaxine succinate 100 mg tablet extended release 24 hr 100 mg PO Q24H doxazosin 8 mg tablet 8 mg PO DAILY lisinopril 5 mg tablet 5 mg PO DAILY trazodone 50 mg tablet 50 mg PO QPM Ultra CoQ10 75 mg capsule 75 mg PO DAILY aspirin [Adult Aspirin Regimen] 81 mg tablet,delayed release (DR/EC) 81 mg PO DAILY albuterol sulfate 2.5 mg /3 mL (0.083 %) Solution For Nebulization 2.5 mg inhalation Q6H PRN (Reason: shortness of breath or wheezing) Qty: 180 12RF tramadol 50 mg tablet 50 mg PO Q12H ibuprofen 800 mg tablet 800 mg PO Q8H PRN (Reason: pain) alprazolam 1 mg tablet 0.5 mg PO BID PRN (Reason: anxiety) doxycycline hyclate 100 mg capsule 100 mg PO BID 7 Days Qty: 14 0RF solifenacin [Vesicare] 10 mg tablet 10 mg PO DAILY Qty: 7 0RF Print Language: Romanian Instructions: Dehydration (ED), Tamez Catheter Placement and Care (ED) Additional Instructions: Follow-up with Dr. Ivy for any other questions, return back to the ER if any other acute concerns if needed. Increase fluids at home. Continue medication as prescribed. Referrals: Chetan Medellin MD [Primary Care Provider] - 1 week Discharge Date/Time: 10/19/24 16:34
== END 2024-10-19 16:34 | disposition home or self-care (01) ==
PROVIDERS: Emergency Provider Emergency Medicine; PCP Family Medicine
DX: E86.0 Dehydration (principal); N32.89 Other specified disorders of bladder; Z98.890 Other specified postprocedural states; F17.200 Nicotine dependence, unspecified, uncomplicated; R82.998 Other abnormal findings in urine
CPT/HCPCS: 81001; 87086; 99283

== ENCOUNTER 2024-11-12 16:45 | Outpatient (RCR) | payer BC, SELFPAY | END 2024-11-20 13:20 | disposition home or self-care (01) | LOC: PT 16:45 | PROVIDERS: PCP Family Medicine; Visit Provider Personal Emergency Response Attendant | DX: M25.521 Pain in right elbow (principal) | CPT/HCPCS: 20561; 97035; 97110; 97140; 97161 ==

== ENCOUNTER 2025-02-14 15:52 | Outpatient (OUT) | payer BC, SELFPAY ==
[2025-02-14 16:14] LABS: Basophils Absolute Auto 0.1 10^3/uL (0.0-0.1); Basophils Percent Auto 0.9 % (0.2-2.0); Eosinophils Absolute Auto 0.5 10^3/uL (0.0-0.7); Eosinophils Percent Auto 3.6 % (0.9-7.0); Hematocrit 42.9 % (42.0-54.0); Hemoglobin 13.7 g/dL (14.0-18.0); Immature Granulocytes Abs Auto 0.04 10^3/uL (0.00-0.03); Immature Granulocytes Pct Auto 0.3 % (0.0-0.5); Lymphocytes Absolute Auto 2.2 10^3/uL (1.2-3.8); Lymphocytes Percent Auto 17.5 % (20.5-60.0); Mean Corpuscular HGB Conc 31.9 g/dL (29.9-35.2); Mean Corpuscular Volume 84.4 fL (80.0-94.0); Mean Platelet Volume 10.6 fL (9.5-13.5); Monocytes Percent Auto 7.7 % (1.7-12.0); Neutrophils Absolute Auto 8.8 10^3/uL (1.4-6.5); Platelet Count 321 10^3/uL (150-450); Red Blood Count 5.08 10^6/uL (4.70-6.10); Red Cell Distribution Width 14.6 % (11.0-15.0); White Blood Count 12.5 10^3/uL (4.0-11.0)
[2025-02-14 16:19] LABS: Bilirubin Urine NEGATIVE (NEGATIVE); Blood Urine NEGATIVE (NEGATIVE); Clarity Urine CLEAR (CLEAR); Color Urine LT. YELLOW (YELLOW); Glucose Urine UA NEGATIVE (NEGATIVE); Ketones Urine NEGATIVE (NEGATIVE); Leukocyte Esterase Urine NEGATIVE (NEGATIVE); Nitrite Urine NEGATIVE (NEGATIVE); Protein Urine NEGATIVE (NEG/TRACE); Urobilinogen Urine 0.2 EU/dL (0.2-1.0)
[2025-02-14 16:27] LABS: Bacteria Urine TRACE #/HPF (NONE SEEN); Cast Seen? NONE SEEN #/LPF (NONE SEEN); Crystals Seen? None Seen #/HPF (None Seen); Mucus Urine TRACE (NONE SEEN); RBC Urine NONE SEEN #/HPF (0-2); Squamous Epithelial Cell Urine NONE SEEN #/LPF (NONE/RARE); Urine Culture Indicated NO; WBC Urine NONE SEEN #/HPF (NONE SEEN)
[2025-02-14 18:12] LABS: Alanine Aminotransferase 19 U/L (16-63); Albumin Globulin Ratio 1.2; Albumin Level 3.7 g/dL (3.4-5.0); Alkaline Phosphatase 83 U/L (46-116); Amylase 42 U/L (25-115); Anion Gap 10.3; Aspartate Amino Transferase 14 U/L (15-37); BUN Creatinine Ratio 10.2; Bilirubin Total 0.3 mg/dL (0.2-1.0); Carbon Dioxide 31.7 mmol/L (21.0-32.0); Chloride 104 mmol/L (98-107); Estimated GFR (African America >60 (>=60 mL/min/1.73m^2); Estimated GFR (Non-African Ame >60 (>=60 mL/min/1.73m^2); Free T3 2.66 pg/mL (2.18-3.98); Globulin 3.1 g/dL; Glucose 74 mg/dL (74-106); Sodium 142 mmol/L (136-145); Thyroid Stimulating Hormone 1.946 uIU/mL (0.358-3.740); Total Protein 6.8 g/dL (6.4-8.2); Troponin I High Sensitivity <4.0 pg/mL (4.0-76.1)
== END 2025-02-14 15:53 | disposition home or self-care (01) ==
PROVIDERS: PCP Family Medicine; Visit Provider Family Medicine
DX: I11.0 Hypertensive heart disease with heart failure (principal); C61 Malignant neoplasm of prostate; I50.30 Unspecified diastolic (congestive) heart failure
CPT/HCPCS: 36415; 80053; 81001; 82150; 83690; 83880; 84436; 84443; 84481; 84484; 85025; 87086

== ENCOUNTER 2025-02-15 07:29 | Outpatient (RCR) | payer BC, SELFPAY ==
[2025-02-15] MEDS: 0.9 % SODIUM CHLORIDE 2,000 ML 1000 ML IV (13:14)
[2025-02-15] MEDS: LEVOFLOXACIN 750 MG/150 ML IV (13:14)
[2025-02-15] MEDS: D5W IV (13:14)
[2025-02-15 13:23] VITALS: BP 128/68; PULSE 92; TEMP 36.9; O2SAT 93
== END 2025-02-27 23:59 | disposition home or self-care (01) ==
LOC: INF 07:29
PROVIDERS: PCP Family Medicine; Visit Provider Family Medicine
DX: E86.0 Dehydration (principal); N41.9 Inflammatory disease of prostate, unspecified
CPT/HCPCS: 96361; 96365; 96366

== ENCOUNTER 2025-09-19 08:41 | Outpatient (OUT) | payer MEDICAID, SELFPAY ==
--- OUTSIDE RECORDS SUMMARY | 2025-09-19 08:49 | XMS_ITS | Clinical Summary ---
Author Organization [facility] Healthcare Address [address] [place] [address] Care Team Providers Care Supervisor Beet End Name Role Phone Chetan Medellin MD Primary Care Provider [phone] Nai Carlin DO Unavailable [phone] Allergies Active AllergyReactionsCriticalityNoted DateCommentsPenicillinsAnaphylaxis,Hives ,Rash,Shortness of breath,NbphcamNndc20/18/2021 Medications MedicationSigDispense QuantityRefillsLast FilledStart DateEnd DateStatus Coenzyme Q10 (COQ10 PO) Take by mouth02/13/2024ctive albuterol HFA 90 mcg/act inhaler Inhale 2 puffs every 4 (four) hours if prpzxv4110/09/2023ctive ALPRAZolam (Xanax) 1 MG tablet TAKE 1/2 TABLET BY MOUTH TWICE DAILY FOR 14 DAYSActive aspirin (Vazalore) 81 MG capsule Take by mouthActive atorvastatin (Lipitor) 40 MG tablet 09/25/2024ctive desvenlafaxine (Pristiq) 100 MG 24 hr tablet Take 1 tablet by mouth in the morning.07/24/2024ctive doxazosin (Cardura) 8 MG tablet Take 8 mg by mouth in the morning.Active ibuprofen 800 MG tablet TAKE 1 TABLET BY MOUTH EVERY 8 HOURS WITH FOOD OR MILK XXOLUK5709/21/2024ctive lisinopril 5 MG tablet Take 1 tablet by mouth in the morning.08/23/2024ctive sildenafil (Viagra) 100 MG tablet Take 100 mg by mouthActive traMADol (Ultram) 50 MG tablet Take 50 mg by mouth 2 (two) times a day as neededActive traZODone (Desyrel) 50 MG tablet 09/25/2024ctive triamcinolone (Kenalog) 0.1 % cream APPLY A SMALL AMOUNT TO SKIN TWICE A DAY10/11/2023ctive Active Problems No known active problems Social History Tobacco UseTypesPacks/DayYears UsedDateSmoking Tobacco: Every DayCigarettes Smokeless Tobacco: Never Tobacco Cessation:Ready to Q uit: Not Asked; Counseling Given: Not Answered Alcohol UseStandard Drinks/WeekCommentsNever0 (1 standard drink = 0.6 oz pure alcohol)Sex and Gender InformationValueDate RecordedSex Assigned at BirthNot on fileLegal QxyBrxy2201/23/2024 7:44 AM EDTGender IdentityNot on fileSexual OrientationNot on file Last Filed Vital Signs Vital SignReadingTime TakenCommentsBlood Pressure--Pulse--Temperature-- Respiratory Rate--Oxygen Saturation--Inhaled Oxygen Concentration--Dikefc25.3 kg (188 lb)10/03/2024 1:36 PM JPJCvmqav474.3 cm (5' 9 )10/03/2024 1:36 PM ESTBody Mass Index27.7610/03/2024 1:36 PM EST Plan of Treatment Health MaintenanceDue DateLast DoneCommentsCT Iwmcwpmfhfxj1964FIT-DNA [id number] 4658Vjzfyllynzrxf1964COVID-19 Vaccine ( season)/, 05/16/2021Influenza Vaccine (#1) 8930Iszvhyfilvn23/02/203107/olorectal Cancer Vbgnyozru11/02/2031 Pneumococcal Vaccine: Pediatrics (0 to 5 Years) and At-Risk Patients (6 to 64 Years)Aged OutNo longer eligible based on patient's age to complete this topic Insurance Care Teams Team MemberRelationshipSpecialtyStart DateEnd Chetan Medellin MD [address] [facility] [place] [address] PCP - GeneralFamily Medicine01/23/24 Nai Carlin DO [address] [place], [place] [address] Referring PhysicianNeurology01/23/24
--- OUTSIDE RECORDS SUMMARY | 2025-09-19 08:49 | XMS_ITS | CCD ---
Author Organization [facility] Care Team Providers Care Tax Agent Name Role Phone PIERCE CHRISTIAN Admitting Unavailable PIERCE CHRISTIAN Attending Unavailable DR KAMALJIT MEDELLIN Primary Care Unavailable PIERCE CHRISTIAN Consulting Unavailable Kamaljit Medellin Primary Care Physician MD Jennie Ivy Attending Provider Kamaljit Medellin MD Primary Care Provider [phone] Kamaljit Medellin MD Primary Care Provider Nai Carlin DO Unavailable Chely FUNERAL DIRECTOR/EMBALMER/OWNER, Liv Unavailable CALI MEDEROS Attending Unavailable CHERYL OCONNELL Attending Unavailable CALI MEDEROS Referring Unavailable CALI MEDEROS Attending Unavailable CALI MEDEROS Referring Unavailable Jennie Ivy Admitting Unavailable Ivy, Jennie Attending Unavailable Kamaljit Medellin Admitting Unavailable Kamaljit Medellin Attending Unavailable Kamaljit Medellin MD Attending Provider IVY, Jennie R Attending Unavailable IVY, Jennie R Attending Unavailable IVY, Jennie R Attending Unavailable IVY, Jennie R Attending Unavailable IVY, Jennie R Attending Unavailable IVY, Jennie R Attending Unavailable IVY, Jennie R Attending Unavailable IVY, Jennie R Admitting Unavailable IVY, Jennie R Attending Unavailable IVY, Jennie R Admitting Unavailable IVY, Jennie R Attending Unavailable IVY, Jennie R Attending Unavailable IVY, Jennie R Attending Unavailable IVY, Jennie R Attending Unavailable IVY, Jennie R Attending Unavailable IVY, Jennie R Admitting Unavailable IVY, Jennie R Attending Unavailable IVY, Jennie R Admitting Unavailable IVY, Jennie R Attending Unavailable IVY, Jennie R Attending Unavailable IVY, Jennie R Admitting Unavailable IVY, Jennie R Attending Unavailable IVY, JENNIE R Referring Unavailable ENGELER, G DAVID Attending Unavailable HOY, KAMALJIT M Primary Care Unavailable ENGELER, G DAVID Referring Unavailable HOY, KAMALJIT M Primary Care Unavailable ENGELER, G DAVID Attending Unavailable ENGELER, G DAVID Referring Unavailable HOY, KAMALJIT M Primary Care Unavailable ENGELER, G DAVID Attending Unavailable ENGELER, G DAVID Referring Unavailable HOY, KAMALJIT M Primary Care Unavailable ENGELER, G DAVID Attending Unavailable ENGELER, G DAVID Referring Unavailable HOY, KAMALJIT M Primary Care Unavailable HOY, KAMALJIT M Primary Care Unavailable ENGELER, G DAVID Referring Unavailable HOY, KAMALJIT M Primary Care Unavailable ENGELER, G DAVID Attending Unavailable ENGELER, G DAVID Attending Unavailable HOY, KAMALJIT M Primary Care Unavailable HOY, KAMALJIT M Primary Care Unavailable ENGELER, G DAVID Referring Unavailable HOY, KAMALJIT M Primary Care Unavailable ENGELER, G DAVID Referring Unavailable ENGELER, G DAVID Attending Unavailable HOY, KAMALJIT M Primary Care Unavailable Allergies Allergy ClassificationReported Allergen(s)Allergy TypeDate of OnsetReaction(s) Facility (14 sources)Penicillin; Translations: [penicillin]Drug AllergyUnknown (qualifier value)[facility] (14 sources)Penicillins; Translations: [PENICILLINS]Drug Fdawxrl65-11-0091 [facility]axis[facility] (8 sources)PenicillinsDrug Qprdwnnqtpl85-99-2417Iqjwdwlhazw, Hives, Rash, Shortness of breath, Unknown[facility] (2 sources)PenicillinsDrug Bwbekyu92-15-4175TrnrbnelvppJfyhnvpqg Clinic Medications Current Medications MedicationDrug Class(es)DatesSig (Normalized)Sig (Original)[id number] 200 actuat albuterol 0.09 mg/actuat metered dose inhaler (8 sources)beta2-Adrenergic AgonistStart: 08-71-7816yzes 2 puff(s) by inhalation every four hoursalbuterol HFA 90 mcg/act inhaler Inhale 2 puffs every 4 (four) hours if needed 10/09/2023 ActiveAlbuterol (Eqv-ProAir HFA) 90 mcg/inh inhalation aerosol (2 sources)Start: 89-73-9111Oycizfcui (Eqv-ProAir HFA) 90 mcg/inh inhalation aerosol 2 inh, Refill(s) 0 Start Date: 02/22/25 Status: Ordered Repeat number: 1 ALPRAZolam 1 mg oral tablet (20 sources)BenzodiazepineStart: 15-76-4012itamdsycvp 1 mg Tab 0.5 mg = 0.5 tab(s), Refills(s) 0 Start Date: 09/03/24 Status: Ordered Repeat number: 1aspirin 81 mg delayed release oral tablet (20 sources)Platelet Aggregation Inhibitor, Nonsteroidal Anti-inflammatory Drug Start: 33-16-0793sgum 1 mg by mouth once dailyaspirin 81 mg Oral EC Tab mg tab(s), Oral, Daily, Refills(s) 0 Start Date: 07/25/23 Status: Ordered Repeat number: 1aspirin 81 mg cap Take by mouth. Activeatorvastatin 40 mg oral tablet (20 sources)HMG-CoA Reductase InhibitorStart: 70-22-6726ckqvqasnzljk 40 mg Tab Refills(s) 0 Start Date: 07/25/23 Status: Ordered Repeat number: 1cefdinir 300 mg oral capsule (2 sources)Cephalosporin AntibacterialStart: 04-53-8529vbcclypk 300 mg Cap 300 mg = 1 cap(s), Refills(s) 0 Start Date: 02/22/25 Status: Ordered Repeat number: 1 ciprofloxacin 500 mg oral tablet (2 sources)Quinolone AntimicrobialStart: 06-18-2024 End: 54-89-4793Cpeyj 500 mg Tab 500 mg = 1 tab(s), Oral, BID, start 3 days prior to procedure, X 7 day(s), # 14 tab(s), Refills(s) 0, Pharmacy: [facility] #[id number], 175, cm, 06/18/24 13:01:00 EDT, Height/Length Dosing, 80, kg, 06/18/24 13:01:00 EDT, Weight Dosing Start Date: 06/18/24 Stop Date: 06/25/24 Stat us: OrderedStart: 45-13-8910liap 1 tablet by mouth twice dailyCipro 500 mg Tab 500 mg = 1 tab(s), Oral, BID, Start 3 days prior to the procedure, # 14 tab(s), Refills(s) 0, Pharmacy: [facility]/pharmacy #[id number], 175, cm, 07/25/23 12:54:00 EDT, Height/Length Dosing, 80, kg, 07/25/23 12:54:00 EDT, Weight Dosing Start Date: 07/25/23 Status: OrderedCoenzyme Q10 (COQ10 PO) (8 sources)Start: 67-76-5821Ymitrszp Q10 (COQ10 PO) Take by mouth 02/13/2024 YnugehQuE55 (9 sources)Start: 08-12-0101PvA70 Oral, Daily, Refills(s) 0 Start Date: 02/13/24 Status: Ordered Repeat number: 1Start: 14-86-9874RxL73 Oral, Daily, Refills(s) 0 Start Date: 02/13/24 Status: OrderedCranberry preparation (9 sources)Non-Standardized Food Allergenic Extract, Non-Standardized Plant Allergenic ExtractStart: 80-85-1603Snjgudiob Refill(s) 0 Start Date: 02/13/24 Status: Ordered Repeat number: 1Start: 69-78-3862Yturdttjb Refill(s) 0 Start Date: 02/13/24 Status: Dsoesyh57 hr desvenlafaxine succinate 100 mg extended release oral tablet (20 sources)Serotonin and Norepinephrine Reuptake InhibitorStart: 37-66-1912wvmr 1 tablet by mouth oncedesvenlafaxine ER (PRISTIQ) 100 mg 24 hr tablet Take 1 tablet by mouth every afternoon. 07/24/2024 ActiveStart: 64-39-5151znka 1 tablet by mouth every twenty-four hours in the morningdesvenlafaxine (Pristiq) 100 MG 24 hr tablet Take 1 tablet by mouth in the morning. 07/24/2024 ActiveStart: 06-09-6649ljkueqnttjsmta 50 mg Tab- Refills(s) 0 Start Date: 07/25/23 Status: Ordered Repeat number: 1doxazosin 8 mg oral tablet (20 sources)alpha-Adrenergic BlockerStart: 78-41-0208zijnqggdo 8 mg oral tablet Refills(s) 0 Start Date: 08/26/23 Status: Ordered Repeat number: 1Start: 43-08-8192hjaqkukgl 2 mg Tab Refills(s) 0 Start Date: 07/25/23 Status: Ordered ibuprofen 800 mg oral tablet (8 sources)Nonsteroidal Anti-inflammatory DrugStart: 38-85-4496eixf 1 tablet by mouth every eight hours at mealtime as neededibuprofen 800 MG tablet TAKE 1 TABLET BY MOUTH EVERY 8 HOURS WITH FOOD OR MILK NEEDED 09/21/2024ctive levoFLOXacin 500 mg oral tablet (1 source)Quinolone AntimicrobialStart: 11-21-2023 End: 02-93-2773zkfv 1 tablet by mouth every twenty-four hoursLevaquin 500 mg Tab 500 mg = 1 tab(s), Oral, q24hr, X 14 day(s), # 14 tab(s), Refills(s) 0, Pharmacy: [facility] #[id number], 175, cm, 11/21/23 11:35:00 EST, Height/Length Dosing, 80.2, kg, 11/21/23 11:35:00 EST, Weight Dosing Start Date: 11/21/23 Stop Date: 12/05/23 Status: Bgbhyrx91 hr oxybutynin chloride 5 mg extended release oral tablet (4 sources)Cholinergic Muscarinic AntagonistStart: 25-96-6158dkkk 1 tablet by mouth every twenty-four hoursoxybutynin XL (DITROPAN XL) 5 mg 24 hr tablet Take 5 mg by mouth. 02/22/2025 ActiveStart: 64-90-1223ubsw 1 tablet by mouth once dailyoxybutynin 5 mg ER Tab 5 mg = 1 tab(s), Oral, Daily, # 30 tab(s), Refills(s) 11, Pharmacy: [facility] #[id number], 175, cm, 02/22/25 9:00:00 EDT, Height/Length Dosing, 77.7, kg, 02/22/25 9:00:00EDT, Weight Dosing Start Date: 02/22/25 Status: Ordered Quantity: 30.0 Unit: tab(s) Repeat number: 12 predniSONE 20 mg oral tablet (6 sources)Start: 38-52-6808utvfgeKJYP 20 mg Tab Refills(s) 0 Start Date: 11/16/24 Status: Ordered Repeat number: 1Start: 11-07-2024 End: 88-54-6188qiwx 2 tablets by mouth once daily, then take 1 tablet by mouth once daily at mealtimepredniSONE (Deltasone) 20 MG tablet Indications: Right elbow pain Take 2 tablets (40 mg) by mouth Daily for 5 days, THEN 1 tablet (20 mg) Daily for 5 days. Take with food. 15 tablet 11/07/2024 11/16/2024 Active sildenafil 100 mg oral tablet (20 sources)Phosphodiesterase 5 InhibitorStart: 29-52-4181hyrqunkncr 100 mg Tab Refills(s) 0 Start Date: 07/25/23 Status: Ordered Repeat number: 1tamsulosin hydrochloride 0.4 mg oral capsule (7 sources)alpha-Adrenergic BlockerStart: 59-73-7938lpkr 1 capsule by mouth twice dailytamsulosin 0.4 mg Cap 0.4 mg = 1 cap(s), Oral, BID, # 180 cap(s), Refills(s) 3, Pharmacy: [facility] #[id number], 175, cm, 02/22/25 9:00:00 EDT, Height/Length Dosing, 77.7, kg, 02/22/25 9:00:00 EDT, Weight Dosing Start Date: 02/22/25 Status: Ordered Quantity: 180.0 Unit: cap(s) Repeat number: 4 Start: 12-42-7207qtcb 1 capsule by mouth once dailytamsulosin 0.4 mg Cap 0.4 mg = 1 cap(s), Oral, Daily, # 30 cap(s), Refills(s) 11, Pharmacy: [facility] #[id number], 175, cm, 11/16/24 9:52:00 EST, Height/Length Dosing, 85.5, kg, 11/16/24 9:52:00 EST, Weight Dosing Start Date: 11/16/24 Status: Ordered Quantity: 30.0 Unit: cap(s) Repeat number: 12take 0.4 mg by mouth two times weeklytamsulosin (FLOMAX) 0.4 mg Take 0.4 mg by mouth two times a week. Active traMADol hydrochloride 50 mg oral tablet (17 sources)Opioid AgonistStart: 95-97-5407yixNAQEM 50 mg Tab Refills(s) 0 Start Date: 02/13/24 Status: Ordered Repeat number: 1traZODone hydrochloride 50 mg oral tablet (20 sources)Serotonin Reuptake InhibitorStart: 02-77-4109rmaYXIMEI 50 mg Tab Refills(s) 0 Start Date: 07/25/23 Status: Ordered Repeat number: 1triamcinolone acetonide 1 mg/ml topical cream (20 sources)CorticosteroidStart: 21-27-2777qprxfobracdsh (Kenalog) 0.1 % cream APPLY A SMALL AMOUNT TO SKIN TWICE A DAY 10/11/2023 ActiveStart: 07-25-2023 triamcinolone acetonide (KENALOG) 0.1 % cream Refill(s) 0 07/25/2023 Active Start: 79-60-6594akioymokxvyqc Top 0.1% Crm 15 gram Refill(s) 0 Start Date: 07/25/23 Status: Ordered Repeat number: 1Start: 30-76-4354blhdlgzpwcolg Top 0.1% Crm 15 gram Refill(s) 0 Start Date: 07/25/23 Status: Orderedubidecarenone 50 mg oral capsule (15 sources)ubidecarenone Q-10 (COENZYME Q-10) 50 mg capsule Take 50 mg by mouth. Active Completed/Discontinued Medications MedicationDrug Class(es)DatesSig (Normalized)Sig (Original)lisinopril 5 mg oral tablet (20 sources)Angiotensin Converting Enzyme InhibitorStart: 08-23-2024 End: 65-46-6485olem 1 tablet by mouth oncelisinopril (ZESTRIL) 5 mg tablet Take 1 tablet by mouth every afternoon. 08/23/2024 02/27/2025 Discontinued (Discontinued by another Health Care Provider)Start: 89-29-4061vrow 1 tablet by mouth in the morninglisinopril 5 MG tablet Take 1 tablet by mouth in the morning. 08/23/2024 Active Problems Problem ClassificationProblemDateDocumented DateEpisodic/ChronicAcute bronchitis (4 sources)Acute bronchitis, unspecified; Translations: [ACUTE BRONCHITIS UNSPECIFIED]Onset: 11-60-8304ZoympxhjAgqmukc disorders (9 sources)Anxiety disorder; Translations: [Anxiety disorder, unspecified]Onset: 01-88-8263MikerqnNyuhml of prostate (20 sources)Malignant neoplasm of prostate; Translations: [Malignant tumor of prostate]Onset: 06-36-9925LrxzrlkBrongm of prostate (3 sources)History of malignant neoplasm of prostate; Translations: [Personal history of malignant neoplasm ofprostate]Onset: 652725-24-7553Tlbvspbm Essential hypertension (11 sources)Hypertensive omrfhgfr38-17-9204SthodgpBsvkhxqjiul of prostate (14 sources)Benign prostatic hypertrophy with outflow obstruction; Translations: [Benign prostatic hyperplasia with lower urinary tract symptoms]Onset: 11-92-5523CdevgvsSpvteohhvxgp conditions of male genital organs (12 sources)Prostatitis; Translations: [Inflammatory disease of prostate, unspecified]Onset: 84-05-5509VgviunpjOspiuahbiouitv (2 sources)Arthritis of right acromioclavicular joint; Translations: [Primary osteoarthritis, right shoulder]01-07-5951AhkiqmgKzllu connective tissue disease (2 sources)Muscle weakness of upper hcxf48-81-0501EbfruhsvMipfn connective tissue disease (2 sources)Pain in right zup23-44-0876KkynkzohAakax diseases of bladder and urethra (2 sources)Overactive biwzyvo83-06-2905MipoygdQbgnj diseases of bladder and urethra (1 source)Detrusor overactivity; Translations: [Overactive bladder]Onset: 95-17-9601HvqhbhkAoyrq male genital disorders (16 sources)Male erectile dysfunction, unspecified; Translations: [Erectile dysfunction]Onset: 18-76-3182EycokiaNsxdl nervous system disorders (4 sources)Paresthesia of right upper limb; Translations: [Paresthesia of skin] 28-57-1308YkwlciocGevzu nervous system disorders (2 sources)Ykqgfkrr45-25-2637EblmjokoDjmfg nervous system disorders (2 sources)Paresthesia; Translations: [Paresthesia of skin]34-56-0355Trreyxyw Other non-traumatic joint disorders (2 sources)Pain in right shoulder; Translations: [Pain in joint, shoulder region]46-55-0604MpizdegvMkciy non-traumatic joint disorders (6 sources)Pain in elbow; Translations: [Pain in right elbow]72-12-3931Tfgbdgmo Other screening for suspected conditions (not mental disorders or infectious disease) (12 sources)Raised prostate specific antigen; Translations: [Elevated prostate specific antigen [PSA]]Onset: 08-69-1419UkzlwltuEzxszmdit-related disorders (11 sources)Ikvonq02-83-2993EbplnrnSmjninl on above:Added secondary to documentation in Social History.Unclassified (1 source)CONTACT W/AND (SUSP) EXPOS COVID-19; Translations: [CONTACT W/AND (SUSP) EXPOS COVID-19]Onset: 10-11-2022 Results Test NameValueInterpretationReference RangeFacilityCNOVon 37-78-7925MUUFOlzygp Visit (RADTSA) BHAVIN WHEATLEY ([id number]) 1965 M Date Time Provider Department 08/28/25 9:45 AM Brigette MURRY During your visit today, we recorded the following information about you: Temperature Pulse Respiration Blood pressure 97.2 degrees 68/minute 16/minute 133/79 Weight 77.5 kg Corry Kraus RN 08/28/2025 9:52 AM Signed AUA= 4 PHQ-9 Patient following with PCP. Has a history of depression. He states he is spiritually stable. He declines a meeting with our social worker delinquency prevention but accepted her business card if/when needed in the future. NIKI Jj G Phillip, MD 08/28/2025 9:52 AM Signed Radiation Oncology - Follow Up Note PATIENT NAME: Bhavin Wheatley PATIENT DIAGNOSIS: Prostate adenocarcinoma, initial PSA 4.5, biopsy Karrie score 3 + 3 = 6 (grade group 1), clinical stage T1c, N0, M0, stage I [pT2, N0, M0, PSA <10, GG 1] (AJCC 8th ed.), s/p biopsy. NCCN Risk Group: Very Low Risk Group RADIATION SUMMARY: Prostate brachytherapy , 145 Gy, I125, 10/18/24 INTERVAL HISTORY: Doing well. Feels his bladder function is doing very well. Denies dysuria or hematuria. PSA HISTORY: PSA 02/13/2025 3.0 PSA (ng/mL) Date Value 08/21/2025 1.47 11/28/2024 8.44 PSA. (no units) Date Value 05/20/2025 1.4 02/13/2025 3.0 ALLERGIES Allergen Reactions Penicillins Anaphylaxis oxybutynin XL (DITROPAN XL) 5 mg 24 hr tablet Take 5 mg by mouth. tamsulosin (FLOMAX) 0.4 mg Take 0.4 mg by mouth two times a week. ALPRAZolam (XANAX) 1 mg tablet Take 0.5 [...] aspirin 81 mg cap Take by mouth. REVIEW OF SYSTEMS: D/N = 4-6/1-2 Hematuria: none Dysuria: none Incontinence: none Urgency: no Medications to aid urination: y Bowel movement frequency: 1/day Bowel movement quality: normal Blood per rectum: none PHYSICAL EXAM: BP 133/79 Pulse 68 Temp 36.2 ?C (97.2 ?F) Resp 16 Wt 77.5 kg (170 lb 13.7 oz) SpO2 98% BMI 26.36 kg/m? KPS: 100 General Appearance: Alert and oriented. No acute distress. Rectal: Deferred ASSESSMENT/PLAN: Prostate adenocarcinoma, initial PSA 4.5, biopsy Karrie score 3 + 3 = 6 (grade group 1), clinical stage T1c, N0, M0, stage I [pT2, N0, M0, PSA <10, GG 1] (AJCC 8th ed.), s/p prostate brachytherapy 10/18/24 Patient continues to do well. Bladder function improved continues close follow-up with Dr. Ivy. PSA has declined substantially, despite vernon PSA levels approximately 24 months post implant. Plan to see patient back in 6 months for further postradiation follow-up. Signed by: Brigette Murry MD cc: Kamaljit Geiger Lacie [address] [place] [id number] Ivy Referring Provider: Brigette MURRY [[id number]] Allergies As of Date: 08/28/2025 Noted Allergy Reaction PENICILLINS 09/13/2024 10 - Anaphylaxis Date Reviewed: 08/28/2025 Reviewed by: Corry Kraus RN - Fully Assessed Reason for Visit: Prostate Cancer [590] Primary Visit Diagnosis:Malignant neoplasm of prostate (HCC) [C61] Order(s):PSA (OUTSIDE) [1959038] Order #: [id number] Prescriptions as of 08/28/2025 - oxybutynin XL (DITROPAN XL) 5 mg 24 hr tablet Take 5 mg by mouth. - tamsulosin (FLOMAX) 0.4 mg Take 0.4 mg by mouth two times a week. - ALPRAZolam (XANAX) 1 mg tablet Take [...] aspirin 81 mg cap Take by mouth. Problem List As Of Date: 08/28/2025 (None) Level of Service: OFFICE/OUTPATIENT ESTABLISHED LOW MDM 20 MIN [66192] Disposition: Return in about 6 months (around 02/26/2026). Follow-up and Disposition History for Encounter Date Provider Department Center 08/28/2025 [id number] MURRY Encounter Status:Closed by Brigette MURRY on 08/28/25NoUniversity Hospitals Geauga Medical Centerreina 58-46-7533Tyhnstsg specific Ag [Mass/Vol]1.47 ng/mL Normal<2.60[facility] on above:Order Comment: Specimen Type: BLOOD SPECIMENOrdering Facility: [facility] Address:[address] [place], [place] [address]Result Comment: Total PSA test methodology used is the Electrochemiluminescence Immunoassay by [employer]. Total PSA values by differing methodologies cannot be interchanged.Performed By: #### [id number] ####[facility] LABCLIA [id number] [address]Urology Office/Clinic Noteon 59-60-5996Kellykh Office/Clinic NoteUrology Office/Clinic Note Chief Complaint pt here for follow up with PSA HPI Staff 59 year old male 3 month follow up w/ PSA PSA: 05/20/25 1.4 Previous Dx: Hx of prostate cancer, BPH w/ urinary obstruction, OAB, anxiety and depression, ED Flomax BID, Oxybutynin 5mg qd and Sildenafil 100mg PRN is working well denies pain/burning denies visible blood denies flank pain Pt reports that he has lost 24 lbs in the past 2 months due to stress IPSS: 9 SHIMS: 2 History of Present Illness Tests reviewed: reviewed [...] HPI. Physical Exam Vitals & Measurements HR: 78(Peripheral) RR: 18 BP: 120/68 HT: 69 in HT: 175 cm WT: 167.551 lb WT: 76.0 kg BMI: 24.82 General Appearance: alert, no distress, well nourished, well developed male. Assessment/Plan 1. History of prostate cancer (Z85.46: Personal history of malignant neoplasm of prostate) PSA 09/08/19 - 1.94 07/05/23 - 4.30 & 11% 11/11/23 - 7.01 (total); 5.9 & 12.4% (free and total) 02/07/24 - 5.83 (total); 4.9 & 12.9% (free and total) - treated with Levaquin 400mg x2w prior to blood draw 03/27/24 - 4.4 & 12.5% 05/07/24 - 4.5 & 14.7% 06/14/24 - 4.5 & 13.3% 02/13/25 - 3.0 & 6.7% 05/20/25 - 1.4 No family hx of prostate ca. Father passed at 84 yo. RAY 07/25/23 - 40 gm, no nodules. S/p TRUS/bx 08/09/23 - [place] 6 (3+3), 3% of core involved by tumor, 1 of 1 core involved. TAMARA (RLM). HGPIN (RA, RLB). S/p confirmatory TRUS/bx 08/09/24 - G6 (3+3) x 2 cores (L3, R4), GG1, ~5% of submitted tissue. S/p radium seed implant 10/18/24. Saw Dr. Murry 11/29/24 - Post-implant CT shows excellent prostate coverage and appropriate normaltissue sparing. No change of modification in either the treatment or follow-up plan based on this. PSA elevated from baseline this may reflect acute post brachytherapy effects. Plan was to f/up in 6 months. Last saw rad/onc 03/01/23, plan was for 6 mo f/u. PSA has decreased from prior. No indication for further intervention. Will cont to monitor. -F/u in 6 mos w/ PSA 2. BPH with urinary obstruction (N40.1: Benign prostatic hyperplasia with lower urinary tract symptoms) PVR 11/16/24 - 15 mL 02/22/25 - 12 mL [1] UA neg. IPSS 9. Taking Doxazosin 8 mg qd (does not appear this is for urination) and Flomax 0.4mg bid (increased from qd at prior OV). Feels urinary sxs have improved since last visit. No bother w urination at this time. -Cont Flomax bid. Pt to call for refills. 3. OAB (overactive bladder) (N32.81: Overactive bladder) Started on Oxybutynin 5 mg qd at prior OV due irritative sxs from RT. Had immediate sx relief with this. -Cont Oxybutynin wo changes. Pt to call for refills. 4. Erectile dysfunction (N52.9: Male erectile dysfunction, unspecified) Taking Sildenafil 100 mg prn. [2] Follow-up With When Contact Information KARINA ANTHONY, Jennie Mcpherson, [facility] [address], [place] [address] [phone] Additional Instructions: 6 mos w/ PSA Patient Education Prostate Cancer Screening I, Fozia Wilkerson, personally scribed for Dr. Ivy on 05/27/2025 10:31:50. . Documentation recorded by the scribe, Fozia Wilkerson, accurately reflects the services(s) I performed and decisions made by me. Authenticated by Dr. vIy on 05/27/2025 10:35:48. Problem List/Past Medical History Ongoing Anxiety and depression BPH with urinary obstruction Elevated PSA Erectile dysfunction History of prostate cancer Hypertension OAB (overactive bladder) Prostate cancer Prostatitis Smoker Historical No qualifying data Procedure/Surgical History Cystoscopy (10/18/2024), Transrectal biopsy of prostate using ultrasound (US) guidance (08/09/2024), Transrectal needle biopsy of prostate (08/09/2023), Colonoscopy. Medications Albuterol (Eqv-ProAir HFA) 90 mcg/inh inhalation aerosol, 2 inh alprazolam 1 mg Tab, 0.5 mg= 0.5 tab(s) aspirin 81 mg Oral EC Tab, Oral, Daily atorvastatin 40 mg Tab cefdinir 300 mg Cap, 300 mg= 1 cap(s) CoQ10, Oral, Daily Cranberry desvenlafaxine 50 mg Tab- doxazosin 8 mg oral tablet oxybutynin 5 mg ER Tab, 5 mg= 1 tab(s), Oral, Daily, 11 refills predniSONE 20 mg Tab sildenafil 10 (more content not included)...Normal[facility] Comment on above:Result Comment: Electronically Signed By: Jennie IVY MD\.br\Date and Time Signed: 05/27/25 10:35 EDT\.br\Electronically Co-Signed By: Fozia Wilkerson\.br\Date and Time Co-Signed: 05/27/25 10:32 EDTPSA Totalon 87-99-3315YIN Total1.4 ng/mLNormal0.1-3.5Fisher [facility] HospitalComment on above:Result Comment: The concentration of PSA determined by different manufacturers can vary due to differences in assay methods and reagent specificity. Values obtained from different assay methods cannot be used interchangeably. The methodology used for this result was chemiluminescence using [employer] PSA reagent.Performed By: #### [id number] #### [facility] [address], [place] [address]YFLIaw [id number] Visit (RADTSA) BHAVIN WHEATLEY ([id number]) 1965 M Date Time Provider Department 02/27/25 9:30 AM Brigette MURRY During your visit today, we recorded the following information about you: Temperature Pulse Respiration Blood pressure 98.8 degrees 59/minute 18/minute 145/76 Weight 79.3 kg Corry Kraus, RN 03/01/2025 1:12 PM Signed AUA= 21 Brigette Murry MD 03/01/2025 1:12 PM Signed Radiation Oncology - Follow Up Note PATIENT NAME: Bhavin Wheatley PATIENT DIAGNOSIS: Prostate adenocarcinoma, initial PSA 4.5, biopsy Karrie score 3 + 3 = 6 (grade group 1), clinical stage T1c, N0, M0, stage I [pT2, N0, M0, PSA <10, GG 1] (AJCC 8th ed.), s/p biopsy. NCCN Risk Group: Very Low Risk Group RADIATION SUMMARY: Prostate brachytherapy , 145 Gy, I125, 10/18/24 INTERVAL HISTORY: Has had increased urinary frequency and slower stream. Recently had seen Dr. Ivy and increased Flomax to twice daily, patient notes significant improvement. Denies dysuria or hematuria. Still some social stressors in his life that are fairly stable. PSA HISTORY: PSA 02/13/2025 3.0 ALLERGIES Allergen Reactions Penicillins Anaphylaxis oxybutynin XL (DITROPAN XL) 5 mg 24 hr tablet Take 5 mg by mouth. tamsulosin (FLOMAX) 0.4 mg Take 0.4 mg by mouth two times a week. ALPRAZolam (XANAX) 1 mg tablet Take 0.5 [...] aspirin 81 mg cap Take by mouth. REVIEW OF SYSTEMS: D/N = 4-6/ Hematuria: none Dysuria: none Incontinence: none Urgency: mild Medications to aid urination: y Bowel movement frequency: 1/day Bowel movement quality: normal Blood per rectum: none PHYSICAL EXAM: BP 145/76 Pulse (!) 59 Temp 37.1 ?C (98.8 ?F) Resp 18 Wt 79.3 kg (174 lb 13.2 oz) SpO2 99% BMI 26.98 kg/m? KPS: 100 General Appearance: Alert and oriented. No acute distress. Rectal:Perineal area without ecchymosis tenderness or seroma. ASSESSMENT/PLAN: Prostate adenocarcinoma, initial PSA 4.5, biopsy [place] score 3 + 3 = 6 (grade group 1), clinical stage T1c, N0, M0, stage I [pT2, N0, M0, PSA <10, GG 1] (AJCC 8th ed.), s/p prostate brachytherapy 10/18/24 Patient has had a good initial PSA response. He is having bladder related symptoms that seem to be improving on Flomax twice daily. He is continue close follow-up with Dr. Ivy. I have asked patient come back in 6 months for the follow-up. Signed by: Brigette Murry MD cc: [place] [address] Dr. Ivy Allergies As of Date: 02/27/2025 Noted Allergy Reaction PENICILLINS 09/13/2024 10 - Anaphylaxis Date Reviewed: 02/27/2025 Reviewed by: Corry Kraus, RN - Fully Assessed Primary Visit Diagnosis:Malignant neoplasm of prostate (HCC) [C61] Order(s):PSA (OUTSIDE) [8556058] Order #: [id number] PROSTATE-SPECIFIC ANTIGEN DIAGNOSTIC [SQPSA] Order #: [id number] FUTURE Prescriptions as of 03/13/2025 - oxybutynin XL (DITROPAN XL) 5 mg 24 hr tablet Take 5 mg by mouth. - tamsulosin (FLOMAX) 0.4 mg Take 0.4 mg by mouth two times a week. - ALPRAZolam (XANAX) 1 mg tablet Take [...] aspirin 81 mg cap Take by mouth. Problem List As Of Date: 02/27/2025 (None) Medications Discontinued During This Encounter Prescriptions - lisinopril (ZESTRIL) 5 mg tablet (Discontinued) Take 1 tablet by mouth every afternoon. Disposition: Return in about 6 months (around 08/29/2025). Follow-up and Disposition History for Encounter Date Provider Department Center 02/27/2025 [id number] MURRY Letter Text Encounter Status:Closed by Brigette MURRY on 03/01/25[facility] HospitalProvider Letteron [id number] LetterProvider Letter February 22, 2025 BHAVIN WHEATLEY [address] [place] [id number] : 1965 To Whom It May Concern, Please excuse above patient from work. Date of Illness: From: 02/22/25 To: 02/22/25 May Return to Work On: 02/25/25 Restrictions: None Comments: Patient had an appointment on 02/22/[address] Jennie Ivy. Sincerely, [facility] HospitalU[facility] Office/Clinic Noteon [id number] Office/Clinic NoteUrology Office/Clinic Note Chief Complaint 3 month f/u with PSA HPI Staff 59 yr old male here for 3 mth f/u w/ PSA Dx: prostate cancer, anxiety and depression and BPH with urinary obstruction. 03/27/24 - 4.4 & 12.5% 05/07/24 - 4.5 & 14.7% 06/14/24 - 4.5 & 13.3% 02/13/25 - 3.0 & 6.7% IPSS score today is 28 today. Pt has complaints of incomplete emptying almost always, frequency, intermittency, urgency, weak stream and straining more than half the time. Nocturia x3. Pt states thathis urination and bowel habits have changed dramatically for the worse since having the seeds implanted in his prostate. PVR today is 12ml. History of Present Illness Tests reviewed: reviewed UA, rad onc notes and PSA. I have reviewed the previous health record information and history for this patient from Dr. Ivy I have reviewed and verified the staff HPI to be accurate for this encounter. There have been no associated fever, chills, flank pain, or blood in the urine. Denies any urinary infections since last encounter. Review of Systems PHQ Score Initial Depression Screen Score: 2 SCORE ROS - Provider Constitutional: denies weight [...] & Measurements T: 37 ???C(Temporal Artery) HR: 88(Peripheral) RR: 16 BP: 126/73 HT: 69 in HT: 175 cm WT: 77.7 kg WT: 171.299 lb BMI: 25.37 General Appearance: alert, no distress, well nourished, well developed male. Assessment/Plan 1. History of prostate cancer (Z85.46: Personal history of malignant neoplasm of prostate) PSA 09/08/19 - 1.94 07/05/23 - 4.30 & 11% 11/11/23 - 7.01 (total); 5.9 & 12.4% (free and total) 02/07/24 - 5.83 (total); 4.9 & 12.9% (free and total) - treated with Levaquin 400mg x2w prior to blood draw 03/27/24 - 4.4 & 12.5% 05/07/24 - 4.5 & 14.7% 06/14/24 - 4.5 & 13.3% 02/13/25 - 3.0 & 6.7% No family hx of prostate ca. Father passed at 84 yo. RAY 07/25/23 - 40 gm, no nodules. [1] S/p TRUS/bx 08/09/23 - Karrie 6 (3+3), 3% of core involved by tumor, 1 of 1 core involved. TAMARA (RLM). HGPIN (RA, RLB). S/p confirmatory TRUS/bx 08/09/24 - G6 (3+3) x 2 cores (L3, R4), GG1, ~5% of submitted tissue. S/p radium seed implant 10/18/24. Saw Dr. Murry Saw Dr. Murry 11/29/24 - Post-implant CT shows excellent prostate coverage and appropriate normal tissue sparing. No change of modification in either the treatment or follow-up planbased on this. PSA elevated from baseline this may reflect acute post brachytherapy effects. F/up in 6 months. PSA decrease as expected. Will cont to monitor. Mentions he has an appt with rad onc at the end of this month. -PSA in 3 months with nurse visit prior 2. BPH with urinary obstruction (N40.1: Benign prostatic hyperplasia with lower urinary tract symptoms) PVR 11/16/24 - 15 mL 02/22/25 - 12 mL UA today negative for blood or infection. DIOR, compliant with CPAP. Taking Doxazosin 8 mg qd (does not appear this is for urination). Prescribed Flomax 0.4mg qd at prior OV, has been taking it in themorning. IPSS 28. Pt states he is only able to void when or after he has a bowel movement. Pt states this has been happening since [employer] Seed Implant. Nocturia 3x. Due to severe symptomatology, I recommend increasing Flomax to bid. Monitor for SEs with increased dosage. New script sent. -Increase Flomax to bid -Timed voids -F/up in 3 mos 3. OAB (overactive bladder) (N32.81: Overactive bladder) Experiencing irritative symptoms since RT. Discussed starting an anticholinergic to help, can be temporary. Counseled pt on possible SEs. He wishes to trial new med. -Start Oxybutynin 5 mg qd, monitor for SEs 4. Anxiety and depression (F41.9: Anxiety disorder, unspecified) Sober for 19 yrs. Has struggled his whole life with depression. Pt is very tearful today due to multiple life changes. Pt has not been going to therapy due to all that is going on in his life. Strongly encouraged pt to reestablish care with a counselor, instructed pt to call today. 5. Erectile dysfunction (N52.9: Male erectile dysfunction, unspecified) Taking Sildenafil 100 mg prn. Follow-up With When Contact Information Jennie IVY MD, URL [address] [facility] [place] [address]- Additional Instructions: 3 mos w/ PSA Patient Education Overactive Bladder, Adult Benign Prostatic Hyperplasia I, Olga Lidia Rizzo, personally scribed for Dr. Ivy on 02/22/2025 09:39:04. . Documentation recorded by the Olga Lidia kay, accur (more content not included)...[facility] ClinicComment on above:Result Comment: Electronically Signed By: Jennie IVY MD\.br\Date and Time Signed: 02/22/25 09:43 EDT\.br\Electronically Co-Signed By: Olga Lidia Rizzo\.br\Date and Time Co-Signed: 02/22/2509:39 EDTUrine Cultureon 02-14-2025 Bacteria identified Cx Nom (U)<9,000 colonies/ml mixed bacterial skin contaminants 2 Days PERFORMED BY: [place] [address] PATHOLOGIST LOOM OPERATOR APPRENTICE JEROME SUMNER M.D.[facility] Physician GroupComment on above: Performed By: #### CUU #### [place] [address] USACHEMISTRYOrdered By: SYSTEM SYSTEM on 15-49-0528Ocvv PSA [Mass/Vol]0.2 ng/mLInvalid Interpretation CodeRemisol ChemComment on above: Interpretive Data: The concentration of free PSA and total PSA determined with assays from different manufacturers can vary due to differences in assay methods and specificity. Values obtained with different creping machine operator helper's assays cannot be used interchangeably. The methodology used to obtain this result was chemiluminescence using [employer]'s Access Hybritech PSA reagent and Access Hybritech free PSA reagent.Free PSA/Total PSA [Mass fraction]6.7 %Low >=25.0%Remisol ChemProstate specific Ag [Mass/Vol]3.0 ng/mLNormal0.1 - 3.5 ng/mL Remisol ChemComment on above:Interpretive Data: The concentration of PSA determined by different manufacturers can vary due to differences in assay methods and reagent specificity. Values obtained from different assay methods cannot be used interchangeably. The methodology used for this result was chemiluminescence using [employer]'s Access Hybritech PSA reagent.PSA (OUTSIDE)on [id number] ClinicCNCOon [id number] TextNormal Bellevue HospitalCNOVon [id number] Visit (RADTSA) BHAVIN WHEATLEY ([id number]) 1965 M Date Time Provider Department 11/29/24 9:15 AM Brigette MURRY During your visit today, we recorded the following information about you: Temperature Pulse Respiration Blood pressure 98.7 degrees 87/minute 18/minute 137/83 Weight 82.6 kg Brigette Murry MD 12/03/2024 12:28 PM Signed Radiation Oncology - Follow Up Note PATIENT NAME: Bhavin Wheatley PATIENT DIAGNOSIS: Prostate adenocarcinoma, initial PSA 4.5, biopsy Karrie score 3 + 3 = 6 (grade group 1), clinical stage T1c, N0, M0, stage I [pT2, N0, M0, PSA <10, GG 1] (AJCC 8th ed.), s/p biopsy. NCCN Risk Group: Very Low Risk Group INTERVAL HISTORY: The patient presents for routine follow-up. Doing fairly well. Bladder function improving. PSA HISTORY: PSA (ng/mL) Date Value 11/28/2024 8.44 ALLERGIES Allergen Reactions Penicillins Anaphylaxis tamsulosin (FLOMAX) 0.4 mg Take 0.4 mg by mouth once daily. ALPRAZolam (XANAX) 1 mg tablet Take 0.5 [...] Take 1 tablet by mouth every afternoon. REVIEW OF SYSTEMS: D/N = 4-/ Hematuria: none Dysuria: none Incontinence: none Urgency: mild Medications to aid urination: y Bowel movement frequency: 1/day Bowel movement quality: normal Blood per rectum: none PHYSICAL EXAM: BP 137/83 Pulse 87 Temp 37.1 ?C (98.7 ?F) Resp 18 Wt 82.6 kg (182 lb 1.6 oz) SpO2 99% BMI 28.10 kg/m? KPS: 100 General Appearance: Alert and oriented. No acute distress. Rectal:Perineal area without ecchymosis tenderness or seroma. ASSESSMENT/PLAN: Prostate adenocarcinoma, initial PSA 4.5, biopsy [place] score 3 + 3 = 6 (grade group 1), clinical stage T1c, N0, M0, stage I [pT2, N0, M0, PSA <10, GG 1] (AJCC 8th ed.), s/p prostate brachytherapy 10/18/24 Patient overall doing.. Post-implant CT shows excellent prostate coverage and appropriate normal tissue sparing. No change of modification in either the treatment or follow-up plan based on this. PSA elevated from baseline this may reflect acute post brachytherapy effects. He has further follow-up with including PSA surveillance with Dr. Ivy in 3 months. I will plan to see patient back in approximately 6 months. Signed by: Brigette Murry MD cc: Kamaljit Medellin [address] [place] [id number] Brigette Murry [address] [place] [address] [place] [address] Liv Caldwell, RN 12/03/2024 12:28 PM Signed AUA 17. Liv Caldwell RN Referring Provider: Brigette MURRY [[id number]] Allergies As of Date: 11/29/2024 Noted Allergy Reaction PENICILLINS 09/13/2024 10 - Anaphylaxis Date Reviewed: 11/29/2024 Reviewed by: Liv Caldwell, RN - Fully Assessed Reason for Visit: Prostate Cancer [590] Primary Visit Diagnosis:Malignant neoplasm of prostate (HCC) [C61] Prescriptions as of 12/03/2024 - tamsulosin (FLOMAX) 0.4 mg Take 0.4 mg by mouth once daily. - ALPRAZolam (XANAX) 1 mg tablet Take [...] every afternoon. Problem List As Of Date: 11/29/2024 (None) Disposition: Return in about 3 months (around 02/27/2025). Follow-up and Disposition History for Encounter Date Provider Department Center 11/29/2024 [id number] MURRY [facility] Juan Pablo Clifford Encounter Status:Closed by Brigette MURRY on 12/03/24NoAd[facility] SerPl-mCncon [id number] specific Ag [Mass/Vol]8.44 ng/mL High<2.60[facility] on above:Order Comment: Specimen Type: BLOOD SPECIMENOrdering Facility: [facility] Address:[address] [place] [address] [place], [place] [address]Result Comment: Total PSA test methodology used is the Electrochemiluminescence Immunoassay by [employer]. Total PSA values by differing methodologies cannot be interchanged. For an individual patient, the significance of a PSA level should be interpreted in a broad clinical context, including age, race, family history, digital rectal exam, prostate size, results of priortesting (prostate biopsy, free PSA, PCA3), and use of 5-alpha reductase inhibitors. Considering thehigh incidence of asymptomatic cancer in the general population that may not pose an ultimate risk to a patient, the decision to recommend urological evaluation or prostate biopsy should be individualized after consideration of all these factors. REFERENCE: Ivonne Webber M.D., M.P.H., Julian Jane M.D., Ph.D., Gavino Coon M.D., Nettie Stallings, M.P.H., Neetu Solo, Sc.Michelle. Effect of Verification Bias on Screening for Prostate Cancer by Measurement of Prostatic Specific Antigen. N Engl J Med 2003,349:335-42.Performed By: #### 2857-1 ####[facility] [id number] [place] [address] [place] OF AMERICAUrology Office/Clinic Noteon [id number] Office/Clinic NoteUrology Office/Clinic Note Chief Complaint post op radium seed implant HPI Staff Post Op prostate seed implantation done 10/18/24. Dx: prostate cancer, anxiety and depression and BPH with urinary obstruction. Dysuria: denies Incomplete bladder emptying: feels he is not emptying Hematuria: denies Frequency: every 1-2 hours Urgency: yes Nocturia: denies Stream: weak , only dribbling for the past 4 days Leaking: denies Post void dripping: yes Wearing pads/ Depends: denies Urge incontinence: denies Stress incontinence: denies Incontinence without Sensory Awareness: denies Abdominal pain: denies Flank pain: a little on the right side recently but states he is unsure if it is from his physical therapy Sexual complaints: denies History of Present Illness Tests reviewed: reviewed UA and rad onc notes. I have reviewed the previous health record information and history for this patient from Dr. Ivy I have reviewed and verified the staff [...] & Measurements T: 37 ???C(Temporal Artery) HR: 69(Peripheral) RR: 16 BP: 104/77 HT: 69 in HT: 175 cm WT: 85.5 kg WT: 188.495 lb BMI: 27.92 General Appearance: alert, no distress, well nourished, [...] no nodules. [1] S/p TRUS/bx 08/09/23 - [place] 6 (3+3), 3% of core involved by tumor, 1 of 1 core involved. TAMARA (RLM). HGPIN (RA, RLB). S/p confirmatory TRUS/bx 08/09/24 - G6 (3+3) x 2 cores (L3, R4), GG1, ~5% of submitted tissue. Seen initially by Dr. Murry 09/13/24 - pt wished to proceed with RT. S/p radium seed implant 10/18/24. Tamez removed 10/25/24. Last seen by Dr. Murry 11/01/24 - doing well. Mild-mod urinary issues related to treatment. Return for CT post implant analysis with PSA in 3-4 weeks. Pt reports he went to the ER believing he had a UTI when his Tamez was still in place. Pt states they didn't do anything for me since I was already on an ATB . Experiencing mild urination changes, see below. Will cont to monitor PSA. Pt to continue following with rad onc. -CT scheduled 11/22/24, having PSA drawn 11/29/24 -F/up in 3 mos w/ PSA 2. BPH with urinary obstruction (N40.1: Benign prostatic hyperplasia with lower urinary tract symptoms) UA today negative for blood or infection. IPSS not completed. Taking Doxazosin 8 mg qd (does not appear this is for urination). PVR 15 mL. Reports he has been having difficulty voiding since radium seeds. Pt denies UTI symptoms however has a weak stream. Does not believe he is emptying. Not gettingup during the night, compliant with CPAP (diagnosed with DIOR almost 2 years ago). Discussed starting an alpha-chintan. Educated pt on possible SE. Pt agrees to start new med. -Start Flomax 0.4mg qd, monitor for SE 3. Anxiety and depression (F41.9: Anxiety disorder, unspecified) Sober for 19 yrs. Has struggled his whole life with depression. 4. Erectile dysfunction (N52.9: Male erectile dysfunction, unspecified) Taking Sildenafil 100 mg prn. Follow-up With When Contact Information KARINA ANTHONY, Jennie Mcpherson, [address] [place] [address]- Additional Instructions: 3 mos w/ PSA Patient Education Benign Prostatic Hyperplasia I, Olga Lidia Rizzo, personally scribed for Dr. Ivy on 11/16/2024 10:25:17. . Documentation recorded by the scribe, Olga Lidia Rizzo, accurately reflects the services(s) I performed and decisions made by me. Authenticated by Dr. Ivy on 11/16/2024 10:29:33. Problem List/Past Medical History Ongoing Anxiety and depression BPH with urinary obstruction Elevated PSA Erectile dysfunction Hypertension Prostate cancer Prostatitis Smoker Historical No qualifying data Procedure/Surgica (more content not included)...[facility] ClinicComment on above:Result Comment: Electronically Signed By: Jennie IVY MD\.br\Date and Time Signed: 11/16/24 10:29 EST\.br\Electronically Co- Signed By: Olga Lidia Rizzo\.br\Date and Time Co-Signed: 11/16/2509:26 EST Viktor [id number] (RADTSA) BHAVIN WHEATLEY ([id number]) 1965 M Date Time Provider Department 11/13/24 Brigette MURRY During your visit today, we recorded the following information about you: Corry Kraus RN 11/13/2024 4:16 PM Signed Bhavin called stating he is scheduled for a post implant CT tomorrow. He said he was notified by [facility] that he will be responsible to pay $250 for this test unless a peer to peer is completed. He provided the phone number for the peer to peer with [facility] [phone]. I notified Dr. Murry of the above and he would like the post implant CT cancelled until we can obtain clarification about the request. A CT order is not typically placed for this test/procedure and does not require a diagnostic read by a radiologist. Patient is aware not to come in for the appointment 11/14/24. Our office will call him with an update tamara. NIKI Jj Trisha 11/14/2024 8:[address] has been canceled Laury Calhoun PSS Greg Calhounha 11/14/2024 1:40 PM Signed Mr Wheatley is rescheduled for his CT on 11/22/24 at 10:30 AM Laury Calhoun PSS Allergies As of Date: 11/13/2024 Noted Allergy Reaction PENICILLINS 09/13/2024 10 - Anaphylaxis Date Reviewed: 11/01/2024 Reviewed by: Liv Caldwell, RN - Fully Assessed Reason for Visit: Patient Question [8377] Appointment [186] Prescriptions as of 11/14/2024 - ALPRAZolam (XANAX) 1 mg tablet Take [...] every afternoon. Problem List As Of Date: 11/13/2024 (None) Encounter Status:Closed by LAURY CALHOUN on 11/14/24NormalCUpper Valley Medical Center [id number] TextNoSamaritan Hospital [id number] Visit (LEOA) DIONIBHAVIN ([id number]) 1965 M Date Time Provider Department 11/01/24 2:30 PM Brigette MURRY During your visit today, we recorded the following information about you: Temperature Pulse Respiration Blood pressure 96.8 degrees 73/minute 18/minute 132/80 Weight 83.7 kg Brigette Murry MD 11/06/2024 12:27 PM Signed Radiation Oncology - Follow Up Note PATIENT NAME: Bhavin Wheatley PATIENT DIAGNOSIS: Prostate adenocarcinoma, initial PSA 4.5, biopsy Karrie score 3 + 3 = 6 (grade group 1), clinical stage T1c, N0, M0, stage I [pT2, N0, M0, PSA <10, GG 1] (AJCC 8th ed.), s/p biopsy. NCCN Risk Group: Very Low Risk Group INTERVAL HISTORY: The patient presents for routine follow-up. He underwent recent prostate brachytherapy implant. Overall doing fairly well. Still having moderate urinary related issues. Some mild to moderate fatigue. No fever. PSA HISTORY: No results found for: PSA , PSAPER ALLERGIES Allergen Reactions Penicillins Anaphylaxis ALPRAZolam (XANAX) [...] Take 1 tablet by mouth every afternoon. REVIEW OF SYSTEMS: D/N = 4-6/ Hematuria: none Dysuria: none Incontinence: none Urgency: mild Medications to aid urination: y Bowel movement frequency: 1/day Bowel movement quality: normal Blood per rectum: none PHYSICAL EXAM: BP 132/80 Pulse 73 Temp 36 ?C (96.8 ?F) Resp 18 Wt 83.7 kg (184 lb 8.4 oz) SpO2 100% BMI 28.47 kg/m? KPS: 100 General Appearance: Alert and oriented. No acute distress. Rectal:Perineal area without ecchymosis tenderness or seroma. ASSESSMENT/PLAN: Prostate adenocarcinoma, initial PSA 4.5, biopsy Karrie score 3 + 3 = 6 (grade group 1), clinical stage T1c, N0, M0, stage I [pT2, N0, M0, PSA <10, GG 1] (AJCC 8th ed.), s/p prostate brachytherapy 10/18/24 Overall doing fairly well. Still with some mild to moderate urinary issues related to treatment. Continues off work secondary to post implant issues. Recommend returning first week in December. Patient will return for CT post implant analysis with PSA in 3 to 4 weeks. Signed by: Brigette Murry MD cc: Kamaljit Medellin [address] [place] [address] Brigette Murry [address] [place] [address] [place] [address] Referring Provider: Brigette MURRY [[id number]] Allergies As of Date: 11/01/2024 Noted Allergy Reaction PENICILLINS 09/13/2024 10 - Anaphylaxis Date Reviewed: 11/01/2024 Reviewed by: Liv Caldwell RN - Fully Assessed Reason for Visit: Prostate Cancer [590] Primary Visit Diagnosis:Malignant neoplasm of prostate (HCC) [C61] Order(s):PROSTATE-SPECIFIC ANTIGEN DIAGNOSTIC [SQPSA] Order #: [id number] FUTURE Prescriptions as of 11/06/2024 - ALPRAZolam (XANAX) 1 mg tablet Take [...] every afternoon. Problem List As Of Date: 11/01/2024 (None) Disposition: Return in about 4 weeks (around 11/29/2024). Follow-up and Disposition History for Encounter Date Provider Department Center 11/01/2024 [id number] MURRY EMANUEL Clifford Encounter Status:Closed by Brigette MURRY on 11/06/24[facility] HospitalAmbulatory Visit Summaryon [id number] Visit SummaryAmbulatory Visit Summary BHAVIN WHEATLEY :1965 Visit Date:10/25/2024 Ambulatory Visit Instructions Your Care Team Attending Physician - Jennie IVY MD Primary Care Physician - Kamaljit Medellin MD This Is Your Medications List alprazolam (alprazolam 1 mg Tab) aspirin (aspirin [...] Transrectal needle biopsy of prostate (08/09/2023), Colonoscopy. What to do next Scheduled Follow-Up Appointments Tuesday 9:15 AM EST With: Jennie IVY MD Where: [facility] [place] [id number]- Medications What How Much When Instructions Unchanged alprazolam (alprazolam 1 mg Tab) 0.5 Tablets Unchanged aspirin (aspirin 81 mg Oral EC Tab) By Mouth Every day Unchanged atorvastatin (atorvastatin 40 mg Tab) Unchanged cranberry (Cranberry) Unchanged desvenlafaxine (desvenlafaxine 50 mg Tab-) Unchanged doxazosin (doxazosin 8 mg oral tablet) Unchanged sildenafil (sildenafil 100 mg Tab) Unchanged tramadol (traMADOL 50 mg Tab) Unchanged trazodone (traZODONE 50 mg Tab) Unchanged triamcinolone topical (triamcinolone Top 0.1% Crm 15 gram) Unchanged ubiquinone (CoQ10) By Mouth Every day Allergies penicillin (Unknown) Problems Ongoing - Any [...] you for choosing us for your care. [facility] HospitalOV [id number] Visit (EMANUEL) BHAVIN WHEATLEY ([id number]) 1965 M Date Time Provider Department 10/18/24 8:00 AM Brigette MURRY During your visit today, we recorded the following information about you: Brigette Murry MD 10/22/2024 1:11 PM Signed Date: 10/18/24 Facility: [facility] Procedure: prostate transperineal brachytherapy implant Sources: I-125 Anesthesia:general Urologist: Dr. Ivy This is an operative report supplement to Dr. Ivy note. Prior the the implant patient underwent planning using transrectal ultrasound based. The planning including outline of prostate and planning margin around prostate to deliver 145 Gy using I-125 sources. It was determined 67 sources, for a total of 25.661 mCi was necessary using 18 needles. Prior to the procedure on the morning of the implant, patient identified by name and hospital ID bracelet. After anesthesia administered patient placed in dorsal-lithotomy position and ultrasound study done showing good correlation with planning images and excellent visualization of the gland. Implant was then carried out using transperineal technique with active ultrasound and fluoroscopic guidance. At the end of the case the treatment planning ultrasound computer showed captured seed located in expected position with appropriate target coverage, no extra seeds implanted. X-ray image showed good seed distribution and all 67 sources. Intraoperative dosimetry reviewed showing D90 of 98.12%, and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 WorkLorchanelle Fabian LSWHematology/OncologyStart: 02-27-2025 End: 98-08-8726Spttwzb encounter procedureG David Murry MD Work Phone: Radiation OncologyComment on above:Malignant neoplasm of prostate (HCC) (Primary Dx)Start: 02-27-2025 End: 85-74-3840jvdvjjkfkiJ PHILLIP ENGELERFacility:[facility] Start: 02-22-2025 End: 35-35-8877aftfnjdupwEexnldi R WATERSFacility:EU [place]vueStart: 02-14-2025 End: 73-50-4477ylznixyzvgBqfyzqz M HoyFacility:[facility] Start: 02-14-2025 End: 26-74-5746Vrvdxfqp Fuentes Medellin MD Work Phone: [facility] Ctr-LAB Path Spec [facility] HospStart: 02-13-2025 End: 48-20-9976Dqi Drop Mariola IVY [facility] Start: 02-13-2025 End: 99-62-1777aymfalnxgxSbilyig R WATERSFacility:EU [place]vueStart: 11-29-2024 End: 87-75-1797ddiniaitvqK PHILLIP ENGELERFacility:[facility] Start: 11-29-2024 End: 46-66-4056Fxhrpra encounter procedureG David Murry MD Work Phone: Radiation OncologyComment on above:Malignant neoplasm of prostate (HCC) (Primary Dx)Start: 11-28-2024 End: 85-70-2281slepphqhzyMADNEFU M HOYFacility:[facility] Hospitaltart: 11-22-2024 End: 85-45-5590Lpwfgwu encounter procedureG David Murry MD Work Phone: Radiation OncologyStart: 11-22-2024 End: 25-20-7674Ucvzpvaxr Oncology NoteG David Murry MD Work Phone: Radiation OncologyComment on above:Simulation Note Start: 11-22-2024 End: 28-86-8629gaxgphethfH PHILLIP ENGELERFacility:[facility] Start: 11-22-2024 End: 51-99-3465Expdhxpmvw hospital visit by physicianPet Ct Scan Pricila Reza Work Phone: Radiology Pet CTStart: 11-16-2024 End: 05-59-7214cvvwmhgvhqWkbevwt R WATERSFacility:EU [place]vueStart: 11-16-2024 End: 69-95-4958Zlfgiuc encounter procedureJennie IVY [facility] Yanna start: 11-13-2024 End: 19-73-9763Ifaqdsepn encounterG David Murry MD Work Phone: Radiation OncologyComment on above:Patient Question; AppointmentStart: 11-07-2024 End: 87-89-3821eszdeykrxkYLJPUME J MEYERNot AvailableStart: 11-07-2024 End: 32-80-8508Utlowm outpatient visit 25 minutesMacasa LEA Work Phone: [facility] FB ORTHOPAEDICSComment on above:Right elbow pain (Primary Dx)Start: 11-07-2024 End: 07-45-1371Zffwbt flowsZita LEA Work Phone: [facility] FB ORTHOPAEDICSStart: 11-07-2024 End: 61-63-2204Zwdalw Soren LEA Work Phone: noms FB ORTHOPAEDICSStart: 11-06-2024 End: 96-79-0753echvnhjylbJ Phillip Engeler MD Work Phone: radiation OncologyComment on above:Disability PaperworkStart: 11-06-2024 End: 49-46-0445D-mail encounter from caregiverG David Murry MD Work Phone: radiation OncologyStart: 11-01-2024 End: 35-02-3359iepzpoqsusGBrittni CANTUacility:[facility] Start: 11-01-2024 End: 54-44-1709Vnjfalg encounter procedureBrigette Murry MD Work Phone: radiation OncologyComment on above:Malignant neoplasm of prostate (HCC) (Primary Dx)Start: 10-25-2024 End: 43-89-9322jbolkhfjfsCdsqvxp R WATERSFacility:EU [place]Start: 10-25-2024 End: 50-59-7898Rpkoezl encounter procedureJennie IVY [facility] Pricila Start: 10-18-2024 End: 81-85-2672sxmhlhryhqZBrittni CANTUacility:[facility] Start: 10-18-2024 End: 70-60-2852Rzjmllz encounter procedureG David Murry MD Work Phone: Radiation OncologyComment on above:Malignant neoplasm of prostate (HCC) (Primary Dx)Start: 10-18-2024 End: 48-14-7714jcvmkrmdgtXabyuxm R WATERSFacility:CD:[id number]: 10-10-2024 End: 24-11-7883Ihrrewxnw encounterMacasa LEA Work Phone: n[facility] FB ORTHOPAEDICSComment on above:questionsStart: 10-09-2024 End: 43-57-7142Xbyuax Estephania Oconnell MD Work Phone: [facility]oms ST NEUROLOGYStart: 10-09-2024 End: 49-41-9506Dxozmj Estephania Oconnell MD Work Phone: noms ST NEUROLOGYStart: 10-09-2024 End: 69-45-5008Qqnekud encounter procedureSgraeme Oconnell MD Work Phone: noms ST NEUROLOGYComment on above:Paresthesias (Primary Dx)Start: 10-09-2024 End: 15-67-9239bgqngyvjhwVUMXAW BENEDICTNot AvailableStart: 10-08-2024 End: 94-16-6753Bpaekqm encounter procedureBrigette Murry MD Work Phone: Radiation OncologyStart: 10-08-2024 End: 22-79-3066Jghwrikca Oncology NoteG David Murry MD Work Phone: Radiation OncologyComment on above:Treatment Planning Start: 10-03-2024 End: 56-66-3366Ucxyfh flowsZita LEA Work Phone: [facility] FB ORTHOPAEDICSStart: 10-03-2024 End: 98-41-9155Wutepi Soren LEA Work Phone: [facility] FB ORTHOPAEDICSStart: 10-03-2024 End: 37-60-0855Pbujnr outpatient new 45 minutesMattzana LEA Work Phone: noms FB ORTHOPAEDICSComment on above:Acute pain of right shoulder (Primary Dx); Right elbow pain; Arthritis of right acromioclavicular joint; Paresthesia of right upper extremityStart: 10-03-2024 End: 07-16-1268crqgypfqkmLAGAIDD J MEYERNot AvailableStart: 10-02-2024 End: 47-63-6007Ltcxrpdzc Oncology NoteG David Murry MD Work Phone: Radiation OncologyComment on above:Simulation Note Start: 10-02-2024 End: 01-59-9513gvvumhkofsJ DAVID CANTUacility:[facility] Start: 10-02-2024 End: 05-19-2707Gznmxxu encounter procedureG David Murry MD Work Phone: Radiation OncologyComment on above:Malignant neoplasm of prostate (HCC) (Primary Dx)Start: 09-13-2024 End: 81-13-7968vojhnxwkneUQXAJVS R WATERSFacility:[facility] Start: 09-13-2024 End: 75-91-1470Phkhuxd encounter procedureBrigette Murry MD Work Phone: Radiation OncologyComment on above:Malignant neoplasm of prostate (HCC) (Primary Dx)Start: 09-03-2024 End: 16-24-3042aejquaqceeJfxddqd R WATERSFacility:FTMCStart: 09-03-2024 End: 15-55-0575Unm Drop Mariola IVY [facility] Start: 09-03-2024 End: 50-85-7057mnyfmbcdbrGcbzrme R WATERSFacility:EU Marked TreeevueStart: 09-03-2024 End: 53-70-2713Aynumhb encounter procedurePaaroldo IVY [facility] start: 08-09-2024 End: 83-02-0622iuulpdioinIfbumkr [facility] Work Phone: Start: 08-09-2024 End: 55-97-1794Earhflyg ReferredMD Jennie Ivy Work Phone: [facility]-LAB Path Spec [place] HospStart: 08-09-2024 End: 51-18-8331pfvntgcymoUvekgta R WATERSFacility:CD:[id number]: 06-18-2024 End: 04-03-1363vgwzzyisyyAuqekkh R WATERSFacility:EU ueStart: 06-18-2024 End: 64-04-2854Pgrvfco encounter procedurePaaroldo IVY [facility] start: 02-13-2024 End: 68-77-6804Ivqsquf encounter procedureJennie IVY [facility] start: 11-21-2023 End: 31-58-4083Nyymsmj encounter procedurePatricsam IVY [facility] start: 07-25-2023 End: 02-18-5220Mcakrvy encounter procedurePatricsam IVY [facility] start: 10-08-2022 End: 01-19-5298pisfhyukbpHMXUUI CRAMERFacility:H1 Procedures DateProcedureProcedure DetailPerforming ClinicianStart: 73-05-7403ZAP screening Ccf ProviderStart: 07-63-9978CnmsrmtayqVxzvfqh WATERS Start: 10-09-2024 End: 39-41-0362Psbkvp emg ea extremty w/paraspinl area completeStmisha Oconnell MD Work Phone: Start: 45-61-7065Lrojarydgnv biopsy of prostate using ultrasound guidanceLeonoraLexysam IVY Start: 71-31-6234Isorpdadvkd needle biopsy of prostate Jenniearun IVY Start: 82-48-2567Lwqpr 1996 panel - Serum or PlasmaNA Lovely ANTHONY Work Phone: Start: 69-64-9693VpdxrrubyxbSkpfptq Meyer PA Work Phone: [facility] SBV Plan of Treatment DateCare ActivityDetailAuthorStart: 23-03-4020OXY Vaccine (1 - 1-dose 75+ series)RSV Vaccine (1 - 1-dose 75+ series)[facility]ertart: 05-01-2031 Screening for malignant neoplasm of colonNOIN HealthcareStart: 02-13-2030 Prostate specific antigen measurementProstate Cancer Screening Discussion Meth[facility] ClinicStart: 52-68-7410Kkolqvrh specific antigen measurementProstate Cancer Screening DiscussionLouis Stokes [facility] Medical Centertart: 43-35-9342Epvbc panelLipid ScreeningLouis Stokes [facility] Medical Centertart: 28-70-1364Lysmwzfy specific antigen measurement Prostate Cancer Screening DiscussionLouis Stokes [facility] Medical Centertart: 08-29-2025 End: 41-44-1337Vjldhrdb specific Ag [Mass/volume] in Serum or PlasmaPROSTATE- SPECIFIC ANTIGEN DIAGNOSTIC Lab Routine Malignant neoplasm of prostate (HCC) Expected: 08/29/2025, Expires: 11/28/2025[facility] Work Phone: Comment on above:Expected: 08/29/2025, Expires: 11/28/2025Start: 08-28-2025 End: 31-42-8744Ywedawf encounter omehovzah18/29/2025 9:45 AM EDT Office Visit Radiation Oncology [address] [place] [address] Brigette Murry MD [address] [place] [address] 6 month follow upRadiation OncologyComment on above:6 month follow upStart: 08-21-2025 End: 62-91-8715Fsoijtn encounter opwydiesa53/22/2025 8:00 AM EDT Office Visit [facility] [address] [place] [address] [place] [address] 6 month follow upNortHarbor Oaks Hospital LaboratoryComment on above:6 month follow upStart: 07-32-4874Jyjpooxvl vaccinationInfluenza Vaccine (Season Ended)[facility]art: 02-27-2025 End: 14-40-6006Pzsekql encounter /30/2025 9:30 AM EDT Office Visit Radiation Oncology [address] [place] [address] Brigette Murry MD [address] [place] [address] 3 month follow upRadiation OncologyComment on above:3 month follow upStart: 64-22-3626Iwcxi [facility] Hospitaltart: 02-57-4794Nvwtomsj identified in Urine by CultureUrine [facility] for Rehabilitationtart: 12-12-2024 End: 84-73-9431Sgfyive encounter zalvnztmd13/12/2025 11:15 AM EST Office Visit [facility] [address] [place] [phone] Cali Mederos, PA [address] [place] [address] [facility]THOPAEDICSStart: 12-02-2024 End: 63-37-5664Zfhqlywb specific Ag [Mass/volume] in Serum or PlasmaPROSTATE- SPECIFIC ANTIGEN DIAGNOSTIC Lab Routine Malignant neoplasm of prostate (HCC) Expected: 12/02/2024 (Approximate), Expires: 03/03/2025[facility] Work Phone: comment on above:Expected: 12/02/2024 (Approximate), Expires: 03/03/2025Start: 11-29-2024 End: 12-52-1844Gtfgtsp encounter procedureRadiation OncologyComment on above: Follow upStart: 11-28-2024 End: 70-63-1472Oofzlbj encounter xfoxzszvu08/29/2025 9:30 AM EST Office Visit [facility] [address] [place] [address] [facility] LaboratoryComment on above:labStart: 11-22-2024 End: 88-94-4197Govenji encounter izmisopbj21/23/2025 10:30 AM EST Appointment Radiology Pet CT [address] [place] [address] Seed implantRadiology Pet CTComment on above:Post Op CT Seed implantStart: 11-14-2024 End: 75-91-5090Wrutszb encounter ynwnutpfg75/15/2025 8:00 AM EST Appointment Radiology Pet CT [address] [facility] [place] [address] Seed implantRadiology Pet CTComment on above:Post Op CT Seed implantStart: 11-07-2024 End: 64-69-0694Gagxuzp encounter kswqrladi84/08/2025 2:30 PM EST Office Visit [facility] [address] [place] [address] Cali Mederos, LEONORA [address] [address] [facility] ORTHOPAEDICSStart: 11-01-2024 End: 35-70-3206Pjeektv encounter vaaqziazg65/12/2024 2:30 PM EST Office Visit Radiation Oncology [address] [place] [address] Brigette Murry MD [address] [place] [address] Follow upRadiation OncologyComment on above:Follow upStart: 10-18-2024 End: 55-83-7824Hkfpige encounter procedureRadiation OncologyComment on above: [facility] 10-09-2024 End: 26-34-1092Mplngsd encounter krhrbmqne93/10/2024 11:00 AM EST Procedure Visit [facility] [address] [facility] [address] [place] [address] Cheryl Oconnell MD [address] [place], [place] [id number] ArrivedNOENCOMPASS HEALTH RE[facility]ILIT[facility] H[facility] OF GADSDEN NEUROLOGYComment on above:ArrivedStart: 10-03-2024 End: 72-82-6491OVL AND NERVE CONDUCTION STUDYEMG AND NERVE CONDUCTION STUDY Neurology Routine Paresthesia of right upper extremity Expected: 10/03/2024 (Approximate), Expires: 10/03/2025[facility] Work Phone: Comment on above:Expected: 10/03/2024 (Approximate), Expires: 10/03/2025Start: 10-03-2024 End: 08-85-8358Xddwuqn encounter puyfhidgz00/04/2024 1:30 PM EST Office Visit [facility] [address] [place] [phone] Cali Mederos PA [address] [facility] [address] [place] [address] Acute pain of right shoulder (Primary Dx); Right elbow pain [facility] FB ORTHOPAEDICSComment on above:Acute pain of right shoulder (Primary Dx); Right elbow painStart: 10-02-2024 End: 88-34-5208Kyznnxl encounter pfpshyxyy13/03/2024 9:00 AM EST Office Visit Radiation Oncology [address] [place] [address] Brigette Murry MD [address] [place] [address] Volume StudyRadiation OncologyComment on above:Volume Study Start: 34-70-8944GypxjmswvProMedica Fostoria Community Hospitaltart: 04-02-1063Jnszr-19 Vaccine ( season)Covid-19 Vaccine ( season)[facility]art: 98-49-7623Pmdemglzq vaccinationInfluenza Vaccine (#1)[facility]ertart: 40-63-4584Jsqupoah ScreeningDiabetes ScreeningMemorial Health System [facility] Start: 69-05-9296Rtwlbmdb Vaccine (1 of 2)Shingrix Vaccine (1 of 2)[facility] Centertart: 64-70-2886Ubjscaohg for malignant neoplasm of colonMemorial Health System [facility] Start: 91-57-9126Ybphzkwsydgu Vaccine: 50+ (1 of 2 - PCV)Pneumococcal Vaccine: 50+ (1 of 2 - PCV)[facility]: 43-63-3877Rlvuj microalbumin profile DTaP,Tdap,Td Vaccine (1 - Tdap)[facility]ertart: 63-26-7458Gbsbmvt ScreeningAnxiety ScreeningLouis Stokes [facility] Medical Centertart: 39-11-6874Chfchszfjs Screening Depression ScreeningLouis Stokes [facility] Medical Centertart: 81-64-8639Rvqhdjgdpjeb vaccination Pneumococcal Vaccine (1 of 2 - PCV)[facility] Centertart: 15-32-5303Ijnxgdlzj for malignant neoplasm of colonNOMS Healthcare Payers DatePayer CategoryPayerPolicy [id number]-[id number] Cross Blue [id number] 1.2.840.377616.1.13.159.2.7.3.439210.14526-96-6785HlbcnywZGA97525687012-22-5833 Wngtmswxol35392[id number] 2.16.840.1.222995.3.579.2.593 49-37-7288Hxmnelc2095622 2.16.840.1.954818.3.579.2.661369-63-4157Rdalokz1631852 2.16.840.1.759609.3.579.2.068823-79-8889Jvjncxy9564679 2.16.840.1.877636.3.579.2.513999-07-6867Wwzduxf36106543 2.840.1.538399.3.579.2.86273-25-3801Fxoenoq35475267 2.840.1.977032.3.579.2.04925-67-7032Tcsepfk45785626 2.840.1.226999.3.579.2.37290-05-6449Glmvsep18602397 2.840.1.119785.3.579.2.86135-84-2913Ltrkazp05109964 2.840.1.864656.3.579.2.62238-79-4179Gylynly44974642 2.840.1.153759.3.579.2.42347-93-3965Bhsxjlj38574984 2.840.1.275865.3.579.2.86362-43-5532Qzwbxcu38011363 2.840.1.007320.3.579.2.06911-43-4704Syrftrx04713908 2.840.1.239578.3.579.2.7[id number] 2.840.1.214369.3.579.2.32499-24-7643Rrvzeno09373747 2.840.1.827059.3.579.2.00004-73-6589Gsfvwrs16589563 2..840.1.453499.3.579.2.06132-30-4949Umvegxm37854474 2.16.840.1.708840.3.579.2.65018-13-9855Gfhulyx85096597 2..0.1.073737.3.579.2.33604-63-3416Sybdoyy59707533 2.16.840.1.728644.3.579.2.58934-42-0525Efhnhjj483524200649YneszvbRkugqax Ehxvkoirp588442 7m10b1t3-w92l-7785-7a8a-sif1092c59ui Social History DateTypeDetailFacilityStart: 07-25-2023 End: 22-77-6471Kqgfbly smoking statusSmoker (finding)[facility]: 09-13-2024 End: 09-83-8312Mcq Assigned At [facility]: 71-70-3331Cotanmo smoking statusHeavy tobacco smoker (finding)[facility] smoking statusNeverExec[facility] of [facility] Hospitaltart: 06-18-2024 End: 98-18-0036Djflijh smoking statusEx-smoker (finding)[facility]tart: 61-07-8463Uln Assigned At [facility]tart: 36-92-1585Ckkjwtz smoking status NHIS Occasional tobacco smokerMemorial Health System Marietta Memorial HospitalHistory of tobacco useCigarette Smoker [facility]ertart: 09-13-2024 End: 45-81-6327Bjmunzo use and exposureSmokeless tobacco non-userLouis Stokes [facility] Medical Centertart: 09-13-2024 End: 04-71-3384Baerwsrwt beverage intakeEx-drinker (finding)[facility] Start: 09-13-2024 End: 01-75-6284Ezmhvcm of Social functionLouis Stokes Cleveland VA Medical Centertart: 43-17-7712Cyx assigned at birthNot on [facility] Hospital - TrumbullTobacc smoking status NHISTobacco smoking consumption unknownNOMS HealthcareStart: 28-66-0007Jojkhyf smoking status NHISSmokes tobacco dailyNOIN HealthcareStart: 10-03-2024 End: 55-34-2068Cmxwqctyf beverage intakeLifetime non-drinker (finding)[facility] HealthcareSexual OrientationThe Christ Hospital Start: 01-19-2019 End: 21-51-5224EasFopo (finding)[facility] Functional Status JosdAlroehzjxaAnyibaTzruhxxl72-75-5044Sqgircdoiu StatusN/AExec[facility]11-04-2024Functional StatusN/A[facility]08-19-2024Functional StatusN/A [facility]04-15-2024Functional StatusN/A[facility]01-22-2024 Functional StatusN/A[facility] 88-99-6643Xydtpylxzg StatusN/AExec[facility] Clinical Notes 07-25-2023 to 08-28-2025 Note Date & WclmKrblCfpbyluo34-81-2188 NoteHNO ID: [id number] Author: NAY FABIAN LSW Service: ? Author Type: Agricultural Research Engineer Type: Progress Notes Filed: 08/28/2025 09:56 Note Text: Patient Declined Social Work Assessment Patient's name is on the PRO [place] report for a PHQ-9 score of 10. Patient declined to meet with SW. Patient has contact information to reach this SW if/when needed. STEFANIA [facility]10-29-2025 NoteHNO ID: [id number] Author: Brigette MURRY MD Service: ? Author Type: Physician Type: Progress Notes Filed: 08/28/2025 09:52 Note Text: Radiation Oncology - Follow Up Note PATIENT NAME: Bhavin Wheatley PATIENT DIAGNOSIS: Prostate adenocarcinoma, initial PSA 4.5, biopsy Karrie score 3 + 3 = 6 (grade group 1), clinical stage T1c, N0, M0, stage I [pT2, N0, M0, PSA <10, GG 1] (AJCC 8th ed.), s/p biopsy. NCCN Risk Group: Very Low Risk Group RADIATION SUMMARY: Prostate brachytherapy , 145 Gy, I125, 10/18/24 INTERVAL HISTORY: Doing well. Feels his bladder function is doing very well. Denies dysuria or hematuria. PSA HISTORY: PSA 02/13/2025 3.0 PSA (ng/mL) Date Value 08/21/2025 1.47 11/28/2024 8.44 PSA. (no units) Date Value 05/20/2025 1.4 02/13/2025 3.0 ALLERGIES Allergen Reactions Penicillins Anaphylaxis oxybutynin XL (DITROPAN XL) 5 mg 24 hr tablet Take 5 mg by mouth. tamsulosin (FLOMAX) 0.4 mg Take 0.4 mg by mouth two times a week. ALPRAZolam (XANAX) 1 mg tablet Take 0.5 [...] aspirin 81 mg cap Take by mouth. REVIEW OF SYSTEMS: D/N = 4-6/1-2 Hematuria: none Dysuria: none Incontinence: none Urgency: no Medications to aid urination: y Bowel movement frequency: 1/day Bowel movement quality: normal Blood per rectum: none PHYSICAL EXAM: BP 133/79 Pulse 68 Temp 36.2 ?C (97.2 ?F) Resp 16 Wt 77.5 kg (170 lb 13.7 oz) SpO2 98% BMI 26.36 kg/m? KPS: 100 General Appearance: Alert and oriented. No acute distress. Rectal: Deferred ASSESSMENT/PLAN: Prostate adenocarcinoma, initial PSA 4.5, biopsy [place] score 3 + 3 = 6 (grade group 1), clinical stage T1c, N0, M0, stage I [pT2, N0, M0, PSA <10, GG 1] (AJCC 8th ed.), s/p prostate brachytherapy 10/18/24 Patient continues to do well. Bladder function improved continues close follow-up with Dr. Ivy. PSA has declined substantially, despite vernon PSA levels approximately 24 months post implant. Plan to see patient back in 6 months for further postradiation follow-up. Signed by: Brigette Murry MD cc: Kamaljit M Lacie [address] [place] [address] [facility] NoteHNO ID: [id number] Author: CORRY KRAUS RN Service: ? Author Type: Registered Nurse Type: Progress Notes Filed: 08/28/2025 09:52 Note Text: AUA= 4 PHQ-9 Patient following with PCP. Has a history of depression. He states he is spiritually stable. He declines a meeting with our social worker delinquency prevention but accepted her business card if/when needed in the future. Corry [facility]us [facility] Hospital Discharge instructions Patient Education 05/27/2025 10:29:36 Prostate Cancer Screening Prostate Cancer Screening Prostate cancer screening is testing that is done to check for the presence of prostate cancer in men. The prostate gland is a walnut-sized gland that is located below the bladder and in front of therectum in males. The function of the prostate is to add fluid to semen during ejaculation. Prostatecancer is one of the most common types of cancer in men. Who should have prostate cancer screening? Screening recommendations vary based on age and other risk factors, as well as between the professional organizations who make the recommendations. In general, screening is recommended if: You are age 50 to 70 and have an average risk for prostate cancer. You should talk with your healthcare provider about your need for screening and how often screening should be done. Because most prostate cancers are slow growing and will not cause , screening in this age group is generally reserved for men who have a 10- to 15-year life expectancy. You are younger than age 50, and you have these risk factors: ?Having a father, brother, or uncle who has been diagnosed with prostate cancer. The risk is higherif your family member's cancer occurred at an early age or if you have multiple family members withprostate cancer at an early age. ?Being a male who is Black or is of [place] or sub-Saharan descent. In general, screening is not recommended if: You are younger than age 40. You are between the ages of 40 and 49 and you have no risk factors. You are 70 years of age or older. At this age, the risks that screening can cause are greater than the benefits that it may provide. If you are at high risk for prostate cancer, your health care provider may recommend that you have screenings more often or that you start screening at a younger age. How is screening for prostate cancer done? The recommended prostate cancer screening test is a blood test called the prostate-specific antigen(PSA) test. PSA is a protein that is made in the prostate. As you age, your prostate naturally produces more PSA. Abnormally high PSA levels may be caused by: Prostate cancer. An enlarged prostate that is not caused by cancer (benign prostatic hyperplasia, or BPH). This condition is very common in older men. A prostate gland infection (prostatitis) or urinary tract infection. Certain medicines such as male hormones (like testosterone) or other medicines that raise testosterone levels. A rectal exam may be done as part of prostate cancer screening to help provide information about the size of your prostate gland. When a rectal exam is performed, it should be done after the PSA level is drawn to avoid any effect on the results. Depending on the PSA results, you may need more tests, such as: A physical exam to check the size of your prostate gland, if not done as part of screening. Blood and imaging tests. A procedure to remove tissue samples from your prostate gland for testing (biopsy). This is the only way to know for certain if you have prostate cancer. What are the benefits of prostate cancer screening? Screening can help to identify cancer at an early stage, before symptoms start and when the cancer can be treated more easily. There is a small chance that screening may lower your risk of dying from prostate cancer. The chance is small because prostate cancer is a slow-growing cancer, and most men with prostate cancer from a different cause. What are the risks of prostate cancer screening? The main risk of prostate cancer screening is diagnosing and treating prostate cancer that would never have caused any symptoms or problems. This is called overdiagnosisand overtreatment. PSA screening cannot tell you if your PSA is high due to cancer or a different cause. A prostate biopsy is the only procedure to diagnose prostate cancer. Even the results of a biopsy may not tell you if your cancer needs to be treated. Slow-growing prostate cancer may not need any treatment other than monitoring, so diagnosing and treating it may cause unnecessary stress or other side effects. Questions to ask your health care provider When should I start prostate cancer screening? What is my risk for prostate cancer? How often do I need screening? What type of screening tests do I need? How do I get my test results? What do my results mean? Do I need treatment? Where to find more information The [place] [employer]: www.cancer.org [place] [employer]: www.auanet.org Contact a health care provider if: You have difficulty urinating. You have pain when you urinate or ejaculate. You have blood in your urine or semen. You have pain in your back or in the area of your prostate. Summary Prostate cancer is a common type of cancer in men. The prostate gland is located below the bladder and in front of the rectum. This gland adds fluid to semen during ejaculation. Prostate cancer screening may identify cancer at an early stage, when the cancer can be treated more easily and is less likely to have spread to other areas of the body. The prostate-specific antigen (PSA) test is the recommended screening test for prostate cancer, butit has associated risks. Discuss the risks and benefits of prostate cancer screening with your health care provider. If you are age 70 or older, the risks that screening can cause are greater than the benefits that it may provide. This information is not intended to replace advice given to you by your health care provider. Make sure you discuss any questions you have with your health care provider. Document Revised: 04/12/2022 Document Reviewed: 04/12/2022 [employer] Patient Education 2023 [employer]. Follow Up Care 02/22/2025 09:42:14 With:KARINA ANTHONY, Jennie Mcpherson, URL Address: [facility] [address] [place] [address] [phone] When: Unknown [facility] Yanna 07-28-2025 NotePatient Education Oncology Prostate Cancer Screening Prostate cancer screening is testing that is done to check for the presence of prostate cancer in men. The prostate gland is a walnut-sized gland that is located below the bladder and in front of therectum in males. The function of the prostate is to add fluid to semen during ejaculation. Prostatecancer is one of the most common types of cancer in men. Who should have prostate cancer screening? Screening recommendations vary based on age and other risk factors, as well as between the professional organizations who make the recommendations. In general, screening is recommended if: ??? You are age 50 to 70 and have an average risk for prostate cancer. You should talk with your health care provider about your need for screening and how often screening should be done. Because most prostate cancers are slow growing and will not cause , screening in this age group is generally reserved for men who have a 10- to 15-year life expectancy. ??? You are younger than age 50, and you have these risk factors: ? Having a father, brother, or uncle who has been diagnosed with prostate cancer. The risk is higher if your family member's cancer occurred at an early age or if you have multiple family members with prostate cancer at an early age. ? Being a male who is Black or is of Eddie or sub-Saharan descent. In general, screening is not recommended if: ??? You are younger than age 40. ??? You are between the ages of 40 and 49 and you have no risk factors. ??? You are 70 years of age or older. At this age, the risks that screening can cause are greater than the benefits that it may provide. If you are at high risk for prostate cancer, your health care provider may recommend that you have screenings more often or that you start screening at a younger age. How is screening for prostate cancer done? The recommended prostate cancer screening test is a blood test called the prostate-specific antigen(PSA) test. PSA is a protein that is made in the prostate. As you age, your prostate naturally produces more PSA. Abnormally high PSA levels may be caused by: ??? Prostate cancer. ??? An enlarged prostate that is not caused by cancer (benign prostatic hyperplasia, or BPH). This condition is very common in older men. ??? A prostate gland infection (prostatitis) or urinary tract infection. ??? Certain medicines such as male hormones (like testosterone) or other medicines that raise testosterone levels. A rectal exam may be done as part of prostate cancer screening to help provide information about the size of your prostate gland. When a rectal exam is performed, it should be done after the PSA level is drawn to avoid any effect on the results. Depending on the PSA results, you may need more tests, such as: ??? A physical exam to check the size of your prostate gland, if not done as part of screening. ??? Blood and imaging tests. ??? A procedure to remove tissue samples from your prostate gland for testing (biopsy). This is theonly way to know for certain if you have prostate cancer. What are the benefits of prostate cancer screening? Screening can help to identify cancer at an early stage, before symptoms start and when the cancer can be treated more easily. ??? There is a small chance that screening may lower your risk of dying from prostate cancer. The chance is small because prostate cancer is a slow-growing cancer, and most men with prostate cancer from a different cause. What are the risks of prostate cancer screening? The main risk of prostate cancer screening is diagnosing and treating prostate cancer that would never have caused any symptoms or problems. This is called overdiagnosisand overtreatment. PSA screening cannot tell you if your PSA is high due to cancer or a different cause. A prostate biopsy is the only procedure to diagnose prostate cancer. Even the results of a biopsy may not tell you if your cancer needs to be treated. Slow-growing prostate cancer may not need any treatment other than monitoring, so diagnosing and treating it may cause unnecessary stress or other side effects. Questions to ask your health care provider ??? When should I start prostate cancer screening? What is my risk for prostate cancer? How often do I need screening? What type of screening tests do I need? How do I get my test results? What do my results mean? Do I need treatment? Where to find more information ??? The [place] [employer]: www.cancer.org ??? [place] [employer]: www.auanet.org Contact a health care provider if: ??? You have difficulty urinating. ??? You have pain when you urinate or ejaculate. ??? You have blood in your urine or semen. ??? You have pain in your back or in the area of your prostate. Summary ??? Prostate cancer is a common type of cancer in men. The prostate gland (more content not included)...[facility]05-07-2025 NoteHNO ID: [id number] Author: NAY FABIAN LSW Service: ? Author Type: Agricultural Research Engineer Type: Progress Notes Filed: 03/06/2025 10:49 Note Text: Patient Declined Social Work Assessment Patient's name appears on the PRO [place] report for a PHQ-9 score of 11. SW services declined. STEFANIA [facility]05-07-2025 History of Present illness Narrative* Nay Fabian LSW - 03/06/2025 10:48 AM EDT Patient Declined Social Work Assessment Patient's name appears on the PRO [place] report for a PHQ-9 score of 11. SW services declined. STEFANIA Wise-[facility]ia [facility] History of Present illness Narrative* Brigette Murry MD - 02/27/2025 9:30 AM EDT Radiation Oncology - Follow Up Note PATIENT NAME: Bhavin Wheatley PATIENT DIAGNOSIS: Prostate adenocarcinoma, initial PSA 4.5, biopsy Karrie score 3 + 3 = 6 (grade group 1), clinical stage T1c, N0, M0, stage I [pT2, N0, M0, PSA <10, GG 1] (AJCC 8th ed.), s/p biopsy. NCCN Risk Group: Very Low Risk Group RADIATION SUMMARY: Prostate brachytherapy , 145 Gy, I125, 10/18/24 INTERVAL HISTORY: Has had increased urinary frequency and slower stream. Recently had seen Dr. Ivy and increased Flomax to twice daily, patient notes significant improvement. Denies dysuria or hematuria. Still some social stressors in his life that are fairly stable. PSA HISTORY: PSA 02/13/2025 3.0 ALLERGIES Allergen Reactions Penicillins Anaphylaxis oxybutynin XL (DITROPAN XL) 5 mg 24 hr tablet Take 5 mg by mouth. tamsulosin (FLOMAX) 0.4 mg Take 0.4 mg by mouth two times a week. ALPRAZolam (XANAX) 1 mg tablet Take 0.5 [...] aspirin 81 mg cap Take by mouth. REVIEW OF SYSTEMS: D/N = 4-04/01 Hematuria: none Dysuria: none Incontinence: none Urgency: mild Medications to aid urination: y Bowel movement frequency: 1/day Bowel movement quality: normal Blood per rectum: none PHYSICAL EXAM: BP 145/76 Pulse (!) 59 Temp 37.1 C (98.8 F) Resp 18 Wt 79.3 kg (174 lb 13.2 oz) SpO2 99% BMI 26.98 kg/m KPS: 100 General Appearance: Alert and oriented. No acute distress. Rectal:Perineal area without ecchymosis tenderness or seroma. ASSESSMENT/PLAN: Prostate adenocarcinoma, initial PSA 4.5, biopsy [place] score 3 + 3 = 6 (grade group 1), clinical stage T1c, N0, M0, stage I [pT2, N0, M0, PSA <10, GG 1] (AJCC 8th ed.), s/p prostate brachytherapy 10/18/24 Patient has had a good initial PSA response. He is having bladder related symptoms that seem to be improving on Flomax twice daily. He is continue close follow-up with Dr. Ivy. I have asked patient come back in 6 months for the follow-up. Signed by: Brigette Murry MD cc: Kamaljit Medellin [address] [place] [id number] Ivy * Corry Kraus RN - 02/27/2025 9:24 AM EDT AUA= 21 documented in this encounter[facility]25 NoteHNO ID: [id number] Author: Brigette MURRY MD Service: ? Author Type: Physician Type: Progress Notes Filed: 03/01/2025 13:12 Note Text: Radiation Oncology - Follow Up Note PATIENT NAME: Bhavin Wheatley PATIENT DIAGNOSIS: Prostate adenocarcinoma, initial PSA 4.5, biopsy Karrie score 3 + 3 = 6 (grade group 1), clinical stage T1c, N0, M0, stage I [pT2, N0, M0, PSA <10, GG 1] (AJCC 8th ed.), s/p biopsy. NCCN Risk Group: Very Low Risk Group RADIATION SUMMARY: Prostate brachytherapy , 145 Gy, I125, 10/18/24 INTERVAL HISTORY: Has had increased urinary frequency and slower stream. Recently had seen Dr. Ivy and increased Flomax to twice daily, patient notes significant improvement. Denies dysuria or hematuria. Still some social stressors in his life that are fairly stable. PSA HISTORY: PSA 02/13/2025 3.0 ALLERGIES Allergen Reactions Penicillins Anaphylaxis oxybutynin XL (DITROPAN XL) 5 mg 24 hr tablet Take 5 mg by mouth. tamsulosin (FLOMAX) 0.4 mg Take 0.4 mg by mouth two times a week. ALPRAZolam (XANAX) 1 mg tablet Take 0.5 [...] aspirin 81 mg cap Take by mouth. REVIEW OF SYSTEMS: D/N = 4-6/ Hematuria: none Dysuria: none Incontinence: none Urgency: mild Medications to aid urination: y Bowel movement frequency: 1/day Bowel movement quality: normal Blood per rectum: none PHYSICAL EXAM: BP 145/76 Pulse (!) 59 Temp 37.1 ?C (98.8 ?F) Resp 18 Wt 79.3 kg (174 lb 13.2 oz) SpO2 99% BMI 26.98 kg/m? KPS: 100 General Appearance: Alert and oriented. No acute distress. Rectal:Perineal area without ecchymosis tenderness or seroma. ASSESSMENT/PLAN: Prostate adenocarcinoma, initial PSA 4.5, biopsy [place] score 3 + 3 = 6 (grade group 1), clinical stage T1c, N0, M0, stage I [pT2, N0, M0, PSA <10, GG 1] (AJCC 8th ed.), s/p prostate brachytherapy 10/18/24 Patient has had a good initial PSA response. He is having bladder related symptoms that seem to be improving on Flomax twice daily. He is continue close follow-up with Dr. Ivy. I have asked patient come back in 6 months for the follow-up. Signed by: Brigette Murry MD cc: Kamaljit Medellin [address] [place] [address] [facility] NoteHNO ID: [id number] Author: CORRY KRAUS RN Service: ? Author Type: Registered Nurse Type: Progress Notes Filed: 03/01/2025 13:12 Note Text: [facility]UA= 21[facility] NotePatient Education Obstetrics and Gynecology Overactive Bladder, Adult Overactive bladder is a condition in which a person has a sudden and frequent need to urinate. A person might also leak urine if he or she cannot get to the bathroom fast enough (urinary incontinence). Sometimes, symptoms can interfere with work or social activities. What are the causes? Overactive bladder is associated with poor nerve signals between your bladder and your brain. Your bladder may get the signal to empty before it is full. You may also have very sensitive muscles thatmake your bladder squeeze too soon. This condition may also be caused by other factors, such as: ??? Medical conditions: ? Urinary tract infection. ? Infection of nearby tissues. ? Prostate enlargement. ? Bladder stones, inflammation, or tumors. ? Diabetes. ? Muscle or nerve weakness, especially from these conditions: ? A spinal cord injury. ? Stroke. ? Multiple sclerosis. ? Parkinson's disease. ??? Other causes: ? Surgery on the uterus or urethra. ? Drinking too much caffeine or alcohol. ? Certain medicines, especially those that eliminate extra fluid in the body (diuretics). ? Constipation. What increases the risk? You may be at greater risk for overactive bladder if you: ??? Are an older adult. ??? Smoke. ??? Are going through menopause. ??? Have prostate problems. ??? Have a neurological disease, such as stroke, dementia, Parkinson's disease, or multiple sclerosis (MS). ??? Eat or drink alcohol, spicy food, caffeine, and other things that irritate the bladder. ??? Are overweight or obese. What are the signs or symptoms? Symptoms of this condition include a sudden, strong urge to urinate. Other symptoms include: ??? Leaking urine. ??? Urinating 8 or more times a day. ??? Waking up to urinate 2 or more times overnight. How is this diagnosed? This condition may be diagnosed based on: ??? Your symptoms and medical history. ??? A physical exam. ??? Blood or urine tests to check for possible causes, such as infection. You may also need to see a health care provider who specializes in urinary tract problems. This is called a urologist. How is this treated? Treatment for overactive bladder depends on the cause of your condition and whether it is mild or severe. Treatment may include: ??? Bladder training, such as: ? Learning to control the urge to urinate by following a schedule to urinate at regular intervals. ? Doing Kegel exercises to strengthen the pelvic floor muscles that support your bladder. ??? Special devices, such as: ? Biofeedback. This uses sensors to help you become aware of your body's signals. ? Electrical stimulation. This uses electrodes placed inside the body (implanted) or outside the body. These electrodes send gentle pulses of electricity to strengthen the nerves or muscles that control the bladder. ? Women may use a plastic device, called a pessary, that fits into the vagina and supports the bladder. ??? Medicines, such as: ? Antibiotics to treat bladder infection. ? Antispasmodics to stop the bladder from releasing urine at the wrong time. ? Tricyclic antidepressants to relax bladder muscles. ? Injections of botulinum toxin type A directly into the bladder tissue to relax bladder muscles. ??? Surgery, such as: ? A device may be implanted to help manage the nerve signals that control urination. ? An electrode may be implanted to stimulate electrical signals in the bladder. ? A procedure may be done to change the shape of the bladder. This is done only in very severe cases. Follow these instructions at home: Eating and drinking ??? Make diet or lifestyle changes recommended by your health care provider. These may include: ? Drinking fluids throughout the day and not only with meals. ? Cutting down on caffeine or alcohol. ? Eating a healthy and balanced diet to prevent constipation. This may include: ? Choosing foods that are high in fiber, such as beans, whole grains, and fresh fruits and vegetables. ? Limiting foods that are high in fat and processed sugars, such as fried and sweet foods. Lifestyle ??? Lose weight if needed. ??? Do not use any products that contain nicotine or tobacco. These include cigarettes, chewing tobacco, and vaping devices, such as e-cigarettes. If you need help quitting, ask your health care provider. General instructions ??? Take [id number] and prescription medicines only as told by your health care provider. ??? If you were prescribed an antibiotic medicine, take it as told by your health care provider. Donot stop taking the antibiotic even if you start to feel better. ??? Use any implants or pessary as told by your health care provider. ??? If needed, wear pads to absorb urine leakage. ??? Keep a log to track how much and when you drink, and whe (more content not included)...[facility]01-30-[facility]25 NoteHNO ID: [id number] Author: LIV CALDWELL RN Service: ? Author Type: Registered Nurse Type: Progress Notes Filed: 12/03/2024 12:28 Note Text: CONCEPCION Solo. Liv Caldwell [facility] History of Present illness Narrative* Liv Caldwell RN - 11/29/2024 10:06 AM EST CONCEPCION Solo. Liv Caldwell RN * Brigette Murry MD - 11/29/2024 9:15 AM EST Radiation Oncology - Follow Up Note PATIENT NAME: Bhavin Wheatley PATIENT DIAGNOSIS: Prostate adenocarcinoma, initial PSA 4.5, biopsy Karrie score 3 + 3 = 6 (grade group 1), clinical stage T1c, N0, M0, stage I [pT2, N0, M0, PSA <10, GG 1] (AJCC 8th ed.), s/p biopsy. NCCN Risk Group: Very Low Risk Group INTERVAL HISTORY: The patient presents for routine follow-up. Doing fairly well. Bladder function improving. PSA HISTORY: PSA (ng/mL) Date Value 11/28/2024 8.44 ALLERGIES Allergen Reactions Penicillins Anaphylaxis tamsulosin (FLOMAX) 0.4 mg Take 0.4 mg by mouth once daily. ALPRAZolam (XANAX) 1 mg tablet Take 0.5 [...] Take 1 tablet by mouth every afternoon. REVIEW OF SYSTEMS: D/N = 4-6/2 Hematuria: none Dysuria: none Incontinence: none Urgency: mild Medications to aid urination: y Bowel movement frequency: 1/day Bowel movement quality: normal Blood per rectum: none PHYSICAL EXAM: BP 137/83 Pulse 87 Temp 37.1 C (98.7 F) Resp 18 Wt 82.6 kg (182 lb 1.6 oz) SpO2 99% BMI28.10 kg/m KPS: 100 General Appearance: Alert and oriented. No acute distress. Rectal:Perineal area without ecchymosis tenderness or seroma. ASSESSMENT/PLAN: Prostate adenocarcinoma, initial PSA 4.5, biopsy [place] score 3 + 3 = 6 (grade group 1), clinical stage T1c, N0, M0, stage I [pT2, N0, M0, PSA <10, GG 1] (AJCC 8th ed.), s/p prostate brachytherapy 10/18/24 Patient overall doing.. Post-implant CT shows excellent prostate coverage and appropriate normal tissue sparing. No change of modification in either the treatment or follow-up plan based on this. PSA elevated from baseline this may reflect acute post brachytherapy effects. He has further follow-up with including PSA surveillance with Dr. Ivy in 3 months. I will plan to see patient back in approximately 6 months. Signed by: Brigette Murry MD cc: Kamaljit Medellin [address] [place] [id number] Brigette Murry [address] [place] [address] [place] [id number] documented [facility] [facility] NoteHNO ID: [id number] Author: Brigette MURRY MD Service: ? Author Type: Physician Type: Progress Notes Filed: 12/03/2024 12:28 Note Text: Radiation Oncology - Follow Up Note PATIENT NAME: Bhavin Wheatley PATIENT DIAGNOSIS: Prostate adenocarcinoma, initial PSA 4.5, biopsy Karrie score 3 + 3 = 6 (grade group 1), clinical stage T1c, N0, M0, stage I [pT2, N0, M0, PSA <10, GG 1] (AJCC 8th ed.), s/p biopsy. NCCN Risk Group: Very Low Risk Group INTERVAL HISTORY: The patient presents for routine follow-up. Doing fairly well. Bladder function improving. PSA HISTORY: PSA (ng/mL) Date Value 11/28/2024 8.44 ALLERGIES Allergen Reactions Penicillins Anaphylaxis tamsulosin (FLOMAX) 0.4 mg Take 0.4 mg by mouth once daily. ALPRAZolam (XANAX) 1 mg tablet Take 0.5 [...] Take 1 tablet by mouth every afternoon. REVIEW OF SYSTEMS: D/N = 4-6/2 Hematuria: none Dysuria: none Incontinence: none Urgency: mild Medications to aid urination: y Bowel movement frequency: 1/day Bowel movement quality: normal Blood per rectum: none PHYSICAL EXAM: BP 137/83 Pulse 87 Temp 37.1 ?C (98.7 ?F) Resp 18 Wt 82.6 kg (182 lb 1.6 oz) SpO2 99% BMI 28.10 kg/m? KPS: 100 General Appearance: Alert and oriented. No acute distress. Rectal:Perineal area without ecchymosis tenderness or seroma. ASSESSMENT/PLAN: Prostate adenocarcinoma, initial PSA 4.5, biopsy Karrie score 3 + 3 = 6 (grade group 1), clinical stage T1c, N0, M0, stage I [pT2, N0, M0, PSA <10, GG 1] (AJCC 8th ed.), s/p prostate brachytherapy 10/18/24 Patient overall doing.. Post-implant CT shows excellent prostate coverage and appropriate normal tissue sparing. No change of modification in either the treatment or follow-up plan based on this. PSA elevated from baseline this may reflect acute post brachytherapy effects. He has further follow-up with including PSA surveillance with Dr. Ivy in 3 months. I will plan to see patient back in approximately 6 months. Signed by: Brigette Murry MD cc: Kamaljit Medellin [address] [place] [id number] Brigette Murry [address] [place] [address] [place] [id number] of Present illness Narrative* Brigette Murry MD - 11/22/2024 12:00 AM EST Patient: Bhavin Wheatley Date:11/22/2024 [facility] Department of Radiation Oncology [facility] RADIATION ONCOLOGY POST SEED IMPLANT SIMULATION NOTE DATE OF SIMULATION: 11/22/2024 MACHINE: CT Simulator AREA:Prostate PATIENT POSITION: Supine. CONTRAST: None PROTOCOL: None CONCURRENT THERAPY: None FIXATION DEVICE: None PROCEDURE: Patient was simulated on the CT scanner and CT images of the patients pelvis obtained. ASSESSMENT/PLAN: Patient tolerated simulation procedure well. CT images were obtained on the CT simulator for the prostate post brachy therapy seed implant planning. Post planning for the permanent seed prostate brachy procedure will commence following simulation. Electronically Signed DAVID MURRY M.D. 55:19 PM documented in this [facility]Mem[facility]25 NoteHNO ID: [id number] Author: Brigette MURRY MD Service: ? Author Type: Physician Type: Progress Notes Filed: 12/03/2024 17:19 Note Text: Patient: Bhavin Wheatley Date:11/22/2024 [facility] Department of Radiation Oncology [facility] RADIATION ONCOLOGY POST SEED IMPLANT SIMULATION NOTE DATE OF SIMULATION: 11/22/2024 MACHINE: CT Simulator AREA:Prostate PATIENT POSITION: Supine. CONTRAST: None PROTOCOL: None CONCURRENT THERAPY: None FIXATION DEVICE: None PROCEDURE: Patient was simulated on the CT scanner and CT images of the patients pelvis obtained. ASSESSMENT/PLAN: Patient tolerated simulation procedure well. CT images were obtained on the CT simulator for the prostate post brachy therapy seed implant planning. Post planning for the permanent seed prostate brachy procedure will commence following simulation. Electronically Signed DAVID MURRY M.D. :19 [facility]01-17-2025 Hospital Discharge instructions Patient Education 11/16/2024 10:20:31 Benign Prostatic Hyperplasia Benign Prostatic Hyperplasia Benign prostatic hyperplasia (BPH) is an enlarged prostate gland that is caused by the normal agingprocess. The prostate may get bigger as a man gets older. The condition is not caused by cancer. The prostate is a walnut-sized gland that is involved in the production of semen. It is located in front of the rectum and below the bladder. The bladder stores urine. The urethra carries stored urine ou t of the body. An enlarged prostate can press on the urethra. This can make it harder to pass urine. The buildup of urine in the bladder can cause infection. Back pressure and infection may progress to bladder damage and kidney (renal) failure. What are the causes? This condition is part of the normal aging process. However, not all men develop problems from thiscondition. If the prostate enlarges away from the urethra, urine flow will not be blocked. If it enlarges toward the urethra and compresses it, there will be problems passing urine. What increases the risk? This condition is more likely to develop in men older than 50 years. What are the signs or symptoms? Symptoms of this condition include: Getting up often during the night to urinate. Needing to urinate frequently during the day. Difficulty starting urine flow. Decrease in size and strength of your urine stream. Leaking (dribbling) after urinating. Inability to pass urine. This needs immediate treatment. Inability to completely empty your bladder. Pain when you pass urine. This is more common if there is also an infection. Urinary tract infection (UTI). How is this diagnosed? This condition is diagnosed based on your medical history, a physical exam, and your symptoms. Tests will also be done, such as: A post-void bladder scan. This measures any amount of urine that may remain in your bladder after you finish urinating. A digital rectal exam. In a rectal exam, your health care provider checks your prostate by putting a lubricated, gloved finger into your rectum to feel the back of your prostate gland. This exam detects the size of your gland and any abnormal lumps or growths. An exam of your urine (urinalysis). A prostate specific antigen (PSA) screening. This is a blood test used to screen for prostate cancer. An ultrasound. This test uses sound waves to electronically produce a picture of your prostate gland. Your health care provider may refer you to a specialist in kidney and prostate diseases (urologist). How is this treated? Once symptoms begin, your health care provider will monitor your condition (active surveillance or watchful waiting). Treatment for this condition will depend on the severity of your condition. Treatment may include: Observation and yearly exams. This may be the only treatment needed if your condition and symptoms are mild. Medicines to relieve your symptoms, including: ?Medicines to shrink the prostate. ?Medicines to relax the muscle of the prostate. Surgery in severe cases. Surgery may include: ?Prostatectomy. In this procedure, the prostate tissue is removed completely through an open incision or with a laparoscope or robotics. ?Transurethral resection of the prostate (TURP). In this procedure, a tool is inserted through the opening at the tip of the penis (urethra). It is used to cut away tissue of the inner core of the prostate. The pieces are removed through the same opening of the penis. This removes the blockage. ?Transurethral incision (TUIP). In this procedure, small cuts are made in the prostate. This lessens the prostate's pressure on the urethra. ?Transurethral microwave thermotherapy (TUMT). This procedure uses microwaves to create heat. The heat destroys and removes a small amount of prostate tissue. ?Transurethral needle ablation (TUNA). This procedure uses radio frequencies to destroy and remove a small amount of prostate tissue. ?Interstitial laser coagulation (ILC). This procedure uses a laser to destroy and remove a small amount of prostate tissue. ?Transurethral electrovaporization (TUVP). This procedure uses electrodes to destroy and remove a small amount of prostate tissue. ?Prostatic urethral lift. This procedure inserts an implant to push the lobes of the prostate away from the urethra. Follow these instructions at home: Take bsaw-qvv-zuyceds and prescription medicines only as told by your health care provider. Monitor your symptoms for any changes. Contact your health care provider with any changes. Avoid drinking large amounts of liquid before going to bed or out in public. Avoid or reduce how much caffeine or alcohol you drink. Give yourself time when you urinate. Keep all follow-up visits. This is important. Contact a health care provider if: You have unexplained back pain. Your symptoms do not get better with treatment. You develop side effects from the medicine you are taking. Your urine becomes very dark or has a bad smell. Your lower abdomen becomes distended and you have trouble passing urine. Get help right away if: You have a fever or chills. You suddenly cannot urinate. You feel light-headed or very dizzy, or you faint. There are large amounts of blood or clots in your urine. Your urinary problems become hard to manage. You develop moderate to severe low back or flank pain. The flank is the side of your body between the ribs and the hip. These symptoms may be an emergency. Get help right away. Call 911. Do not wait to see if the symptoms will go away. Do not drive yourself to the hospital. Summary Benign prostatic hyperplasia (BPH) is an enlarged prostate that is caused by the normal aging process. It is not caused by cancer. An enlarged prostate can press on the urethra. This can make it hard to pass urine. This condition is more likely to develop in men older than 50 years. Get help right away if you suddenly cannot urinate. This information is not intended to replace advice given to you by your health care provider. Make sure you discuss any questions you have with your health care provider. Document Revised: 05/05/2022 Document Reviewed: 05/05/2022 [employer] Patient Education 2023 [employer]. Follow Up Care 09/18/2024 09:44:23 With:KARINA ANTHONY, Jennie Mcpherson, URL Address: [address] [place] [address]- When: Unknown [facility] 01-17-2025 NotePatient Education Urology Benign Prostatic Hyperplasia Benign prostatic hyperplasia (BPH) is an enlarged prostate gland that is caused by the normal agingprocess. The prostate may get bigger as a man gets older. The condition is not caused by cancer. The prostate is a walnut-sized gland that is involved in the production of semen. It is located in front of the rectum and below the bladder. The bladder stores urine. The urethra carries stored urine ou t of the body. An enlarged prostate can press on the urethra. This can make it harder to pass urine. The buildup of urine in the bladder can cause infection. Back pressure and infection may progress to bladder damage and kidney (renal) failure. What are the causes? This condition is part of the normal aging process. However, not all men develop problems from thiscondition. If the prostate enlarges away from the urethra, urine flow will not be blocked. If it enlarges toward the urethra and compresses it, there will be problems passing urine. What increases the risk? This condition is more likely to develop in men older than 50 years. What are the signs or symptoms? Symptoms of this condition include: ??? Getting up often during the night to urinate. ??? Needing to urinate frequently during the day. ??? Difficulty starting urine flow. ??? Decrease in size and strength of your urine stream. ??? Leaking (dribbling) after urinating. ??? Inability to pass urine. This needs immediate treatment. ??? Inability to completely empty your bladder. ??? Pain when you pass urine. This is more common if there is also an infection. ??? Urinary tract infection (UTI). How is this diagnosed? This condition is diagnosed based on your medical history, a physical exam, and your symptoms. Tests will also be done, such as: ??? A post-void bladder scan. This measures any amount of urine that may remain in your bladder after you finish urinating. ??? A digital rectal exam. In a rectal exam, your health care provider checks your prostate by putting a lubricated, gloved finger into your rectum to feel the back of your prostate gland. This exam detects the size of your gland and any abnormal lumps or growths. ??? An exam of your urine (urinalysis). ??? A prostate specific antigen (PSA) screening. This is a blood test used to screen for prostate cancer. ??? An ultrasound. This test uses sound waves to electronically produce a picture of your prostate gland. Your health care provider may refer you to a specialist in kidney and prostate diseases (urologist). How is this treated? Once symptoms begin, your health care provider will monitor your condition (active surveillance or watchful waiting). Treatment for this condition will depend on the severity of your condition. Treatment may include: ??? Observation and yearly exams. This may be the only treatment needed if your condition and symptoms are mild. ??? Medicines to relieve your symptoms, including: ? Medicines to shrink the prostate. ? Medicines to relax the muscle of the prostate. ??? Surgery in severe cases. Surgery may include: ? Prostatectomy. In this procedure, the prostate tissue is removed completely through an open incision or with a laparoscope or robotics. ? Transurethral resection of the prostate (TURP). In this procedure, a tool is inserted through theopening at the tip of the penis (urethra). It is used to cut away tissue of the inner core of the prostate. The pieces are removed through the same opening of the penis. This removes the blockage. ? Transurethral incision (TUIP). In this procedure, small cuts are made in the prostate. This lessens the prostate's pressure on the urethra. ? Transurethral microwave thermotherapy (TUMT). This procedure uses microwaves to create heat. The heat destroys and removes a small amount of prostate tissue. ? Transurethral needle ablation (TUNA). This procedure uses radio frequencies to destroy and removea small amount of prostate tissue. ? Interstitial laser coagulation (ILC). This procedure uses a laser to destroy and remove a small amount of prostate tissue. ? Transurethral electrovaporization (TUVP). This procedure uses electrodes to destroy and remove a small amount of prostate tissue. ? Prostatic urethral lift. This procedure inserts an implant to push the lobes of the prostate awayfrom the urethra. Follow these instructions at home: ??? Take byks-ysk-ludpwqt and prescription medicines only as told by your health care provider. ??? Monitor your symptoms for any changes. Contact your health care provider with any changes. ??? Avoid drinking large amounts of liquid before going to bed or out in public. ??? Avoid or reduce how much caffeine or alcohol you drink. ??? Give yourself time when you urinate. ??? Keep all follow-up visits. This is important. Contact a health care provider if: ??? You have unexplained back pain. ??? Your symptoms do not get (more content not included)...[facility]01-15-2025 Telephone encounter Note* Telephone Encounter - Laury Calhoun - 11/14/2024 8:[address] has been canceled Laury Calhoun PSS [facility]01-15-2025 Miscellaneous Notes* Telephone Encounter - Laury Calhoun - 11/14/2024 8:[address] has been canceled Laury Calhoun PSS * Telephone Encounter - Corry Kraus RN - 11/13/2024 4:10 PM EST Bhavin called stating he is scheduled for a post implant CT tomorrow. He said he was notified by CC that he will be responsible to pay $250 for this test unless a peer to peer is completed. He provided the phone number for the peer to peer with [facility] [phone]. I notified Dr. Murry of the above and he would like the post implant CT cancelled until we can obtain clarification about the request. A CT order is not typically placed for this test/procedure anddoes not require a diagnostic read by a radiologist. Patient is aware not to come in for the appointment 11/14/24. Our office will call him with an update tamara. Corry Kraus RN documented in this encounterMem[facility]01-14-2025 Telephone encounter Note * Telephone Encounter - Corry Kraus RN - 11/13/2024 4:10 PM EST Bhavin called stating he is scheduled for a post implant CT tomorrow. He said he was notified by CC that he will be responsible to pay $250 for this test unless a peer to peer is completed. He provided the phone number for the peer to peer with [facility] [phone]. I notified Dr. Murry of the above and he would like the post implant CT cancelled until we can obtain clarification about the request. A CT order is not typically placed for this test/procedure anddoes not require a diagnostic read by a radiologist. Patient is aware not to come in for the appointment 11/14/24. Our office will call him with an update tamara. Corry Kraus RN [facility]01-08-2025 History of Present illness Narrative* LEONORA Bone - 11/07/2024 2:30 PM EST Images from the original note were not included. HISTORY OF PRESENT ILLNESS: EST PT Bhavin Wheatley is an 59 y.o. @ male. (EST PT) RECHECK (R) ELBOW / UPPER ARM PAIN ; HERE FOR (R) UE EMG RESULTS 10/09/24 @ [facility]- S/P CORTISONE INJ RT SHOULDER 10/03/24; PT STATES SYMPTOMS ARE LESS SEVERE XRAYS, (R) ELBOW & (R) SHOULDER 09/13/24 @ [facility] (R) UE EMG 10/09/24 @ [facility] MRI, (R) SHOULDER ORDERED / DENIED - PCP CONTINUES TO HAVE GLOBAL ELBOW PAIN- C/O PRESSURE FEELING FOREARM- PT NOTES SOME N/T THUMB/IF/MF/RF- PT IS RT HAND DOMINANT ALLERGIES: Allergies Allergen Reactions Penicillins Anaphylaxis, Hives, [...] SMALL AMOUNT TO SKIN TWICE A DAY PHYSICAL EXAM: Elbow Musculoskeletal Exam Inspection Right Right elbow inspection is normal. Ecchymosis: none Swelling: none Deformity: none Palpation Right Right elbow palpation is normal. Crepitus (radiocapitellar): none Tenderness: none Range of Motion Right Right elbow range of motion is normal. Active Extension: 0 Passive Extension: 0 Active Flexion: 140 Passive Flexion: 140 Active Pronation: 90 Passive Pronation: 90 Active Supination: 90 Passive Supination: 90 Strength Right Right elbow strength is normal. Extension: 5/5. Flexion: 5/5. Pronation: 5/5. Supination: 5/5. Finger abduction: 5/5. Client Resource Specialist strength: 5/5. Neurovascular Right Right elbow nerve sensation is normal. Radial pulse: normal and 2+ Capillary refill: <3 sec Special Tests Right Right elbow special tests are normal. Instability Exam Varus test: negative Valgus test: negative Neurological Signs Tinel's - cubital tunnel: positive Ulnar claw: negative Froment's sign: negative Flexed elbow test: negative General Constitutional: appears stated age Lymphadenopathy: none Vitals: There is no height or weight on file to calculate BMI. Tobacco Use: High Risk (10/11/2024) Patient History Smoking Tobacco Use: Every Day Smokeless Tobacco Use: Never Passive Exposure: Not on file Alcohol Use: Not At Risk (11/17/2020) Received from [facility] (Before 05/20/2024) (YoderNitin, and Carrie) AUDIT-C Frequency of Alcohol Consumption: Never Average Number of Drinks: Not on file Frequency of Binge Drinking: Not on file IMAGING: EMG 10/09/24 No acute process Procedures No orders of the defined types were placed in this encounter. ASSESSMENT: ICD-10-CM 1. Acute pain of right shoulder M25.511 Assessment & Plan 1. Right elbow pain. He has intermittent tenderness to the lateral and medial epicondyle, not reproducible today on exam. He has notable sensitivity to the cubital tunnel with symptoms of both cubital tunnel syndrome andcarpal tunnel syndrome by history. However, his most recent EMG last month was negative. Observation of symptoms was discussed, and given the lack of pain on palpation, a course of oral steroids for inflammation of his nerves and physical therapy for treatment of his elbow were recommended. Follow-up The patient will follow up in 4 weeks to monitor progress. Questions answered in laymen terms at the bedside. The diagnosis, home exercise plan and any ongoing restrictions/ recommendations reviewed. If unable to be reached in office, I recommend evaluation at nearest Emergency Room if any symptoms worsened or new symptoms develop for requiring urgent evaluation. documented in this encounterReynolds County General Memorial [id number] NoteHNO ID: [id number] Author: Brigette MURRY MD Service: ? Author Type: Physician Type: Progress Notes Filed: 11/06/2024 12:27 Note Text: Radiation Oncology - Follow Up Note PATIENT NAME: Bhavin Wheatley PATIENT DIAGNOSIS: Prostate adenocarcinoma, initial PSA 4.5, biopsy [place] score 3 + 3 = 6 (grade group 1), clinical stage T1c, N0, M0, stage I [pT2, N0, M0, PSA <10, GG 1] (AJCC 8th ed.), s/p biopsy. NCCN Risk Group: Very Low Risk Group INTERVAL HISTORY: The patient presents for routine follow-up. He underwent recent prostate brachytherapy implant. Overall doing fairly well. Still having moderate urinary related issues. Some mild to moderate fatigue. No fever. PSA HISTORY: No results found for: PSA , PSAPER ALLERGIES Allergen Reactions Penicillins Anaphylaxis ALPRAZolam (XANAX) [...] Take 1 tablet by mouth every afternoon. REVIEW OF SYSTEMS: D/N = 4-6/2 Hematuria: none Dysuria: none Incontinence: none Urgency: mild Medications to aid urination: y Bowel movement frequency: 1/day Bowel movement quality: normal Blood per rectum: none PHYSICAL EXAM: BP 132/80 Pulse 73 Temp 36 ?C (96.8 ?F) Resp 18 Wt 83.7 kg (184 lb 8.4 oz) SpO2 100% BMI 28.47 kg/m? KPS: 100 General Appearance: Alert and oriented. No acute distress. Rectal:Perineal area without ecchymosis tenderness or seroma. ASSESSMENT/PLAN: Prostate adenocarcinoma, initial PSA 4.5, biopsy [place] score 3 + 3 = 6 (grade group 1), clinical stage T1c, N0, M0, stage I [pT2, N0, M0, PSA <10, GG 1] (AJCC 8th ed.), s/p prostate brachytherapy 10/18/24 Overall doing fairly well. Still with some mild to moderate urinary issues related to treatment. Continues off work secondary to post implant issues. Recommend returning first week in December. Patient will return for CT post implant analysis with PSA in 3 to 4 weeks. Signed by: Brigette Murry MD cc: Kamaljit Medellin [address] [place] [id number] Brigette Murry [address] [place] [address] [place] [id number] History of Present illness Narrative* Brigette Murry MD - 11/01/2024 2:46 PM EST Radiation Oncology - Follow Up Note PATIENT NAME: Bhavin Wheatley PATIENT DIAGNOSIS: Prostate adenocarcinoma, initial PSA 4.5, biopsy [place] score 3 + 3 = 6 (grade group 1), clinical stage T1c, N0, M0, stage I [pT2, N0, M0, PSA <10, GG 1] (AJCC 8th ed.), s/p biopsy. NCCN Risk Group: Very Low Risk Group INTERVAL HISTORY: The patient presents for routine follow-up. He underwent recent prostate brachytherapy implant. Overall doing fairly well. Still having moderate urinary related issues. Some mild tomoderate fatigue. No fever. PSA HISTORY: No results found for: PSA , PSAPER ALLERGIES Allergen Reactions Penicillins Anaphylaxis ALPRAZolam (XANAX) [...] Take 1 tablet by mouth every afternoon. REVIEW OF SYSTEMS: D/N = 4-6/2 Hematuria: none Dysuria: none Incontinence: none Urgency: mild Medications to aid urination: y Bowel movement frequency: 1/day Bowel movement quality: normal Blood per rectum: none PHYSICAL EXAM: BP 132/80 Pulse 73 Temp 36 C (96.8 F) Resp 18 Wt 83.7 kg (184 lb 8.4 oz) SpO2 100% BMI 28.47 kg/m KPS: 100 General Appearance: Alert and oriented. No acute distress. Rectal:Perineal area without ecchymosis tenderness or seroma. ASSESSMENT/PLAN: Prostate adenocarcinoma, initial PSA 4.5, biopsy [place] score 3 + 3 = 6 (grade group 1), clinical stage T1c, N0, M0, stage I [pT2, N0, M0, PSA <10, GG 1] (AJCC 8th ed.), s/p prostate brachytherapy 10/18/24 Overall doing fairly well. Still with some mild to moderate urinary issues related to treatment. Continues off work secondary to post implant issues. Recommend returning first week in December. Patient will return for CT post implant analysis with PSA in 3 to 4 weeks. Signed by: Brigette Murry MD cc: Kamaljit Conn[address] [place] [address] [place] [address] Brigette Murry [address] [place] [address] [place] [address] documented in this encounterMemorial Health [facility]12-19-2024 NoteHNO ID: [id number] Author: Brigette MURRY MD Service: ? Author Type: Physician Type: Progress Notes Filed: 10/22/2024 13:11 Note Text: Date: 10/18/24 Facility: [facility] Procedure: prostate transperineal brachytherapy implant Sources: I-125 Anesthesia:general Urologist: Dr. Ivy This is an operative report supplement to Dr. Ivy note. Prior the the implant patient underwent planning using transrectal ultrasound based. The planning including outline of prostate and planning margin around prostate to deliver 145 Gy using I-125 sources. It was determined 67 sources, for a total of 25.661 mCi was necessary using 18 needles. Prior to the procedure on the morning of the implant, patient identified by name and hospital ID bracelet. After anesthesia administered patient placed in dorsal-lithotomy position and ultrasound study done showing good correlation with planning images and excellent visualization of the gland. Implant was then carried out using transperineal technique with active ultrasound and fluoroscopic guidance. At the end of the case the treatment planning ultrasound computer showed captured seed located in expected position with appropriate target coverage, no extra seeds implanted. X-ray image showed good seed distribution and all 67 sources. Intraoperative dosimetry reviewed showing D90 of 98.12%, and excellent coverage of gland by the 100% IDL. After the cystoscopy physics performed survey with meter of patient, cystoscopy fluid, floor, trash, work table and general area. No excess activity seen, results documented. Charly Murry MD [facility]12-19-2024 History of Present illness Narrative* Brigette Murry MD - 10/18/2024 1:04 PM EST Date: 10/18/24 Facility: [facility] Procedure: prostate transperineal brachytherapy implant Sources: I-125 Anesthesia:general Urologist: Dr. Ivy This is an operative report supplement to Dr. Ivy note. Prior the the implant patient underwent planning using transrectal ultrasound based. The planning including outline of prostate and planningmargin around prostate to deliver 145 Gy using I-125 sources. It was determined 67 sources, for a total of 25.661 mCi was necessary using 18 needles. Prior to the procedure on the morning of the implant, patient identified by name and hospital ID bracelet. After anesthesia administered patient placed in dorsal-lithotomy position and ultrasound study done showing good correlation with planning images and excellent visualization of the gland. Implant was then carried out using transperineal technique with active ultrasound and fluoroscopic guidance. At the end of the case the treatment planning ultrasound computer showed captured seed located in expected position with appropriate target coverage, no extra seeds implanted. X-ray image showed good seed distribution and all 67 sources. Intraoperative dosimetry reviewed showing D90 of 98.12%, and excellent coverage of gland by the 100% IDL. After the cystoscopy physics performed survey with meter of patient, cystoscopy fluid, floor, trash, work table and general area. No excess activity seen, results documented. Charly Murry MD [facility] documented in this encounterMemorial Health [facility]12-12-2024 Telephone encounter Note * Telephone Encounter - LEONORA Bone - 10/11/2024 12:17 PM EST Discussed EMG... pt has sx on , I do not recommend trying to get a MRI or injection before the end of the year with his prostate surgery being priority.. we will re-evaluate symptoms on 11/07...Pt thankful. [facility] [id number] Miscellaneous Notes* Telephone Encounter - LEONORA Bone - 10/11/2024 12:17 PM EST Discussed EMG... pt has sx on , I do not recommend trying to get a MRI or injection before the end of the year with his prostate surgery being priority.. we will re-evaluate symptoms on 11/07...Pt thankful. * Telephone Encounter - Magali Lazo - 10/10/2024 1:21 PM EST Pt called and stated he had EMG [...] on 10/18/24. Please advise. His call back [phone] documented in this encounterReynolds County General Memorial [id number] Telephone encounter Note* Telephone Encounter - Magali Lazo - 10/10/2024 1:21 PM EST Pt called and stated he had EMG [...] on 10/18/24. Please advise. His call back [phone] [facility] [id number] History of Present illness Narrative* Jyothi Morales MA - 10/09/2024 11:00 AM EST Images from the original note were not included. Reason for Appointment: EMG Patient: Bhavin Wheatley : 1965 EMG Computer: [employer] Referring Physician: Cali Mederos PA-C EMG: LIZZIE para operator: Jyothi Morales CMA Office Location: [place] Reason for EMG: c/o shoulder pain and elbow pain. Radiating throughout the arm. Pins and needles inthe arm. No hx of DM, not currently taking blood thinners. Comments: Procedure explained to the patient who expressed understanding documented in this encounterReynolds County General Memorial [id number] History of Present illness Narrative* Brigette Murry MD - 10/08/2024 12:00 AM EST BHAVIN WHEATLEY [id number] 10/08/2024 [facility] Department of Radiation Oncology [facility] RADIATION ONCOLOGY BRACHYTHERAPY TREATMENT PLANNING NOTE For [...] / RAYMON 42:37 PM documented in this encounterMemorial Health System [facility]12-09-2024 NoteHNO ID: [id number] Author: Brigette MURRY MD Service: ? Author Type: Physician Type: Progress Notes Filed: 10/11/2024 14:37 Note Text: BHAVIN WHEATLEY [id number] 10/08/2024 [facility] Department of Radiation Oncology [facility] RADIATION ONCOLOGY BRACHYTHERAPY TREATMENT PLANNING NOTE For [...] Electronically Signed David Murry M.D. / RAYMON :37 [facility]12-04-2024 History of Present illness Narrative* LEONORA oBne - 10/03/2024 1:30 PM EST Images from the original note were not [...] XRAY RT ELBOW AND RT SHOULDER 09/13/24 [facility]; RESULTS IN REFERRAL PT NOTES GLOBAL [...] Use: Not At Risk (11/17/2020) [facility]Kandis, Nitin, and Carrie) AUDIT-C Frequency of Alcohol Consumption: [...] Reviewed xray of shoulder and elbow from [facility] at bedside. Moderate OA at ac joint on xray, discussedwith pt. Procedures Orders Placed This Encounter Procedures [...] the plan. An EMG of the right upperextremity is recommended due to the paresthesias. A [...] for requiring urgent evaluation. documented in this encounterReynolds County General Memorial [id number] NoteHNO ID: [id number] Author: Brigette MURRY MD Service: ? Author [...] possible retained foreign bodies accounted for. Brigette Murry, [facility]12-03-2024 History of Present illness Narrative* Brigette Murry MD - 10/02/2024 8:57 AM EST UNIVERSAL PROTOCOL / SAFETY CHECKLIST Procedure to [...] for. Brigette Murry MD documented in this encounterMemorial Health System [facility]12-03-2024 History of Present illness Narrative* Brigette Murry MD - 10/02/2024 12:00 AM EST BHAVIN WHEATLEY [id number] 10/02/2024 [facility] of Radiation Oncology [facility] RADIATION ONCOLOGY SIMULATION NOTE DATE OF SIMULATION: 10/02/2024 MACHINE: [employer] 500 Diagnosis: 185 (Prostate Gland) AREA:Prostate PATIENT POSITION: Supine CONTRAST: None PROTOCOL: None CONCURRENT THERAPY: None FIXATION DEVICE: UTS Stabilization device by [employer]. PROCEDURE: Patient was simulated in exaggerated dorsal lithotomy position. Serial images of the prostate were acquired using TRUS and reconstructed in 3D space. These images were imported into [employer] Prostate planning system where a plan was generated. ASSESSMENT/PLAN: Patient tolerated simulation procedure well. Electronically Signed David Murry M.D. / RAYMON 41:33 PM documented in this encounterMemorial Health System [facility]12-03-2024 NoteHNO ID: [id number] Author: Brigette MURRY MD Service: ? Author Type: Physician Type: Progress Notes Filed: 10/03/2024 13:33 Note Text: BHAVIN WHEATLEY [id number] 10/02/2024 [facility] of Radiation Oncology [facility] RADIATION ONCOLOGY SIMULATION NOTE DATE OF SIMULATION: 10/02/2024 MACHINE: [employer] 500 Diagnosis: 185 (Prostate Gland) AREA:Prostate PATIENT POSITION: Supine CONTRAST: None PROTOCOL: None CONCURRENT THERAPY: None FIXATION DEVICE: UTS Stabilization device by [employer]. PROCEDURE: Patient was simulated in exaggerated dorsal lithotomy position. Serial images of the prostate were acquired using TRUS and reconstructed in 3D space. These images were imported into [employer] Prostate planning system where a plan was generated. ASSESSMENT/PLAN: Patient tolerated simulation procedure well. Electronically Signed David Murry M.D. / RAYMON 41:33 [facility]11-14-2024 Nurse Note* Liv Caldwell RN - 09/13/2024 9:22 AM EST AUA 13. Pacemaker/Defibrillator? No Previous Cancer(s)? No Previous Radiation? No Lupus/Scleroderma? No On body monitoring device? No Liv Caldwell RN [facility]11-14-2024 Nurse Note* Liv Caldwell RN - 09/13/2024 9:22 AM EST AUA 13. Pacemaker/Defibrillator? No Previous Cancer(s)? No Previous Radiation? No Lupus/Scleroderma? No On body monitoring device? No Liv Caldwell RN documented in this encounterMemorial Health System [facility]11-14-2024 History of Present illness Narrative* Brigette Murry MD - 09/13/2024 9:[address] Ivy Radiation Oncology - Prostate Cancer New Patient/Consult Note PATIENT NAME: Bhavin Wheatley PATIENT REQUESTING PROVIDER: Dr. Ivy DIAGNOSIS: 59 year old male with prostate adenocarcinoma, initial PSA 4.5, biopsy Karrie score 3 +3 = 6 (grade group 1), clinical stage [...] the shared medical record, or letter to requestingphysician via US mail. The patient was diagnosed with prostate cancer and comes in today to discuss treatment options. Patient presented with elevated PSA. Value of 4.3 with 11.4% free on 07/02/2023. Patient underwent prostate biopsy 08/18/2023 demonstrating [place] 6 in the left lateral mid core. [...] 1 of 3 cores from the right forbiopsy. Total # of positive biopsy cores: 2 [...] ASSESSMENT/PLAN: Prostate adenocarcinoma, initial PSA 4.5, biopsy [place] score 3 + 3 = 6 (grade [...] anxiety. Options of management discussed with patient jimbo. Again discussed possibility of active surveillance which [...] Ivy. Signed by: Brigette Murry MD cc: Kamaljit Medellin [address] [place] [id number] Jennie Mcpherson Karina [address] [place] Bharat Martinez [facility] [address] documented in this encounterMemorial Health System [facility]11-14-2024 NoteHNO ID: [id number] Author: Brigette MURRY MD Service: ? Author Type: Physician Type: Progress Notes Filed: 09/13/2024 09:59 Note Text: Dr. Ivy Radiation Oncology - Prostate Cancer New Patient/Consult Note PATIENT NAME: Bhavin Wheatley PATIENT REQUESTING PROVIDER: Dr. Ivy DIAGNOSIS: 59 year old male with prostate adenocarcinoma, initial PSA 4.5, biopsy [place] score 3 + 3 = 6 (grade [...] 07/02/2023. Patient underwent prostate biopsy 08/18/2023 demonstrating [place] 6 in the left lateral mid core. [...] prostate biopsy on August 09, 2024 revealed: [place] 6 adenocarcinoma in 1 of 2 cores [...] localized adenocarcinoma prostate w (more content not included)...[facility]11-04-2024 Evaluation + Plan note Diagnostic Tests Pending * Testosterone Level Total 09/03/24 [facility] 11-04-2024 Hospital Discharge instructions Patient Education 09/03/2024 10:49:42 Brachytherapy for Prostate Cancer Brachytherapy for Prostate Cancer Brachytherapy for prostate cancer is a type of internal radiation treatment that involves placing asource of radiation right inside the prostate gland. [...] a small, thin tube (catheter), or another typeof applicator. You will need to stay in [...] The delivery tool is removed after treatment, andno radioactive material is left in the prostate. [...] including vitamins, herbs, eye drops, creams, and yrms-uom-gdnvupg medicines. Any problems you or family members [...] provider tells you to take them. ?Taking wzfn-dae-vmhdeqh medicines, vitamins, herbs, and supplements. Follow your [...] for at least 4 weeks before the procedure.This includes cigarettes, chewing tobacco, and vaping devices, [...] into your penis, through your urethra, and intoyour bladder to drain your urine. Your surgeon [...] blood oxygen level will be monitored until youleave the hospital or clinic. If you were [...] your prostate will depend on the type ofbrachytherapy you are having. This information is not intended to replace advice given to you by your health care provider. Make sure you discuss any questions you have with your health care provider. Document Revised: 01/13/2022 Document Reviewed: 01/13/2022 [employer] Patient Education 2023 [email or web address]. 09/03/2024 10:35:04 Prostate Cancer Prostate Cancer The [...] such as a bone scan, CT scan, PETscan, or MRI. Stages of prostate cancer The [...] under a microscope. This is called the [place] score and the total score can range from 6 10, indicating how likely it is that the cancer will spread (metastasize) to other parts of the body. The higher the score, the greater thelikelihood that the cancer will spread. Karrie 6 [...] you need help quitting, ask your health careprovider. Eat a healthy diet. To do this: [...] prostate cancer. Meeting with a support group mayhelp you learn to manage the stress of having cancer. General instructions Take uzbh-hct-xoalxpj and prescription medicines only as told by your health care provider. If you have to go to the hospital, notify your cancer specialist (oncologist). Keep all follow-up visits. This is important. Where to find more information [place] [employer]: www.cancer.org [place] Society of Clinical Oncology: www.cancer.net National Cancer Centertown: www.cancer.gov Contact a health care provider if: [...] prostate cancer. Meeting with a support group mayhelp you learn to manage the stress of having cancer. This information is not intended to replace advice given to you by your health care provider. Make sure you discuss any questions you have with your health care provider. Document Revised: 01/13/2022 Document Reviewed: 01/13/2022 [employer] Patient Education 2023 [email or web address]. Follow Up Care 06/18/2024 14:04:39 With:KARINA ANTHONY, Jennie Mcpherson, URL Address: [facility] [address], [place] [address]- When: Unknown [facility] 11-04-2024 NotePatient Education Oncology Brachytherapy for Prostate Cancer Brachytherapy for prostate cancer is a type of internal radiation treatment that involves placing asource of radiation right inside the prostate gland. This allows the delivery of a higher dose of radiation than would be possible with external radiation therapy treatment. There are many types of brachytherapy: ??? Low-dose rate (LDR) therapy. This involves temporary or permanent implants of radioactive seedsor pellets that give off a low dose [...] catheter). The delivery tool is removed after treatment,and no radioactive material is left in the [...] including vitamins, herbs, eye drops, creams, and xxnm-nwi-yjscznu medicines. ??? Any problems you or family [...] tells you to take them. ? Taking pqpe-tfp-pbanyqc medicines, vitamins, herbs, and supplements. ??? Follow [...] the procedure. Blood or urine samples may betaken. You may need imaging tests, such as [...] medicine to numb th (more content not included)...[facility]08-19-2024 Hospital Discharge instructions Patient Education 06/18/2024 13:51:09 [...] discomfort near your rectum, especially while sitting. Joppa-colored urine due to small amounts of blood in your urine. A burning feeling while urinating. Blood in your stool (feces) or bleeding from your rectum. Blood in your semen. Follow these instructions at home: Medicines Take tlqa-kjx-linyxia and prescription medicines only as told by your health care provider. If you were given a sedative during your procedure, it can affect you for several hours. Do not drive or operate machinery until your health care provider says that it is safe. If you were prescribed an antibiotic medicine, take it as told by your health care provider. Do notstop using the antibiotic even if you start [...] pain and discomfort around your rectum, especially whilesitting. You may have blood in your urine [...] provider. Document Revised: 04/12/2022 Document Reviewed: 04/12/2022 [employer] Patient Education 2022 [email or web address]. 06/18/2024 13:50:55 Transrectal Ultrasound-Guided Prostate Biopsy Transrectal Ultrasound-Guided Prostate Biopsy A transrectal ultrasound-guided prostate biopsy is a procedure to remove samples of prostate tissuefor testing. The prostate is a walnut-sized gland that is located below the bladder and in front ofthe rectum. During this procedure, a small device (probe) is lubricated and put inside the rectum. The probe sends out sound waves that make a picture of the prostate and surrounding tissues (transrectal ultrasound). The images are used to help guide the process of removing the samples. The samplesare taken to a lab to be checked [...] including vitamins, herbs, eye drops, creams, and hnvg-zqt-lbwwtnn medicines. Any problems you or family members [...] provider tells you to take them. Taking izjn-fvq-oinoxxv medicines, vitamins, herbs, and supplements. General instructions [...] blood oxygen level will be monitored until youleave the hospital or clinic. You may have [...] hospital or clinic, and follow up with yourhealth care provider for your results. This information is not intended to replace advice given to you by your health care provider. Make sure you discuss any questions you have with your health care provider. Document Revised: 04/12/2022 Document Reviewed: 04/12/2022 [employer] Patient Education 2022 [email or web address]. Follow Up Care 02/13/2024 15:39:22 With:KARINA ANTHONY, Jennie Mcpherson, URL Address: [facility] [address], [place] [address]- [phone] When: Unknown Comments:sched confirmatory TRUS/bx [facility] 08-19-2024 NotePatient Education Oncology Transrectal Ultrasound-Guided Prostate Biopsy, Care [...] near your rectum, especially while sitting. ? Joppa-colored urine due to small amounts of blood in your urine. ? A burning feeling while urinating. ? Blood in your stool (feces) or bleeding from your rectum. ? Blood in your semen. Follow these instructions at home: Medicines ? Take ibon-mdd-wwftsuq and prescription medicines only as told by [...] provider. Document Revised: 04/12/2022 Document Reviewed: 04/12/2022 [employer] Patient Education ? 2022 boosk. Transrectal Ultrasound-Guided Prostate Biopsy A transrectal ultrasound-guided prostate biopsy is a procedure to remove samples of prostate tissuefor testing. The prostate is a walnut-sized gland that is located below the bladder and in front ofthe rectum. During this procedure, a small device (probe) is lubricated and put inside the rectum. The probe sends out sound waves that make a picture of the prostate and surrounding tissues (transrectal ultrasound). The images are used to help guide the process of removing the samples. The samplesare taken to a lab to be checked [...] including vitamins, herbs, eye drops, creams, and ajzz-mlu-glenzud medicines. ? Any problems you or family [...] thinners. ? Taking medici (more content not included)...[facility] 02-13-2024 Hospital Discharge instructions Patient Education [...] such as a bone scan, CT scan, PETscan, or MRI. Stages of prostate cancer The [...] under a microscope. This is called the [place] score and the total score can range from 6 10, indicating how likely it is that the cancer will spread (metastasize) to other parts of the body. The higher the score, the greater thelikelihood that the cancer will spread. [place] 6 or lower: This indicates that the cancer cells look similar to normal prostate cells (well differentiated). [place] 7: This indicates that the cancer cells [...] you need help quitting, ask your health careprovider. Eat a healthy diet. To do this: [...] prostate cancer. Meeting with a support group mayhelp you learn to manage the stress of having cancer. General instructions Take inix-acg-yatxfyf and prescription medicines only as told by your health care provider. If you have to go to the hospital, notify your cancer specialist (oncologist). Keep all follow-up visits. This is important. Where to find more information [place] [employer]: www.cancer.org [place] Society of Clinical Oncology: www.cancer.net National Cancer Centertown: www.cancer.gov Contact a health care provider if: [...] prostate cancer. Meeting with a support group mayhelp you learn to manage the stress of having cancer. This information is not intended to replace advice given to you by your health care provider. Make sure you discuss any questions you have with your health care provider. Document Revised: 01/13/2022 Document Reviewed: 01/13/2022 [employer] Patient Education 2022 [email or web address]. Follow Up Care 11/21/2023 12:42:13 With:KARINA ANTHONY, Jennie Mcpherson, URL Address: [facility] [address] , [place] [phone] When: Unknown Comments:4 mos w/ PSA, RAY [facility] 01-22-2024 Hospital Discharge instructions Patient Education 11/21/2023 12:12:20 [...] such as a bone scan, CT scan, PETscan, or MRI. Stages of prostate cancer The [...] under a microscope. This is called the [place] score and the total score can range from 6 10, indicating how likely it is that the cancer will spread (metastasize) to other parts of the body. The higher the score, the greater thelikelihood that the cancer will spread. Karrie 6 [...] you need help quitting, ask your health careprovider. Eat a healthy diet. To do this: [...] prostate cancer. Meeting with a support group mayhelp you learn to manage the stress of having cancer. General instructions Take wcge-pda-atxiwpa and prescription medicines only as told by your health care provider. If you have to go to the hospital, notify your cancer specialist (oncologist). Keep all follow-up visits. This is important. Where to find more information [place] [employer]: www.cancer.org [place] Society of Clinical Oncology: www.cancer.net National Cancer Centertown: www.cancer.gov Contact a health care provider if: [...] prostate cancer. Meeting with a support group mayhelp you learn to manage the stress of having cancer. This information is not intended to replace advice given to you by your health care provider. Make sure you discuss any questions you have with your health care provider. Document Revised: 01/13/2022 Document Reviewed: 01/13/2022 [employer] Patient Education 2022 [email or web address]. Follow Up Care 08/26/2023 10:34:03 With:KARINA ANTHONY, Jennie Mcpherson, URL Address: [facility] [address] , [place] [address] [phone] When:Within 3 Month(s) Comments:f/u in 3 months with PSA [facility] 09-25-2023 Hospital Discharge instructions Patient Education 07/25/2023 13:32:39 [...] discomfort near your rectum, especially while sitting. Joppa-colored urine due to small amounts of blood in your urine. A burning feeling while urinating. Blood in your stool (feces) or bleeding from your rectum. Blood in your semen. Follow these instructions at home: Medicines Take jiop-dhq-qbyahpm and prescription medicines only as told by your health care provider. If you were given a sedative during your procedure, it can affect you for several hours. Do not drive or operate machinery until your health care provider says that it is safe. If you were prescribed an antibiotic medicine, take it as told by your health care provider. Do notstop using the antibiotic even if you start [...] pain and discomfort around your rectum, especially whilesitting. You may have blood in your urine [...] provider. Document Revised: 04/12/2022 Document Reviewed: 04/12/2022 [employer] Patient Education 2022 [email or web address]. 07/25/2023 13:32:38 Transrectal Ultrasound-Guided Prostate Biopsy Transrectal Ultrasound-Guided Prostate Biopsy A transrectal ultrasound-guided prostate biopsy is a procedure to remove samples of prostate tissuefor testing. The prostate is a walnut-sized gland that is located below the bladder and in front ofthe rectum. During this procedure, a small device (probe) is lubricated and put inside the rectum. The probe sends out sound waves that make a picture of the prostate and surrounding tissues (transrectal ultrasound). The images are used to help guide the process of removing the samples. The samplesare taken to a lab to be checked [...] including vitamins, herbs, eye drops, creams, and eyrp-zqt-yjnrhbh medicines. Any problems you or family members [...] provider tells you to take them. Taking agth-rya-mgxnqhs medicines, vitamins, herbs, and supplements. General instructions [...] blood oxygen level will be monitored until youleave the hospital or clinic. You may have [...] hospital or clinic, and follow up with yourhealth care provider for your results. This information is not intended to replace advice given to you by your health care provider. Make sure you discuss any questions you have with your health care provider. Document Revised: 04/12/2022 Document Reviewed: 04/12/2022 [employer] Patient Education 2022 [email or web address]. Follow Up Care 07/07/2023 14:50:33 With:Jennie IVY MD, URL Address: [facility] [address], [place] [address]- When: Unknown [facility] evaluation + Plan note Future Appointments Appointment Date:07/26/2023 08:15:00 AM Scheduled Provider: Location:[facility] Appointment Type:Urology CALL PAT FT Appointment Date:08/09/2023 01:30:00 PM Scheduled Provider: Location:[facility] Appointment Type:Urology FT Appointment Date:08/09/2023 01:30:00 PM Scheduled Provider: Location:.UROLOGY Appointment Type:US Prostate Urology (FT) Future Scheduled Tests Radiology* US Prostate, [facility] 08/09/23 [facility] evaluation + Plan note Future Appointments Appointment Date:02/13/2024 01:45:00 PM Scheduled Provider:Jennie IVY MD Location:[facility] Appointment Type:URO Office Visit Diagnostic Tests Pending * PSA Total 11/21/23 [facility] evaluation + Plan note Future Appointments Appointment Date:06/04/2024 12:15:00 PM Scheduled Provider:Jennie IVY MD Location[facility] Appointment Type:URO Office Visit Diagnostic Tests Pending * PSA Total 02/13/24 [facility] evaluation + Plan note Future Appointments Appointment Date:08/27/2024 10:45:00 AM Scheduled Provider:Jennie IVY MD Location[facility] Appointment Type:URO Office Visit [facility] Plan note Future Appointments Appointment Date:11/16/2024 09:15:00 AM Scheduled Provider:Jennie IVY MD Location:[facility] Appointment Type:URO Office Visit [facility] evaluation + Plan note Future Appointments Appointment Date:02/15/2025 08:00:00 AM Scheduled Provider: Location:[facility] Appointment Type:URO Nurse Visit Appointment Date:02/22/2025 08:30:00 AM Scheduled Provider:Jennie IVY MD Location[facility] Appointment Type:URO Office Visit Diagnostic Tests Pending * PSA Total 12/01/24 [facility] evaluation + Plan note Future Appointments Appointment Date:02/22/2025 08:30:00 AM Scheduled Provider:Jennie IVY MD Location[facility] Appointment Type:URO Office Visit [facility] evaluation + Plan note Future Appointments Appointment Date:05/27/2025 09:30:00 AM Scheduled Provider:Jennie IVY MD Location[facility] Appointment Type:URO Office Visit [facility] evaluation + Plan note Future Appointments Appointment Date:11/22/2025 08:00:00 AM Scheduled Provider: Location:[facility] Appointment Type:URO Nurse Visit Appointment Date:11/29/2025 08:00:00 AM Scheduled Provider:Jennie IVY MD Location[facility] Appointment Type:URO Office Visit Future Scheduled Tests Laboratory* PSA Total 05/27/25 [facility] Evaluation noteNo assessment information available [facility] Work Phone: Evaluation note* Diagnosis Malignant neoplasm of prostate (HCC)- Primary Malignant neoplasm of prostate [facility] Diagnosis Acute pain of right shoulder- Primary Right elbow pain Pain in joint, upper arm Arthritis of right acromioclavicular joint Paresthesia of right upper extremity documented in this encounter [facility]* Diagnosis Malignant neoplasm of prostate (HCC)- Primary Malignant neoplasm of prostate documented in [facility]* Diagnosis Paresthesias- Primary Disturbance of skin sensation [facility] Diagnosis Malignant neoplasm of prostate (HCC)- Primary Malignant neoplasm of prostate documented in [facility] encounter [facility] Diagnosis Malignant neoplasm of prostate (HCC)- Primary Malignant neoplasm of prostate documented [facility]* Diagnosis Right elbow pain- Primary Pain in joint, upper arm documented in this encounter [facility] HealthcareEvaluation note* Diagnosis Malignant neoplasm of prostate (HCC)- Primary Malignant neoplasm of prostate [facility] Narrative No data available for this section [facility] Hospital Discharge instructions No data available for this section [facility] Progress note No data available for this section [facility] reason for referral (narrative) Referred by: Jennie IVY MD [facility] reason for visit Narrative* Other Medical (Routine) - ClosedSpecialtyDiagnoses / ProceduresReferred By ContactReferred To Contact Neurology Diagnoses Paresthesia of right upper extremity Arm weakness Numbness Arm pain, right Procedures EMG AND NERVE CONDUCTION STUDY Cali Mederos PA [address] [place] [address] Phone: tel: fax: Nai Carlin, DO [address] [place] [address] Phone: tel: fax: Referral IDStatusReasonStart DateExpiration DateVisits RequestedVisits [id number] Perform Procedure / [facility] HealthcareReason for visit Narrative* Diagnostic Procedure Only (Routine) - ClosedSpecialtyDiagnoses / ProceduresReferred By ContactReferred To Contact Radiology / RADIO PET CT SAND Diagnoses Post Op CT Seed implant Procedures CT POST OP SEED IMPLANT Brigette Murry MD [address] [place] [address] [place] [address] [facility] [address] [place] [address] Referral IDStatusReasonStcedar DateExpiration DateVisits RequestedVisits [id number] Patient Cleared - Admin/Activity Therapy Teacher/Director advise to proceed or did not respond [facility] Summary Purpose Family History No [...] section and content) DATE CREATED AUTHOR 08/07/2019 [facility] DATE CREATED AUTHOR AUTHOR'S ORGANIZ ATION 10/12/2022 [facility] DATE CREATED AUTHOR AUTHOR'S ORGANIZ ATION 11/13/2024 [facility] DATE CREATED AUTHOR AUTHOR'S ORGANIZ ATION 02/17/2025 [facility] DATE CREATED AUTHOR AUTHOR'S ORGANIZ ATION 02/23/2025 [facility] DATE CREATED AUTHOR AUTHOR'S ORGANIZ ATION 05/27/2025 [facility] DATE CREATED AUTHOR AUTHOR'S ORGANIZ ATION 05/29/2025 [facility] DATE CREATED AUTHOR AUTHOR'S ORGANIZ ATION 08/29/2025 [facility] Patient Care team informatio n (unrecognized section and content) Team Status: Inactive Member Role Status Dates Jennie Ivy MD Attending Provider Active St art: August 09, 2024 End: August 09, 2024Team MemberRelationshipSpecialtyStart DateEnd Date Kamaljit Medellin MD [address] [place] [address] PCP - GeneralFamily Hynqeplp53/4/24Team MemberRelationshipSpecialtyStart DateEnd Date Kamaljit Medellin MD [address] [place] [address] PCP - GeneralFamily Rjcowkhr77/4/24Team MemberRelationshipSpecialtyStart DateEnd Date Kamaljit Medellin MD [address] [place] [address] PCP - GeneralFamily Medicine01/23/24 Liv Mo NP [address] [place] PCP - [employer]07/01/24 Nai Carlin DO [address] [place] [address] Referring PhysicianNeurology01/23/24Team MemberRelationshipSpecialtyStart DateEnd Date Kamaljit Medellin MD [address] [facility] [place] [address] PCP - GeneralFamily Medicine01/23/24 Liv Mo NP [address] [place], [place] PCP - [place] [facility]07/01/24 Nai Carlin DO [address] [place] [address] Referring PhysicianNeurology01/23/24Team MemberRelationshipSpecialtyStart DateEnd Date Kamaljit Medellin MD [address] [place] [place] [address] PCP - GeneralFamily Sevavrrg80/4/24Team MemberRelationshipSpecialtyStart DateEnd Date Kamaljit Medellin MD [address] [facility] [place] [address] PCP - GeneralFamily Medicine01/23/24 Nai Carlin DO [address] [place] [address] Referring PhysicianNeurology01/23/24Team MemberRelationshipSpecialtyStart DateEnd Date Kamaljit Medellin MD [address] [facility] [place] [address] PCP - GeneralFamily Medicine01/23/24 Nai Carlin DO [address] [place] [address] Referring PhysicianNeurology01/23/24Team MemberRelationshipSpecialtyStart DateEnd Date Kamaljit Medellin MD [address] [facility] [place] [address] PCP - GeneralFamily Medicine01/23/24 Nai Carlin DO [address] [place] [address] Referring PhysicianNeurology01/23/24Team MemberRelationshipSpecialtyStart DateEnd Date Kamaljit Medellin MD [address] [facility] [place] [address] PCP - GeneralFamily Jzpbotds24/4/24Team MemberRelationshipSpecialtyStart DateEnd Date Kamaljit Medellin MD [address] [place] [address] PCP - GeneralFamily Defcwsba29/4/24Team MemberRelationshipSpecialtyStart DateEnd Date Kamaljit Medellin MD [address] [facility] [place] [address] PCP - GeneralFamily Vfadmclb37/4/24Team MemberRelationshipSpecialtyStart DateEnd Date Kamaljit Medellin MD [address] [facility] [address] PCP - GeneralFamily Medicine01/23/24 Nai Carlin DO [address] [place] [address] Referring PhysicianNeurology01/23/24Team MemberRelationshipSpecialtyStart DateEnd Date Kamaljit Medellin MD [address] [place] [address] PCP - GeneralFamily Medicine01/23/24 Dash Carlindaija [address] [place] [address] Referring PhysicianNeurology01/23/24Team MemberRelationshipSpecialtyStart DateEnd Date Kamaljit Medellin MD [address] [place] [address] PCP - Generalmily Yvcqvxor09/4/24 Team Status: Inactive Member Role Status Dates Kamaljit Medellin MD Attending Provider Active Sta rt: February 14, 2025 End: February 14, 2025Team MemberRelationshipSpecialtyStart DateEnd Date Kamaljit Medellin MD [address] [place] [address] PCP - GeneralFamily Rrexusle08/4/24 Goals (unrecognized section and content) Goals may be documented in a n alternate section Source Comments (unrecognize d section and content) In the event this informatio n is protected by the Federal Confidentiality of Alcohol and Drug Abuse Patient Records regulations: The Federal rules restrict any use of the information to criminally investigate or prosecute any alcohol or drug abuse patient.[facility] Hospital[facility] the event this information is protected by the Federal Confidentiality of Alcohol and Drug Abuse Patient Records regulations: The Federal rules restrict any use of the information to criminally investigate or prosecute any alcohol or drug abuse patient.[facility] HospitalIn the event this information is protected by the Federal Confidentiality of Alcohol and Drug Abuse Patient Records regulations: The Federal rules restrict any use of the information to criminally investigate or prosecute any alcohol or drug abuse patient.[facility] HospitalIn the event this information is protected by the Federal Confidentiality of Alcohol and Drug Abuse Patient Records regulations: The Federal rules restrict any use of the information to criminally investigate or prosecute any alcohol or drug abuse patient.[facility] HospitalIn the event this information is protected by the Federal Confidentiality of Alcohol and Drug Abuse Patient Records regulations: The Federal rules restrict any use of the information to criminally investigate or prosecute any alcohol or drug abuse patient.[facility] HospitalIn the event this information is protected by the Federal Confidentiality of Alcohol and Drug Abuse Patient Records regulations: The Federal rules restrict any use of the information to criminally investigate or prosecute any alcohol or drug abuse patient.[facility] HospitalIn the event this information is protected by the Federal Confidentiality of Alcohol and Drug Abuse Patient Records regulations: The Federal rules restrict any use of the information to criminally investigate or prosecute any alcohol or drug abuse patient.[facility] HospitalIn the event this information is protected by the Federal Confidentiality of Alcohol and Drug Abuse Patient Records regulations: The Federal rules restrict any use of the information to criminally investigate or prosecute any alcohol or drug abuse patient.[facility] HospitalIn the event this information is protected by the Federal Confidentiality of Alcohol and Drug Abuse Patient Records regulations: The Federal rules restrict any use of the information to criminally investigate or prosecute any alcohol or drug abuse patient.[facility] HospitalIn the event this information is protected by the Federal Confidentiality of Alcohol and Drug Abuse Patient Records regulations: The Federal rules restrict any use of the information to criminally investigate or prosecute any alcohol or drug abuse patient.[facility] HospitalIn the event this information is protected by the Federal Confidentiality of Alcohol and Drug Abuse Patient Records regulations: The Federal rules restrict any use of the information to criminally investigate or prosecute any alcohol or drug abuse patient.[facility] HospitalIn the event this information is protected by the Federal Confidentiality of Alcohol and Drug Abuse Patient Records regulations: The Federal rules restrict any use of the information to criminally investigate or prosecute any alcohol or drug abuse patient.[facility] HospitalIn the event this information is protected by the Federal Confidentiality of Alcohol and Drug Abuse Patient Records regulations: The Federal rules restrict any use of the information to criminally investigate or prosecute any alcohol or drug abuse patient.[facility] HospitalIn the event this information is protected by the Federal Confidentiality of Alcohol and Drug Abuse Patient Records regulations: The Federal rules restrict any use of the information to criminally investigate or prosecute any alcohol or drug abuse patient.[facility] HospitalIn the event this information is protected by the Federal Confidentiality of Alcohol and Drug Abuse Patient Records regulations: The Federal rules restrict any use of the information to criminally investigate or prosecute any alcohol or drug abuse patient.[facility] Reason for Visit (unrecogniz ed section and content) ReasonCommentsPainSpecialtyDiagnoses / ProceduresReferred By ContactReferred To ContactNeurology Diagnoses Paresthesia of right upper extremity Arm weakness Numbness Arm pain, right Procedures EMG AND NERVE CONDUCTION STUDY Cali Medreos, LEONORA [address] [facility] [address] [place] [address] Phone: tel: fax: Nai Carlin, DO [address] [facility] [place] [address] Phone: tel: fax: Referral IDStatusReasonStart DateExpiration DateVisits RequestedVisits [id number] Perform Procedure [id number] CancerReasonOnset DateComments auytzkena74/11/2024SpecialtyDiagnoses / ProceduresReferred By ContactReferred To ContactRadiation Oncology / RADIATION ONCOLOGY Diagnoses Malignant neoplasm of prostate Seed Implant at [facility] BRACHYSEED 1FX Procedures INTERSTITIAL RADIATION SOURCE APPLIC COMPLEX SEED IMPLANT BRACHYSEED 1FX Brigette uMrry MD [address] [place] [address] [place] [address] Brigette Murry MD [address] [place] [address] [place] [address] Referral IDStatusReasonStart DateExpiration DateVisits RequestedVisits [id number] Question Appointment FOR RECORDS PERTAINING TO PATIENTS WHO ARE [...] BE BASED ON THE PRIMARY CLINICAL RECORDS. [employer] [facility]. provides no warranty or guarantee of the accuracy or completeness of information in this document.
--- OUTSIDE RECORDS SUMMARY | 2025-09-19 08:49 | XMS_ITS | Clinical Summary ---
Author Organization [facility] Address [address] [place] [id number] Care Team Providers Care [employer] Paralegal Name Role Phone Chetan Medellin MD Primary Care Provider [phone] Allergies Active AllergyReactionsCriticalityNoted DateCommentsPenicillinsAnaphylaxis 09/13/2024 Medications MedicationSigDispense QuantityRefillsLast FilledStart DateEnd DateStatus ALPRAZolam (XANAX) 1 mg tablet Take 0.5 mg by mouth two times a day.09/03/2024ctive atorvastatin (LIPITOR) 40 mg tablet Take 40 mg by mouth once daily.05/11/2021ctive desvenlafaxine ER (PRISTIQ) 100 mg 24 hr tablet Take 1 tablet by mouth every afternoon.07/24/2024ctive doxazosin (CARDURA) 8 mg tablet Take 8 mg by mouth once daily.Active sildenafil (VIAGRA) 100 mg tablet Take 100 mg by mouth once daily as needed.Active traZODone (DESYREL) 50 mg tablet Take by mouth.11/17/2020ctive triamcinolone acetonide (KENALOG) 0.1 % cream Refill(s) ctive ubidecarenone Q-10 (COENZYME Q-10) 50 mg capsule Take 50 mg by mouth.Active aspirin 81 mg cap Take by mouth.Active tamsulosin (FLOMAX) 0.4 mg Take 0.4 mg by mouth two times a week.Active oxybutynin XL (DITROPAN XL) 5 mg 24 hr tablet Take 5 mg by mouth.02/22/2025tive Encounters DateTypeDepartmentCare EreyRaugietbnzg03/29/2025 9:45 AM EDTOffice Visit Radiation Oncology [address] [place] [place] [address] Brigette Murry MD Malignant neoplasm of prostate (HCC) (Primary Dx)08/28/2025Social Work Hematology/Oncology [address] [place] [place] [address] Nay Estrada LSW 08/14/2025Travelfrom Last 3 Months Social History Tobacco UseTypesPacks/DayYears UsedDateSmoking Tobacco: Some DaysCigarettes Smokeless Tobacco: Never Tobacco Cessation:Ready to Q uit: Not Asked; Counseling Given: Not Answered Alcohol UseStandard Drinks/WeekCommentsNot Currently0 (1 standard drink = 0.6 oz pure alcohol)PHQ-2AnswerDate RecordedPHQ-2 fjmze218rea Deprivation IndexAnswerDate RecordedNational Score (1-100), lower number is lower risk87 09/13/2024State Score (1-10), lower number is lower azis26811/13/2023ata from: https://www.neighborhoodatlas.[facility]/. Last address used for yydsmxlolse[address]09/13/2024Sex and Gender InformationValueDate Recorded Sex Assigned at BirthNot on fileLegal LljVqck36/02/2012 10:09 AM ESTGender IdentityNot on fileSexual OrientationNot on file Last Filed Vital Signs Vital SignReadingTime TakenCommentsBlood Tnlrnzyz038/7910 9:33 AM EDT Xrtnr053708/28/2025 9:33 AM HFEFvljatqbzbd13.2 ??C (97.2 ??F)08/28/2025 9:33 AM EDTRespiratory Zcuc5741 9:33 AM EDTOxygen Wuzwgrywtl80%08/28/2025 9:33 AM EDTInhaled Oxygen Concentration--Wmrmrf64.5 kg (170 lb 13.7 oz)08/28/2025 9:33 AM FZDPjzpla237.5 cm (5' 7.5 )09/13/2024 9:13 AM ESTBody Mass Index26.36 09/13/2024 9:13 AM EST Plan of Treatment DateTypeDepartmentCare Team (Latest Contact Info)Ipxyqlaxjqy83/22/2026 8:00 AM EDTOffice Visit [facility] [address] [place] [place] [address] PSA lab02/26/2026 10:15 AM EDTOffice Visit Radiation Oncology [address] [place] [place] [address] Brigette Murry MD [address] [place] [place] [address] 6 month follow upHealth MaintenanceDue DateLast DoneCommentsAnxiety Screening 1982Depression Aatnbasoz92/27/1982DTaP,Tdap,Td Vaccine (1 - Tdap) 1983Pneumococcal Vaccine: 50+ (1 of 2 - PCV)1983CT Colonography 2009Cologuard (FIT-DNA)07/27/20094142Cdqdihguddo92/27/2009Colorectal Cancer Dipwhrzdc65/27/2009Fecal Occult Blood07/27/20098100Mxcziuqpgmszv58/27/2009Shingrix Vaccine (1 of 2)2014Diabetes Yzmbujfok01/09/589532/ovid-19 Vaccine (3 - 2024- season)508/, 05/16/2021Influenza Vaccine (#1) 2025Lipid Rlhxpjlxx82/09/367758/rostate Cancer Screening Xwwvcxrrss11, 05/20/2025, 02/13/2025, Additional history existsRSV Vaccine (1 - 1-dose 75+ series)2039HIV ScreeningCompleted 05/08/2021Hepatitis C AhbpwjtxmEvrkcrpeq00/09/2021 Procedures Procedure NamePriorityDate/TimeAssociated DiagnosisCommentsPSA/PROSTSPECAG DIAG Wtpxodi2708/21/2025 8:06 AM EDT Malignant neoplasm of prostate (HCC) EXTERNAL LAB08/20/2025 4:19 PM EDT from Last 3 Months Results * PROSTATE-SPECIFIC ANTIGEN DIAGNOSTIC (08/21/2025 8:06 AM EDT)ComponentValueRef RangeTest MethodAnalysis TimePerformed AtPathologist SignaturePSA1.47<2.60 ng/mL08/21/2025 8:05 PM EDTCPAULDING COUNTY HOSPITAL MAIN LABComment:Total PSA test methodology used is the Electrochemiluminescence Immunoassay by [employer]. Total PSA values by differing methodologies cannot be interchanged.Specimen (Source)Anatomical Location / LateralityCollection Method / VolumeCollection TimeReceived TimeBloodBLOOD SPECIMEN / Unknown Venipuncture / Umbpedt5808/21/2025 8:06 AM EDT1 8:07 AM EDT Narrative Authorizing ProviderResult TypeResult StatusG David Murry MDLABORATORYFinal ResultPerforming OrganizationAddressCity/State/ZIP CodePhone Number [facility] [address] * EXTERNAL LAB (08/20/2025 4:19 PM EDT) Narrative Authorizing ProviderResult TypeResult StatusExternal Provider PA-CLABORATORY Final Result from Last 3 Months Care Teams Team MemberRelationshipSpecialtyStart DateEnd Chetan Medellin MD [address] [place] [address] PCP - GeneralFamily Pkhpfwsk78/4/24
--- NOTE | 2025-09-19 09:02 | XR_ITS ---
The [address] [address] Patient Name: BHAVIN WHEATLEY MRN: [id number] date: 1965 Sex: M Assigned Patient Location: [facility] Current Patient Location: [facility] Accession/Order Number: [id number] Exam Date: 09/19/2025 09:15 Report Date: 09/19/2025 09:42 At the request of: KAMALJIT JACOBSEN MD Procedure: XR chest 2V PA AND LATERAL CHEST: CLINICAL HISTORY: Cough for the past 6 months J18.9 COMPARISON: CT chest 07/27/2024 There is no focal parenchymal consolidation, effusion or pneumothorax. The cardiac, hilar and mediastinal silhouettes are within normal limits. There is no vascular congestion. The visualized bony thorax is intact. Mild endplate spurring is seen at the spine. XR/XR chest 2V IMPRESSION: NO ACUTE CARDIOPULMONARY ABNORMALITY. Impression dictated by: Neetu De La Garza M.D. 09/19/2025 9:42 AM Dictation Location: [place] [address] Electronically authenticated by: [id number] Y Date: 09/19/2025 09:42
== END 2025-09-19 08:42 | disposition home or self-care (01) ==
PROVIDERS: PCP Family Medicine; Visit Provider Family Medicine
DX: J18.9 Pneumonia, unspecified organism (principal)
CPT/HCPCS: 71046